=== PATIENT | female | born 1935 | race Caucasian/White ===

== ENCOUNTER 2023-04-12 15:23 | Outpatient (OUT) | payer OTHER, SELFPAY ==
--- NOTE | 2023-04-12 | XR_ITS ---
The [address] [address] Patient Name: DONA NAGY MRN: [id number] date: 1935 Sex: F Assigned Patient Location: LAB Current Patient Location: LAB Accession/Order Number: [id number] Exam Date: 04/12/2023 15:51 Report Date: 04/13/2023 06:29 At the request of: JAAD LOWE Procedure: XR hip MINI EXAMINATION: XR hip MINI HISTORY: Acute hip Pain, M25.559 COMPARISON: No relevant comparison available. FINDINGS: RIGHT FINDINGS: BONES: Normal. No significant arthropathy or acute abnormality. SOFT TISSUES: Negative. No visible soft tissue swelling. OTHER: Suture line in the low pelvis. LEFT FINDINGS: BONES: Normal. No significant arthropathy or acute abnormality. SOFT TISSUES: Negative. No visible soft tissue swelling. OTHER: Negative. IMPRESSION: RIGHT CONCLUSION: No acute radiographic abnormality LEFT CONCLUSION: No acute radiographic abnormality Electronically authenticated by: DAVID MERCADO Date: 04/13/2023 06:29
--- NOTE | 2023-04-12 15:50 | XR_ITS ---
The [address] [address] Patient Name: DONA NAGY MRN: [id number] date: 1935 Sex: F Assigned Patient Location: LAB Current Patient Location: LAB Accession/Order Number: [id number] Exam Date: 04/12/2023 15:51 Report Date: 04/13/2023 07:08 At the request of: JADA LOWE Procedure: XR abdomen 1V EXAMINATION: XR abdomen 1V HISTORY: Emesis, R11.10 COMPARISON: No relevant comparison available. FINDINGS: BOWEL GAS PATTERN: No abnormal dilation or deviation. CALCIFICATIONS: None significant. OTHER: Moderate degenerative changes with rotatory dextrocurvature. No abnormal gaseous collections. Suture line in the pelvis. Pelvic calcifications likely vascular phleboliths IMPRESSION: Nonobstructive bowel gas pattern Electronically authenticated by: DAVID MERCADO Date: 04/13/2023 07:08
[2023-04-12 15:54] LABS: Basophils Absolute Auto 0.1 10^3/uL (0.0-0.1); Basophils Percent Auto 0.7 % (0.2-2.0); Eosinophils Absolute Auto 0.1 10^3/uL (0.0-0.7); Eosinophils Percent Auto 1.1 % (0.9-7.0); Hematocrit 39.6 % (36.0-48.0); Hemoglobin 13.3 g/dL (12.0-16.0); Immature Granulocytes Abs Auto 0.03 10^3/uL (0.00-0.03); Immature Granulocytes Pct Auto 0.3 % (0.0-0.5); Lymphocytes Absolute Auto 4.4 10^3/uL (1.2-3.8); Lymphocytes Percent Auto 37.7 % (20.5-60.0); Mean Corpuscular HGB Conc 33.6 g/dL (29.9-35.2); Mean Corpuscular Hemoglobin 32.9 pg (26.7-34.0); Mean Platelet Volume 9.4 fL (9.5-13.5); Monocytes Percent Auto 8.8 % (1.7-12.0); Neutrophils Percent Auto 51.4 % (43.0-75.0); Platelet Count 302 10^3/uL (150-450); Red Blood Count 4.04 10^6/uL (4.20-5.40); Red Cell Distribution Width 14.5 % (11.0-15.0); White Blood Count 11.7 10^3/uL (4.0-11.0)
[2023-04-12 16:47] LABS: Alanine Aminotransferase 19 U/L (14-59); Albumin Level 3.9 g/dL (3.4-5.0); Alkaline Phosphatase 61 U/L (46-116); Amylase 100 U/L (25-115); Anion Gap 15.3; Aspartate Amino Transferase 18 U/L (15-37); BUN Creatinine Ratio 27.6; Bilirubin Total 0.3 mg/dL (0.2-1.0); Calcium 10.9 mg/dL (8.5-10.1); Carbon Dioxide 23.3 mmol/L (21.0-32.0); Chloride 104 mmol/L (98-107); Estimated GFR (African America 45 (>=60); Estimated GFR (Non-African Ame 37 (>=60); Globulin 3.9 g/dL; Glucose 104 mg/dL (74-106); Potassium 4.6 mmol/L (3.5-5.1); Sodium 138 mmol/L (136-145); Total Protein 7.8 g/dL (6.4-8.2)
== END 2023-04-12 15:24 ==
LOC: LAB 15:27
PROVIDERS: PCP Family Medicine; Visit Provider Family Medicine
DX: R11.10 Vomiting, unspecified (principal); M25.559 Pain in unspecified hip
CPT/HCPCS: 36415; 73522; 74018; 80053; 81001; 82150; 83690; 85025; 86677

== ENCOUNTER 2023-04-13 11:22 | Outpatient (REF) | payer OTHER, SELFPAY ==
[2023-04-13 12:25] LABS: Bilirubin Urine NEGATIVE (NEGATIVE); Blood Urine NEGATIVE (NEGATIVE); Color Urine LT. YELLOW (YELLOW); Glucose Urine UA NEGATIVE (NEGATIVE); Ketones Urine NEGATIVE (NEGATIVE); Leukocyte Esterase Urine NEGATIVE (NEGATIVE); Nitrite Urine NEGATIVE (NEGATIVE); Protein Urine NEGATIVE (NEG/TRACE); Specific Gravity Urine 1.025 (1.005-1.025); Urobilinogen Urine 0.2 EU/dL (0.2-1.0); pH Urine 5.5 (5.0-9.0)
[2023-04-13 12:26] LABS: Clarity Urine SLIGHTLY CLOUDY (CLEAR)
== END 2023-04-13 11:23 ==
LOC: LAB 11:22
PROVIDERS: PCP Family Medicine; Visit Provider Family Medicine
DX: R11.10 Vomiting, unspecified (principal)
CPT/HCPCS: 81003; 87086; 87150; 87186

== ENCOUNTER 2023-04-14 16:15 | Observation (INO) | payer OTHER, SELFPAY ==
[2023-04-14 16:29] VITALS: BP 138/64; PULSE 69; RESP 16; TEMP 36.1; O2SAT 97; BMI 18.6
--- NOTE | 2023-04-14 17:39 | CT_ITS ---
The [address] [address] Patient Name: DONA NAGY MRN: [id number] date: 1935 Sex: F Assigned Patient Location: LAB Current Patient Location: [place] Accession/Order Number: [id number] Exam Date: 04/14/2023 20:30 Report Date: 04/14/2023 21:22 At the request of: JADA LOWE Procedure: CT abdomen pelvis w con EXAM: CT abdomen pelvis w con HISTORY: recurrent emesis COMPARISON: 04/01/2022 TECHNIQUE: Axial CT imaging was performed through the abdomen and pelvis with intravenous contrast. Multiplanar reformats were performed. Dose reduction techniques were achieved by using automated exposure control and/or adjustment of mA and/or kV according to patient size and/or use of iterative reconstruction technique. FINDINGS: Lung bases: There are mild bibasilar infiltrates, likely representing atelectasis. GI upper: Unremarkable. Liver: Normal size and contour. Gallbladder: Prior cholecystectomy. Biliary system: No intra or extrahepatic biliary ductal dilatation. Pancreas: Unremarkable. Spleen: Normal size. Several calcified splenic granulomas are noted. Adrenal glands: Normal adrenal glands. Kidneys/ureters: There is moderate right hydronephrosis and proximal right hydroureter associated with a 4 mm calculus within the right ureter where it crosses the iliac vessels. No additional intrarenal calculus is appreciated. There is mild left hydronephrosis, though not associated with a ureteral calculus. No left intrarenal calculus is identified. Both kidneys are normal in outline and shape. Vessels: No aneurysmal dilatation of the aorta. Atherosclerotic disease is noted. Lymph Nodes: No lymphadenopathy. Small bowel: No wall thickening or dilatation. Colon: There are several sigmoid diverticuli. Adjacent fat planes are normal. There has been a partial sigmoid resection, with surgical deisy marking the rectal anastomotic site. Appendix: There is a prior history of appendectomy Peritoneal cavity: No free fluid or pneumoperitoneum. Lower : A small calcification is seen at the ureteral bladder orifice. This was also seen on the prior study of one year ago. Bones:Lumbar spondylosis. No acute bony abnormality. Soft tissues: No acute finding. Additional findings: None. IMPRESSION: 4 mm distal right ureteral calculus with resulting moderate upstream obstructive change. No additional right intrarenal calculus is identified. Mild left hydronephrosis. This was not seen on the prior study of one year ago. However, no left ureteral calculus is identified. Sigmoid diverticulosis without CT evidence for diverticulitis. There are findings associated with previous partial sigmoid resection. Mild bibasilar infiltrates, likely originating atelectasis. Electronically authenticated by: Madhu MCWILLIAMS Date: 04/14/2023 21:22
[2023-04-14] MEDS: LACTATED RINGER'S SOLUTION 1,000 ML 125 ML IV (18:16)
[2023-04-14] MEDS: 0.9 % SODIUM CHLORIDE 500 ML 1000 ML IV (18:17)
[2023-04-14] MEDS: METOCLOPRAMIDE HCL 10 MG/2 ML VIAL IVP (18:17)
[2023-04-14 18:21] LABS: Basophils Absolute Auto 0.1 10^3/uL (0.0-0.1); Basophils Percent Auto 0.8 % (0.2-2.0); Eosinophils Absolute Auto 0.1 10^3/uL (0.0-0.7); Hematocrit 39.1 % (36.0-48.0); Hemoglobin 13.3 g/dL (12.0-16.0); Immature Granulocytes Abs Auto 0.02 10^3/uL (0.00-0.03); Immature Granulocytes Pct Auto 0.3 % (0.0-0.5); Lymphocytes Absolute Auto 3.4 10^3/uL (1.2-3.8); Lymphocytes Percent Auto 43.9 % (20.5-60.0); Mean Corpuscular Hemoglobin 33.3 pg (26.7-34.0); Mean Corpuscular Volume 97.8 fL (81.0-99.0); Mean Platelet Volume 9.4 fL (9.5-13.5); Monocytes Absolute Auto 0.7 10^3/uL (0.3-0.8); Monocytes Percent Auto 8.9 % (1.7-12.0); Neutrophils Absolute Auto 3.5 10^3/uL (1.4-6.5); Neutrophils Percent Auto 45.1 % (43.0-75.0); Platelet Count 289 10^3/uL (150-450); Red Cell Distribution Width 14.2 % (11.0-15.0); White Blood Count 7.7 10^3/uL (4.0-11.0)
[2023-04-14 18:29] LABS: Ammonia 14 umol/L (11-32)
[2023-04-14 18:36] LABS: Lactate/Lactic Acid 0.7 mmol/L (0.4-2.0)
[2023-04-14 18:43] LABS: Erythrocyte Sedimentation Rate 31 mm/hr (<=30)
[2023-04-14 18:52] LABS: Alanine Aminotransferase 19 U/L (14-59); Albumin Globulin Ratio 1.1; Alkaline Phosphatase 57 U/L (46-116); Amylase 111 U/L (25-115); Anion Gap 15.9; Aspartate Amino Transferase 20 U/L (15-37); BUN Creatinine Ratio 18.6; Bilirubin Total 0.3 mg/dL (0.2-1.0); Calcium 9.9 mg/dL (8.5-10.1); Carbon Dioxide 25.5 mmol/L (21.0-32.0); Chloride 104 mmol/L (98-107); Creatine Kinase 74 U/L (26-192); Creatine Kinase MB 0.68 ng/mL (<=3.60); Estimated GFR (African America 43 (>=60); Estimated GFR (Non-African Ame 36 (>=60); Globulin 3.7 g/dL; Glucose 102 mg/dL (74-106); Magnesium 2.4 mg/dL (1.8-2.4); Myoglobin 37 ng/mL (9-82); Potassium 4.4 mmol/L (3.5-5.1); Sodium 141 mmol/L (136-145); Total Protein 7.7 g/dL (6.4-8.2); Troponin I High Sensitivity 5.1 pg/mL (4.0-51.3)
[2023-04-14] MEDS: PANTOPRAZOLE SODIUM 40 MG VIAL IV (19:44)
[2023-04-14 20:18] VITALS: O2SAT 95
[2023-04-14] MEDS: CEFTRIAXONE 1,000 MG in 0.9 % SODIUM CHLORIDE 50 ML 1000 MG IV (20:51)
[2023-04-14] MEDS: CIPROFLOXACIN IN 5 % DEXTROSE 400 MG/200 ML PIGGYBACK 200 MG IV (21:37)
[2023-04-14] MEDS: HYOSCYAMINE SULFATE 0.125 MG TAB.SUBL PO (21:41)
[2023-04-15] VITALS (13 sets, daily range): BP systolic 124–156; BP diastolic 52–82; PULSE 73–97; RESP 10–18; TEMP 36.4–36.7; O2SAT 92–97; BMI 18.6
[2023-04-15] MEDS: METOCLOPRAMIDE HCL 10 MG/2 ML VIAL IVP ×5 (00:37→23:18)
[2023-04-15 04:59] LABS: Basophils Absolute Auto 0.1 10^3/uL (0.0-0.1); Basophils Percent Auto 1.1 % (0.2-2.0); Eosinophils Absolute Auto 0.2 10^3/uL (0.0-0.7); Eosinophils Percent Auto 2.1 % (0.9-7.0); Hemoglobin 11.1 g/dL (12.0-16.0); Immature Granulocytes Abs Auto 0.02 10^3/uL (0.00-0.03); Immature Granulocytes Pct Auto 0.3 % (0.0-0.5); Lymphocytes Absolute Auto 3.1 10^3/uL (1.2-3.8); Lymphocytes Percent Auto 42.4 % (20.5-60.0); Mean Corpuscular HGB Conc 32.6 g/dL (29.9-35.2); Mean Corpuscular Hemoglobin 32.5 pg (26.7-34.0); Mean Corpuscular Volume 99.4 fL (81.0-99.0); Mean Platelet Volume 9.9 fL (9.5-13.5); Monocytes Absolute Auto 0.8 10^3/uL (0.3-0.8); Monocytes Percent Auto 11.5 % (1.7-12.0); Neutrophils Absolute Auto 3.1 10^3/uL (1.4-6.5); Neutrophils Percent Auto 42.6 % (43.0-75.0); Platelet Count 244 10^3/uL (150-450); Red Blood Count 3.42 10^6/uL (4.20-5.40); Red Cell Distribution Width 14.5 % (11.0-15.0); White Blood Count 7.2 10^3/uL (4.0-11.0)
[2023-04-15 05:43] LABS: Alanine Aminotransferase 16 U/L (14-59); Albumin Globulin Ratio 0.9; Albumin Level 2.9 g/dL (3.4-5.0); Alkaline Phosphatase 46 U/L (46-116); Amylase 82 U/L (25-115); Anion Gap 13.4; Aspartate Amino Transferase 21 U/L (15-37); BUN Creatinine Ratio 16.4; Bilirubin Total 0.2 mg/dL (0.2-1.0); Calcium 8.9 mg/dL (8.5-10.1); Carbon Dioxide 23.1 mmol/L (21.0-32.0); Chloride 107 mmol/L (98-107); Estimated GFR (African America 54 (>=60); Estimated GFR (Non-African Ame 44 (>=60); Globulin 3.2 g/dL; Glucose 86 mg/dL (74-106); Magnesium 2.1 mg/dL (1.8-2.4); Potassium 4.5 mmol/L (3.5-5.1); Sodium 139 mmol/L (136-145); Total Protein 6.1 g/dL (6.4-8.2)
[2023-04-15] MEDS: OXYBUTYNIN chloride 5 MG TABLET PO ×2 (06:04→18:24)
[2023-04-15] MEDS: LEVOTHYROXINE SODIUM 25 MCG TABLET 50 MCG PO (06:04)
[2023-04-15] MEDS: LACTATED RINGER'S SOLUTION 1,000 ML 125 ML IV ×2 (06:04→18:30)
--- NOTE | 2023-04-15 07:29 | XR_ITS ---
The [address] [address] Patient Name: DONA NAGY MRN: [id number] date: 1935 Sex: F Assigned Patient Location: MS Current Patient Location: MS Accession/Order Number: [id number] Exam Date: 04/15/2023 08:15 Report Date: 04/15/2023 09:12 At the request of: JADA LOWE Procedure: XR abdomen min 2V EXAMINATION: XR abdomen min 2V HISTORY: kidney stone COMPARISON: CT abdomen pelvis 04/14/2023, XR abdomen 04/12/2023, 04/04/2022 FINDINGS: KIDNEY/URETER - RIGHT: No visible renal or ureteral calcifications. KIDNEY/URETER - LEFT: No visible renal or ureteral calcifications. PELVIS: No appreciable ureteral stones. Multiple pelvic calcifications favoring phleboliths. BOWEL: No abnormal dilation or deviation. Oral contrast from prior CT study throughout the colon. Bowel sutures within midline pelvis. BONES: No acute abnormality. OTHER: Negative. No abnormal gaseous collections. IMPRESSION: 1. No appreciable urinary tract calculi. Electronically authenticated by: SULAIMAN MERCEDES Date: 04/15/2023 09:12
--- NOTE | 2023-04-15 07:46 | P.HP_ITS ---
H&P: HPI History of Present Illness Chief complaint: DEHYDRATION Narrative: Patient was seen and evaluated in the office a couple times over the last week or so just with feeling nauseated having recurrent emesis she was able to keep some fluids down but they went to start vomiting, she had right-sided groin desi n. Patient was treated with oral medications without success, we saw her in the office in follow-up yesterday still with the hyperemesis and elected to admit patient for dehydration. Evaluation so far has shown 4 mm right-sided kidney stone Review of Systems ROS Status of ROS 10 or more systems reviewed and unremarkable except as noted in history and below [facility] Medical History (Updated 04/15/23 @ 08:15 by Jose Padilla MD) Surgical History (Updated 04/14/23 @ 16:41 by Kimberly Dunham RN) Family History (Updated 04/14/23 @ 16:42 by Kimberly Dunham RN) Brother Family history of CHF (congestive heart failure) Family history of cancer Family history of diabetes mellitus Sister Family history of diabetes mellitus Mother Family history of diabetes mellitus Social History (Updated 04/14/23 @ 16:46 by Kimberly Dunham RN) Within the past year, how often did you have a drink containing alcohol: never Score interpretation: A score less than 3 is consistent with normal alcohol consumption. Smoking status: Former smoker Non-prescribed substance use: denies use Previous occupational history: Retired from Highest level of school completed/degree received: 10th grade Are you now , , , , never or living with a partner: In a typical week, how many times do you talk on the telephone with family, friends, or neighbors: 3 or more times per week How often do you get together with friends or relatives: 3 or more times per week Little interest or pleasure in doing things: not at all Feeling down, depressed, or hopeless: not at all Feel stressed/tense/nervous/anxious/difficulty sleeping: only a little Do you think of yourself as: straight/heterosexual Gender Identity: female Meds Home Medications and Allergies Home Medications Medication Instructions Recorded Confirmed Type acetaminophen 650 mg 650 mg PO Q8H PRN pain 04/14/23 04/14/23 History tablet,extended release (Tylenol Arthritis Pain) bupropion HCl 150 mg 24 hr tablet, 150 mg PO DAILY 04/14/23 04/14/23 History extended release levothyroxine 50 mcg tablet 50 mcg PO DAILY 04/14/23 04/14/23 History meloxicam 7.5 mg tablet 7.5 mg PO DAILY 04/14/23 04/14/23 History oxybutynin chloride 5 mg tablet 5 mg PO Q12H 04/14/23 04/14/23 History trolamine salicylate 10 % topical 1 applic topical DAILY 04/14/23 04/14/23 History cream (Aspercreme) Allergies Allergy/AdvReac Type Severity Reaction Status Date / Time No Known Drug Allergies Allergy Verified 04/14/23 18:31 Exam Constitutional Vital Signs - 24 hr 04/14/23 16:29 04/14/23 20:18 04/15/23 03:09 Temperature 97.0 F L Pulse Rate 69 Respiratory Rate 16 16 Blood Pressure [Left Arm] 138/64 H Pulse Oximetry 97 95 Oxygen Delivery Method Room Air Room Air 04/15/23 04:20 04/15/23 05:17 Temperature 98 F Pulse Rate 80 Respiratory Rate 18 Blood Pressure [Left Arm] 129/73 H Pulse Oximetry 97 94 L Oxygen Delivery Method Room Air Room Air Common normals: no apparent distress Exam limitations: no altered mental status General appearance: cooperative and comfortable HENMT Common normals: moist oral mucous membranes Chest Common normals: inspection of chest normal Respiratory Common normals: normal respiratory effort Cardio Common normals: regular rate, no gallops, no clicks and no murmurs GI Palpation: soft and tender Extremity Common normals: normal to inspection Results Labs Labs: Short CBC 04/14/23 04/15/23 Range/Units 18:00 04:05 WBC 7.7 7.2 (4.0-11.0) 10^3/uL Hgb 13.3 11.1 L (12.0-16.0) g/dL Hct 39.1 34.0 L (36.0-48.0) % Plt Count 289 244 (150-450) 10^3/uL [facility] 04/14/23 04/15/23 18:00 04:05 Sodium 141 139 Potassium 4.4 4.5 Chloride 104 107 Carbon Dioxide 25.5 23.1 BUN 26.0 H 19.0 H Creatinine 1.40 H 1.16 H Glucose 102 86 Calcium 9.9 8.9 Cardiac Enzymes 04/14/23 Range/Units 18:00 Total Creatine Kinase 74 (26-192) U/L CK-MB (CK-2) 0.68 (<=3.60) ng/mL Liver Function 04/14/23 04/15/23 Range/Units 18:00 04:05 Total Bilirubin 0.3 0.2 (0.2-1.0) mg/dL AST 20 21 (15-37) U/L ALT 19 16 (14-59) U/L Alkaline Phosphatase 57 46 (46-116) U/L Albumin 4.0 2.9 L (3.4-5.0) g/dL Assessment and Plan Assessment and Plan (1) Hypothyroid: (2) Right nephrolithiasis: (3) Hydronephrosis of right kidney: (4) Iron deficiency anemia: (5) Acute urinary tract infection: (6) Dehydration: Plan Leukocytosis, right flank pain, recurrent emesis with dehydration secondary to 4 mm right-sided distal ureter kidney stone with moderate hydronephrosis, positive urine culture with Klebsiella pneumonia-patient started on antibiotics yesterday, consultation to urology for evaluation and possible stone removal today. Discussed with daughter Iron deficiency anemia monitor daily Acute kidney injury secondary to dehydration-improving Moderate protein calorie malnutrition-diet management Maintain observation status for now, patient likely to have difficult course post stone removal with high risk for sepsis secondary to Klebsiella pneumonia in the stone, 1 additional midnight stay may be necessary for medical management.
--- NOTE | 2023-04-15 08:13 | ECG_ITS ---
The [facility] Test Date: 2023-04-15 Pat Name: Brit Rodriguez Department: Room: Gender: Female [employer] Machine: : 1935 Requested By: JADA LOWE Order Number: [id number] Reading MD: JADA LOWE Measurements Intervals [place] Rate: 79 P: 63 ND: 162 QRS: 39 QRSD: 69 T: 44 QT: 364 QTc: 418 Interpretive Statements SINUS RHYTHM NONSPECIFIC T-WAVE ABNORMALITY No previous ECG available for comparison Electronically Signed On 04-16-2023 7:04:19 EDT by JADA LOWE
[2023-04-15] MEDS: CIPROFLOXACIN IN 5 % DEXTROSE 400 MG/200 ML PIGGYBACK 200 MG IV ×2 (08:31→18:25)
[2023-04-15] MEDS: HYOSCYAMINE SULFATE 0.125 MG TAB.SUBL PO ×3 (08:31→19:44)
--- NOTE | 2023-04-15 09:10 | XR_ITS ---
The [address] [address] Patient Name: DONA NAGY MRN: [id number] date: 1935 Sex: F Assigned Patient Location: MS Current Patient Location: MS Accession/Order Number: [id number] Exam Date: 04/15/2023 09:10 Report Date: 04/15/2023 09:46 At the request of: ALMA ROSA GRANT Procedure: XR chest 2V EXAMINATION: XR chest 2V HISTORY: SOB ; presurgical evaluation COMPARISON: XR abdomen with PA chest 04/04/2022 FINDINGS: LUNGS: Hyperexpanded lungs. No appreciable infiltrates or mass. Stable opacities filling the cardio-diaphragmatic angle favoring prominent pericardial fat pads. VASCULATURE: No increased pulmonary vasculature. PLEURA: No pneumothorax, effusion, or pleural thickening. CARDIAC: No cardiomegaly or cardiac silhouette abnormality. MEDIASTINUM: No visible mass or adenopathy. BONES: No fracture or visible bone lesion. OTHER: Negative. IMPRESSION: 1. No acute cardiopulmonary process. 2. Hyperexpanded lungs compatible with COPD. Electronically authenticated by: SULAIMAN MERCEDES Date: 04/15/2023 09:46
--- NOTE | 2023-04-15 12:21 | SWNOTE1 ---
SW met with pt and daughter in room to discuss dc needs. Pt lives at home by herself, has good family support to check on her. Pt does admit to having falls at home, she stated she just lays down on the ground. Pt uses a walker at home, her daughter stated family did get her a life alert button as well. Daughter did discuss code status with SW, currently pt is a full code, which is what they want. SW advised to talk with PCP if any other questions. Daughter did have POA and living will information. SW spoke with them about the possibility of home health coming in. Physical therapy did stop in earlier, but pt was getting testing done. SW let pt and daughter know we will see how therapy eval goes and then determine dc needs. SW did bring up possibility of rehab, depending on how pt does.
--- NOTE | 2023-04-15 16:45 | P.CN_ITS ---
Consult Note: HPI Data of Consult Patient: new to practice Consult date: 04/15/23 Requesting Physician: Jose Padilla MD Primary Care Provider: Jose Padilla MD Consult Narrative Reason for consult: urinary tract infection and ureteral calculus Narrative: this lady started having acute right sided back pain a couple months ago. She developed nausea and right groin pain within the last few weeks. She was admitted to the hospital and found to have a urinary tract infection and 4 mm right distal ureteral calculus. She has been on Rocephin and Cipro. Urology was consulted for the above reasons. Upon questioning her further she states that she began having right-sided pain a couple months ago. She also had bouts of syncope. Her 1st urinary infection was about a year ago cc:: CC: Jose Padilla MD Review of Systems ROS Status of ROS 10 or more systems reviewed and unremarkable except as noted in history and below [facility] Medical History Surgical History Family History Brother Family history of CHF (congestive heart failure) Family history of cancer Family history of diabetes mellitus Sister Family history of diabetes mellitus Mother Family history of diabetes mellitus Social History Within the past year, how often did you have a drink containing alcohol: never Score interpretation: A score less than 3 is consistent with normal alcohol consumption. Smoking status: Former smoker Non-prescribed substance use: denies use Previous occupational history: Retired from Highest level of school completed/degree received: 10th grade Are you now , , , , never or living with a partner: In a typical week, how many times do you talk on the telephone with family, friends, or neighbors: 3 or more times per week How often do you get together with friends or relatives: 3 or more times per week Little interest or pleasure in doing things: not at all Feeling down, depressed, or hopeless: not at all Feel stressed/tense/nervous/anxious/difficulty sleeping: only a little Do you think of yourself as: straight/heterosexual Gender Identity: female Meds Home Medications and Allergies Home Medications Medication Instructions Recorded Confirmed Type acetaminophen 650 mg 650 mg PO Q8H PRN pain 04/14/23 04/14/23 History tablet,extended release (Tylenol Arthritis Pain) bupropion HCl 150 mg 24 hr tablet, 150 mg PO DAILY 04/14/23 04/14/23 History extended release levothyroxine 50 mcg tablet 50 mcg PO DAILY 04/14/23 04/14/23 History meloxicam 7.5 mg tablet 7.5 mg PO DAILY 04/14/23 04/14/23 History oxybutynin chloride 5 mg tablet 5 mg PO Q12H 04/14/23 04/14/23 History trolamine salicylate 10 % topical 1 applic topical DAILY 04/14/23 04/14/23 History cream (Aspercreme) Allergies Allergy/AdvReac Type Severity Reaction Status Date / Time No Known Drug Allergies Allergy Verified 04/14/23 18:31 Exam Narrative Exam Narrative: she is resting comfortably in her hospital bed. She is in no acute distress. Her abdomen is soft and tender in the right lower quadrant and the rright CVA. No masses are palpable. Constitutional Vital Signs - 24 hr 04/14/23 20:18 04/15/23 03:09 04/15/23 04:20 Temperature Pulse Rate Respiratory Rate 16 Blood Pressure [Left Arm] Pulse Oximetry 95 97 Oxygen Delivery Method Room Air Room Air Fraction of Inspired Oxygen 04/15/23 05:17 04/15/23 09:47 04/15/23 14:16 Temperature 98 F 97.6 F Pulse Rate 80 97 H Respiratory Rate 18 16 Blood Pressure [Left Arm] 129/73 H 142/82 H Pulse Oximetry 94 L 94 L Oxygen Delivery Method Room Air Room Air Room Air Fraction of Inspired Oxygen 95 Results Labs Labs: Short CBC 04/14/23 04/15/23 Range/Units 18:00 04:05 WBC 7.7 7.2 (4.0-11.0) 10^3/uL Hgb 13.3 11.1 L (12.0-16.0) g/dL Hct 39.1 34.0 L (36.0-48.0) % Plt Count 289 244 (150-450) 10^3/uL BMP 04/14/23 04/15/23 18:00 04:05 Sodium 141 139 Potassium 4.4 4.5 Chloride 104 107 Carbon Dioxide 25.5 23.1 BUN 26.0 H 19.0 H Creatinine 1.40 H 1.16 H Glucose 102 86 Calcium 9.9 8.9 Cardiac Enzymes 04/14/23 Range/Units 18:00 Total Creatine Kinase 74 (26-192) U/L CK-MB (CK-2) 0.68 (<=3.60) ng/mL Liver Function 04/14/23 04/15/23 Range/Units 18:00 04:05 Total Bilirubin 0.3 0.2 (0.2-1.0) mg/dL AST 20 21 (15-37) U/L ALT 19 16 (14-59) U/L Alkaline Phosphatase 57 46 (46-116) U/L Albumin 4.0 2.9 L (3.4-5.0) g/dL Assessment and Plan Assessment and Plan (1) Hypothyroid: (2) Right nephrolithiasis: Assessment and Plan: by CT scan, she has a 4 mm right distal ureteral calculus causing ipsilateral hydronephrosis and probably her urinary tract infection. Follow-up KUB x-ray today does not reveal a half and the stone in the area. since she is still having right flank pain and she is tender by exam and she has a urinary tract infection, we're going to do cystoscopy, right ureteroscopy, possible stone manipulation and right stent placement. This has been reviewed with the patient and her daughter. They are in agreement with proceeding with this plan. Over 30 minutes of clinical time was spent talking with the family doctor, daughter and the patient, reviewing her chart and x-ray films and examining the patient. Thank you for letting me take part in her care. (3) Hydronephrosis of right kidney: (4) Iron deficiency anemia: (5) Acute urinary tract infection: (6) Dehydration: Plan Leukocytosis, right flank pain, recurrent emesis with dehydration secondary to 4 mm right-sided distal ureter kidney stone with moderate hydronephrosis, positive urine culture with Klebsiella pneumonia-patient started on antibiotics ye day, consultation to urology for evaluation and possible stone removal today. Discussed with daughter Iron deficiency anemia monitor daily Acute kidney injury secondary to dehydration-improving Moderate protein calorie malnutrition-diet management Maintain observation status for now, patient likely to have difficult course post stone removal with high risk for sepsis secondary to Klebsiella pneumonia in the stone, 1 additional midnight stay may be necessary for medical management.
--- NOTE | 2023-04-15 16:56 | P.URON_ITS ---
Urology Surgery Operative Note Operative Note Procedure Date: 04/15/23 Time Out Performed: yes Pre-op Diagnosis: right flank pain and right distal ureteral calculus Post-op Diagnosis: passed right distal ureteral calculus and right distal ureteral stenosis Procedures performed: #1. Cystoscopy. #2. Right rigid ureteral dilation. #3. Right ureteroscopy. #4.placement of 6 Belgian variable length right ureteral stent Anesthesia: other (Gen. by LMA) Primary Surgeon: Shadi Sorto Complications: non- Estimated blood loss (mL): 0 Findings: #1. Distal right ureteral stricture. #2. No evidence of ureteral calculus. Specimens: non- Drains: none Indications for Procedures: this lady has right flank pain, urinary tract infection and 4 mm right distal u reteral calculus. She now presents for cystoscopy right ureteroscopy, possible stone manipulation and stent placement. She has signed an informed consent for these procedures after all the risks were explained to her. Detailed description of Procedure: The patient was brought to the operating room and placed on the operating room table in the supine position. SCDs were placed on the lower extremities and turned on and functioning during the entire case. Timeout was done by all parties in the room. We all agreed upon the patient's identification and the planned procedures for this patient. Genn. anesthesia was then administered. The patient was then repositioned into the modified dorsal lithotomy position. All pressure points were satisfactorily padded. Genitalia were sterilely prepped and draped in usual fashion.I started by passing a 22 Belgian Olympus cystoscope per urethra and into the bladder. Panendoscopy in the bladder showed no evidence of any tumors or stones. I then passed a Glidewire through the scope and cannulated the right ureter. The wire went up to the kidney without difficulty. There was an immediate E flux of cloudy urine within the bladder. I then passed a 8 and 10 Belgian rigid dilator to dilate the distal ureter. This was somewhat difficult due to a stricture being present.. The scope was removed. I then passed a semirigid ureteroscope adjacent to the wire through the urethra into the bladder and into the right ureter. I then ascended up to the L5 level and back. There was no evidence of any stone. In the distal 2 cm of the ureter there was a stricture that was now dilated. The scope was removed. I then backloaded the cystoscope over the wire and passed it into the bladder. I then slid a 6 Belgian variable length ureteral stent over the wire up into the right kidney. The wire was removed and there were good curls in the kidney and in the bladder. The bladder was drained of its contents and the scope was then removed. She was then transferred to a [facility] bed and wheeled to PACU in stable condition.
[2023-04-15] MEDS: PANTOPRAZOLE SODIUM 40 MG VIAL IV (19:43)
[2023-04-15] MEDS: CEFTRIAXONE 1,000 MG in 0.9 % SODIUM CHLORIDE 50 ML 100 MG IV (19:44)
[2023-04-15] MEDS: ACETAMINOPHEN 500 MG TABLET PO (19:54)
--- NOTE | 2023-04-15 20:27 | PC.NURSE ---
light pink/ reddish
[2023-04-16 01:51] LABS: Bilirubin Urine NEGATIVE (NEGATIVE); Blood Urine LARGE (NEGATIVE); Clarity Urine CLEAR (CLEAR); Color Urine LT. YELLOW (YELLOW); Glucose Urine UA 100 mg/dL (NEGATIVE); Ketones Urine TRACE mg/dL (NEGATIVE); Leukocyte Esterase Urine NEGATIVE (NEGATIVE); Nitrite Urine NEGATIVE (NEGATIVE); Protein Urine 30 mg/dL (NEG/TRACE); Specific Gravity Urine 1.015 (1.005-1.025); Urobilinogen Urine 0.2 EU/dL (0.2-1.0); pH Urine 7.5 (5.0-9.0)
[2023-04-16 01:57] LABS: Bacteria Urine NONE SEEN #/HPF (NONE SEEN); Cast Seen? NONE SEEN #/LPF (NONE SEEN); Crystals Seen? None Seen #/HPF (None Seen); Mucus Urine NONE SEEN (NONE SEEN); RBC Urine 20-50 #/HPF (0-2); Squamous Epithelial Cell Urine RARE #/LPF (NONE/RARE); WBC Urine NONE SEEN #/HPF (NONE SEEN)
[2023-04-16 01:58] LABS: Urine Culture Indicated NO
[2023-04-16] MEDS: LACTATED RINGER'S SOLUTION 1,000 ML 125 ML IV (02:50)
[2023-04-16 04:16] VITALS: O2SAT 92
[2023-04-16 05:02] LABS: Basophils Percent Auto 0.2 % (0.2-2.0); Hematocrit 33.4 % (36.0-48.0); Hemoglobin 11.1 g/dL (12.0-16.0); Immature Granulocytes Abs Auto 0.02 10^3/uL (0.00-0.03); Immature Granulocytes Pct Auto 0.4 % (0.0-0.5); Lymphocytes Absolute Auto 1.7 10^3/uL (1.2-3.8); Lymphocytes Percent Auto 30.6 % (20.5-60.0); Mean Corpuscular HGB Conc 33.2 g/dL (29.9-35.2); Mean Corpuscular Volume 99.4 fL (81.0-99.0); Monocytes Absolute Auto 0.3 10^3/uL (0.3-0.8); Monocytes Percent Auto 6.1 % (1.7-12.0); Neutrophils Absolute Auto 3.4 10^3/uL (1.4-6.5); Neutrophils Percent Auto 62.7 % (43.0-75.0); Platelet Count 249 10^3/uL (150-450); Red Blood Count 3.36 10^6/uL (4.20-5.40); White Blood Count 5.4 10^3/uL (4.0-11.0)
[2023-04-16] MEDS: METOCLOPRAMIDE HCL 10 MG/2 ML VIAL IVP (05:20)
[2023-04-16 05:23] LABS: Alanine Aminotransferase 17 U/L (14-59); Albumin Level 3.1 g/dL (3.4-5.0); Alkaline Phosphatase 47 U/L (46-116); Aspartate Amino Transferase 19 U/L (15-37); BUN Creatinine Ratio 11.2; Bilirubin Total 0.2 mg/dL (0.2-1.0); Calcium 9.1 mg/dL (8.5-10.1); Carbon Dioxide 25.2 mmol/L (21.0-32.0); Chloride 106 mmol/L (98-107); Estimated GFR (African America 49 (>=60); Estimated GFR (Non-African Ame 41 (>=60); Globulin 3.1 g/dL; Glucose 139 mg/dL (74-106); Potassium 4.2 mmol/L (3.5-5.1); Sodium 139 mmol/L (136-145); Total Protein 6.2 g/dL (6.4-8.2)
[2023-04-16 05:40] VITALS: BP 133/68; PULSE 88; RESP 18; TEMP 36.8; O2SAT 91
[2023-04-16] MEDS: OXYBUTYNIN chloride 5 MG TABLET PO (05:41)
[2023-04-16] MEDS: LEVOTHYROXINE SODIUM 25 MCG TABLET 50 MCG PO (05:41)
--- NOTE | 2023-04-16 07:50 | P.DS_ITS ---
DS: Providers Provider Date of admission: 04/14/23 16:15 Primary care physician: Jose Padilla MD Consults: 04/14/23 17:39 Physical Therapy Eval and Treat Routine 04/15/23 07:29 Consult to Urology Routine Consulting Provider: Shadi Sorto DS: Diagnosis Discharge Diagnosis (1) Hypothyroid: (2) Right nephrolithiasis: (3) Hydronephrosis of right kidney: (4) Iron deficiency anemia: (5) Acute urinary tract infection: (6) Dehydration: Plan Leukocytosis, right flank pain, recurrent emesis with dehydration secondary to 4 mm right-sided distal ureter kidney stone with moderate hydronephrosis, positive urine culture with Klebsiella pneumonia Iron deficiency anemia Acute kidney injury secondary to dehydration Moderate protein calorie malnutrition DS: Summary Hospital Course Hospital Course: Patient was treated as an outpatient for recurrent nausea vomiting, unable to control emesis as an outpatient laboratory evaluation 2 days prior to admission was really unremarkable, abdominal series also unremarkable, continued to have symptoms and unable to eat patient was admitted given IV fluids CT scan of the abdomen pelvis showed a 4 mm distal right ureteral stone with moderate hydronephrosis, urine culture taken 2 days prior to admission came back as positive for Klebsiella pneumonia, patient was placed on IV antibiotics in the hospital, consultation to urology, patient was taken to the operating room yesterday, there was no stone was found but did have a stricture, so patient michelle arently passed the stone from the time of admission to procedure time, needed cystoscopy anyway secondary to the stricture. Stent was placed, will be managed as an outpatient, patient overall is improved, she does need to document ability to eat before being discharged. If she tolerates breakfast and lunch to be discharged home in improving condition. Medications see list. Follow-up with me next week in urology per protocol Status at Discharge Cognitive/behavioral status at discharge: Stable Functional status at discharge: uses cane/walker Time Spent with Patient Time attestation: Total time spent providing and/or coordinating discharge services: Exam Constitutional Vital Signs - 24 hr 04/15/23 09:47 04/15/23 14:16 04/15/23 16:48 Temperature 97.6 F 98.0 F Pulse Rate 97 H 82 Respiratory Rate 16 10 L Blood Pressure 138/55 H Blood Pressure [Left Arm] 142/82 H Pulse Oximetry 94 L 97 Oxygen Delivery Method Room Air Room Air Room Air Fraction of Inspired Oxygen 95 04/15/23 17:03 04/15/23 16:55 04/15/23 17:00 Temperature Pulse Rate 78 78 Respiratory Rate 12 12 Blood Pressure 139/52 H 137/52 H Blood Pressure [Left Arm] Pulse Oximetry 93 L 95 Oxygen Delivery Method Room Air Fraction of Inspired Oxygen 04/15/23 17:17 04/15/23 17:05 04/15/23 17:10 Temperature Pulse Rate 81 80 Respiratory Rate 12 12 Blood Pressure 143/59 H 146/57 H Blood Pressure [Left Arm] Pulse Oximetry 97 96 Oxygen Delivery Method Room Air Fraction of Inspired Oxygen 04/15/23 17:15 04/15/23 17:34 04/15/23 20:05 Temperature 98.0 F Pulse Rate 73 79 Respiratory Rate 12 18 Blood Pressure 144/62 H Blood Pressure [Left Arm] 156/72 H Pulse Oximetry 97 93 L 93 L Oxygen Delivery Method Room Air Room Air Fraction of Inspired Oxygen 04/15/23 21:46 04/16/23 04:16 04/16/23 05:40 Temperature 98.1 F 98.2 F Pulse Rate 83 88 Respiratory Rate 18 18 Blood Pressure Blood Pressure [Left Arm] 124/66 H 133/68 H Pulse Oximetry 92 L 92 L 91 L Oxygen Delivery Method Room Air Room Air Room Air Fraction of Inspired Oxygen HENMT Common normals: moist oral mucous membranes Chest Common normals: inspection of chest normal Respiratory Common normals: normal respiratory effort, no use of accessory muscles and clear to auscultation bilaterally Cardio Common normals: no JVD, regular rhythm, S2 normal heart sound and no gallops GI Common normals: Normal to inspection, nondistended, normoactive bowel sounds present, soft to palpation and non-tender DS: Data Data Completed and Pending Labs on day of discharge: Labs from last 24 hours 04/16/23 04/14/23 04/14/23 04:01 18:00 01:40 WBC 5.4 RBC 3.36 L Hgb 11.1 L Hct 33.4 L MCV 99.4 H MCH 33.0 MCHC 33.2 RDW 14.0 Plt Count 249 MPV 10.0 Neut % (Auto) 62.7 Lymph % (Auto) 30.6 [place] % (Auto) 6.1 Eos % (Auto) 0.0 L Baso % (Auto) 0.2 Neut # (Auto) 3.4 Lymph # (Auto) 1.7 [place] # (Auto) 0.3 Eos # (Auto) 0.0 Baso # (Auto) 0.0 Abs Immat Gran (auto) 0.02 Imm/Tot Granulo (auto) 0.4 ESR 31 H Sodium 139 Potassium 4.2 Chloride 106 Carbon Dioxide 25.2 Anion Gap 12.0 BUN 14.0 Creatinine 1.25 H Est GFR ( Amer) 49 L Est GFR (Non-Af Amer) 41 L BUN/Creatinine Ratio 11.2 Glucose 139 H Calcium 9.1 Total Bilirubin 0.2 AST 19 ALT 17 Alkaline Phosphatase 47 Total Protein 6.2 L Albumin 3.1 L Globulin 3.1 Albumin/Globulin Ratio 1.0 Urine Color Lt. yellow Urine Clarity Clear Urine pH 7.5 Ur Specific [place] 1.015 Urine Protein 30 A Urine Glucose (UA) 100 A Urine Ketones Trace A Urine Occult Blood Large A Urine Nitrite Negative Urine Bilirubin Negative Urine Urobilinogen 0.2 Ur Leukocyte Esterase Negative Urine RBC 20-50 A Urine WBC None seen Ur Squamous Epith Cells Rare Urine Crystals None seen Urine Bacteria None seen Urine Casts None seen Urine Mucus None seen Ur Culture Indicated? No Discharge Plan Discharge Disposition: Home, Self-Care (OBS FBC) Discharge Medications: New cefdinir 300 mg capsule 300 mg PO Q12H 10 Days Qty: 20 0RF Continued meloxicam 7.5 mg tablet 7.5 mg PO DAILY levothyroxine 50 mcg tablet 50 mcg PO DAILY oxybutynin chloride 5 mg tablet 5 mg PO Q12H bupropion HCl 150 mg tablet extended release 24 hr 150 mg PO DAILY trolamine salicylate [Aspercreme] 10 % cream 1 applic topical DAILY acetaminophen [Tylenol Arthritis Pain] 650 mg tablet extended release 650 mg PO Q8H PRN (Reason: pain) Forms: Portal Instructions
[2023-04-16] MEDS: MELOXICAM 7.5 MG TABLET PO (08:12)
[2023-04-16] MEDS: CIPROFLOXACIN IN 5 % DEXTROSE 400 MG/200 ML PIGGYBACK 200 MG IV (08:12)
[2023-04-16] MEDS: HYOSCYAMINE SULFATE 0.125 MG TAB.SUBL PO (08:12)
[2023-04-16] MEDS: BUPROPION HCL 150 MG XL TABLET 24H PO (08:12)
--- NOTE | 2023-04-16 08:47 | SWNOTE1 ---
SW spoke with pt and her daughter in the room. They spoke with Doctor this morning and they have decided they do not want any Home health services at this time. They are looking to do some more outpt testing, possible follow up with orthopedic. SW let them know to ask for SW if they do change their mind. Therapy to still come in to work with pt at hospital.
--- NOTE | 2023-04-16 08:49 | SWNOTE1 ---
SW let pt and daughter know that pt's PCP can also set up home health at her follow up if they decide they want it.
[2023-04-16 10:36] VITALS: O2SAT 91
--- NOTE | 2023-04-19 11:09 | CM.DCFOLLOWU ---
Person spoke with:patient How are you feeling? feeling alright How is your pain? no pain Did you understand your discharge instructions? yes Do you have any questions about your discharge instructions? no Were you given any prescriptions at discharge? yes Were you able to get your prescriptions filled? yes Do you understand how to take your medications as ordered? yes Do you have any questions about your follow up appointment and do you plan to keep your follow up appointment? no questions and follow up April 28 with PCP Is there anything else that you would like to discuss? No Questions/Comments/Concerns/Other:
== END 2023-04-16 12:45 | disposition home or self-care (01) ==
PROVIDERS: Urology; Admitting Provider Family Medicine; PCP Family Medicine; Visit Provider Family Medicine
PROC: (CPT 52332; principal; 2023-04-15 14:00)
DX: N13.6 Pyonephrosis (principal); E03.9 Hypothyroidism, unspecified; D50.9 Iron deficiency anemia, unspecified; E86.0 Dehydration; N17.9 Acute kidney failure, unspecified; E44.0 Moderate protein-calorie malnutrition; R06.02 Shortness of breath; Z87.891 Personal history of nicotine dependence; Z79.899 Other long term (current) drug therapy; Z79.890 Hormone replacement therapy; Z87.440 Personal history of urinary (tract) infections; Z68.1 Body mass index [BMI] 19.9 or less, adult; B96.1 Klebsiella pneumoniae [K. pneumoniae] as the cause of diseases classified elsewhere
CPT/HCPCS: 52332; 52344; 36415; 71046; 74019; 74177; 76000; 80053; 81001; 82140; 82150; 82550; 82553; 83605; 83690; 83735; 83874; 83880; 84484; 85025; 85652; 86677; 87040; 87493; 87507; 93005; 94667; 94668; 94761; 96361; 96365; 96366; 96367; 96375; 96376; C1874; G0378; G0379; J2704; Q9967

== ENCOUNTER 2023-05-13 12:51 | Outpatient (RCR) | payer OTHER, SELFPAY | END 2023-07-17 12:37 | disposition home or self-care (01) | LOC: PT 12:51 | PROVIDERS: PCP Family Medicine; Visit Provider Family Medicine | DX: R53.1 Weakness (principal) | CPT/HCPCS: 97110; 97112; 97140; 97162 ==

== ENCOUNTER 2023-09-07 09:40 | Outpatient (OUT) | payer OTHER, SELFPAY ==
[2023-09-07 10:34] LABS: Basophils Absolute Auto 0.1 10^3/uL (0.0-0.1); Basophils Percent Auto 0.9 % (0.2-2.0); Eosinophils Absolute Auto 0.2 10^3/uL (0.0-0.7); Eosinophils Percent Auto 2.7 % (0.9-7.0); Hematocrit 42.7 % (36.0-48.0); Hemoglobin 13.4 g/dL (12.0-16.0); Immature Granulocytes Abs Auto 0.01 10^3/uL (0.00-0.03); Immature Granulocytes Pct Auto 0.1 % (0.0-0.5); Lymphocytes Percent Auto 42.3 % (20.5-60.0); Mean Corpuscular HGB Conc 31.4 g/dL (29.9-35.2); Mean Corpuscular Hemoglobin 31.6 pg (26.7-34.0); Mean Corpuscular Volume 100.7 fL (81.0-99.0); Mean Platelet Volume 9.6 fL (9.5-13.5); Monocytes Absolute Auto 0.6 10^3/uL (0.3-0.8); Monocytes Percent Auto 8.4 % (1.7-12.0); Neutrophils Absolute Auto 3.2 10^3/uL (1.4-6.5); Neutrophils Percent Auto 45.6 % (43.0-75.0); Platelet Count 284 10^3/uL (150-450); Red Blood Count 4.24 10^6/uL (4.20-5.40); Red Cell Distribution Width 13.6 % (11.0-15.0)
[2023-09-07 10:41] LABS: Estimated Average Glucose 117 mg/dL; Glycohemoglobin A1C 5.7 % (4.5-6.2)
[2023-09-07 11:08] LABS: Anion Gap 11.7; BUN Creatinine Ratio 18.7; Bilirubin Total 0.2 mg/dL (0.2-1.0); Calcium 9.5 mg/dL (8.5-10.1); Chloride 104 mmol/L (98-107); Estimated GFR (African America 38 (>=60); Estimated GFR (Non-African Ame 32 (>=60); Glucose 96 mg/dL (74-106); Potassium 4.7 mmol/L (3.5-5.1); Sodium 137 mmol/L (136-145)
[2023-09-07 11:09] LABS: Alanine Aminotransferase 15 U/L (14-59); Albumin Level 3.8 g/dL (3.4-5.0); Alkaline Phosphatase 61 U/L (46-116); Aspartate Amino Transferase 13 U/L (15-37); Cholesterol 230 mg/dL (<=200); Free T3 2.62 pg/mL (2.18-3.98); Globulin 3.8 g/dL; HDL Cholesterol 76 mg/dL (40-60); Total Protein 7.6 g/dL (6.4-8.2); Triglycerides 111 mg/dL (<=150); VLDL CHOLESTEROL 22.2 mg/dL
== END 2023-09-07 09:41 | disposition home or self-care (01) ==
LOC: LAB 09:42
PROVIDERS: PCP Family Medicine; Visit Provider Family Medicine
DX: N39.0 Urinary tract infection, site not specified (principal); D50.9 Iron deficiency anemia, unspecified; E03.9 Hypothyroidism, unspecified; E78.5 Hyperlipidemia, unspecified; R73.09 Other abnormal glucose; D64.9 Anemia, unspecified; E55.9 Vitamin D deficiency, unspecified
CPT/HCPCS: 36415; 80053; 80061; 82306; 83036; 83540; 84436; 84443; 84481; 85025

== ENCOUNTER 2023-10-01 09:27 | Outpatient (OUT) | payer OTHER, SELFPAY ==
--- NOTE | 2023-10-01 09:30 | US_ITS ---
The [address] [address] Patient Name: DONA NAGY MRN: [id number] date: 1935 Sex: F Assigned Patient Location: Current Patient Location: US Accession/Order Number: [id number] Exam Date: 10/01/2023 09:40 Report Date: 10/01/2023 12:04 At the request of: JADA LOWE Procedure: US renal bladder EXAM: US renal bladder HISTORY: Other Microscopic Hematuria COMPARISON: CT abdomen and pelvis 04/14/2023. TECHNIQUE: Real-time ultrasound imaging of the kidneys and bladder. Findings: The right and left kidneys measure 8.2 and 8.4 cm. There is good corticomedullary differentiation bilaterally. No renal stones or collecting system dilatation. Mild bilateral pelvocaliectasis. No focal mass or perinephric fluid collection. The bladder is nondistended with a prevoid volume of 58 mL. The bilateral ureteral jets are identified. Small postvoid residual volume of 8 mL. US/US renal bladder IMPRESSION: 1. Mild bilateral pelvocaliectasis. This does not appear significantly changed when compared to the prior CT given the differences in technique. Electronically authenticated by: LOS MENA Date: 10/01/2023 12:04
== END 2023-10-01 09:28 | disposition home or self-care (01) ==
LOC: US 09:27
PROVIDERS: PCP Family Medicine; Visit Provider Family Medicine
DX: R31.29 Other microscopic hematuria (principal)
CPT/HCPCS: 76770

== ENCOUNTER 2023-10-04 10:48 | Emergency (ER) | payer OTHER, SELFPAY ==
[2023-10-04] VITALS (22 sets, daily range): BP systolic 114–158; BP diastolic 45–96; PULSE 66–85; RESP 15–34; TEMP 36.4; O2SAT 98; BMI 18.1
--- NOTE | 2023-10-04 11:20 | ECG_ITS ---
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
--- NOTE | 2023-10-04 11:22 | PC.NURSE ---
pt c/o pain bt shoulder blades, this is what concerned pt's daughter. PCP called and told to go to ER for evaluation
--- NOTE | 2023-10-04 12:21 | ED_ITS ---
HPI - General Adult General Chief complaint: Chest Pain Stated complaint: chest pain Time Seen by Provider: 10/04/23 12:21 Source: patient and family Mode of arrival: walk-in Limitations: no limitations History of Present Illness HPI narrative: patient's here with her daughter complaining of having pain in her upper scapular area last night. There is no trauma injury or fall. She does not have a shortness of breath or heaviness in the anterior chest area. She does not have any nausea vomiting or diaphoresis. The pain between her scapular area is new. She is not anyothersymptomstoday.She'snothadcoughcoldsoreth roatsymptoms.Shefinishedantibioticspreviouslyforurinaryinfection.Shejustrecently hadarenalultrasound,Ididreviewthosereportsandthereissomecaliectasisbutnoacutefin dingsonherultrasounddoneatthisfacility. Related Data Home Medications Medication Instructions Recorded Confirmed acetaminophen 650 mg 650 mg PO Q8H PRN pain 04/14/23 04/14/23 tablet,extended release (Tylenol Arthritis Pain) bupropion HCl 150 mg 24 hr tablet, 150 mg PO DAILY 04/14/23 04/14/23 extended release levothyroxine 50 mcg tablet 50 mcg PO DAILY 04/14/23 04/14/23 meloxicam 7.5 mg tablet 7.5 mg PO DAILY 04/14/23 04/14/23 oxybutynin chloride 5 mg tablet 5 mg PO Q12H 04/14/23 04/14/23 trolamine salicylate 10 % topical 1 applic topical DAILY 04/14/23 04/14/23 cream (Aspercreme) Previous Rx's Medication Instructions Recorded cefdinir 300 mg capsule 300 mg PO Q12H 10 days #20 caps 04/16/23 Allergies Allergy/AdvReac Type Severity Reaction Status Date / Time No Known Drug Allergies Allergy Verified 04/14/23 18:31 [facility] Medical History Surgical History Family History Brother Family history of CHF (congestive heart failure) Family history of cancer Family history of diabetes mellitus Sister Family history of diabetes mellitus Mother Family history of diabetes mellitus Social History Within the past year, how often did you have a drink containing alcohol: never Score interpretation: A score less than 3 is consistent with normal alcohol consumption. Smoking status: Former smoker Non-prescribed substance use: denies use Previous occupational history: Retired from Highest level of school completed/degree received: 10th grade Are you now , , , , never or living with a partner: In a typical week, how many times do you talk on the telephone with family, friends, or neighbors: 3 or more times per week How often do you get together with friends or relatives: 3 or more times per week Little interest or pleasure in doing things: not at all Feeling down, depressed, or hopeless: not at all Feel stressed/tense/nervous/anxious/difficulty sleeping: only a little Do you think of yourself as: straight/heterosexual Gender Identity: female Exam Narrative Exam Narrative: patient appears awake alert appears stated age does not appear acutely ill her vital signs are stable she is afebrile. Her pulse oximetry is normal. Her daugh ter says she just seems to be weaker than usual. HEENT shows no evidence of cervical adenitis there is no pallor or scleral icterus undyed examination. Her lungs are completely clear with no wheezes rales or rhonchi. Heart sounds are normal with no gallop or murmur. Belly is soft and supple with no tenderness or complaint of pain. Extremities show no edema phlebitis or tenderness. She does have a lot of muscle wasting appropriate for her [age] year it's age Constitutional Vital Signs, click to edit/add: Last Vital Signs Temp 97.5 F L 10/04/23 11:09 Pulse 75 10/04/23 12:30 Resp 18 10/04/23 12:30 BP 133/45 L 10/04/23 12:30 Pulse Ox 98 10/04/23 11:09 O2 Del Method Room Air 10/04/23 11:21 Course Vital Signs Vital signs: Vital Signs Temperature 97.5 F L 10/04/23 11:09 Pulse Rate 66 10/04/23 11:09 Respiratory Rate 18 10/04/23 11:09 Blood Pressure 133/59 10/04/23 11:09 Pulse Oximetry 98 10/04/23 11:09 Oxygen Delivery Method Room Air 10/04/23 11:09 Temperature 97.5 F L 10/04/23 11:09 Pulse Rate 75 10/04/23 12:30 Respiratory Rate 18 10/04/23 12:30 Blood Pressure 133/45 L 10/04/23 12:30 Pulse Oximetry 98 10/04/23 11:09 Oxygen Delivery Method Room Air 10/04/23 11:21 Medical Decision Making MDM Narrative Medical decision making narrative: patient's workup included cardiac enzymes troponin I sensitivity, chest x-ray routine chemistries and lab. Her troponin is negative and her chest x-ray is normal. Her physical examination did not disclose any acute vascular abnormality or clinical findings appear to be urgent. I spoke with her family and reassured them. This appears to be more musculoskeletal Lab Data Labs: Lab Results 10/04/23 10/04/23 Range/Units 12:25 13:42 WBC 10.4 (4.0-11.0) 10^3/uL RBC 3.96 L (4.20-5.40) 10^6/uL Hgb 12.7 (12.0-16.0) g/dL Hct 39.6 (36.0-48.0) % MCV 100.0 H (81.0-99.0) fL MCH 32.1 (26.7-34.0) pg MCHC 32.1 (29.9-35.2) g/dL RDW 13.2 (11.0-15.0) % Plt Count 250 (150-450) 10^3/uL MPV 9.4 L (9.5-13.5) fL Neut % (Auto) 56.4 (43.0-75.0) % Lymph % (Auto) 30.2 (20.5-60.0) % [place] % (Auto) 12.2 H (1.7-12.0) % Eos % (Auto) 0.3 L (0.9-7.0) % Baso % (Auto) 0.6 (0.2-2.0) % Neut # (Auto) 5.9 (1.4-6.5) 10^3/uL Lymph # (Auto) 3.1 (1.2-3.8) 10^3/uL [place] # (Auto) 1.3 H (0.3-0.8) 10^3/uL Eos # (Auto) 0.0 (0.0-0.7) 10^3/uL Baso # (Auto) 0.1 (0.0-0.1) 10^3/uL Abs Immat Gran (auto) 0.03 (0.00-0.03) 10^3/uL Imm/Tot Granulo (auto) 0.3 (0.0-0.5) % Sodium 138 (136-145) mmol/L Potassium 3.5 (3.5-5.1) mmol/L Chloride 102 (98-107) mmol/L Carbon Dioxide 28.9 (21.0-32.0) mmol/L Anion Gap 10.6 BUN 22.0 H (7.0-18.0) mg/dL Creatinine 1.38 H (0.55-1.02) mg/dL Est GFR ( Amer) 44 L (>=60) Est GFR (Non-Af Amer) 36 L (>=60) BUN/Creatinine Ratio 15.9 Glucose 160 H (74-106) mg/dL Calcium 9.6 (8.5-10.1) mg/dL Total Bilirubin 0.4 (0.2-1.0) mg/dL AST 16 (15-37) U/L ALT 15 (14-59) U/L Alkaline Phosphatase 66 (46-116) U/L Troponin I High Sens 7.0 (4.0-51.3) pg/mL Total Protein 7.4 (6.4-8.2) g/dL Albumin 3.4 (3.4-5.0) g/dL Globulin 4.0 g/dL Albumin/Globulin Ratio 0.9 Urine Color Yellow (YELLOW) Urine Clarity Clear (CLEAR) Urine pH 7.0 (5.0-9.0) Ur Specific [place] 1.015 (1.005-1.025) Urine Protein 30 A (NEG/TRACE) mg/dL Urine Glucose (UA) 500 A (NEGATIVE) mg/dL Urine Ketones Negative (NEGATIVE) mg/dL Urine Occult Blood Negative (NEGATIVE) Urine Nitrite Negative (NEGATIVE) Urine Bilirubin Negative (NEGATIVE) Urine Urobilinogen 0.2 (0.2-1.0) EU/dL Ur Leukocyte Esterase Trace A (NEGATIVE) Discharge Plan Discharge Chief Complaint: Chest Pain Clinical Impression: Acute thoracic myofascial strain Qualifiers: Encounter type: initial encounter Qualified Code(s): S29.019A - Strain of muscle and tendon of unspecified wall of thorax, initial encounter Patient Disposition: Home, Self-Care Time of Disposition Decision: 14:02 Prescriptions / Home Meds: No Action meloxicam 7.5 mg tablet 7.5 mg PO DAILY levothyroxine 50 mcg tablet 50 mcg PO DAILY oxybutynin chloride 5 mg tablet 5 mg PO Q12H bupropion HCl 150 mg tablet extended release 24 hr 150 mg PO DAILY trolamine salicylate [Aspercreme] 10 % cream 1 applic topical DAILY acetaminophen [Tylenol Arthritis Pain] 650 mg tablet extended release 650 mg PO Q8H PRN (Reason: pain) cefdinir 300 mg capsule 300 mg PO Q12H 10 Days Qty: 20 0RF Additional Instructions: may apply warm compresses. [id number] NSAIDs as needed or Tylenol Stand Alone Forms: Portal Instructions Referrals: Jose Padilla MD [Primary Care Provider] - 1 week
--- NOTE | 2023-10-04 12:24 | XR_ITS ---
The [address] [address] Patient Name: DONA NAGY MRN: [id number] date: 1935 Sex: F Assigned Patient Location: ER Current Patient Location: ER Accession/Order Number: [id number] Exam Date: 10/04/2023 12:40 Report Date: 10/04/2023 12:50 At the request of: CHIN POWERS Procedure: XR chest 1V EXAM: XR chest 1V HISTORY: fatigue COMPARISON: None. TECHNIQUE: AP view of the chest. FINDINGS: The cardiomediastinal silhouette is normal. The lungs are clear. There is no pneumothorax. No pleural effusion is noted. The osseous structures are intact. XR/XR chest 1V IMPRESSION: No acute cardiopulmonary process. Electronically authenticated by: MALDONADO OSBORNE Date: 10/04/2023 12:50
[2023-10-04 12:34] LABS: Basophils Absolute Auto 0.1 10^3/uL (0.0-0.1); Basophils Percent Auto 0.6 % (0.2-2.0); Eosinophils Percent Auto 0.3 % (0.9-7.0); Hematocrit 39.6 % (36.0-48.0); Hemoglobin 12.7 g/dL (12.0-16.0); Immature Granulocytes Abs Auto 0.03 10^3/uL (0.00-0.03); Immature Granulocytes Pct Auto 0.3 % (0.0-0.5); Lymphocytes Absolute Auto 3.1 10^3/uL (1.2-3.8); Lymphocytes Percent Auto 30.2 % (20.5-60.0); Mean Corpuscular HGB Conc 32.1 g/dL (29.9-35.2); Mean Corpuscular Hemoglobin 32.1 pg (26.7-34.0); Mean Platelet Volume 9.4 fL (9.5-13.5); Monocytes Absolute Auto 1.3 10^3/uL (0.3-0.8); Monocytes Percent Auto 12.2 % (1.7-12.0); Neutrophils Absolute Auto 5.9 10^3/uL (1.4-6.5); Neutrophils Percent Auto 56.4 % (43.0-75.0); Platelet Count 250 10^3/uL (150-450); Red Blood Count 3.96 10^6/uL (4.20-5.40); Red Cell Distribution Width 13.2 % (11.0-15.0); White Blood Count 10.4 10^3/uL (4.0-11.0)
[2023-10-04 12:52] LABS: Alanine Aminotransferase 15 U/L (14-59); Albumin Globulin Ratio 0.9; Albumin Level 3.4 g/dL (3.4-5.0); Alkaline Phosphatase 66 U/L (46-116); Anion Gap 10.6; Aspartate Amino Transferase 16 U/L (15-37); BUN Creatinine Ratio 15.9; Bilirubin Total 0.4 mg/dL (0.2-1.0); Calcium 9.6 mg/dL (8.5-10.1); Carbon Dioxide 28.9 mmol/L (21.0-32.0); Chloride 102 mmol/L (98-107); Estimated GFR (African America 44 (>=60); Estimated GFR (Non-African Ame 36 (>=60); Glucose 160 mg/dL (74-106); Potassium 3.5 mmol/L (3.5-5.1); Sodium 138 mmol/L (136-145); Total Protein 7.4 g/dL (6.4-8.2)
[2023-10-04] MEDS: 0.9 % SODIUM CHLORIDE 1,000 ML 250 ML IV (12:54)
[2023-10-04 13:53] LABS: Bilirubin Urine NEGATIVE (NEGATIVE); Blood Urine NEGATIVE (NEGATIVE); Clarity Urine CLEAR (CLEAR); Color Urine YELLOW (YELLOW); Glucose Urine UA 500 mg/dL (NEGATIVE); Ketones Urine NEGATIVE (NEGATIVE); Leukocyte Esterase Urine TRACE (NEGATIVE); Nitrite Urine NEGATIVE (NEGATIVE); Protein Urine 30 mg/dL (NEG/TRACE); Specific Gravity Urine 1.015 (1.005-1.025); Urobilinogen Urine 0.2 EU/dL (0.2-1.0)
[2023-10-04 13:54] LABS: Urine Microscopic Indicated YES
[2023-10-04 14:02] LABS: Bacteria Urine TRACE #/HPF (NONE SEEN); Crystals Seen? None Seen #/HPF (None Seen); Mucus Urine NONE SEEN (NONE SEEN); RBC Urine 0-2 #/HPF (0-2); Squamous Epithelial Cell Urine RARE #/LPF (NONE/RARE)
[2023-10-04 14:03] LABS: Cast Seen? NONE SEEN #/LPF (NONE SEEN)
== END 2023-10-04 14:25 | disposition home or self-care (01) ==
PROVIDERS: Emergency Provider Emergency Medicine Emergency Medical Services; PCP Family Medicine
DX: S29.019A Strain of muscle and tendon of unspecified wall of thorax, initial encounter (principal); Z87.891 Personal history of nicotine dependence; Z79.899 Other long term (current) drug therapy; Z79.890 Hormone replacement therapy; X58.XXXA Exposure to other specified factors, initial encounter
CPT/HCPCS: 36415; 71045; 80053; 81001; 84484; 85025; 93005; 99285

== ENCOUNTER 2024-03-14 12:15 | Emergency (ER) | payer OTHER, SELFPAY ==
[2024-03-14 12:20] VITALS: BP 128/66; PULSE 94; TEMP 36.6; O2SAT 97; BMI 18.2
--- NOTE | 2024-03-14 12:48 | CT_ITS ---
The [address] [address] Patient Name: DONA NAGY MRN: [facility]:[id number] date: 1935 Sex: F Assigned Patient Location: ER Current Patient Location: ER Accession/Order Number: [id number] Exam Date: 03/14/2024 12:58 Report Date: 03/14/2024 13:31 At the request of: TRAY COX Procedure: CT head/brain wo con EXAM: CT head/brain wo con, CT cervical spine wo con HISTORY: fall injury to head COMPARISON: None. TECHNIQUE: Multiplanar multisequence MR imaging of the head and cervical spine was performed without intravenous contrast. This CT exam was performed using one or more of the following dose reduction techniques: Automated exposure control, adjustment of the MA and/or kV according to patient size, or use of iterative reconstruction technique. FINDINGS: CT head Calvarium/skull base: Trace right frontal scalp contusion. No evidence of acute fracture or destructive lesion. Mastoids and middle ears demonstrate no substantial mucosal disease. Paranasal sinuses: No air fluid levels. Brain: No acute intracranial hemorrhage. No acute large vascular territory infarct. Moderate parenchymal volume loss. Asymmetric moderate hypoattenuation involving the supratentorial white matter, greater anteriorly which most commonly relates to sequela small vessel disease. No mass lesion or mass effect. No hydrocephalus. CT cervical spine Alignment: No substantial subluxation. Vertebrae: Vertebral body heights are maintained. No fracture. Craniocervical junction: No focal abnormality. Degenerative changes: Moderate degenerative change of the cervical spine with multilevel disc height loss, posterior disc osteophyte complexes and uncovertebral/facet arthropathy. There is at least moderate canal stenosis at C5-C6. Multilevel mild to moderate foraminal stenosis, also greatest at C5-C6. Additional Comments: Atherosclerotic change. CT/CT head/brain wo con IMPRESSION: 1. No acute intracranial process. 2. Trace right frontal scalp contusion. 3. Senescent changes detailed above. 4. No acute fracture or traumatic malalignment of the cervical spine 5. Degenerative changes of the cervical spine detailed above. Electronically authenticated by: ELEAZAR MENDEZ Date: 03/14/2024 13:31
--- NOTE | 2024-03-14 12:49 | CT_ITS ---
The [address] [address] Patient Name: DONA NAGY MRN: [facility]:[id number] date: 1935 Sex: F Assigned Patient Location: ER Current Patient Location: ER Accession/Order Number: [id number] Exam Date: 03/14/2024 13:00 Report Date: 03/14/2024 13:31 At the request of: TRAY COX Procedure: CT cervical spine wo con EXAM: CT head/brain wo con, CT cervical spine wo con HISTORY: fall injury to head COMPARISON: None. TECHNIQUE: Multiplanar multisequence MR imaging of the head and cervical spine was performed without intravenous contrast. This CT exam was performed using one or more of the following dose reduction techniques: Automated exposure control, adjustment of the MA and/or kV according to patient size, or use of iterative reconstruction technique. FINDINGS: CT head Calvarium/skull base: Trace right frontal scalp contusion. No evidence of acute fracture or destructive lesion. Mastoids and middle ears demonstrate no substantial mucosal disease. Paranasal sinuses: No air fluid levels. Brain: No acute intracranial hemorrhage. No acute large vascular territory infarct. Moderate parenchymal volume loss. Asymmetric moderate hypoattenuation involving the supratentorial white matter, greater anteriorly which most commonly relates to sequela small vessel disease. No mass lesion or mass effect. No hydrocephalus. CT cervical spine Alignment: No substantial subluxation. Vertebrae: Vertebral body heights are maintained. No fracture. Craniocervical junction: No focal abnormality. Degenerative changes: Moderate degenerative change of the cervical spine with multilevel disc height loss, posterior disc osteophyte complexes and uncovertebral/facet arthropathy. There is at least moderate canal stenosis at C5-C6. Multilevel mild to moderate foraminal stenosis, also greatest at C5-C6. Additional Comments: Atherosclerotic change. CT/CT cervical spine wo con IMPRESSION: 1. No acute intracranial process. 2. Trace right frontal scalp contusion. 3. Senescent changes detailed above. 4. No acute fracture or traumatic malalignment of the cervical spine 5. Degenerative changes of the cervical spine detailed above. Electronically authenticated by: ELEAZAR MENDEZ Date: 03/14/2024 13:31
--- NOTE | 2024-03-14 13:28 | ED.GENADUL1 ---
HPI HPI - General Adult General Chief complaint: Fall Stated complaint: FALL Time Seen by Provider: 03/14/24 13:09 History of Present Illness HPI narrative: Patient is an 89-year-old female who presents to the emergency department for the evaluation of a head injury that occurred this morning at 7 AM. She states approximately 6 hours ago on waking, she tripped and fell forward hitting her forehead on the nightstand. She sustained no loss of consciousness and denies any visual changes or vomiting. She has some pain to the back of the head and neck. She did not take any medications prior to arrival. She states she has been walking around very little because she felt unsteady on her feet after falling. She has no other associated injuries, back pain, hip pain or extremity pain. She is not anticoagulated. Related Data Home Medications ?Medication ?Instructions ?Recorded ?Confirmed acetaminophen 650 mg 650 mg PO Q8H PRN pain 04/14/23 04/14/23 tablet,extended release (Tylenol Arthritis Pain) bupropion HCl 150 mg 24 hr tablet, 150 mg PO DAILY 04/14/23 04/14/23 extended release levothyroxine 50 mcg tablet 50 mcg PO DAILY 04/14/23 04/14/23 meloxicam 7.5 mg tablet 7.5 mg PO DAILY 04/14/23 04/14/23 oxybutynin chloride 5 mg tablet 5 mg PO Q12H 04/14/23 04/14/23 trolamine salicylate 10 % topical 1 applic topical DAILY 04/14/23 04/14/23 cream (Aspercreme) Previous Rx's ?Medication ?Instructions ?Recorded cefdinir 300 mg capsule 300 mg PO Q12H 10 days #20 caps 04/16/23 Allergies Allergy/AdvReac Type Severity Reaction Status Date / Time No Known Drug Allergies Allergy Verified 04/14/23 18:31 Opioid HPI Opioid Management Most Recent Opioid Data: Last Pain Scale 5 04/16/23 08:00 Last MAR Pain Assessment 03/14/24 13:49 Review of Systems ROS Constitutional Denies: fever or chills Ears, nose, mouth, and throat Denies: throat pain or nasal congestion Cardiovascular Denies: chest pain Respiratory Denies: shortness of breath or cough Gastrointestinal Denies: nausea or vomiting Musculoskeletal Reports: neck pain; Denies: back pain, extremity pain, extremity swelling or joint pain Integumentary/Breast Denies: rash Neurological Denies: headache or dizziness Hematologic/Lymphatic Denies: easy bruising or easy bleeding PFSH PFS Medical History Surgical History Family History Brother Family history of CHF (congestive heart failure) Family history of cancer Family history of diabetes mellitus Sister Family history of diabetes mellitus Mother Family history of diabetes mellitus Social History Within the past year, how often did you have a drink containing alcohol: never Score interpretation: A score less than 3 is consistent with normal alcohol consumption. Smoking status: Former smoker Non-prescribed substance use: denies use Previous occupational history: Retired from Highest level of school completed/degree received: 10th grade Are you now , , , , never or living with a partner: In a typical week, how many times do you talk on the telephone with family, friends, or neighbors: 3 or more times per week How often do you get together with friends or relatives: 3 or more times per week Little interest or pleasure in doing things: not at all Feeling down, depressed, or hopeless: not at all Feel stressed/tense/nervous/anxious/difficulty sleeping: only a little Do you think of yourself as: straight/heterosexual Gender Identity: female Exam Narrative Exam Narrative: Gen.: Awake, alert, in no distress Head: Normocephalic, Ecchymosis and mild edema noted to the forehead with no lacerations or open wounds. Mild tenderness of the posterior occiput ENT: Moist mucous membranes, Posterior cervical spine is nontender Respiratory: No respiratory distress, lungs clear bilaterally Cardio: Regular rate and rhythm Gastrointestinal: Abdomen is soft, nondistended and nontender to palpation; Hips are nontender, pelvis is stable Extremities: Moves extremities equally, no injuries noted Psych: Normal mood and affect Neuro: No focal neuro deficit Skin: Warm, dry, intact Constitutional Vital Signs, click to edit/add: Last Vital Signs Temp 97.8 F 03/14/24 12:20 Pulse 94 H 03/14/24 12:20 Resp 16 03/14/24 12:20 BP 128/66 03/14/24 12:20 Pulse Ox 97 03/14/24 12:20 O2 Del Method Room Air 03/14/24 12:20 Course Vital Signs Vital signs: Vital Signs Temperature 97.8 F 03/14/24 12:20 Pulse Rate 94 H 03/14/24 12:20 Respiratory Rate 16 03/14/24 12:20 Blood Pressure 128/66 03/14/24 12:20 Pulse Oximetry 97 03/14/24 12:20 Oxygen Delivery Method Room Air 03/14/24 12:20 Temperature 97.8 F 03/14/24 12:20 Pulse Rate 94 H 03/14/24 12:20 Respiratory Rate 16 03/14/24 12:20 Blood Pressure 128/66 03/14/24 12:20 Pulse Oximetry 97 03/14/24 12:20 Oxygen Delivery Method Room Air 03/14/24 12:20 Medical Decision Making MDM Narrative Medical decision making narrative: Patient was sent for CTs of the head and C-spine prior to my evaluation, the studies are unremarkable. She has no other complaints of injury or, dizziness or significant neurosymptoms in the ER and is discharged home. Tylenol given for symptoms. Reevaluated by attending physician prior to discharge. Medical Records Medical records reviewed: Yes I reviewed the patient's medical records Imaging Data CT scan - head: Attestation: I have reviewed the pertinent imaging results. Radiologist's impression: ITS Impressions Head CT 03/14/24 12:48 IMPRESSION: 1. No acute intracranial process. 2. Trace right frontal scalp contusion. 3. Senescent changes detailed above. 4. No acute fracture or traumatic malalignment of the cervical spine 5. Degenerative changes of the cervical spine detailed above. Electronically authenticated by: ELEAZAR MENDEZ Date: 03/14/2024 13:[address] 03/14/24 12:49 IMPRESSION: 1. No acute intracranial process. 2. Trace right frontal scalp contusion. 3. Senescent changes detailed above. 4. No acute fracture or traumatic malalignment of the cervical spine 5. Degenerative changes of the cervical spine detailed above. Electronically authenticated by: ELEAZAR MENDEZ Date: 03/14/2024 13:31 Discharge Plan Discharge Stand Alone Forms: Portal Instructions Chief Complaint: Fall Clinical Impression: Closed head injury Patient Disposition: Home, Self-Care Time of Disposition Decision: 13:51 Condition: Good Prescriptions / Home Meds: No Action meloxicam 7.5 mg tablet 7.5 mg PO DAILY levothyroxine 50 mcg tablet 50 mcg PO DAILY oxybutynin chloride 5 mg tablet 5 mg PO Q12H bupropion HCl 150 mg tablet extended release 24 hr 150 mg PO DAILY trolamine salicylate [Aspercreme] 10 % cream 1 applic topical DAILY acetaminophen [Tylenol Arthritis Pain] 650 mg tablet extended release 650 mg PO Q8H PRN (Reason: pain) cefdinir 300 mg capsule 300 mg PO Q12H 10 Days Qty: 20 0RF Print Language: Kiswahili Instructions: Head Injury (ED) Referrals: Jose Padilla MD [Primary Care Provider] - 1 week
[2024-03-14] MEDS: ACETAMINOPHEN 325 MG TABLET 650 MG PO (13:49)
== END 2024-03-14 14:03 | disposition home or self-care (01) ==
PROVIDERS: Emergency Provider Emergency Medicine; PCP Family Medicine
DX: S09.8XXA Other specified injuries of head, initial encounter (principal); W01.190A Fall on same level from slipping, tripping and stumbling with subsequent striking against furniture, initial encounter; Z79.899 Other long term (current) drug therapy; Z79.890 Hormone replacement therapy; Z87.891 Personal history of nicotine dependence
CPT/HCPCS: 70450; 72125; 99284

== ENCOUNTER 2024-03-24 08:26 | Outpatient (OUT) | payer OTHER, SELFPAY ==
--- OUTSIDE RECORDS SUMMARY | 2024-03-24 08:34 | XMS_ITS | CCD ---
Author Organization [facility] Care Team Providers Care Command And Control Specialist Name Role Phone Lesli Connelly Unavailable Lety Daniels MD Primary Care Provider Jada Padilla MD Unavailable MYNOR ., DR ELIAS Attending Unavailable HOY ., DR ELIAS Referring Unavailable HOY ., DR ELIAS Primary Care Unavailable HOY ., DR ELIAS Admitting Unavailable HOY ., DR ELIAS Consulting Unavailable MARTHA ROMERO Consulting Unavailable HOY ., DR ELIAS Admitting Unavailable HOY ., DR ELIAS Primary Care Unavailable HOY ., DR ELIAS Consulting Unavailable HOY ., DR ELIAS Attending Unavailable JADA LORENZ Consulting Unavailable HOY ., DR ELIAS Admitting Unavailable HOY ., DR ELIAS Primary Care Unavailable HOY ., DR ELIAS Consulting Unavailable HOY ., DR ELIAS Attending Unavailable ZIEBER, DR SULAIMAN Blanco Consulting Unavailable HOY ., DR ELIAS Admitting Unavailable HOY ., DR ELIAS Attending Unavailable HOY ., DR ELIAS Primary Care Unavailable HOY ., DR ELIAS Admitting Unavailable HOY ., DR ELIAS Attending Unavailable HOY ., DR ELIAS Primary Care Unavailable DIAB ., DESIREE Admitting Unavailable DIAB ., DESIREE Attending Unavailable HOY ., DR ELIAS Primary Care Unavailable SO, VINAYA Consulting Unavailable DIAB ., DESIREE Consulting Unavailable HOY ., DR ELIAS Admitting Unavailable HOY ., DR ELIAS Primary Care Unavailable HOY ., DR ELIAS Attending Unavailable KEITH, DR MALDONADO Blanco Consulting Unavailable HOY ., DR ELIAS Consulting Unavailable ROGELIO, DR DAVID Nguyen Consulting Unavailable ZENOBIA SEARS Consulting Unavailable HARINI CAMPA Consulting Unavailable NASRIN WRIGHT Consulting Unavailable HOY ., DR ELIAS Admitting Unavailable HOY ., DR ELIAS Attending Unavailable HOY ., DR ELIAS Primary Care Unavailable HOY ., DR ELIAS Consulting Unavailable MYNOR ., DR ELIAS Admitting Unavailable MYNOR ., DR ELIAS Attending Unavailable MYNOR German, DR ELIAS Primary Care Unavailable MYNOR German, DR ELIAS Consulting Unavailable Jada Padilla MD Primary Care Provider [phone] LETY DANIELS Primary Care Unavailable ERIC, RENARD S Referring Unavailable LETY DANIELS Primary Care Unavailable RENARD REYES S Attending Unavailable JENN TOLEDO Referring Unavailable JENN TOLEDO Referring Unavailable LETY DANIELS Primary Care Unavailable LETY DANIELS Primary Care Unavailable RODNEY NEWTON Attending Unavailable Jada Padilla Primary Care Physician Shadi SORTO Attending Unavailable Shadi SORTO Attending Unavailable Shadi SORTO Attending Unavailable Jada Padilla Referring Unavailable Shadi SORTO Attending Unavailable RODERICK FISCHER Attending Unavailable Allergies Allergy Classification Reported Allergen(s) Allergy Type Date of Onset Reaction(s) Facility (1 source) No Known Medication Allergies; Translations: [No Known Medication Allergies] Propensity to adverse reactions (disorder) [facility] Repository Medications Current Medications Medication Drug Class(es) Dates Sig (Normalized) Sig (Original) [id number] 200 actuat albuterol 0.09 mg/actuat metered dose inhaler (1 source) beta2-Adrenergic Agonist Start: 12-24-2022 take 2 puff(s) by inhalation every four hours as needed Albuterol Sulfate HFA 108 (90 Base) MCG/ACT 2 puffs as needed Inhalation every 4 hrs Dec, Active azithromycin 250 mg oral tablet (1 source) Macrolide Antimicrobial Start: 12-24-2022 Azithromycin 250 MG 2 tablets on the first day, then 1 tablet daily for 4 days Orally Once a day for 5 day(s) Dec, Active buPROPion (5 sources) Aminoketone Start: 08-18-2023 Wellbutrin SR Oral, BID, Refills(s) 0 Start Date: 08/18/23 Status: Ordered Start: 01-07-2023 take 1 tablet by hugh th once daily buPROPion XL (WELLBUTRIN XL) 150 mg 24 hr tablet Take 150 mg by mouth once daily. 0 01/07/2023 Active Comment on above: Take 150 mg by mouth once daily. meloxicam (5 sources) Nonsteroidal Anti-inflammatory Drug Start: 08-18-2023 meloxicam Daily, Refills(s) 0 Start Date: 08/18/23 Status: Ordered meloxicam (MOBIC ) 7.5 mg tablet Take by mouth. 0 Active Comment on above: Take by mouth. methylPREDNISolone 4 mg oral tablet (1 source) Corticosteroid Start: 2022 methylPREDNISolone 4 MG as directed Orally Once a day for 6 days Dec, Active 24 hr oxybutynin chloride 5 mg extended release oral tablet (4 sources) Cholinergic Muscarinic Antagonist Start: 2022 take 1 mg by mouth once daily oxybutynin 5 mg ER Tab mg tab(s), Oral, Daily Start Date: 08/18/23 Status: Ordered Start: 01-07-2023 take 1 tablet by hugh twice daily oxybutynin (DITROPAN) 5 mg tablet Take 5 mg by mouth twice daily. 0 01/07/2023 Active Comment on above: Take 5 mg by mouth t wice daily. pantoprazole 40 mg delayed release oral tablet (2 sources) Proton Pump Inhibitor Start: 08-19-20 take 1 tablet by mouth once daily Pantoprazole [address] Tab 40 mg = 1 tab(s), Oral, Daily, Refills(s) 0 Start Date: 08/19/20 Status: Ordered pregabalin 25 mg oral capsule (3 sources) Start: 03-05-20 End: 07-06-20 take 1 capsule by mouth twice daily pregabalin (LYRICA) 25 mg capsule Indications: Radiculopathy of lumbar region , Acute midline low back pain with right-sided sciatica , Weakness of both lower extremities Take 1 capsule by mouth twice daily for 90 days. 60 capsule 0 04/07/2023 07/06/2023 Active Comment on above: Take 1 tab at bedtim e x4 days. Increase to 1 tab twice daily x4 days. Increase to 2 at bedtime, one in AM x4 days. Increase and continue with 2 tabs twice daily. Take 1 capsule by mo [facility] twice daily for 90 days. tolterodine (1 source) Cholinergic Muscarinic Antagonist Start: 08-18-20 tolterodine Oral, Refills(s) 0 Start Date: 08/18/23 Status: Ordered Completed/Discontinued Medications Medication Drug Class(es) Dates Sig (Normalized) Sig (Original) ciprofloxacin 250 mg oral tablet (1 source) Quinolone Antimicrobial Start: 05-04-2023 take 1 tablet by mouth once daily Cipro 250 mg Tab 250 mg = 1 tab(s), Oral, Daily, Take 1 tablet the day before the procedure, # 1 tab(s), Refills(s) 0, Pharmacy: [facility] #[id number] Start Date: 05/04/23 Status: Ordered gabapentin 100 mg oral capsule (2 sources) Anti-epileptic Agent Start: 02-09-2023 End: 04-07-2023 gabapentin (NEURONTIN) 100 mg capsule Indications: Lumbar radiculopathy Take 1 tab at bedtime x4 days. Increase to 1 tab twice daily x4 days. Increase to 2 at bedtime, one in AM 4 days. Increase and continue with 2 tabs twice daily. 60 capsule 0 02/09/2023 04/07/2023 Discontinued Comment on above: Take 1 tab at bedtim e x4 days. Increase to 1 tab twice daily x4 days. Increase to 2 at bedtime, one in AM 4 days. Increase and continue with 2 tabs twice daily. HERBAL DRUGS ORAL LIQUID (3 sources) Start: 02-24-2010 HERBAL DRUGS ORAL LIQUID BARLEY POWDER DAILY 0 02/24/2010 Active Comment on above: BARLEY POWDER DAILY levothyroxine sodium 0.05 mg oral tablet (6 sources) l-Thyroxine Start: 12-02-2022 take 1 tablet by mouth once daily levothyroxine (SYNTHROID) 50 mcg tablet Take 50 mcg by mouth once daily. 0 12/02/2022 Active Start: 08-19-2020 take 50 ug by mouth once daily levothyroxine 50 mcg, Oral, Daily, Refills(s) 0 Start Date: 08/19/20 Status: Ordered Levothyroxine So dium 50 MCG Oral for 90 Days Active Comment on above: Take 50 mcg by mouth once daily. MULTIVITAMIN TAB (3 sources) Start: 04-14-2010 MULTIVITAMIN TAB Take one(1) tablet daily. 0 04/14/2010 Active Comment on above: Take one(1) tablet d aily. traMADol hydrochloride 50 mg oral tablet (4 sources) Opioid Agonist traMADol (ULTRAM ) 50 mg tablet Take by mouth. 0 Active Comment on above: Take by mouth. Problems Active Problems Problem Classification Problem Date Documented Date Episodic/Chronic Abdominal pain (6 sources) Left lower quadrant pain; Translations: [Epigastric pain] Onset: 04-01-2022 Episodic Biliary tract disease (2 sources) Chronic cholecystitis with calculus 08-21-2020 Episodic Calculus of urinary tract (2 sources) Ureteric stone; Translations: [Calculus of ureter] Onset: 05-11-2023 Episodic Chronic obstructive pulmonary disease and bronchiectasis (1 source) Bronchitis, not specified as acute or chronic Episodic Deficiency and other anemia (1 source) Anemia, unspecified; Translations: [ANEMIA UNSPECIFIED] Onset: 12-02-2022 Episodic Diabetes mellitus without complication (1 source) Other abnormal glucose; Translations: [OTHER ABNORMAL GLUCOSE] Onset: 12-02-2022 Episodic Diseases of white blood cells (1 source) Elevated white blood cell count, unspecified; Translations: [ELEVATED WHITE BLOOD CELL COUNT UNS] Onset: 04-08-2022 Chronic Disorders of lipid metabolism (1 source) Hyperlipidemia, unspecified; Translations: [HYPERLIPIDEMIA UNSPECIFIED] Onset: 12-02-2022 Chronic Diverticulosis and diverticulitis (2 sources) Diverticular disease 08-19-2020 Chronic E Codes: Fall (1 source) Unspecified fall, initial encounter; Translations: [UNSPECIFIED FALL INITIAL ENCOUNTER] Onset: 12-01-2022 Episodic Esophageal disorders (2 sources) Gastroesophageal reflux disease 08-19-2020 Chronic Essential hypertension (1 source) Essential (primary) hypertension; Translations: [ESSENTIAL PRIMARY HYPERTENSION] Onset: 12-07-2022 Chronic Genitourinary symptoms and ill-defined conditions (4 sources) Stress incontinence (female) (male); Translations: [Urge incontinence] Onset: 08-18-2023 Chronic Genitourinary symptoms and ill-defined conditions (2 sources) Sensation as if bladder still full; Translations: [Feeling of incomplete bladder emptying] Onset: 05-11-2023 Episodic Immunizations and screening for infectious disease (1 source) Contact with and (suspected) exposure to other viral communicable diseases Episodic Malaise and fatigue (5 sources) Weakness; Translations: [WEAKNESS] Onset: 12-07-2022 Episodic Menopausal disorders (1 source) Hormone replacement therapy; Translations: [HORMONE REPLACEMENT THERAPY] Onset: 12-01-2022 Episodic Nonspecific chest pain (4 sources) Chest pain, unspecified; Translations: [CHEST PAIN UNSPECIFIED] Onset: 12-03-2022 Episodic Nutritional deficiencies (4 sources) Vitamin D deficiency, unspecified; Translations: [VITAMIN D DEFICIENCY UNSPECIFIED] Onset: 11-30-2022 Chronic Other acquired deformities (1 source) Spondylolisthesis, lumbar region; Translations: [Spondylolisthesis of lumbar region] Onset: 02-01-2023 Episodic Other aftercare (1 source) Other jail (current) drug therapy; Translations: [OTH [facility] CURRENT DRUG THERAPY] Onset: 12-01-2022 Episodic Other connective tissue disease (2 sources) Paraparesis; Translations: [Other symptoms and signs involving the musculoskeletal system] Episodic Other connective tissue disease (1 source) Other symptoms and signs involving the musculoskeletal system; Translations: [Weakness of both lower extremities] Onset: 04-02-2023 Episodic Other diseases of kidney and ureters (2 sources) Stricture of ureter; Translations: [Crossing vessel and stricture of ureter without hydronephrosis] Onset: 08-18-2023 Episodic Other hereditary and degenerative nervous system conditions (3 sources) Tremor; Translations: [Essential tremor] Onset: 02-10-2005 02-10-2005 Chronic Other injuries and conditions due to external causes (3 sources) Foreign body in bladder; Translations: [Foreign body in bladder, initial encounter] Onset: 05-11-2023 Episodic Paralysis (1 source) 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; Translations: [MONOPLEGIA LOWER LIMB UNS SIDE] Onset: 12-07-2022 Chronic Peripheral and visceral atherosclerosis (4 sources) Peripheral vascular disease, unspecified; Translations: [PERIPHERAL VASCULAR DISEASE UNS] Onset: 05-26-2022 Chronic Residual codes; unclassified (1 source) Acquired absence of other specified parts of digestive tract; Translations: [ACQ ABSENCE OTH PART DIGESTV TRACT] Onset: 12-01-2022 Episodic Spondylosis; intervertebral disc disorders; other back problems (3 sources) Other intervertebral disc degeneration, lumbar region; Translations: [Other intervertebral disc displacement, lumbar region] Onset: 12-07-2022 Chronic Spondylosis; intervertebral disc disorders; other back problems (8 sources) Lumbar radiculopathy; Translations: [Radiculopathy, lumbar region] Onset: 02-01-2023 Episodic Superficial injury; contusion (1 source) Contusion of left hip, initial encounter; Translations: [CONTUSION LEFT HIP INITIAL ENC] Onset: 12-01-2022 Episodic Thyroid disorders (3 sources) Hypothyroidism, unspecified; Translations: [Hyperthyroidism] Onset: 04-08-2022 08-19-2020 Chronic Unclassified (1 source) LOW BACK PAIN, UNSPECIFIED; Translations: [LOW BACK PAIN, UNSPECIFIED] Onset: 12-16-2022 Unclassified (1 source) CONTACT W/AND (SUSP) EXPOS COVID-19; Translations: [CONTACT W/AND (SUSP) EXPOS COVID-19] Onset: 04-08-2022 Unclassified (2 sources) Finding of sensation of bladder 05-11-2023 Past or Other Problems Problem Classification Problem Date Documented Date Episodic/Chronic Bacterial infection; unspecified site (1 source) Unspecified Escherichia coli [E. coli] as the cause of diseases classified elsewhere; Translations: [UNS E COLI CAUSE DX CLASS ELSEWHERE] Onset: 04-08-2022 Episodic Intestinal obstruction without hernia (1 source) Other partial intestinal obstruction; Translations: [OTH PARTIAL INTESTINAL OBSTRUCTION] Onset: 04-08-2022 Episodic Noninfectious gastroenteritis (1 source) Noninfective gastroenteritis and colitis, unspecified; Translations: [NONINFECTIVE GE AND COLITIS UNS] Onset: 04-08-2022 Episodic Other connective tissue disease (4 sources) Pain in left leg; Translations: [PAIN IN LEFT LEG] Onset: 05-22-2022 Episodic Other connective tissue disease (4 sources) Pain in left lower leg; Translations: [PAIN IN LEFT LOWER LEG] Onset: 04-14-2022 Episodic Other screening for suspected conditions (not mental disorders or infectious disease) (1 source) Other specified abnormal findings of blood chemistry; Translations: [OTH SPEC ABNORMAL FINDINGS BLD CHEM] Onset: 04-08-2022 Episodic Urinary tract infections (1 source) Urinary tract infection, site not specified; Translations: [UTI SITE NOT SPECIFIED] Onset: 04-08-2022 Episodic Results Test Name Value Interpretation Reference Range Facility Ambulatory Visit Summaryon 1 Ambulatory Visit Summary DONA RODRIGUEZ :1935 Visit Date:08/18/2023 Ambulatory Visit Instructions Your Diagnosis Feeling of incomplete bladder emptying Urge incontinence Stress incontinence, female Ureteral stricture, right History of kidney stones Tests Performed XR Abdomen 1 View -- Results Pending -- Please visit your patient portal for your results or contact your primary care physician. Your Care Team Attending Physician - Shadi SORTO MD Primary Care Physician - Jada Padilla MD This Is Your Medications List Contact prescribing physician if questions or concerns buPROPion (Wellbutrin SR) levothyroxine meloxicam pantoprazole (Pantoprazole [address] Tab) tolterodine Procedures Performed Cystoscopic removal of ureteric stent (05/11/2023), Cystoscopic insertion of ureteric stent (04/15/2023), Laparoscopic cholecystectomy (08/14/2020), Excision of spinal nerve root tumor, Sigmoid colectomy. Discharge Vitals Heart Rate (Peripheral) 92 Blood Pressure 122/76 Weight 42.9 kg Weight 94.38 lb What to do next You Need to Schedule the Following Appointments Follow Up with ROBBY NARANJO, Shadi Blanco, LUPIS When: Where: [facility] [address], [place] [address]- Medications What How Much When Instructions Unchanged buPROPion (Wellbutrin SR) By Mouth 2 times a day Contact prescribing physician if questions or concerns Unchanged levothyroxine 50 Microgram By Mouth Every day Contact prescribing physician if questions or concerns Unchanged meloxicam Every day Contact prescribing physician if questions or concerns Unchanged pantoprazole (Pantoprazole [address] Tab) 1 Tablets By Mouth Every day Contact prescribing physician if questions or concerns Unchanged tolterodine By Mouth Contact prescribing physician if questions or concerns Allergies No Known Allergies No Known Medication Allergies Problems Ongoing - Any problem that you are currently receiving treatment for. Chronic cholecystitis with calculus Diverticular disease Feeling of incomplete bladder emptying Foreign body in bladder GERD (gastroesophageal reflux disease) Hyperthyroidism Stress incontinence, female Ureteral stricture, right Urge incontinence Patient Survey You may receive a survey via text or e-mail asking about your office visit. Please share your experience with us by completing your survey. We appreciate your feedback and thank you for choosing us for your care. Education Materials Kegel Exercises Kegel exercises can help strengthen your pelvic floor muscles. The pelvic floor is a group of muscles that support your rectum, small intestine, and bladder. In females, pelvic floor muscles also help support the uterus. These muscles help you control the flow of urine and stool (feces). Kegel exercises are painless and simple. They do not require any equipment. Your provider may suggest Kegel exercises to: ? Improve bladder and bowel control. ? Improve sexual response. ? Improve weak pelvic floor muscles after surgery to remove the uterus (hysterectomy) or after , in females. ? Improve weak pelvic floor muscles after prostate gland removal or surgery, in males. Kegel exercises involve squeezing your pelvic floor muscles. These are the same muscles you squeeze when you try to stop the flow of urine or keep from passing gas. The exercises can be done while sitting, standing, or lying down, but it is best to vary your position. Ask your health care provider which exercises are safe for you. Do exercises exactly as told by your health care provider and adjust them as directed. Do not begin these exercises until told by your health care provider. Exercises How to do Kegel exercises: 1. Squeeze your pelvic floor muscles tight. You should feel a tight lift in your rectal area. If you are a female, you should also feel a tightness in your vaginal area. Keep your stomach, buttocks, and legs relaxed. 2. Hold the muscles tight for up to 10 seconds. 3. Breathe normally. 4. Relax your muscles for up to 10 seconds. 5. Repeat as told by your health care provider. Repeat this exercise daily as told by your health care provider. Continue to do this exercise for at least 4?6 weeks, or for as long as told by your health care provider. You may be referred to a physical therapist who can help you learn more about how to do Kegel exercises. Depending on your condition, your health care provider may recommend: ? Varying how long you squeeze your muscles. ? Doing several sets of exercises every day. ? Doing exercises for several weeks. ? Making Kegel exercises a part of your regular exercise routine. This information is not intended to replace advice given to you by your health care provider. Make sure you discuss any questions you have with your health care provider. Document Revised: 02/19/2022 Document Reviewed: 01/24 (more content not included)... Normal [facility] Patient Educationon 10-25-20 23 Patient Education Obstetrics and Gynecology Kegel Exercises Kegel exercises can help strengthen your pelvic floor muscles. The pelvic floor is a group of muscles that support your rectum, small intestine, and bladder. In females, pelvic floor muscles also help support the uterus. These muscles help you control the flow of urine and stool (feces). Kegel exercises are painless and simple. They do not require any equipment. Your provider may suggest Kegel exercises to: ? Improve bladder and bowel control. ? Improve sexual response. ? Improve weak pelvic floor muscles after surgery to remove the uterus (hysterectomy) or after , in females. ? Improve weak pelvic floor muscles after prostate gland removal or surgery, in males. Kegel exercises involve squeezing your pelvic floor muscles. These are the same muscles you squeeze when you try to stop the flow of urine or keep from passing gas. The exercises can be done while sitting, standing, or lying down, but it is best to vary your position. Ask your health care provider which exercises are safe for you. Do exercises exactly as told by your health care provider and adjust them as directed. Do not begin these exercises until told by your health care provider. Exercises How to do Kegel exercises: 1. Squeeze your pelvic floor muscles tight. You should feel a tight lift in your rectal area. If you are a female, you should also feel a tightness in your vaginal area. Keep your stomach, buttocks, and legs relaxed. 2. Hold the muscles tight for up to 10 seconds. 3. Breathe normally. 4. Relax your muscles for up to 10 seconds. 5. Repeat as told by your health care provider. Repeat this exercise daily as told by your health care provider. Continue to do this exercise for at least 4?6 weeks, or for as long as told by your health care provider. You may be referred to a physical therapist who can help you learn more about how to do Kegel exercises. Depending on your condition, your health care provider may recommend: ? Varying how long you squeeze your muscles. ? Doing several sets of exercises every day. ? Doing exercises for several weeks. ? Making Kegel exercises a part of your regular exercise routine. This information is not intended to replace advice given to you by your health care provider. Make sure you discuss any questions you have with your health care provider. Document Revised: 02/19/2022 Document Reviewed: 02/19/2022 [employer] Patient Education ? 2022 [employer] [facility] Urology Office/Clinic Noteon 08-18-2023 Urology Office/Clinic Note Chief Complaint 3 month follow up HPI Staff 3 month follow up w/PVR. Previous DX: feeling of incomplete bladder emptying, foreign body in bladder, ureteral stone. Pt unable to give sample today. Dysuria: denies pain or burning Incomplete bladder emptying: sometimes Hematuria: denies visible blood Frequency: denies Urgency: yes Nocturia: 1-2x a night Stream: denies hesitancy, denies weak stream Leaking: yes Post void dripping: denies Wearing pads/ Depends: denies Urge incontinence: denies Stress incontinence: yes Incontinence without Sensory Awareness: denies Abdominal pain:lower right sided pain in groin Flank pain: denies Sexual complaints: denies History of Present Illness Tests reviewed: reviewed op note I have reviewed the previous health record information and history for this patient from Dr. Sorto. I have reviewed and verified the staff HPI to be accurate for this encounter. There have been no associated fever, chills, flank pain, or blood in the urine. Denies any urinary infections since last encounter. Review of Systems PHQ Score Initial Depression Screen Score: 0 ROS - Provider Constitutional: denies weight loss, denies hot flashes. Eyes: denies eye problems. Gastrointestinal: denies nausea, denies vomiting. Cardiovascular: denies chest pain or angina. Integumentary: no dryness Musculoskeletal: denies musculoskeletal symptoms. ENMT: denies otolaryngeal symptoms. Respiratory: no shortness of breath. Heme/Lymph: denies easy bleeding tendency, denies easy bruising tendency. Psychiatric: no confusion, no anxiety. Genitourinary: See HPI. Physical Exam Vitals & Measurements HR: 92(Peripheral) BP: 122/76 WT: 42.9 kg WT: 94.38 lb General Appearance: alert , no acute distress, well nourished, well developed female. Genitourinary: bladder nonpalpable, no flank pain. Assessment/Plan Pt here with her daughter today. 1. Feeling of incomplete bladder emptying (R39.14: Feeling of incomplete bladder emptying) Pt unable to provide urine sample today. Was to stop Tolterodine 2 mg qd and was to start double and timed voids at prior OV. She is still taking a bladder med, however she is taking Oxybutynin 5 mg ER qAM. Feels she empties completely. Does bladder emptying maneuvers. Shares she is drinking more but it is probably not enough. Urine evacuates easily. 2. Urge incontinence (N39.41: Urge incontinence) Was to stop Tolterodine 2 mg qd at prior OV. She is still taking a bladder med, however she is taking Oxybutynin 5 mg ER qAM through Dr. Padilla. Some UUI still however was UUI was much more frequent prior to starting bladder med. Is experiencing SEs of blurred vision, dry mouth. Pt does not feel the SEs are bothersome enough to warrant changing bladder med or increasing dose to 10 mg ER. Pt to cont Oxybutynin 5 mg ER qAM or qNoon. 3. Stress incontinence, female (N39.3: Stress incontinence (female) (male)) Sometimes leaks with sneezing. 4. Ureteral stricture, right (N13.5: Crossing vessel and stricture of ureter without hydronephrosis) S/p cysto, R UD, R URS, R ureteral stent placement 04/15/23. Pt did not have a ureteral stone, she was found to have a distal ureteral stricture. 5. History of kidney stones (Z87.442: Personal history of urinary calculi) High fluid intake for stone prevention. Follow up 1 yr with KUB or sooner if needed. Pt understands and agrees with plan. Follow-up With When Contact Information ROBBY NARANJO, Shadi Blanco, URL [facility] [address], [place] [id number]- Additional Instructions: 1 yr KUB Patient Education Jania Meneses, personally scribed for Dr. Sorto on 08/18/2023 13:38:36. . Documentation recorded by the scribeJania, accurately reflects the services(s) I performed and decisions made by me. Authenticated by Dr. Sorto on 08/18/2023 13:40:07. Problem List/Past Medical History Ongoing Chronic cholecystitis with calculus Diverticular disease Feeling of incomplete bladder emptying Foreign body in bladder GERD (gastroesophageal reflux disease) Hyperthyroidism Stress incontinence, female Ureteral stricture, right Urge incontinence Historical No qualifying data Procedure/Surgical History Cystoscopic removal of ureteric stent (05/11/2023), Cystoscopic insertion of ureteric stent (04/15/2023), Laparoscopic cholecystectomy (08/14/2020), Excision of spinal nerve root tumor, Sigmoid colectomy. Medications levothyroxine, 50 mcg, Oral, Daily meloxicam, Daily Pantoprazole [address] Tab, 40 mg= 1 tab(s), Oral, Daily tolterodine, Oral Wellbutrin SR, Oral, BID Allergies No Known Allergies No Known Medication Allergies Social History Alcohol - Denies Alcohol Use, 08/21/2020 Substance Abuse - Denies Substance Abuse, 08/21/2020 Tobacco Former smoker, quit more than 30 days ago Tobacco Use:. Never Smokeless To (more content not included)... Normal [facility] Comment on above: Result Comment: Elec tronically Signed By: Shadi SORTO MD\.br\Date and Time Signed: 08/18/23 13:40 EDT\.br\Electronically Co-Signed By: Jania Velasquez\.br\Date and Time Co-Signed: 08/18/23 13:38 EDT Consent for Procedure/Surger yon 05-12-2023 Consent for Procedure/Surgery [id number]#1.00 CD:127 [facility] Ambulatory Visit Summaryon 0 05-11-2023 Ambulatory Visit Summary DONA RODRIGUEZ :1935 Visit Date:05/11/2023 Ambulatory Visit Instructions Your Diagnosis Foreign body in bladder Ureteral stone Feeling of incomplete bladder emptying Your Care Team Attending Physician - Shadi SORTO MD Primary Care Physician - Jada Padilla MD This Is Your Medications List ciprofloxacin (Cipro 250 mg Tab) Contact prescribing physician if questions or concerns levothyroxine pantoprazole (Pantoprazole [address] Tab) [Image Removed: STOP]Stop taking these medications tolterodine Procedures Performed Cystoscope (05/11/2023), Cystoscopic removal of ureteric stent (05/11/2023), Laparoscopic cholecystectomy (08/14/2020), Excision of spinal nerve root tumor, Sigmoid colectomy. Discharge Vitals Heart Rate (Peripheral) 75 Respiratory Rate 16 Blood Pressure 116/72 What to do next Scheduled Follow-Up Appointments Wednesday 1:00 PM EDT With: ROBBY NARANJO, Shadi Blanco Where: [facility] Chris Singh [facility] Patient Educationon 05-11-20 Patient Education Nephrology Dietary Guidelines to Help Prevent Kidney Stones Kidney stones are deposits of minerals and salts that form inside your kidneys. Your risk of developing kidney stones may be greater depending on your diet, your lifestyle, the medicines you take, and whether you have certain medical conditions. Most people can lower their chances of developing kidney stones by following the instructions below. Your dietitian may give you more specific instructions depending on your overall health and the type of kidney stones you tend to develop. What are tips for following this plan? Reading food labels ? Choose foods with no salt added or low-salt labels. Limit your salt (sodium) intake to less than 1,500 mg a day. ? Choose foods with calcium for each meal and snack. Try to eat about 300 mg of calcium at each meal. Foods that contain 200?500 mg of calcium a serving include: ? 8 oz (237 mL) of milk, qtwbxsz-waahppkpfvnv-yw iry milk, and calcium-fortifiedfruit juice. Calcium-fortified means that calcium has been added to these drinks. ? 8 oz (237 mL) of kefir, yogurt, and soy yogurt. ? 4 oz (114 g) of tofu. ? 1 oz (28 g) of cheese. ? 1 cup (150 g) of dried figs. ? 1 cup (91 g) of cooked broccoli. ? One 3 oz (85 g) can of sardines or mackerel. Most people need 1,000?1,500 mg of calcium a day. Talk to your dietitian about how much calcium is recommended for you. Shopping ? Buy plenty of fresh fruits and vegetables. Most people do not need to avoid fruits and vegetables, even if these foods contain nutrients that may contribute to kidney stones. ? When shopping for convenience foods, choose: ? Whole pieces of fruit. ? Pre-made salads with dressing on the side. ? Low-fat fruit and yogurt smoothies. ? Avoid buying frozen meals or prepared deli foods. These can be high in sodium. ? Look for foods with live cultures, such as yogurt and kefir. ? Choose high-fiber grains, such as whole-wheat breads, oat bran, and wheat cereals. Cooking ? Do not add salt to food when cooking. Place a salt shaker on the table and allow each person to add his or her own salt to taste. ? Use vegetable protein, such as beans, textured vegetable protein (TVP), or tofu, instead of meat in pasta, casseroles, and soups. Meal planning ? Eat less salt, if told by your dietitian. To do this: ? Avoid eating processed or pre-made food. ? Avoid eating fast food. ? Eat less animal protein, including cheese, meat, poultry, or fish, if told by your dietitian. To do this: ? Limit the number of times you have meat, poultry, fish, or cheese each week. Eat a diet free of meat at least 2 days a week. ? Eat only one serving each day of meat, poultry, fish, or seafood. ? When you prepare animal protein, cut pieces into small portion sizes. For most meat and fish, one serving is about the size of the palm of your hand. ? Eat at least five servings of fresh fruits and vegetables each day. To do this: ? Keep fruits and vegetables on hand for snacks. ? Eat one piece of fruit or a handful of berries with breakfast. ? Have a salad and fruit at lunch. ? Have two kinds of vegetables at dinner. ? Limit foods that are high in a substance called oxalate. These include: ? Spinach (cooked), rhubarb, beets, sweet potatoes, and [place] chard. ? Peanuts. ? Potato chips, indian fries, and baked potatoes with skin on. ? Nuts and nut products. ? Chocolate. ? If you regularly take a diuretic medicine, make sure to eat at least 1 or 2 servings of fruits or vegetables that are high in potassium each day. These include: ? Avocado. ? Banana. ? Good[place], prune, carrot, or tomato juice. ? Baked potato. ? Cabbage. ? Beans and split peas. Lifestyle ? Drink enough fluid to keep your urine pale yellow. This is the most important thing you can do. Spread your fluid intake throughout the day. ? If you drink alcohol: ? Limit how much you use to: ? 0?1 drink a day for women who are not . ? 0?2 drinks a day for men. ? Be aware of how much alcohol is in your drink. In the [place] one drink equals one 12 oz bottle of beer (355 mL), one 5 oz glass of wine (148 mL), or one 1? oz glass of hard liquor (44 mL). ? Lose weight if told by your health care provider. Work with your dietitian to find an eating plan and weight loss strategies that work best for you. General information ? Talk to your health care provider and dietitian about taking daily supplements. You may be told the following depending on your health and the cause of your kidney stones: ? Not to take supplements with vitamin C. ? To take a calcium supplement. ? To take a daily probiotic supplement. ? To take other supplements such as magnesium, fish oil, or vitamin B6. ? Take jryv-hsp-zhvpqxk and prescription medicines only as told by your health care provider. These include supplements. What foods should I limit? Limit your in (more content not included)... Normal [facility] Urology Office/Clinic Noteon 05-11-2023 Urology Office/Clinic Note Chief Complaint Cysto/Rt stent removal HPI Staff This is a 88 year old female here for Cysto/Rt. stent removal. ABX taken. S/P Cysto/Rt. rigid ureteral dilation/Rt. ureteroscopy/placement of Rt stent done 04/15/23. History of Present Illness Tests reviewed: reviewed op note. I have reviewed the previous health record information and history for this patient from Dr. Sorto. I have reviewed and verified the staff HPI to be accurate for this encounter. There have been no associated fever, chills, flank pain, or blood in the urine. Denies any urinary infections since last encounter. Review of Systems PHQ Score Initial Depression Screen Score: 0 ROS - Provider Constitutional: denies weight loss, denies hot flashes. Eyes: denies eye problems. Gastrointestinal: denies nausea, denies vomiting. Cardiovascular: denies chest pain or angina. Integumentary: no dryness Musculoskeletal: denies musculoskeletal symptoms. ENMT: denies otolaryngeal symptoms. Respiratory: no shortness of breath. Heme/Lymph: denies easy bleeding tendency, denies easy bruising tendency. Psychiatric: no confusion, no anxiety. Genitourinary: See HPI. Physical Exam Vitals & Measurements HR: 75(Peripheral) RR: 16 BP: 116/72 General Appearance: alert, no distress, well nourished, well developed male. Head: normocephalic . Eyes: normal orbit and globe. ENMT: normal examination of external ears. Chest: Lungs CTA, respirations non labored. Cardiovascular: regular rate and rhythm. Abdomen: soft, non distended, no tenderness, no mass or organomegaly, no hernia. Genitourinary: normal scrotum, normal testes, normal urethra, normal epididymis, normal vas deferens/spermatic cord. Flank Pain: none. Bladder: nonpalpable. Penis: normal shaft, normal glans. Prostate: normal prostate, estimated weight 35 gms, no hard nodule observed. Lymph Nodes: unremarkable palpation of the cervical area. Skin: warm, dry, no bruising. Psychiatric: cooperative, affect appropriate for age, normal judgement, euthymic mood. Procedure Operative Information Anesthesia Type: Local Procedure: Local Cystoscopy with Stent Removal Complications: None Surgical risks, benefits, details of the procedure have been explained to the patient. Full informed consent has been obtained. Intraoperative Information Prepped: Patient is placed in modified dorso/lithotomy position. The patient was prepped with the Betadine solution. Anesthesia: 2% Xylocaine Jelly per urethra. Procedure: Cystoscopy and right stent removal. The flexible Cystoscope was passed in retrograde fashion into the bladder without difficulty. The bladder was viewed in entirety and found to be without tumors or stones. Mild inflammation was seen surrounding the orifice with the stent seen protruding from it. The stent was then grasped and removed in its entirety. Specimens Removed: None Postoperative Information The patient tolerated the procedure well and was subsequently discharged home. Assessment/Plan Dona is an 88 yo female new pt here for a cysto/R stent removal follow up to stent procedure on 04/15/23. 1. Foreign body in bladder (T19.1XXA: Foreign body in bladder, initial encounter) Pt had IO cysto/R stent removal today wo complications. Pt took prophylactic abx prior to procedure. -KUB in 6 mos (10/2023), give order at next OV. 2. Ureteral stone (N20.1: Calculus of ureter) Urology consult 04/15/23 due to UTI and 4 mm R distal ureteral calculus. Cysto, R UD, R URS, R ureteral stent placement 04/15/23. 04/16/23 - BUN 14. Crea 1.25. eGFR 41. See #1. 3. Feeling of incomplete bladder emptying (R39.14: Feeling of incomplete bladder emptying) Educated pt on double voiding, bladder emptying maneuvers, timed voids. Follow up 3 mos with PVR or sooner if needed. Pt understands and agrees with plan. -Stop Tolterodine 2 mg qd. -Started double and timed voids. Follow-up With When Contact Information ROBBY NARANJO, Shadi Blanco, URL [facility] [address], [place] [id number]- Additional Instructions: 3 mos PVR Patient Education Dietary Guidelines to Help Prevent Kidney Stones I, Jania Velasquez, personally scribed for Dr. Sorto on 05/11/2023 13:19:32. . Documentation recorded by the scribeJania, accurately reflects the services(s) I performed and decisions made by me. Authenticated by Dr. Sorto on 05/11/2023 13:23:19. Problem List/Past Medical History Ongoing Chronic cholecystitis with calculus Diverticular disease Feeling of incomplete bladder emptying Foreign body in bladder GERD (gastroesophageal reflux disease) Hyperthyroidism Ureteral stone Historical No qualifying data Procedure/Surgical History Cystoscope (05/11/2023), Cystoscopic removal of ureteric stent (05/11/2023), Laparoscopic cholecystectomy (08/14/2020), Excision of spinal nerve root tumor, Sigmoid colectomy (more content not included)... Normal [facility] Comment on above: Result Comment: Elec tronically Signed By: Shadi SORTO MD\.br\Date and Time Signed: 05/11/23 13:23 EDT\.br\Electronically Co-Signed By: Jania Velasquez\.br\Date and Time Co-Signed: 05/11/23 13:19 EDT\.br\Electronically Co-Signed By: Jania Velasquez\.br\Date and Time Co-Signed: 05/11/23 13:22 EDT Lab Reportson 04-26-2023 Lab Reports [id number] D:127 [facility] Pre-Certification Formon Pre-Certification Form [id number]#1.00 CD:127 [facility] Lab Reportson 04-20-2023 Lab Reports [id number]#1.00CD :127 [facility] Consultation Noteon 04-16-20 Consultation Note [id number]#1.00 CD:127 [facility] Insurance Correspondence Off iceon 04-16-2023 Insurance Correspondence Office [id number]#[id number] D:127 [facility] Lab Report[facility] 04-16-2023 Lab Reports [id number]#1.00CD :127 [facility] Operative Reporton Operative Report [id number]#1.00CD :127 [facility] 04-07-2023 CNPN Telephone (SPNSMN) DONA RODRIGUEZ ([id number]) 1935 F Date Time Provider Department 04/07/23 RENARD REYES SPEDUARDOMN During your visit today, we recorded the following information about you: Renard Reyes APRN.INTERNET SPECIALIST 04/07/2023 3:08 PM Signed Reviewed new MRI. Much better than Nov with resolve of left L3/4 HNP. Stable L2/3 disc bulge. NO right sided neural compression. Called and spoke to Hanh (pt's EC). She reports pt continues to struggle with right groin and proximal RLE pain to the knee, RLE giving out. No left sided pain Reviewed MRI results. Discussed other things such as hip issues need to be considered. They will reach out to PCP Some benefit with lyrica so OK to continue for now. No follow up with spine surgery necessary at this time. Hanh verbalized understanding. All questions were answered. Renard Reyes CNP Below letter faxed to Dr Padilla, PCP at 3:04 PM: Jada Padilla MD Dona Rodriguez ( 1935) has had resolve of LLE pain and is now having right groin pain into the right proximal leg as well as right hip/knee giving out. MRI lumbar was repeated. The L3/4 disc herniation has resolved. The L2/3 disc bulge is stable and asymptomatic. There is NO right sided nerve compression, no findings on the MRI lumbar spine that would be causing her right sided sx. I advised her to see you in follow up for evaluation to evaluate if this is a possible hip issue - such as hip OA, AVN or fracture. The new MRI lumbar spine report is attached for your review and records. There is no follow up required with spine surgery at this time. Renard Reyes CNP Call to Dr Padilla's office and reviewed above with the RN. Allergies As of Date: 04/07/2023 (No Known Allergies) Date Reviewed: 01/12/2023 Reviewed by: Halina Horner MA - Fully Assessed Reason for Visit: Results [95] Visit Diagnoses:Radiculopathy of lumbar region [M54.16] Acute midline low back pain with right-sided sciatica [M54.41] Weakness of both lower extremities [R29.898] Order(s):pregabalin (LYRICA) 25 mg capsuleTake 1 capsule by mouth twice daily for 90 days.Disp: 60 capsuleRfl: 0 Prescriptions as of 04/07/2023 - pregabalin (LYRICA) 25 mg capsule Take 1 capsule by mouth twice daily for 90 days. - buPROPion XL (WELLBUTRIN XL) 150 mg 24 hr tablet Take 150 mg by mouth once daily. - levothyroxine (SYNTHROID) 50 mcg tablet Take 50 mcg by mouth once daily. - meloxicam (MOBIC) 7.5 mg tablet Take by mouth. - oxybutynin (DITROPAN) 5 mg tablet Take 5 mg by mouth twice daily. - traMADol (ULTRAM) 50 mg tablet Take by mouth. - MULTIVITAMIN TAB Take one(1) tablet daily. 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 Medications Discontinued During This Encounter Prescriptions - gabapentin (NEURONTIN) 100 mg capsule (Discontinued) Take 1 tab at bedtime x4 days. Increase to 1 tab twice daily x4 days. Increase to 2 at bedtime, one in AM 4 days. Increase and continue with 2 tabs twice daily. - pregabalin (LYRICA) 25 mg capsule (Discontinued) Take 1 tab at bedtime x4 days. Increase to 1 tab twice daily x4 days. Increase to 2 at bedtime, one in AM x4 days. Increase and continue with 2 tabs twice daily. Encounter Status:Closed by RENARD REYES on 04/07/23 Normal [facility] MRI LUMBAR SPINE WO IVCONon 04-02-2023 MRI LUMBAR SPINE WO IVCON * * *Final Report* * * DATE OF EXAM: Apr 02 2023 12:02PM LN [id number] - MRI LUMBAR SPINE WO IVCON / PROCEDURE REASON: multiple diagnoses * * * * Physician Interpretation * * * * EXAMINATION: MRI LUMBAR SPINE WO IVCON CLINICAL HISTORY: Radiculopathy of lumbar region Acute midline low back pain with right-sided sciatica Weakness of both lower extremities TECHNIQUE: Routine lumbosacral spine MR protocol without gadolinium. MQ: [id number] COMPARISON: 12/11/2022 RESULT: Counting reference: Lumbosacral junction. For the purposes of this report, L4-5 is considered the level of the iliac crest and there are 5 lumbar-type vertebrae. Anatomic variant: Transitional S1 vertebral body. Localizer images: Atrophic kidneys and small renal cysts visible on floor runner images. Alignment: Alignment is anatomic. Bone marrow signal/fracture: No evidence of pathologic marrow infiltration. No evidence of prior fracture. Conus: The conus is within normal limits of signal intensity and morphology. Paraspinal soft tissues: Paraspinal soft tissues are within normal limits. Lower thoracic spine: Visualized lower thoracic canal and foramina are patent. L1-L2: Mild disc and facet degenerative change with patent canal and foramina unchanged from the prior study. L2-L3: Complete disc height loss and moderate facet degenerative changes with left subarticular recess narrowing, mild canal narrowing, and moderate left foraminal narrowing. Right foramen is patent. No change at this level since the prior study. L3-L4: Disc height loss and circumferential disc bulging and moderate facet degenerative change not significantly different from the prior study. Compared to the prior examination, the left paracentral disc extrusion on the prior study has markedly decreased in size/resolved mild to moderate residual narrowing of the canal and mild bilateral subarticular recess narrowing and mild right and moderate left foraminal narrowing otherwise unchanged. L4-L5: Disc height loss and moderate facet hypertrophy with mild canal narrowing and mild bilateral foraminal narrowing unchanged. L5-S1: Advanced facet arthrosis with ligamentous hypertrophy mildly narrowing the canal. Foramina remain patent. No change at this level since the prior study. Sacrum and iliac wings: The visualized sacrum and iliac wings are within normal limits. IMPRESSION: Improvement/resolution of left paracentral extrusion at L3-4 since the prior examination of 12/11/2022. Moderate spondylosis otherwise normal lumbar spine not significantly different from the prior study. Anatomic Lumbar Variant: Transitional S1 vertebral body. L4-5 is considered the level of the iliac crest and there are 5 lumbar-type vertebrae. Binding Folder Machine: PSCB Transcribe Date/Time: Apr 02 2023 12:17P Dictated by : VIKTOR SANDERSON MD This examination was interpreted and the report reviewed and electronically signed by: VIKTOR SANDERSON MD on Apr 02 2023 12:20PM EST [id number] Normal [facility] CNPAnneliese 02-09-2023 CNPN Telephone (NIQ) DONA RODRIGUEZ ([id number]) 1935 F Date Time Provider Department 02/09/23 RODNEY NEWTON During your visit today, we recorded the following information about you: Ana M La 02/09/2023 8:58 AM Signed Patient called reporting: continuing pain Pain level (Scale of 1 to 10): 10 Location: groin area Describe your pain: aching, stabbing , dull, burning, and sharp When did the pain begin? 02/08/23 Any new weakness, falling, numbness/tingling of extremities? No Any changes in bowel/bladder control? No Are you taking pain medications or muscle relaxants? Yes If so, what are you taking and current dosage? Tylenol 2 tablets every 6 hours Tramadol 1 tablet 2x a day Call back # [phone] Forwarded to team for review. Ana M Mike RN 02/09/2023 11:55 AM Addendum Neuro SPINE CARE COORDINATION QUICK NOTE Spoke with pts dtr Hanh and pt, pt is 8 days s/p Right LumbarTransforaminal Epidural Steroid Injection at levels: L4/5 on 02/01/2023. Last appt with Dr Newton was 01/12/2023 CC: Pt reports pain R buttock, R groin, entire R leg and into R foot. Describes pain as constant, sharp, ache, tingling. Pt reported pain is same locations but worse now than prior to PATRICK. Pt rated pain prior to PATRICK as 6/10, rates now as 10/10. Discussed that it can take 2 weeks for PATRICK to fully work, pt and dtr voiced understanding. Pt is currently taking: -Tramadol 50mg twice daily, but reports is is prescribed as 4 times per day prn. -Mobic 7.5m daily Pt is not currently on Gabapentin or Lyrica. Pt has f/u appt with INTERNET SPECIALIST on 03/05/2023. Will discuss with INTERNET SPECIALIST. Pt uses [facility]. Renard Reyes APRN.CNP 02/09/2023 12:37 PM Addendum Reviewed EMR. GFR 11/30/2022 41.0 We can start a low dose gabapentin for the nerve pain flare. Rx sent to pharmacy. Please review medication with pt and let me know if any issues. Renard Reyes APRN.TUNG Reyes APRN.CNP 02/09/2023 12:37 PM Signed Addended by: RENARD REYES on: 02/09/2023 12:37 PM Modules accepted: Orders Mark Anthony Mike RN 02/09/2023 2:48 PM Signed Neuro SPINE CARE COORDINATION QUICK NOTE Spoke with pts dtr, discussed Gabapentin and how to slowly titrate/wean, dtr voiced understanding. Dtr will contact office back with any questions or concerns. Allergies As of Date: 02/09/2023 (No Known Allergies) Date Reviewed: 01/12/2023 Reviewed by: Halina Horner MA - Fully Assessed Reason for Visit: Pain [78] Primary Visit Diagnosis:Lumbar radiculopathy [M54.16] Order(s):gabapentin (NEURONTIN) 100 mg capsuleTake 1 tab at bedtime x4 days. Increase to 1 tab twice daily x4 days. Increase to 2 at bedtime, one in AM 4 days. Increase and continue with 2 tabs twice daily.Disp: 60 capsuleRfl: 0 Prescriptions as of 02/09/2023 - gabapentin (NEURONTIN) 100 mg capsule Take 1 tab at bedtime x4 days. Increase to 1 tab twice daily x4 days. Increase to 2 at bedtime, one in AM 4 days. Increase and continue with 2 tabs twice daily. - buPROPion XL (WELLBUTRIN XL) 150 mg 24 hr tablet Take 150 mg by mouth once daily. - levothyroxine (SYNTHROID) 50 mcg tablet Take 50 mcg by mouth once daily. - meloxicam (MOBIC) 7.5 mg tablet Take by mouth. - oxybutynin (DITROPAN) 5 mg tablet Take 5 mg by mouth twice daily. - traMADol (ULTRAM) 50 mg tablet Take by mouth. - MULTIVITAMIN TAB Take one(1) tablet daily. 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 Increase to 1 tab twice daily x4 days. Increase to 2 at bedtime, one in AM 4 days. Increase and continue with 2 tabs twice daily. Encounter Status:Closed by MARK ANTHONY MIKE on 02/09/23 Normal [facility] CNOVon 02-01-2023 CNOV Office Visit (SPNMMN ) DONA RODRIGUEZ ([id number]) 1935 F Date Time Provider Department 02/01/23 10:00 AM SPINE MED PROCEDURE MAIN SPNMMN During your visit today, we recorded the following information about you: Temperature Pulse Respiration Blood pressure 97.8 degrees 80/minute 18/minute 117/44 Sybil Euceda MD 02/01/2023 11:32 AM Signed UPDATED HISTORY AND PHYSICAL EXAMINATION PATIENT NAME: Dona Rodriguez SERVICE DATE: 02/01/2023 The History and Physical (completed in the past 30 days) has been reviewed and the patient has been examined. The contents accurately reflect the patient's condition with the following additions or revisions since the HANDP was completed. Examination indicates no changes. This HANDP can be found in the Electronic Medical Record dated 02/01/23 PHYSICAL EXAMINATION: VITAL SIGNS: 02/01/23 0941 BP: (!) 117/44 BP Site: Right Arm BP Position: Sitting Pulse: 80 Resp: 18 Temp: 36.6 ?C (97.8 ?F) SpO2: 97% GENERAL: Well-developed, well-nourished female in no apparent distress with pleasant mood. HEENT: Head is normocephalic/atraumati c. Nares appear normal. Moist mucous membranes without lesions. RESP: Non-labored breathing. CV: Extremities are warm and well-perfused. GI: Soft, NT / ND. SKIN: No rashes, lesions, ulceration or induration in the upper/lower extremities, trunk, or head/neck. PSYCH: Awake, alert and fully oriented. There is no evidence of cognitive or language dysfunction. Appropriate insight. Antigravity strength is present in the bilateral lower extremities Risk, benefits, and alternatives of surgery explained to patient by surgeon with explicit agreement by patient or patient policy services representative before surgery. Sybil Euceda MD Spine Medicine Fellow, PGY-5 DATE: February 01, 2023 TIME: 9:42 AM Bailee Rivers RN 02/01/2023 9:52 AM Signed PATIENT NAME: Dona Rodriguez 1935 87 year old Current medications and allergies reviewed with patient in visit navigator: Yes Baseline vital signs and pain assessment entered in activity in visit navigator: Yes Curb Hop for post spine injection procedure: Yes First Name: Hanh Relationship: daughter Pre-procedure pain level on 0-10 scale 8 Patient gender: Female. Is there any chance the patient could be ? No. Menstrual Date: Menopause Undergone Injection in the past: No Time since last PO intake: Coffee 7 am Any history of adverse reaction or unanticipated events when receiving steroids, iodine, or contrast, as commonly used for CT or MR imaging: No Antibiotic/antifungal administered in the last 2 weeks: No Recent flu symptoms: No Noticed any open skin, sores, or rashes: No Undergone any recent serious medical/dental or surgical procedure: No Diabetic: No Fluoroscopy applicable: currently using an Insulin Pump: N/A Blood Thinner (anticoagulants/antipla telet medications): No Klonopin requested: Yes Signed by: Bailee Rivers RN February 01, 2023 9:47 AM David Ramsey LPN 02/01/2023 11:32 AM Signed NON-SEDATION PROCEDURE FORM February 01, 2023 7:22 AM Room Number: S7-729 Fluoroscopy suite ID verified: Yes Arrived via indpendent ambulation 87 year old Weight: Last 2 Encounter Wt Readings: Date: Wt: 01/12/2023 42.6 kg (94 lb) 04/14/2010 47.8 kg (105 lb 6.4 oz) Indication for Procedure (Associated Diagnoses): low back pain Procedure ordered: Right L4 transforaminal epidural steroid injection Verified by patient by: Dr. Hunt Curb Hop for post spine injection procedure: Yes Patient mentation: alert, oriented, cooperative Yes Allergies: ALLERGIES No Known Allergies Pre-Procedural medication orders:clonazePAM orally disintegrating (KLONOPIN WAFER) 0.5 mg disintegrating tablet given as prescribed Patient tolerated well Documented in med note. Pre-procedural orders Discharge / transfer when discharge assessment criteria met: Alert and oriented X3, moves all extremities X4, vital signs stable, injection site flat and dry. Able to ambulate as prior to procedure Sign In Communication: Allergies and medications reviewed. Site of the procedure confirmed:Yes Informed Consent Complete: Yes Relevent diagnostic tests reviewed (i.e., use of anticoagulants, INR, platelet count, imaging, etc.) Yes Critical Information: Proceduralist: Dr. Gilbert Euceda PROCEDURAL TIME OUT: Time out verification includes:Audible time-out documented: Yes. Time: 1025 Correct Patient: Two Patient Identifiers Correct side/ site marking, prep and dry time (If applicable) Accurate Consent Correct Procedure Correct Positioning Safety Precautions Based on Patient History or Medication Team agrees: correct patient, correct procedure, correct site, correct position UNIVERSAL PROTOCOL / SAFETY CHECKLIST Procedure to be Performed: Right L4 transforaminal epidural steroid i (more content not included)... Normal [facility] CNOVon 01-12-2023 CNOV Office Visit (SPNSMN ) DONA RODRIGUEZ ([id number]) 1935 F Date Time Provider Department 01/12/23 2:20 PM RODNEY NEWTON During your visit today, we recorded the following information about you: Pulse Respiration Blood pressure Weight 90/minute 16/minute 124/55 42.6 kg Height 1.524 m Rodney Newton MD 01/14/2023 10:27 AM Signed SPINE SURGERY NEW PATIENT This is an in-person visit. PCP: Lety Daniels MD REFERRING PROVIDER: Self-referred SUBJECTIVE HISTORY OF PRESENT ILLNESS: Dona Rodriguez is a 87 year old female presenting with daughter. Since early November has noted left leg gives way . Low back pain centered mostly in anteromedial groin on left side. Radiates down anterior thigh to knee. Feels like a constant ache . No reliving factors. No right-sided pain. Has tried PT, NSAIDs, analgesics (Tramadol) without relief. No injections. No UE symptoms - numbness, tingling, or weakness. 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 TOTAL ABDOMINAL HYSTERECT W/WO RMVL TUBE OVARY 1970 Hysterectomy, MANJULA FAMILY HISTORY Problem Relation Age of Onset Cancer Father lung cancer Cancer Brother brain cancer,diabetes, heart Diabetes Mother Diabetes Brother heart Heart Brother Stroke Paternal Grandfather Stroke Brother other (IBD [Other]) Mother other (IBD [Other]) Maternal Grandmother Social History Tobacco Use Smoking status: Former Packs/day: 0.50 Years: 10.00 Pack years: 5.00 Types: Cigarettes Quit date: 02/17/2010 Years since quittin.9 Smokeless tobacco: Never Substance Use Topics Alcohol use: No ALLERGIES No Known Allergies MEDICATIONS: buPROPion XL (WELLBUTRIN XL) 150 mg 24 hr tablet Take 150 mg by mouth once daily. levothyroxine (SYNTHROID) 50 mcg tablet Take 50 mcg by mouth once daily. meloxicam (MOBIC) 7.5 mg tablet Take by mouth. oxybutynin (DITROPAN) 5 mg tablet Take 5 mg by mouth twice daily. traMADol (ULTRAM) 50 mg tablet Take by mouth. MULTIVITAMIN TAB Take one(1) tablet daily. (Patient not taking: Reported on 01/12/2023) HERBAL DRUGS ORAL LIQUID BARLEY POWDER DAILY (Patient not taking: Reported on 01/12/2023) REVIEW OF SYSTEMS: GENERAL: No weight loss or malaise MUSCULOSKELETAL: Negative for joint pain, swelling or muscle pain NEURO: No history of headaches, syncope, paralysis, seizures or tremors Patient Entered Questionnaires PROMIS Score Percentiles Percentiles provide an indication of how the patient's score ranks in relation to the general population. Higher percentile rankings indicate better function/quality of life. 50th percentile is the average of the general population and indicates half of respondents had a worse score. Depression Screening: PHQ-9 Self-Harm (Item 9) response options: 0 Not at all 1 Several days 2 More than half the days 3 Nearly every day PHQ-9 Levels: 0-4 No to mild depression 5-9 Mild depression 10-14 Moderate depression 15-19 Moderately severe depression 20-27 Severe depression OBJECTIVE: PHYSICAL EXAM BP 124/55 Pulse 90 Resp 16 Ht 152.4 cm (5') Wt 42.6 kg (94 lb) SpO2 96% BMI 18.36 kg/m? RLE - 5/5 HF, KE, DF, PF LLE - 4 HF, 4+ KE, 5 DF/PF Antalgic gait DATA REVIEW [facility] records independently reviewed MRI shows foraminal stenosis left L2-3. Caudally migrated disc L3-4 abutting traversing L4 root. 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 Dona Rodriguez will continue with medical management of his/her condition. We explained the anticipated natural history of her condition; that in all likelihood, her symptoms would improve with time, especially since it has barely been 6 weeks so far since symptom onset. Moreover, we will make a referral for a transforaminal epidural steroid injection in hopes of providing her with relief and getting her (more content not included)... Normal [facility] COVID/FLU/RSV RT-PCRon 12-24 SARS-CoV-2 (COVID-19) RNA ALEN+probe Ql (Unsp spec) Negative [facility] Other COVID/FLU/RSV RT-PCR Negative [facility] Other MRI LSPINE WO CONon 12-14-19 MRI LSPINE WO CON HISTORY: Low back pa in radiating into the left leg for the past 2 weeks. Weakness in the left leg. No known injury. MRI L-SPINE WO CON: 12/11/2022, 10:51 AM EST. COMPARISON: Radiographs lumbar spine 12/03/2022. TECHNIQUE: Sagittal T1, T2, STIR, axial T1 and axial T2-weighted images of the lumbar spine were obtained. FINDINGS: Several images are slightly degraded by motion artifact. There is transitional anatomy at the lumbosacral junction with partial lumbarization of S1 and a rudimentary disc space at the S1-S2 level. There is a rotatory dextroconvex sclerosis of the lumbar spine again seen. There is multilevel discogenic disease throughout the lumbar spine and this appears severe at the L2-L3 level. There is no compression fracture or subluxation. The bone marrow signal intensity appears age appropriate. The conus medullaris is not studied in detail, but it appears grossly unremarkable. L1-L2 level: No significant disc protrusion, spinal canal stenosis, or foraminal narrowing is seen. L2-L3 level: There are postsurgical changes from prior laminectomy. There is a posterior disc-osteophyte complex which is more prominent in the left foraminal/far lateral region. This appears to cause moderate narrowing of the left foramen. No right foraminal narrowing or central spinal canal stenosis is seen. L3-L4 level: There is mild retrolisthesis of 2 mm. There is a posterior disc-osteophyte complex which appears to cause mild left foraminal narrowing. There is no significant right foraminal narrowing. This disc bulge causes mild spinal canal stenosis. Superimposed on this disc bulge is a large left paracentral disc extrusion dissecting caudally to the inferior aspect of L4 in the left lateral recess and this causes severe narrowing of the left lateral recess with compression of the descending left L4 nerve root. There is also a moderate-sized right paracentral disc extrusion dissecting caudally into the right lateral recess and this appears to cause moderate narrowing of the right lateral recess in the region of the descending right L4 nerve root. L4-L5 level: There is a small posterior disc bulge combining with mild facet joint arthropathy to cause mild narrowing of the lateral recesses. A left foraminal/far lateral disc-osteophyte complex causes mild left foraminal narrowing. There is no right foraminal narrowing. L5-S1 level: There is a small posterior disc bulge combining with severe facet joint arthropathy to cause mild spinal canal stenosis. There is no foraminal narrowing. S1-S2 level: No significant disc protrusion, spinal canal stenosis, or foraminal narrowing is seen. IMPRESSION: 1. At the L3-L4 level there is a posterior disc-osteophyte complex causing mild spinal canal stenosis and mild left foraminal narrowing. There is also a large left paracentral disc extrusion dissecting caudally into the left lateral recess and this causes severe narrowing of the left lateral recess with compression of the descending left L4 nerve root. There is also a moderate-sized right paracentral disc extrusion dissecting caudally into the right lateral recess and this appears to cause moderate narrowing of the right lateral recess in the region of the descending right L4 nerve root. 2. There is moderate narrowing of the left foramen at the L2-L3 level and mild left foraminal narrowing at the L4-L5 level. 3. Mild spinal canal stenosis at the L5-S1 level. 4. 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 5. Please note that there is transitional anatomy at the lumbosacral junction with partial lumbarization of S1 and the last well-developed disc space is termed L5-S1 for the purposes of this report. Correlation of this MRI with a lateral view of the lumbar spine is recommended prior to any potential procedural intervention on the lumbar spine. Electronically authenticated by: JADA LORENZ Date: 2022-12-14 10:29 Normal [facility] EULALIA by IFAon 12-03-2022 Antinuclear Antibodies, IFA Negative Normal [facility] Comment on above: Result Comment: Nega tive <1:80 Borderline 1:80 Positive >1:80 ICAP nomenclature: AC-0 For more information about Hep-2 cell patterns use ANApatterns.org, the official website for the International Consensus on Antinuclear Antibody (EULALIA) Patterns (ICAP). Performed By: #### A NAIFA ####[facility] [id number] [id number]. Yilan Veronica ECHOCARDIO M/2D COMPLETEon 0 12-03-2022 ECHOCARDIO M/2D COMPLETE Patient: DONA RODRIGUEZ Exam Date: 12/03/2022 : 1935 Gender:F Ordering : DR JADA PADILLA . Admission #: [id number] Family : Order #: [id number] CLICK HERE TO VIEW EXAM ECHOCARDIOGRAM REPORT PROCEDURE: CARDIO PULMONARY ECHOCARDIO M/2D COMP INDICATIONS: Weakness, Monoplegia of lower limb COMPARISON: None. DESCRIPTION: COMPLETE ECHOCARDIOGRAM Real-time transthoracic echocardiography with 2D, M-mode, spectral and color flow Doppler performed. QUALITY: Technical quality was good. LEFT VENTRICLE: Small chamber size. Normal left ventricular wall thickness. Global left ventricular systolic function is normal. LV EF: Calculated left ventricular ejection fraction is 64%. DIASTOLIC: Grade I diastolic dysfunction. ATRIAL SEPTUM: LEFT ATRIUM: Normal chamber size. RIGHT ATRIUM: Normal chamber size. RIGHT VENTRICLE: Normal chamber size. Normal right ventricular systolic function. TRICUSPID VALVE: Normal mobility and thickness. No stenosis with trivial regurgitation. No evidence of pulmonary hypertension. RVSP 32 mmHg MITRAL VALVE: Normal mobility and thickness. No mitral valve prolapse. No evidence of mitral valve stenosis. There is no mitral annular calcification. Trivial mitral regurgitation. AORTIC VALVE: Normal trileaflet appearance. Normal leaflet mobility. No evidence of aortic valve stenosis. No aortic regurgitation. AORTIC ROOT: Normal diameter and appearance. PULMONIC VALVE: Normal thickness and mobility. No stenosis. PERICARDIUM: No evidence of pericardial effusion. IVC: Collapses with inspirations. Normal size. PLEURA: CONCLUSION: 1. Normal ventricular systolic function. LVEF is 60 to 65%. 2. Mild diastolic dysfunction. 3. No significant valvular dysfunction. 4. Normal right-sided pressures. 5. No pericardial effusion. Adult Echocardiography Procedure Report Left Ventricle LVEDD (3.7 - 5.6 cm): 2.05 cm LVESD (2.2 - 4.0 cm): 1.31 cm LVIVS thickness (0.6 - 1.2 cm): 1.00 cm LVPW thickness (0.5 - 1.0 cm): 0.63 cm e': 0.08 m/s E - e': 6.60 LVOT Max Gradient: 3.21 mm[Hg] Peak Velocity (LVOT): 0.90 m/s Mean Velocity (LVOT): 0.55 m/s LVOT Diameter 1.62 cm Left Ventricular Ejection Fraction: 60-65 % Left Atrium LA Volume Index (2D A2C): 25.38 ml, 25.38 ml Left Atrium Systolic Dimension: 2.24 cm Mitral Valve MV E to A Ratio: 0.61 Mitral Valve A-Wave Peak Velocity: 0.88 m/s Mitral Valve E-Wave Peak Velocity: 0.54 m/s Right Ventricle RV Internal Diastolic Dimension: 2.43 cm Aorta AO Root Diam: 2.42 cm Ascending Ao Diam: 1.66 cm Aortic Valve AoV Area (Peak Shaq): 1.77 cm2, 1.77 cm2 AoV Area (VTI): 1.93 cm2, 1.93 cm2 Peak Velocity(Antegrade Flow): 1.04 m/s Peak Gradient(Antegrade Flow): 4.33 mm[Hg] Mean Velocity(Antegrade Flow): 0.73 m/s Mean Gradient(Antegrade Flow): 2.24 mm[Hg] Velocity Time Integral: 20.85 cm Tricuspid Valve Peak Velocity (Regurgitant Flow): 2.15 m/s, 2.70 m/s Pulmonic Valve Peak Velocity: 0.89 m/s, 0.82 m/s Peak Gradient: 3.14 mm[Hg], 2.70 mm[Hg] Right Atrium Right Atrium Systolic Pressure: 13.71 ml, 13.71 ml Dictated by: Isidro Solomon M.D. on 12/03/2022 at 19:43 Approved by: Isidro Solomon M.D. on 12/03/2022 at 19:45 Normal [facility] XR LSPINE MIN 4 VIEWSon 02-0 XR LSPINE MIN 4 VIEWS EXAMINATION: XR LSPINE MIN 4 VIEWS HISTORY: Low back pain ; leg weakness, left greater than right COMPARISON: No relevant comparison available. FINDINGS: BONES: Mild grade 1 retrolisthesis of L2 on 3. Multilevel moderate degenerative facet arthropathy. No fracture. Mild right convex curvature. Partial lumbarization of S1 (normal variant). DISC SPACES: Marked narrowing L2-3 with posterior disc-osteophyte complex. PARASPINOUS: Negative. No paraspinous abnormality is seen. OTHER: Bowel sutures within midline pelvis. IMPRESSION: 1. L2-3 grade 1 retrolisthesis, marked degenerative disc disease, and likely central canal and foramen stenosis. Appearance is similar to the 04/01/2022 CT abdomen pelvis study. Consider MRI for further evaluation if symptoms persist. Electronically authenticated by: SULAIMAN MERCEDES Date: 2022-12-03 11:58 Normal [facility] ANTISTREPTOLYSIN O AB (ASO)o n 12-01-2022 Antistreptolysin O Ab <20.0 Normal 0.0-200.0 [facility] Comment on above: Performed By: #### A SOAB ####[facility] [id number] [id number] Veronica RHEUMATOID FACTORon 12-01-19 RA Latex Turbid. <10.0 Normal <14.0 [facility] Comment on above: Performed By: #### R F ####[facility] [id number] [address]DrMaxi Veronica CBC AUTO DIFFon 11-30-2022 BASO # 0.1 103/ul Normal 0.0-0.1 [facility] Comment on above: Performed By: #### C MP, CRP, LIPA, CHANDNI #### [facility] [address] [address] [address] Luis Miguel Veronica Basophils/100 WBC (Bld) 0.7 % Normal 0.2-2.0 [facility] Comment on above: Performed By: #### C MP, CRP, LIPA, CHANDNI #### [facility] [address] [address] [address] Luis Miguel Veronica EO # 0.1 103/ul Normal 0.0-0.7 [facility] Comment on above: Performed By: #### C MP, CRP, LIPA, CHANDNI #### [facility] [address] [place] [address] Dr. Luis Miguel Veronica Eosinophils/100 WBC (Bld) 0.8 % Critically low 0.9-7.0 [facility] Comment on above: Performed By: #### C MP, CRP, LIPA, CHANDNI #### [facility] [address] [place] [address] Dr. Luis Miguel Veronica Erythrocyte distribution width (RBC) [Ratio] 13.4 % Normal 11.0-15.0 [facility] Comment on above: Performed By: #### C MP, CRP, LIPA, CHANDNI #### [facility] [address] [place] [address] Dr. Luis Miguel Veronica Hematocrit (Bld) [Volume fraction] 45.3 % Normal 36.0-48.0 [facility] Comment on above: Performed By: #### C MP, CRP, LIPA, CHANDNI #### [facility] [address] [place] [address] Dr. Luis Miguel Veronica Hemoglobin (Bld) [Mass/Vol] 14.2 g/dL Normal 12.0-16.0 [facility] Comment on above: Performed By: #### C MP, CRP, LIPA, CHANDNI #### [facility] [address] [place] [address] Dr. Luis Miguel Veronica IG # 0.02 10e3/ul Normal 0.00-0.03 [facility] Comment on above: Performed By: #### C MP, CRP, LIPA, CHANDNI #### [facility] [address] [place] [address] Dr. Luis Miguel Veronica IG % 0.2 % Normal 0.0-0.5 [facility] Comment on above: Performed By: #### C MP, CRP, LIPA, CHANDNI #### [facility] [address] [place] [address] Dr. Luis Miguel Veronica LYMPH # 2.5 103/ul Normal 1.2-3.8 [facility] Comment on above: Performed By: #### C MP, CRP, LIPA, CHANDNI #### [facility] [address] [place] [address] Dr. Luis Miguel Veronica Lymphocytes/100 WBC (Bld) 27.3 % Normal 20.5-60.0 [facility] Comment on above: Performed By: #### C MP, CRP, LIPA, CHANDNI #### [facility] [address] [place] [address] Dr. Luis Miguel Veronica MANUAL DIFF REQ NO Normal [facility] Comment on above: Performed By: #### C MP, CRP, LIPA, CHANDNI #### [facility] [address] [place] [address] Dr. Luis Miguel Veronica MCH (RBC) [Entitic mass] 32.3 pg Normal 26.7-34.0 [facility] Comment on above: Performed By: #### C MP, CRP, LIPA, CHANDNI #### [facility] [address] [place] [address] Dr. Luis Miguel Veronica MCHC (RBC) [Mass/Vol] 31.3 g/dL Normal 29.9-35.2 [facility] Comment on above: Performed By: #### C MP, CRP, LIPA, CHANDNI #### [facility] [address] [place] [address] Dr. Luis Miguel Veronica MCV (RBC) [Entitic vol] 103.0 fL Critically high 81.0-99.0 [facility] Comment on above: Performed By: #### C MP, CRP, LIPA, CHANDNI #### [facility] [address] [place] [address] Dr. Luis Miguel Veronica MONO # 0.6 103/ul Normal 0.3-0.8 [facility] Comment on above: Performed By: #### C MP, CRP, LIPA, CHANDNI #### [facility] [address] [place] [address] Dr. Luis Miguel Veronica Monocytes/100 WBC (Bld) 6.2 % Normal 1.7-12.0 [facility] Comment on above: Performed By: #### C MP, CRP, LIPA, CHANDNI #### [facility] [address] [place] [address] Dr. Luis Miguel Veronica NEUT # 5.8 103/ul Normal 1.4-6.5 [facility] Comment on above: Performed By: #### C MP, CRP, LIPA, CHANDNI #### [facility] [facility] [address] [place] [address] Dr. Luis Miguel Veronica Neutrophils/100 WBC (Bld) 64.8 % Normal 43.0-75.0 [facility] Comment on above: Performed By: #### C MP, CRP, LIPA, CHANDNI #### [facility] [address] [address] [address] Luis Miguel Veronica Platelet mean volume (Bld) [Entitic vol] 9.7 fL Normal 9.5-13.5 [facility] Comment on above: Performed By: #### C MP, CRP, LIPA, CHANDNI #### [facility] [address] [address] [address] Luis Miguel Veronica PLT 237 103/ul Normal 150-450 [facility] Comment on above: Performed By: #### C MP, CRP, LIPA, CHANDNI #### [facility] [address] [address] [address] Luis Miguel Veronica RBC 4.40 106/ul Normal 4.20-5.40 [facility] Comment on above: Performed By: #### C MP, CRP, LIPA, CHANDNI #### [facility] [address] [address] [address] Luis Miguel Veronica WBC 9.0 103/ul Normal 4.0-11.0 [facility] Comment on above: Performed By: #### C MP, CRP, LIPA, CHANDNI #### [facility] [address] [address] [address] Luis Miguel Veroniac CRPon 11-30-2022 CRP [Mass/Vol] mg/L Normal <=1.0 [facility] Comment on above: Performed By: #### U JOE, LIPID, CMP, TSH, T7, CRP ####[facility] [address] [address]Dr. Luis Miguel Veronica FREE THYROXINE INDEX T7on FTI 3.60 Normal 1.30-4.50 [facility] Comment on above: Performed By: #### C MP, CRP, LIPA, CHANDNI #### [facility] [address] [address] [address] Luis Miguel Veronica T3U 36.0 % Normal 30.0-39.0 [facility] Comment on above: Performed By: #### C MP, CRP, LIPA, CHANDNI #### [facility] [address] [address] [address] Luis Miguel Veronica T4 [Mass/Vol] 10.00 ug/dL Normal 4.80-13.90 [facility] Comment on above: Performed By: #### C MP, CRP, LIPA, CHANDNI #### [facility] [address] [address] [address] Luis Miguel Veronica GLYCOHEMOGLOBIN A1Con 2022 ADA RECOMMENDATION SEE BELOW Normal [facility] Comment on above: Result Comment: ADA RECOMMENDED LIMIT 4.0 - 6.0 ADA THERAPEUTIC TARGET < 7.0 ACTION SUGGESTED > 7.0 Performed By: #### C MP, CRP, LIPA, CHANDNI #### [facility] [address] [address] [address] Luis Miguel Veronica Glucose [Mass/Vol] 126 mg/dL Normal [facility] Comment on above: Performed By: #### C MP, CRP, LIPA, CHANDNI #### [facility] [address] [place] [address] Dr. Luis Miguel Veronica HbA1c (Bld) [Mass fraction] 6.0 % Normal 4.5-6.2 [facility] Comment on above: Performed By: #### C MP, CRP, LIPA, CHANDNI #### [facility] [address] [place] [address] Dr. Luis Miguel Veronica IRONon 11-30-2022 Iron [Mass/Vol] 114.0 ug/dL Normal 50.0-170.0 [facility] Comment on above: Performed By: #### I MICHELLE CALL #### [facility] [address] [place] [address] Dr. Luis Miguel Veronica LIPID PROFILEon 11-30-2022 CHOL-HDL RATIO NORM SEE BELOW Normal [facility] Comment on above: Result Comment: 3.3 - 4.4 LOW RISK 4.4 - 7.1 AVERAGE RISK 7.1 - 11.0 MODERATE RISK >11.0 HIGH RISK Performed By: #### C MP, CRP, LIPA, CHANDNI #### [facility] [address] [place] [address] Dr. Luis Miguel Veronica Cholesterol [Mass/Vol] 212 mg/dL Critically high <=200 [facility] Comment on above: Performed By: #### C MP, CRP, LIPA, CHANDNI #### [facility] [address] [address] [address] Luis Miguel Veronica Cholesterol in HDL [Mass/Vol] 70 mg/dL Critically high 40-60 [facility] Comment on above: Performed By: #### C MP, CRP, LIPA, CHANDNI #### [facility] [address] [address] [address] Luis Miguel Veronica Cholesterol in LDL [Mass/Vol] 111.6 mg/dL Normal [facility] Comment on above: Performed By: #### C MP, CRP, LIPA, CHANDNI #### [facility] [address] [address] [address] Luis Miguel Veronica Cholesterol.total/C holesterol in HDL [Mass ratio] 3.0 {ratio} Normal [facility] Comment on above: Performed By: #### C MP, CRP, LIPA, CHANDNI #### [facility] [address] [address] [address] Luis Miguel Veronica HDL NORMAL > or = 60 mg/dl - LO W CARDIOVASCULAR RISK <40 mg/dl - HIGH CARDIOVASCULAR RISK Normal [facility] Comment on above: Performed By: #### C MP, CRP, LIPA, CHANDNI #### [facility] [address] [address] [address] Luis Miguel Veronica LDL CALC NORMAL SEE BELOW Normal [facility] Comment on above: Result Comment: <100 mg/dl OPTIMAL 100 - 129 mg/dl NEAR OR ABOVE OPTIMAL 130 - 159 mg/dl BORDERLINE HIGH 160 - 189 mg/dl HIGH >190 mg/dl VERY HIGH Performed By: #### C MP, CRP, LIPA, CHANDNI #### [facility] [address] [address] [address] Luis Miguel Veronica Triglyceride [Mass/Vol] 152 mg/dL Critically high <=150 [facility] Comment on above: Performed By: #### C MP, CRP, LIPA, CHANDNI #### [facility] [address] [address] [address] Luis Miguel Veornica VLDL CALC 30.4 mg/dL Normal [facility] Comment on above: Performed By: #### C MP, CRP, LIPA, CHANDNI #### [facility] [address] [place], [place] [address] Dr. Luis Miguel Veronica PROF 14(COMP METB)on 023 Albumin [Mass/Vol] 4.0 g/dL Normal 3.4-5.0 [facility] Comment on above: Performed By: #### U JOE, LIPID, CMP, TSH, T7, CRP ####[facility] [address] [address]Dr. Luis Miguel Veronica Albumin/Globulin [Mass ratio] 1.2 {ratio} Normal [facility] Comment on above: Performed By: #### U JOE, LIPID, CMP, TSH, T7, CRP ####[facility] [address] [address]Dr. Luis Miguel Veronica ALP [Catalytic activity/Vol] 63 U/L Normal 46-116 [facility] Comment on above: Performed By: #### U JOE, LIPID, CMP, TSH, T7, CRP ####[facility] [address] [address]Dr. Luis Miguel Veronica ALT [Catalytic activity/Vol] 28 U/L Normal 14-59 [facility] Comment on above: Performed By: #### U JOE, LIPID, CMP, TSH, T7, CRP ####[facility] [address] [address]Dr. Luis Miguel Veronica Anion gap [Moles/Vol] 17.1 mmol/L Normal [facility] Comment on above: Performed By: #### U JOE, LIPID, CMP, TSH, T7, CRP ####[facility] [address] [address]Dr. Luis Miguel Veronica AST [Catalytic activity/Vol] 26 U/L Normal 15-37 [facility] Comment on above: Performed By: #### U JOE, LIPID, CMP, TSH, T7, CRP ####[facility] [address] [address]Dr. Luis Miguel Veronica Bilirubin [Mass/Vol] 0.4 mg/dL Normal 0.2-1.0 [facility] Comment on above: Performed By: #### U JOE, LIPID, CMP, TSH, T7, CRP ####[facility] [address] [address]Dr. Luis Miguel Veronica Calcium [Mass/Vol] 9.8 mg/dL Normal 8.5-10.1 [facility] Comment on above: Performed By: #### U JOE, LIPID, CMP, TSH, T7, CRP ####[facility] [address] [place], [place] [address]Dr. Luis Miguel Veronica Chloride [Moles/Vol] 104 mmol/L Normal 98-107 [facility] Comment on above: Performed By: #### U JOE, LIPID, CMP, TSH, T7, CRP ####[facility] [address] [place], [place] [address]Dr. Luis Miguel Veronica CO2 [Moles/Vol] 24.6 mmol/L Normal 21.0-32.0 [facility] Comment on above: Performed By: #### U JOE, LIPID, CMP, TSH, T7, CRP ####[facility] [address] [place], [place] [address]Dr. Francineclyde Veronica Creatinine [Mass/Vol] 1.25 mg/dL Critically high 0.55-1.02 [facility] Comment on above: Performed By: #### U JOE, LIPID, CMP, TSH, T7, CRP ####[facility] [address] [place], [place] [address]Dr. Luis Miguel Jeremías EGFR-AF LUXEMBOURGER 49 mL/min/1.73m2 Critically low >=60 [facility] Comment on above: Performed By: #### U JOE, LIPID, CMP, TSH, T7, CRP ####[facility] [address] [place], [place] [address]Dr. Luis Miguel Jeremías EGFR-NON AF LUXEMBOURGER 41 mL/min/1.73m2 Critically low >=60 [facility] Comment on above: Performed By: #### U JOE, LIPID, CMP, TSH, T7, CRP ####[facility] [address] [place], [place] [address]Dr. Luis Miguel Veronica Globulin (S) [Mass/Vol] 3.3 g/dL Normal [facility] Comment on above: Performed By: #### U JOE, LIPID, CMP, TSH, T7, CRP ####[facility] [address] [address]Dr. Luis Miguel Veronica Glucose [Mass/Vol] 89 mg/dL Normal 74-106 [facility] Comment on above: Performed By: #### U JOE, LIPID, CMP, TSH, T7, CRP ####[facility] [address] [address]Dr. Luis Miguel Veronica Potassium [Moles/Vol] 4.7 mmol/L Normal 3.5-5.1 [facility] Comment on above: Performed By: #### U JOE, LIPID, CMP, TSH, T7, CRP ####[facility] [address] [place], [place] [address]Dr. Luis Miguel Veronica Protein [Mass/Vol] 7.3 g/dL Normal 6.4-8.2 [facility] Comment on above: Performed By: #### U JOE, LIPID, CMP, TSH, T7, CRP ####[facility] [address] [place], [place] [address]Dr. Luis Miguel Veronica Sodium [Moles/Vol] 141 mmol/L Normal 136-145 [facility] Comment on above: Performed By: #### U JOE, LIPID, CMP, TSH, T7, CRP ####[facility] [address] [place], [place] [address]Dr. Luis Miguel Veronica Urea nitrogen [Mass/Vol] 22.0 mg/dL Critically high 7.0-18.0 [facility] Comment on above: Performed By: #### U JOE, LIPID, CMP, TSH, T7, CRP ####[facility] [address] [address]Dr. Luis Miguel Veronica Urea nitrogen/Creatinine [Mass ratio] 17.6 mg/mg Normal [facility] Comment on above: Performed By: #### U JOE, LIPID, CMP, TSH, T7, CRP ####[facility] [address] [place], [place] [address]Dr. Luis Miguel Veronica TSHon 11-30-2022 TSH 1.292 uIU/mL Normal 0.358-3.740 [facility] Comment on above: Performed By: #### C MP, CRP, LIPA, CHANDNI #### [facility] [address] [address] [address] Luis Miguel Veronica URIC ACID SERUMon 11-30-2022 Urate [Mass/Vol] 4.0 mg/dL Normal 2.6-6.0 [facility] Comment on above: Performed By: #### U JOE, LIPID, CMP, TSH, T7, CRP ####[facility] [address] [place], [place] [address]Z[address]Dr. Luis Miguel Veronica VITAMIN D 25 OHon 11-30-2022 VIT D 25-OH 22.7 ng/mL Normal [facility] Comment on above: Performed By: #### I JAKUB, VITAD #### [facility] [address] [address] [address] Luis Miguel Veronica VIT D RANGES SEE BELOW Normal [facility] Comment on above: Result Comment: <20 ng/mL Vit D deficient 20 - <30 ng/mL Vit D insufficient 30 - 100 ng/mL Vit D sufficient >100 ng/mL Potential Toxicity Performed By: #### I JAKUB, VITAD #### [facility] [address] [address] [address] Luis Miguel Veronica CARDIAC MALDONADO ADMITon 023 CK [Catalytic activity/Vol] 64 U/L Normal 26-192 [facility] Comment on above: Performed By: #### C MP, CRP, LIPA, CHANDNI #### [facility] [address] [address] [address] Luis Miguel Veronica CK.MB [Mass/Vol] ng/mL Normal <=3.60 [facility] Comment on above: Performed By: #### C MP, CRP, LIPA, CHANDNI #### [facility] [address] [address] [address] Luis Miguel Veronica HSTROP 5.6 pg/mL Normal 4.0-51.3 [facility] Comment on above: Result Comment: CUT- OFF POINTS HAVE BEEN ESTABLISHED BASED ON THE FOURTH UNIVERSAL DEFINITIONS OF MYOCARDIAL INFARCTION. THE UPPER REFERENCE LIMIT (URL) OF TROPONIN, DEFINED THE 99TH PERCENTILE OF cTnI DISTRIBUTION IN A REFERENCE POPULATION, HAS BEEN CONFIRMED THE DECISION THRESHOLD FOR [place] DIAGNOSIS. Performed By: #### C MP, CRP, LIPA, CHANDNI #### [facility] [address] [place] [address] Dr. Luis Miguel Veronica GEOVANNY 71 ng/mL Normal 9-82 [facility] Comment on above: Performed By: #### C MP, CRP, LIPA, CHANDNI #### [facility] [address] [place] [address] Dr. Luis Miguel Veronica CBC AUTO DIFFon 11-28-2022 BASO # 0.1 103/ul Normal 0.0-0.1 [facility] Comment on above: Performed By: #### I JAKUB, VITAD #### [facility] [address] [place] [address] Dr. Luis Miguel Veronica Basophils/100 WBC (Bld) 0.7 % Normal 0.2-2.0 [facility] Comment on above: Performed By: #### I JAKUB VITAD #### [facility] [address] [place] [address] Dr. Luis Miguel Veronica EO # 0.1 103/ul Normal 0.0-0.7 [facility] Comment on above: Performed By: #### I JAKUB, VITAD #### [facility] [address] [place] [address] Dr. Luis Miguel Veronica Eosinophils/100 WBC (Bld) 1.0 % Normal 0.9-7.0 [facility] Comment on above: Performed By: #### I JAKUB VITAD #### [facility] [address] [place] [address] Dr. Luis Miguel Veronica Erythrocyte distribution width (RBC) [Ratio] 13.4 % Normal 11.0-15.0 [facility] Comment on above: Performed By: #### Jaycob CALL, VITAD #### [facility] [address] [place] [address] Dr. Luis Miguel Veronica Hematocrit (Bld) [Volume fraction] 46.1 % Normal 36.0-48.0 [facility] Comment on above: Performed By: #### I JAKUB, VITAD #### [facility] [address] [place] [address] Dr. Luis Miguel Veronica Hemoglobin (Bld) [Mass/Vol] 14.7 g/dL Normal 12.0-16.0 [facility] Comment on above: Performed By: #### I JAKUB, VITAD #### [facility] [address] [place] [address] Dr. Luis Miguel Veronica IG # 0.02 10e3/ul Normal 0.00-0.03 [facility] Comment on above: Performed By: #### I JAKUB, VITAD #### [facility] [address] [place] [address] Dr. Luis Miguel Veronica IG % 0.2 % Normal 0.0-0.5 [facility] Comment on above: Performed By: #### I JAKUB, VITAD #### [facility] [address] [place] [address] Dr. Luis Miguel Veronica LYMPH # 3.9 103/ul Critically high 1.2-3.8 [facility] Comment on above: Performed By: #### I JAKUB, VITAD #### [facility] [address] [place] [address] Dr. Luis Miguel Veronica Lymphocytes/100 WBC (Bld) 47.6 % Normal 20.5-60.0 [facility] Comment on above: Performed By: #### I JAKUB, VITAD #### [facility] [address] [place] [address] Dr. Luis Miguel Veronica MANUAL DIFF REQ NO Normal [facility] Comment on above: Performed By: #### I JAKUB, VITAD #### [facility] [address] [place] [address] Dr. Luis Miguel Veronica MCH (RBC) [Entitic mass] 32.4 pg Normal 26.7-34.0 [facility] Comment on above: Performed By: #### I JAKUB, VITAD #### [facility] [address] [place] [address] Dr. Luis Miguel Veronica MCHC (RBC) [Mass/Vol] 31.9 g/dL Normal 29.9-35.2 [facility] Comment on above: Performed By: #### I JAKUB VITAD #### [facility] [address] [place] [address] Dr. Luis Miguel Veronica MCV (RBC) [Entitic vol] 101.5 fL Critically high 81.0-99.0 [facility] Comment on above: Performed By: #### Jaycob CALL VITAD #### [facility] [address] [place] [address] Dr. Luis Miguel Veronica MONO # 0.7 103/ul Normal 0.3-0.8 [facility] Comment on above: Performed By: #### I JAKUB VITAD #### [facility] [address] [place] [address] Dr. Luis Miguel Veronica Monocytes/100 WBC (Bld) 8.7 % Normal 1.7-12.0 [facility] Comment on above: Performed By: #### Jaycob CALL VITAD #### [facility] [address] [place] [address] Dr. Luis Miguel Veronica NEUT # 3.4 103/ul Normal 1.4-6.5 [facility] Comment on above: Performed By: #### Jaycob CALL VITAD #### [facility] [address] [place] [address] Dr. Luis Miguel Veronica Neutrophils/100 WBC (Bld) 41.8 % Critically low 43.0-75.0 [facility] Comment on above: Performed By: #### Jaycob CALL VITAD #### [facility] [address] [place] [address] Dr. Luis Miguel Veronica Platelet mean volume (Bld) [Entitic vol] 9.4 fL Critically low 9.5-13.5 [facility] Comment on above: Performed By: #### Jaycob CALL VITAD #### [facility] [address] [place] [address] Dr. Luis Miguel Veronica PLT 293 103/ul Normal 150-450 [facility] Comment on above: Performed By: #### Jaycob CALL VITAD #### [facility] [address] [place] [address] Dr. Luis Miguel Veronica RBC 4.54 106/ul Normal 4.20-5.40 [facility] Comment on above: Performed By: #### I MICHELLE CALL #### [facility] [address] [address] [address] Luis Miguel Veronica WBC 8.2 103/ul Normal 4.0-11.0 [facility] Comment on above: Performed By: #### I MICHELLE CALL #### [facility] [address] [address] [address] Miguel Veronica CT ABD/PELVIS WO CONon 11-28 CT ABD/PELVIS WO CON EXAMINATION: CT ABD/PELVIS WO CON, 11/28/2022 11:11 AM EST HISTORY: UNSPECIFIED ABDOMINAL PAIN COMPARISON: Noncontrast CT was obtained through the abdomen and pelvis. TECHNIQUE: CT scan of the abdomen and pelvis was performed without IV contrast. CT dose reduction technique was used, including Automated Exposure Control. FINDINGS: Lung bases: Small amount of atelectasis at the lung bases. No pleural effusion. Liver: Calcified granulomas within the liver. No intrahepatic or extrahepatic biliary ductal dilation. Gallbladder: Status post cholecystectomy. Pancreas: Normal. Spleen: Calcifications within the spleen from previous remote renal lithiasis disease.. Adrenal glands: Normal. Kidneys/Ureters: Bilateral renal parapelvic cysts. No renal lithiasis, hydronephrosis or distal ureteral calculi. Bladder: Normal. Gastrointestinal: The bowel is not obstructed. Postsurgical changes of the colon. No bowel wall thickening or surrounding inflammation. Diverticulosis. The appendix is is not identified. Vascular: The aorta is normal in caliber. Atherosclerotic vascular calcification of the aorta and iliac arteries. Accessory renal artery to the right lower pole. Lymph nodes: No lymphadenopathy. Reproductive: Status post hysterectomy. Osseous: No acute fracture. Multilevel moderate degenerative changes of the lumbar spine again noted. No aggressive osseous lesion. IMPRESSION: 1. No acute abnormality identified within the abdomen or pelvis. 2. Multilevel degenerative changes of the spine. Electronically authenticated by: JOANNE HURLEY Date: 2022-11-28 12:11 Normal [facility] LACTATE/LACTIC ACIDon 2022 Lactate [Moles/Vol] 1.6 mmol/L Normal 0.4-1.[address] [facility] Comment on above: Performed By: #### I MICHELLE CALL #### [facility] [address] [place] [address] Dr. Luis Miguel Veronica PROF 14(COMP METB)on 023 Albumin [Mass/Vol] 3.8 g/dL Normal 3.4-5.0 [facility] Comment on above: Performed By: #### C MP, CRP, LIPA, CHANDNI #### [facility] [address] [place] [address] Dr. Luis Miguel Veronica Albumin/Globulin [Mass ratio] 1.1 {ratio} Normal [facility] Comment on above: Performed By: #### C MP, CRP, LIPA, CHANDNI #### [facility] [address] [place] [address] Dr. Luis Miguel Veronica ALP [Catalytic activity/Vol] 64 U/L Normal 46-116 [facility] Comment on above: Performed By: #### C MP, CRP, LIPA, CHANDNI #### [facility] [address] [place] [address] Dr. Luis Miguel Veronica ALT [Catalytic activity/Vol] 27 U/L Normal 14-59 [facility] Comment on above: Performed By: #### C MP, CRP, LIPA, CHANDNI #### [facility] [address] [place] [address] Dr. Luis Miguel Veronica Anion gap [Moles/Vol] 11.8 mmol/L Normal [facility] Comment on above: Performed By: #### C MP, CRP, LIPA, CHANDNI #### [facility] [address] [place] [address] Dr. Luis Miguel Veronica AST [Catalytic activity/Vol] 28 U/L Normal 15-37 [facility] Comment on above: Performed By: #### C MP, CRP, LIPA, CHANDNI #### [facility] [address] [place] [address] Dr. Luis Miguel Veronica Bilirubin [Mass/Vol] 0.3 mg/dL Normal 0.2-1.0 [facility] Comment on above: Performed By: #### C MP, CRP, LIPA, CHANDNI #### [facility] [address] [place] [address] Dr. Luis Miguel Veronica Calcium [Mass/Vol] 9.5 mg/dL Normal 8.5-10.1 [facility] Comment on above: Performed By: #### C MP, CRP, LIPA, CHANDNI #### [facility] [address] [address] [address] Luis Miguel Veronica Chloride [Moles/Vol] 104 mmol/L Normal 98-107 [facility] Comment on above: Performed By: #### C MP, CRP, LIPA, CHANDNI #### [facility] [address] [address] [address] Luis Miguel Veronica CO2 [Moles/Vol] 27.4 mmol/L Normal 21.0-32.0 [facility] Comment on above: Performed By: #### C MP, CRP, LIPA, CHANDNI #### [facility] [address] [place] [address] Dr. Luis Miguel Veronica Creatinine [Mass/Vol] 1.43 mg/dL Critically high 0.55-1.02 [facility] Comment on above: Performed By: #### C MP, CRP, LIPA, CHANDNI #### [facility] [address] [place] [address] Dr. Luis Miguel Veronica EGFR-AF LUXEMBOURGER 42 mL/min/1.73m2 Critically low >=60 [facility] Comment on above: Performed By: #### C MP, CRP, LIPA, CHANDNI #### [facility] [address] [place] [address] Dr. Luis Miguel Veronica EGFR-NON AF LUXEMBOURGER 35 mL/min/1.73m2 Critically low >=60 [facility] Comment on above: Performed By: #### C MP, CRP, LIPA, CHANDNI #### [facility] [address] [place] [address] Dr. Luis Miguel Veronica Globulin (S) [Mass/Vol] 3.5 g/dL Normal [facility] Comment on above: Performed By: #### C MP, CRP, LIPA, CHANDNI #### [facility] [address] [place] [address] Dr. Luis Miguel Veronica Glucose [Mass/Vol] 112 mg/dL Critically high 74-106 [facility] Comment on above: Performed By: #### C MP, CRP, LIPA, CHANDNI #### [facility] [address] [address] [address] Luis Miguel Veronica Potassium [Moles/Vol] 4.2 mmol/L Normal 3.5-5.1 [facility] Comment on above: Performed By: #### C MP, CRP, LIPA, CHANDNI #### [facility] [address] [address] [address] Luis Miguel Veronica Protein [Mass/Vol] 7.3 g/dL Normal 6.4-8.2 [facility] Comment on above: Performed By: #### C MP, CRP, LIPA, CHANDNI #### [facility] [address] [address] [address] Luis Miguel Veronica Sodium [Moles/Vol] 139 mmol/L Normal 136-145 [facility] Comment on above: Performed By: #### C MP, CRP, LIPA, CHANDNI #### [facility] [address] [address] [address] Luis Miguel Veronica Urea nitrogen [Mass/Vol] 18.0 mg/dL Normal 7.0-18.0 [facility] Comment on above: Performed By: #### C MP, CRP, LIPA, CHANDNI #### [facility] [address] [place] [address] Dr. Luis Miguel Veronica Urea nitrogen/Creatinine [Mass ratio] 12.6 mg/mg Normal [facility] Comment on above: Performed By: #### C MP, CRP, LIPA, CHANDNI #### [facility] [address] [address] [address] Luis Miguel Veronica XR HIP LT 2 3V W PELVISon XR HIP LT 2 3V W PELVIS EXAM: XR HIP LT 2 3V W PELVIS HISTORY: Pain of left hip joint COMPARISON: None. TECHNIQUE: AP radiograph of the pelvis with AP and lateral radiographs of the left hip FINDINGS: There is mild narrowing of the bilateral hips. No acute fracture or dislocation. Pubic symphysis and sacroiliac joints are maintained. Normal alignment. Degenerative changes of the lumbar spine. Transitional lumbosacral anatomy. Postsurgical changes of previous colonic anastomosis. Enthesophytes of the iliac crest on the right. Several phleboliths noted. IMPRESSION: 1. Mild degenerative changes of the hips. 2. No acute osseous abnormality. 3. Multilevel degenerative changes of the spine with transitional lumbosacral anatomy. Electronically authenticated by: JOANNE HURLEY Date: 2022-11-28 12:13 Normal [facility] US CARR[place] DOP LEG LTon 04-14-20 22 US [place] DOP LEG LT ULTRASOUND LEFT LOWE R EXTREMITY COLOR VENOUS DUPLEX HISTORY: Swelling. COMPARISON: None. PROCEDURE: Duplex ultrasound and Doppler images were obtained of the left lower extremity. Venous duplex examination performed using B-mode, color flow and spectral analysis. FINDINGS: There is normal color flow and compressibility seen in the visualized deep venous structures of the left lower extremity with no evidence for thrombosis seen. The profundus and saphenous veins are patent. There are normal venous Doppler waveforms. IMPRESSION: No evidence for DVT. Electronically authenticated by: MARTHA ROMERO Date: 2022-04-14 13:50 Normal [facility] AMYLASEon 04-04-2022 Amylase [Catalytic activity/Vol] 44 U/L Normal 25-115 [facility] Comment on above: Performed By: #### C MP, CRP, LIPA, CHANDNI #### [facility] [address] [address] [address] Luis Miguel Veronica CBC AUTO DIFFon 04-04-2022 BASO # 0.0 103/ul Normal 0.0-0.1 [facility] Comment on above: Performed By: #### C MP, CRP, LIPA, CHANDNI #### [facility] [address] [address] [address] Luis Miguel Veronica Basophils/100 WBC (Bld) 0.1 % Critically low 0.2-2.0 [facility] Comment on above: Performed By: #### C MP, CRP, LIPA, CHANDNI #### [facility] [address] [address] [address] Luis Miguel Veronica EO # 0.0 103/ul Normal 0.0-0.7 [facility] Comment on above: Performed By: #### C MP, CRP, LIPA, CHANDNI #### [facility] [address] [place] [address] Dr. Luis Miguel Veronica Eosinophils/100 WBC (Bld) 0.0 % Critically low 0.9-7.0 [facility] Comment on above: Performed By: #### C MP, CRP, LIPA, CHANDNI #### [facility] [address] [place] [address] Dr. Luis Miguel Veronica Erythrocyte distribution width (RBC) [Ratio] 13.5 % Normal 11.0-15.0 [facility] Comment on above: Performed By: #### C MP, CRP, LIPA, CHANDNI #### [facility] [address] [place] [address] Dr. Luis Miguel Veronica Hematocrit (Bld) [Volume fraction] 34.0 % Critically low 36.0-48.0 [facility] Comment on above: Performed By: #### C MP, CRP, LIPA, CHANDNI #### [facility] [address] [place] [address] Dr. Luis Miguel Veronica Hemoglobin (Bld) [Mass/Vol] 11.0 g/dL Critically low 12.0-16.0 [facility] Comment on above: Performed By: #### C MP, CRP, LIPA, CHANDNI #### [facility] [address] [place] [address] Dr. Luis Miguel Veronica IG # 0.14 10e3/ul Critically high 0.00-0.03 [facility] Comment on above: Performed By: #### C MP, CRP, LIPA, CHANDNI #### [facility] [address] [place] [address] Dr. Luis Miguel Veronica IG % 1.2 % Critically high 0.0-0.5 [facility] Comment on above: Performed By: #### C MP, CRP, LIPA, CHANDNI #### [facility] [address] [place] [address] Dr. Luis Miguel Veronica LYMPH # 0.7 103/ul Critically low 1.2-3.8 [facility] Comment on above: Performed By: #### C MP, CRP, LIPA, CHANDNI #### [facility] [address] [place] [address] Dr. Luis Miguel Veronica Lymphocytes/100 WBC (Bld) 6.3 % Critically low 20.5-60.0 [facility] Comment on above: Performed By: #### C MP, CRP, LIPA, CHANDNI #### [facility] [address] [place] [address] Dr. Luis Miguel Veronica MANUAL DIFF REQ NO Normal [facility] Comment on above: Performed By: #### C MP, CRP, LIPA, CHANDNI #### [facility] [address] [place] [address] Dr. Luis Miguel Veronica MCH (RBC) [Entitic mass] 32.1 pg Normal 26.7-34.0 [facility] Comment on above: Performed By: #### C MP, CRP, LIPA, CHANDNI #### [facility] [address] [place] [address] Dr. Luis Miguel Veronica MCHC (RBC) [Mass/Vol] 32.4 g/dL Normal 29.9-35.2 [facility] Comment on above: Performed By: #### C MP, CRP, LIPA, CHANDNI #### [facility] [address] [place] [address] Dr. Luis Miguel Veronica MCV (RBC) [Entitic vol] 99.1 fL Critically high 81.0-99.0 [facility] Comment on above: Performed By: #### C MP, CRP, LIPA, CHANDNI #### [facility] [address] [place] [address] Dr. Luis Miguel Veronica MONO # 0.3 103/ul Normal 0.3-0.8 [facility] Comment on above: Performed By: #### C MP, CRP, LIPA, CHANDNI #### [facility] [address] [place] [address] Dr. Luis Miguel Veronica Monocytes/100 WBC (Bld) 2.7 % Normal 1.7-12.0 [facility] Comment on above: Performed By: #### C MP, CRP, LIPA, CHANDNI #### [facility] [address] [place] [address] Dr. Luis Miguel Veronica NEUT # 10.2 103/ul Critically high 1.4-6.5 [facility] Comment on above: Performed By: #### C MP, CRP, LIPA, CHANDNI #### [facility] [address] [place] [address] Dr. Luis Miguel Veronica Neutrophils/100 WBC (Bld) 89.7 % Critically high 43.0-75.0 [facility] Comment on above: Performed By: #### C MP, CRP, LIPA, CHANDNI #### [facility] [address] [place] [address] Dr. Luis Miguel Veronica Platelet mean volume (Bld) [Entitic vol] 10.0 fL Normal 9.5-13.5 [facility] Comment on above: Performed By: #### C MP, CRP, LIPA, CHANDNI #### [facility] [address] [place] [address] Dr. Luis Miguel Veronica PLT 207 103/ul Normal 150-450 [facility] Comment on above: Performed By: #### C MP, CRP, LIPA, CHANDNI #### [facility] [address] [place] [address] Dr. Luis Miguel Veronica RBC 3.43 106/ul Critically low 4.20-5.40 [facility] Comment on above: Performed By: #### C MP, CRP, LIPA, CHANDNI #### [facility] [address] [place] [address] Dr. Luis Miguel Veronica WBC 11.4 103/ul Critically high 4.0-11.0 [facility] Comment on above: Performed By: #### C MP, CRP, LIPA, CHANDNI #### [facility] [address] [place] [address] Dr. Luis Miguel Veronica CRPon 04-04-2022 CRP [Mass/Vol] mg/L Normal <=1.0 [facility] Comment on above: Performed By: #### C MP, CRP, LIPA, CHANDNI #### [facility] [address] [place] [address] Dr. Luis Miguel Veronica LIPASEon 04-04-2022 Lipase [Catalytic activity/Vol] 106.0 U/L Normal 73.0-393.0 [facility] Comment on above: Performed By: #### C MP, CRP, LIPA, CHANDNI #### [facility] [address] [place] [address] Dr. Luis Miguel Veronica PROF 14(COMP METB)on 022 Albumin [Mass/Vol] 2.6 g/dL Critically low 3.4-5.0 [facility] Comment on above: Performed By: #### C MP, CRP, LIPA, CHANDNI #### [facility] [address] [place] [address] Dr. Luis Miguel Veronica Albumin/Globulin [Mass ratio] 0.9 {ratio} Normal [facility] Comment on above: Performed By: #### C MP, CRP, LIPA, CHANDNI #### [facility] [address] [place] [address] Dr. Luis Miguel Veronica ALP [Catalytic activity/Vol] 43 U/L Critically low 46-116 [facility] Comment on above: Performed By: #### C MP, CRP, LIPA, CHANDNI #### [facility] [address] [place] [address] Dr. Luis Miguel Veronica ALT [Catalytic activity/Vol] 100 U/L Critically high 14-59 [facility] Comment on above: Performed By: #### C MP, CRP, LIPA, CHANDNI #### [facility] [address] [place] [address] Dr. Luis Miguel Veronica Anion gap [Moles/Vol] 12.0 mmol/L Normal [facility] Comment on above: Performed By: #### C MP, CRP, LIPA, CHANDNI #### [facility] [address] [place] [address] Dr. Luis Miguel Veronica AST [Catalytic activity/Vol] 52 U/L Critically high 15-37 [facility] Comment on above: Performed By: #### C MP, CRP, LIPA, CHANDNI #### [facility] [address] [place] [address] Dr. Luis Miguel Veronica Bilirubin [Mass/Vol] 0.3 mg/dL Normal 0.2-1.0 [facility] Comment on above: Performed By: #### C MP, CRP, LIPA, CHANDNI #### [facility] [address] [address] [address] Luis Miguel Veronica Calcium [Mass/Vol] 7.9 mg/dL Critically low 8.5-10.1 [facility] Comment on above: Performed By: #### C MP, CRP, LIPA, CHANDNI #### [facility] [address] [address] [address] Luis Miguel Veronica Chloride [Moles/Vol] 111 mmol/L Critically high 98-107 [facility] Comment on above: Performed By: #### C MP, CRP, LIPA, CHANDNI #### [facility] [address] [place] [address] Dr. Luis Miguel Veronica CO2 [Moles/Vol] 22.5 mmol/L Normal 21.0-32.0 [facility] Comment on above: Performed By: #### C MP, CRP, LIPA, CHANDNI #### [facility] [address] [place] [address] Dr. Luis Miguel Veronica Creatinine [Mass/Vol] 1.18 mg/dL Critically high 0.55-1.02 [facility] Comment on above: Performed By: #### C MP, CRP, LIPA, CHANDNI #### [facility] [address] [place] [address] Dr. Luis Miguel Veronica EGFR-AF LUXEMBOURGER 53 mL/min/1.73m2 Critically low >=60 [facility] Comment on above: Performed By: #### C MP, CRP, LIPA, CHANDNI #### [facility] [address] [place] [address] Dr. Luis Miguel Veronica EGFR-NON AF LUXEMBOURGER 43 mL/min/1.73m2 Critically low >=60 [facility] Comment on above: Performed By: #### C MP, CRP, LIPA, CHANDNI #### [facility] [address] [place] [address] Dr. Luis Miguel Veronica Globulin (S) [Mass/Vol] 3.0 g/dL Normal [facility] Comment on above: Performed By: #### C MP, CRP, LIPA, CHANDNI #### [facility] [address] [address] [address] Luis Miguel Veronica Glucose [Mass/Vol] 190 mg/dL Critically high 74-106 [facility] Comment on above: Performed By: #### C MP, CRP, LIPA, CHANDNI #### [facility] [address] [address] [address] Luis Miguel Veronica Potassium [Moles/Vol] 3.5 mmol/L Normal 3.5-5.1 [facility] Comment on above: Performed By: #### C MP, CRP, LIPA, CHANDNI #### [facility] [address] [address] [address] Luis Miguel Veronica Protein [Mass/Vol] 5.6 g/dL Critically low 6.4-8.2 [facility] Comment on above: Performed By: #### C MP, CRP, LIPA, CHANDNI #### [facility] [address] [place] [address] Dr. Luis Miguel Veronica Sodium [Moles/Vol] 142 mmol/L Normal 136-145 [facility] Comment on above: Performed By: #### C MP, CRP, LIPA, CHANDNI #### [facility] [address] [address] [address] Luis Miguel Veronica Urea nitrogen [Mass/Vol] 20.0 mg/dL Critically high 7.0-18.0 [facility] Comment on above: Performed By: #### C MP, CRP, LIPA, CHANDNI #### [facility] [address] [place] [address] Dr. Luis Miguel Veronica Urea nitrogen/Creatinine [Mass ratio] 16.9 mg/mg Normal [facility] Comment on above: Performed By: #### C MP, CRP, LIPA, CHANDNI #### [facility] [address] [place] [address] Dr. Luis Miguel Veronica XR ABD FLAT UP_PA Jmiy 04-04 XR ABD FLAT UP_PA CH EXAM: XR ABD FLAT UP_PA CH INDICATION: Abdominal distention. Nausea and vomiting. COMPARISON: Abdominal radiograph 04/03/2022. TECHNIQUE: Supine and upright AP views of the abdomen FINDINGS: Similar mild dilation with air-fluid levels of small bowel loops in the midabdomen measuring up to 3.1 cm. No evidence of free intra-abdominal air. No pneumatosis or portal venous gas. Unremarkable visceral margins. No suspicious calcifications. Pelvic phleboliths noted. Surgical sutures noted in the pelvis. Right upper quadrant cholecystectomy clips. Stable cardiomediastinal contours. Suspected trace left pleural effusion and mild left basilar atelectasis. Clear right lung. No consolidative process. No pneumothorax. IMPRESSION: 1. Similar mild small bowel dilation in the midabdomen. 2. Suspected trace left pleural effusion and mild left basilar atelectasis. Electronically authenticated by: NASRIN WRIGHT Date: 2022-04-04 07:05 Normal [facility] AMYLASEon 04-03-2022 Amylase [Catalytic activity/Vol] 48 U/L Normal 25-115 [facility] Comment on above: Performed By: #### I MICHELLE CALL #### [facility] [address] [place] [address] Dr. Luis Miguel Veronica CBC AUTO DIFFon 04-03-2022 BASO # 0.0 103/ul Normal 0.0-0.1 [facility] Comment on above: Performed By: #### C BC #### [facility] [address] [place] [address] Dr. Luis Miguel Veronica Basophils/100 WBC (Bld) 0.1 % Critically low 0.2-2.0 [facility] Comment on above: Performed By: #### C BC #### [facility] [address] [place] [address] Dr. Luis Miguel Veronica EO # 0.0 103/ul Normal 0.0-0.7 [facility] Comment on above: Performed By: #### C BC #### [facility] [address] [address] [address] Luis Miguel Veronica Eosinophils/100 WBC (Bld) 0.0 % Critically low 0.9-7.0 [facility] Comment on above: Performed By: #### C BC #### [facility] [address] [place] [address] Dr. Luis Miguel Veronica Erythrocyte distribution width (RBC) [Ratio] 13.6 % Normal 11.0-15.0 [facility] Comment on above: Performed By: #### C BC #### [facility] [address] [place] [address] Dr. Luis Miguel Veronica Hematocrit (Bld) [Volume fraction] 33.5 % Critically low 36.0-48.0 [facility] Comment on above: Performed By: #### C BC #### [facility] [address] [place] [address] Dr. Luis Miguel Veronica Hemoglobin (Bld) [Mass/Vol] 10.9 g/dL Critically low 12.0-16.0 [facility] Comment on above: Performed By: #### C BC #### [facility] [address] [place] [address] Dr. Luis Miguel Veronica IG # 0.15 10e3/ul Critically high 0.00-0.03 [facility] Comment on above: Performed By: #### C BC #### [facility] [address] [place] [address] Dr. Luis Miguel Veronica IG % 1.0 % Critically high 0.0-0.5 [facility] Comment on above: Performed By: #### C BC #### [facility] [address] [place] [address] Dr. Luis Miguel Veronica LYMPH # 0.9 103/ul Critically low 1.2-3.8 [facility] Comment on above: Performed By: #### C BC #### [facility] [address] [place] [address] Dr. Luis Miguel Veronica Lymphocytes/100 WBC (Bld) 5.6 % Critically low 20.5-60.0 [facility] Comment on above: Performed By: #### C BC #### [facility] [address] [place] [address] Dr. Luis Miguel Veronica MANUAL DIFF REQ NO Normal [facility] Comment on above: Performed By: #### C BC #### [facility] [address] [place] [address] Dr. Luis Miguel Veronica MCH (RBC) [Entitic mass] 32.1 pg Normal 26.7-34.0 [facility] Comment on above: Performed By: #### C BC #### [facility] [address] [address] [address] Luis Miguel Veronica MCHC (RBC) [Mass/Vol] 32.5 g/dL Normal 29.9-35.2 [facility] Comment on above: Performed By: #### C BC #### [facility] [address] [address] [address] Luis Miguel Veronica MCV (RBC) [Entitic vol] 98.5 fL Normal 81.0-99.0 [facility] Comment on above: Performed By: #### C BC #### [facility] [address] [place] [address] Dr. Luis Miguel Veronica MONO # 0.3 103/ul Normal 0.3-0.8 [facility] Comment on above: Performed By: #### C BC #### [facility] [address] [place] [address] Dr. Luis Miguel Veronica Monocytes/100 WBC (Bld) 2.2 % Normal 1.7-12.0 [facility] Comment on above: Performed By: #### C BC #### [facility] [address] [place] [address] Dr. Luis Miguel Veronica NEUT # 13.9 103/ul Critically high 1.4-6.5 [facility] Comment on above: Performed By: #### C BC #### [facility] [address] [place] [address] Dr. Luis Miguel Veronica Neutrophils/100 WBC (Bld) 91.1 % Critically high 43.0-75.0 [facility] Comment on above: Performed By: #### C BC #### [facility] [address] [address] [address] Luis Miguel Veronica Platelet mean volume (Bld) [Entitic vol] 9.7 fL Normal 9.5-13.5 [facility] Comment on above: Performed By: #### C BC #### [facility] [address] [address] [address] Luis Miguel Veronica PLT 204 103/ul Normal 150-450 [facility] Comment on above: Performed By: #### C BC #### [facility] [address] [address] [address] Luis Miguel Veronica RBC 3.40 106/ul Critically low 4.20-5.40 [facility] Comment on above: Performed By: #### C BC #### [facility] [address] [place], [place] [address] Dr. Luis Miguel Veronica WBC 15.2 103/ul Critically high 4.0-11.0 [facility] Comment on above: Performed By: #### C BC #### [facility] [address] [address] [address] Luis Miguel Veronica CRPon 04-03-2022 CRP 0.3 mg/dL Normal <=1.0 [facility] Comment on above: Performed By: #### I MICHELLE CALL #### [facility] [address] [address] [address] Luis Miguel Veronica CULTURE URINEon 04-03-2022 CULTURE URINE Isolate 1 Escherichia coli >100,000 cfu/ml of ORGANISM 1 Escherichia coli ANTIBIOTIC M.I.C RX STATUS Ampicillin 4 S F Ampicillin/Sulbactam <=2 S F Piperacillin/Tazobactam <=4 S F Cefazolin <=4 S F Ceftazidime <=1 S F Ceftriaxone <=1 S F Ertapenem <=0.5 S F Imipenem <=0.25 S F Amikacin <=2 S F Gentamicin <=1 S F Tobramycin <=1 S F Ciprofloxacin <=0.25 S F Levofloxacin <=0.12 S F Nitrofurantoin <=16 S F Trimethoprim/Sulfametho xazole <=20 S F Normal [facility] Comment on above: Performed By: #### U RCX ####[facility] [id number] [address] Luis Miguel Veronica LIPASEon 04-03-2022 Lipase [Catalytic activity/Vol] 95.0 U/L Normal 73.0-393.0 [facility] Comment on above: Performed By: #### MICHELLE BARRIOS #### [facility] [address] [address] [address] Luis Miguel Veronica OCC BLD IMMUNOASSAYon 2021 OCCULT BLOOD Negative Normal NEGATIVE [facility] Comment on above: Performed By: #### C MP, CRP, LIPA, CHANDNI #### [facility] [address] [place] [address] Dr. Luis Miguel Veronica PROF 14(COMP METB)on 022 Albumin [Mass/Vol] 2.6 g/dL Critically low 3.4-5.0 [facility] Comment on above: Performed By: #### I JAKUB, VITAD #### [facility] [address] [place] [address] Dr. Luis Miguel Veronica Albumin/Globulin [Mass ratio] 0.8 {ratio} Normal [facility] Comment on above: Performed By: #### I JAKUB, VITAD #### [facility] [address] [place] [address] Dr. Luis Miguel Veronica ALP [Catalytic activity/Vol] 48 U/L Normal 46-116 [facility] Comment on above: Performed By: #### I JAKUB, VITAD #### [facility] [address] [place] [address] Dr. Luis Miguel Veronica ALT [Catalytic activity/Vol] 86 U/L Critically high 14-59 [facility] Comment on above: Performed By: #### I JAKUB, VITAD #### [facility] [address] [place] [address] Dr. Luis Miguel Veronica Anion gap [Moles/Vol] 13.1 mmol/L Normal [facility] Comment on above: Performed By: #### I JAKUB, VITAD #### [facility] [address] [place] [address] Dr. Luis Miguel Veronica AST [Catalytic activity/Vol] 47 U/L Critically high 15-37 [facility] Comment on above: Performed By: #### I JAKUB, VITAD #### [facility] [address] [place] [address] Dr. Luis Miguel Veronica Bilirubin [Mass/Vol] 0.3 mg/dL Normal 0.2-1.0 [facility] Comment on above: Performed By: #### I JAKUB, VITAD #### [facility] [address] [address] [address] Luis Miguel Veronica Calcium [Mass/Vol] 8.1 mg/dL Critically low 8.5-10.1 Th [facility] Comment on above: Performed By: #### I JAKUB, VITAD #### [facility] [address] [place] [address] Dr. Luis Miguel Veronica Chloride [Moles/Vol] 111 mmol/L Critically high 98-107 [facility] Comment on above: Performed By: #### I JAKUB, VITAD #### [facility] [address] [place] [address] Dr. Luis Miguel Veronica CO2 [Moles/Vol] 22.7 mmol/L Normal 21.0-32.0 [facility] Comment on above: Performed By: #### I JAKUB, VITAD #### [facility] [address] [place] [address] Dr. Luis Miguel Veronica Creatinine [Mass/Vol] 1.25 mg/dL Critically high 0.55-1.02 [facility] [facility] Comment on above: Performed By: #### I JAKUB, VITAD #### [facility] [address] [place] [address] Dr. Luis Miguel Veronica EGFR-AF LUXEMBOURGER 49 mL/min/1.73m2 Critically low >=60 [facility] Comment on above: Performed By: #### I JAKUB, VITAD #### [facility] [address] [place] [address] Dr. Luis Miguel Veronica EGFR-NON AF LUXEMBOURGER 41 mL/min/1.73m2 Critically low >=60 [facility] Comment on above: Performed By: #### I JAKUB, VITAD #### [facility] [address] [address] [address] Luis Miguel Veronica Globulin (S) [Mass/Vol] 3.1 g/dL Normal [facility] Comment on above: Performed By: #### I JAKUB, VITAD #### [facility] [address] [place] [address] Dr. Luis Miguel Veronica Glucose [Mass/Vol] 167 mg/dL Critically high 74-106 T [facility] Comment on above: Performed By: #### I JAKUB, VITAD #### [facility] [address] [address] [address] Luis Miguel Veronica Potassium [Moles/Vol] 3.8 mmol/L Normal 3.5-5.1 [facility] Comment on above: Performed By: #### I JAKUB, VITAD #### [facility] [address] [place] [address] Dr. Luis Miguel Veronica Protein [Mass/Vol] 5.7 g/dL Critically low 6.4-8.2 Th [facility] Comment on above: Performed By: #### I JAKUB, VITAD #### [facility] [address] [place] [address] Dr. Luis Miguel Veronica Sodium [Moles/Vol] 143 mmol/L Normal 136-145 [facility] Comment on above: Performed By: #### I JAKUB, VITAD #### [facility] [address] [place] [address] Dr. Luis Miguel Veronica Urea nitrogen [Mass/Vol] 20.0 mg/dL Critically high 7.0-18.0 [facility] Comment on above: Performed By: #### Jaycob CALL, VITAD #### [facility] [address] [place] [address] Dr. Luis Miguel Veronica Urea nitrogen/Creatinine [Mass ratio] 16.0 mg/mg Normal [facility] Comment on above: Performed By: #### Jaycob CALL VITAD #### [facility] [address] [place] [address] Dr. Luis Miguel Veronica XR ABD FLAT UP_PA Jimy 04-03 XR ABD FLAT UP_PA CH EXAMINATION: XR ABD FLAT UP_PA CH HISTORY: ABDOMINAL DISTENSION (GASEOUS) COMPARISON: 04/02/2022 FINDINGS: LUNGS: No infiltrate, pneumothorax, or pleural effusion. Stable elevation the right hemidiaphragm MEDIASTINUM: No abnormal widening. Aortic atherosclerosis BOWEL GAS PATTERN: Scattered air throughout small and large bowel loops. dilation of the single small bowel loop in the right abdomen measuring 3.3 cm. Air is seen in the low pelvis likely within the sigmoid colon and rectum. FREE AIR: None. CALCIFICATIONS: None significant. BONES: No fracture or visible bone lesion. Moderate degenerative changes OTHER: Negative. IMPRESSION: Clear lungs Mildly dilated small bowel loop in the right midabdomen, decreased from the prior exam Electronically authenticated by: DAVID MERCADO Date: 2022-04-03 07:10 Normal [facility] AMYLASEon 04-02-2022 Amylase [Catalytic activity/Vol] 62 U/L Normal 25-115 [facility] Comment on above: Performed By: #### C MP, CRP, LIPA, CHANDNI #### [facility] [address] [place] [address] Dr. Luis Miguel Veronica CBC AUTO DIFFon 04-02-2022 BASO # 0.0 103/ul Normal 0.0-0.1 [facility] Comment on above: Performed By: #### C MP, CRP, LIPA, CHANDNI #### [facility] [address] [place] [address] Dr. Luis Miguel Veronica Basophils/100 WBC (Bld) 0.1 % Critically low 0.2-2.0 [facility] Comment on above: Performed By: #### C MP, CRP, LIPA, CHANDNI #### [facility] [address] [place] [address] Dr. Luis Miguel Veronica EO # 0.0 103/ul Normal 0.0-0.7 [facility] Comment on above: Performed By: #### C MP, CRP, LIPA, CHANDNI #### [facility] [address] [place] [address] Dr. Luis Miguel Veronica Eosinophils/100 WBC (Bld) 0.0 % Critically low 0.9-7.0 [facility] Comment on above: Performed By: #### C MP, CRP, LIPA, CHANDNI #### [facility] [address] [place] [address] Dr. Luis Miguel Veronica Erythrocyte distribution width (RBC) [Ratio] 13.4 % Normal 11.0-15.0 [facility] Comment on above: Performed By: #### C MP, CRP, LIPA, CHANDNI #### [facility] [address] [place] [address] Dr. Luis Miguel Veronica Hematocrit (Bld) [Volume fraction] 37.3 % Normal 36.0-48.0 [facility] Comment on above: Performed By: #### C MP, CRP, LIPA, CHANDNI #### [facility] [address] [place] [address] Dr. Luis Miguel Veronica Hemoglobin (Bld) [Mass/Vol] 12.1 g/dL Normal 12.0-16.0 [facility] Comment on above: Performed By: #### C MP, CRP, LIPA, CHANDNI #### [facility] [address] [place] [address] Dr. Luis Miguel Veronica IG # 0.04 10e3/ul Critically high 0.00-0.03 [facility] Comment on above: Performed By: #### C MP, CRP, LIPA, CHANDNI #### [facility] [address] [place] [address] Dr. Luis Miguel Veronica IG % 0.3 % Normal 0.0-0.5 [facility] Comment on above: Performed By: #### C MP, CRP, LIPA, CHANDNI #### [facility] [address] [place] [address] Dr. Luis Miguel Veronica LYMPH # 1.3 103/ul Normal 1.2-3.8 [facility] Comment on above: Performed By: #### C MP, CRP, LIPA, CHANDNI #### [facility] [address] [place] [address] Dr. Luis Miguel Veronica Lymphocytes/100 WBC (Bld) 10.2 % Critically low 20.5-60.0 [facility] Comment on above: Performed By: #### C MP, CRP, LIPA, CHANDNI #### [facility] [address] [place] [address] Dr. Luis Miguel Veronica MANUAL DIFF REQ NO Normal [facility] Comment on above: Performed By: #### C MP, CRP, LIPA, CHANDNI #### [facility] [address] [place] [address] Dr. Luis Miguel Veronica MCH (RBC) [Entitic mass] 32.0 pg Normal 26.7-34.0 [facility] Comment on above: Performed By: #### C MP, CRP, LIPA, CHANDNI #### [facility] [address] [place] [address] Dr. Luis Miguel Veronica MCHC (RBC) [Mass/Vol] 32.4 g/dL Normal 29.9-35.2 [facility] Comment on above: Performed By: #### C MP, CRP, LIPA, CHANDNI #### [facility] [address] [place] [address] Dr. Luis Miguel Veronica MCV (RBC) [Entitic vol] 98.7 fL Normal 81.0-99.0 [facility] Comment on above: Performed By: #### C MP, CRP, LIPA, CHANDNI #### [facility] [address] [place] [address] Dr. Luis Miguel Veronica MONO # 0.2 103/ul Critically low 0.3-0.8 [facility] Comment on above: Performed By: #### C MP, CRP, LIPA, CHANDNI #### [facility] [address] [place] [address] Dr. Luis Miguel Veronica Monocytes/100 WBC (Bld) 1.3 % Critically low 1.7-12.0 [facility] Comment on above: Performed By: #### C MP, CRP, LIPA, CHANDNI #### [facility] [address] [place] [address] Dr. Luis Miguel Veronica NEUT # 11.0 103/ul Critically high 1.4-6.5 [facility] Comment on above: Performed By: #### C MP, CRP, LIPA, CHANDNI #### [facility] [address] [place] [address] Dr. Luis Miguel Veronica Neutrophils/100 WBC (Bld) 88.1 % Critically high 43.0-75.0 [facility] Comment on above: Performed By: #### C MP, CRP, LIPA, CHANDNI #### [facility] [address] [place] [address] Dr. Luis Miguel Veronica Platelet mean volume (Bld) [Entitic vol] 11.3 fL Normal 9.5-13.5 [facility] Comment on above: Performed By: #### C MP, CRP, LIPA, CHANDNI #### [facility] [address] [address] [address] Luis Miguel Veronica PLT 140 103/ul Critically low 150-450 [facility] Comment on above: Performed By: #### C MP, CRP, LIPA, CHANDNI #### [facility] [address] [address] [address] Luis Miguel Veronica RBC 3.78 106/ul Critically low 4.20-5.40 [facility] Comment on above: Performed By: #### C MP, CRP, LIPA, CHANDNI #### [facility] [address] [address] [address] Luis Miguel Veronica WBC 12.5 103/ul Critically high 4.0-11.0 [facility] Comment on above: Performed By: #### C MP, CRP, LIPA, CHANDNI #### [facility] [address] [address] [address] Luis Miguel Veronica CRPon 04-02-2022 CRP 2.5 mg/dL Critically high <=1.0 [facility] Comment on above: Performed By: #### C MP, CRP, LIPA, CHANDNI #### [facility] [address] [address] [address] Luis Miguel Veronica HELICOBACTER PYLORI AB IGGon 04-02-2022 H. PYLORI IGG ABS 0.44 Index Value Normal 0.00-0.79 [facility] Comment on above: Result Comment: Nega tive <0.80 Equivocal 0.80 - 0.89 Positive >0.89 Performed By: #### H PYLORG ####[facility] [id number] [place], [place] [address]DkDr. Luis Miguel Veronica LIPASEon 04-02-2022 Lipase [Catalytic activity/Vol] 55.0 U/L Critically low 73.0-393.0 [facility] Comment on above: Performed By: #### C MP, CRP, LIPA, CHANDNI #### [facility] [address] [address] [address] Luis Miguel Veronica PROF 14(COMP METB)on 022 Albumin [Mass/Vol] 3.0 g/dL Critically low 3.4-5.0 [facility] Comment on above: Performed By: #### C MP, CRP, LIPA, CHANDNI #### [facility] [address] [place] [address] Dr. Luis Miguel Veronica Albumin/Globulin [Mass ratio] 0.9 {ratio} Normal [facility] Comment on above: Performed By: #### C MP, CRP, LIPA, CHANDNI #### [facility] [address] [place] [address] Dr. Luis Miguel Veronica ALP [Catalytic activity/Vol] 61 U/L Normal 46-116 [facility] Comment on above: Performed By: #### C MP, CRP, LIPA, CHANDNI #### [facility] [address] [place] [address] Dr. Luis Miguel Veronica ALT [Catalytic activity/Vol] 101 U/L Critically high 14-59 [facility] Comment on above: Performed By: #### C MP, CRP, LIPA, CHANDNI #### [facility] [address] [place] [address] Dr. Luis Miguel Veronica Anion gap [Moles/Vol] 13.4 mmol/L Normal [facility] Comment on above: Performed By: #### C MP, CRP, LIPA, CHANDNI #### [facility] [address] [place] [address] Dr. Luis Miguel Veronica AST [Catalytic activity/Vol] 78 U/L Critically high 15-37 [facility] Comment on above: Performed By: #### C MP, CRP, LIPA, CHANDNI #### [facility] [address] [place] [address] Dr. Luis Miguel Veronica Bilirubin [Mass/Vol] 0.5 mg/dL Normal 0.2-1.0 [facility] Comment on above: Performed By: #### C MP, CRP, LIPA, CHANDNI #### [facility] [address] [place] [address] Dr. Luis Miguel Veronica Calcium [Mass/Vol] 8.6 mg/dL Normal 8.5-10.1 [facility] Comment on above: Performed By: #### C MP, CRP, LIPA, CHANDNI #### [facility] [address] [place] [address] Dr. Luis Miguel Veronica Chloride [Moles/Vol] 107 mmol/L Normal 98-107 [facility] Comment on above: Performed By: #### C MP, CRP, LIPA, CHANDNI #### [facility] [address] [place] [address] Dr. Luis Miguel Veronica CO2 [Moles/Vol] 24.8 mmol/L Normal 21.0-32.0 [facility] Comment on above: Performed By: #### C MP, CRP, LIPA, CHANDNI #### [facility] [address] [place] [address] Dr. Luis Miguel Veronica Creatinine [Mass/Vol] 1.30 mg/dL Critically high 0.55-1.02 [facility] Comment on above: Performed By: #### C MP, CRP, LIPA, CHANDNI #### [facility] [address] [place] [address] Dr. Luis Miguel Veronica EGFR-AF LUXEMBOURGER 47 mL/min/1.73m2 Critically low >=60 [facility] Comment on above: Performed By: #### C MP, CRP, LIPA, CHANDNI #### [facility] [address] [place] [address] Dr. Luis Miguel Veronica EGFR-NON AF LUXEMBOURGER 39 mL/min/1.73m2 Critically low >=60 [facility] Comment on above: Performed By: #### C MP, CRP, LIPA, CHANDNI #### [facility] [address] [place] [address] Dr. Luis Miguel Veronica Globulin (S) [Mass/Vol] 3.3 g/dL Normal [facility] Comment on above: Performed By: #### C MP, CRP, LIPA, CHANDNI #### [facility] [address] [place] [address] Dr. Luis Miguel Veronica Glucose [Mass/Vol] 189 mg/dL Critically high 74-106 T [facility] Comment on above: Performed By: #### C MP, CRP, LIPA, CHANDNI #### [facility] [address] [place] [address] Dr. Luis Miguel Veronica Potassium [Moles/Vol] 4.2 mmol/L Normal 3.5-5.1 [facility] Comment on above: Performed By: #### C MP, CRP, LIPA, CHANDNI #### [facility] [address] [address] [address] Luis Miguel Veronica Protein [Mass/Vol] 6.3 g/dL Critically low 6.4-8.2 [facility] Comment on above: Performed By: #### C MP, CRP, LIPA, CHANDNI #### [facility] [address] [address] [address] Luis Miguel Veronica Sodium [Moles/Vol] 141 mmol/L Normal 136-145 [facility] Comment on above: Performed By: #### C MP, CRP, LIPA, CHANDNI #### [facility] [address] [place] [address] Dr. Luis Miguel Veronica Urea nitrogen [Mass/Vol] 23.0 mg/dL Critically high 7.0-18.0 [facility] Comment on above: Performed By: #### C MP, CRP, LIPA, CHANDNI #### [facility] [address] [address] [address] Luis Miguel Veronica Urea nitrogen/Creatinine [Mass ratio] 17.7 mg/mg Normal [facility] Comment on above: Performed By: #### C MP, CRP, LIPA, CHANDNI #### [facility] [address] [place] [address] Dr. Luis Miguel Veronica T3, TOTAL (TRIIODOTHYRONINE) on 04-02-2022 T3, TOTAL 83 ng/dL Normal 71-180 [facility] Comment on above: Performed By: #### C MP, CRP, LIPA, CHANDNI #### [facility] [address] [place] [address] Dr. Luis Miguel Veronica T4 LABCORPon 04-02-2022 T4 [Mass/Vol] 8.4 ug/dL Normal 4.5-12.0 [facility] Comment on above: Performed By: #### T 4LC #### [facility] [address] [place] [address] Dr. Luis Miguel Veronica XR ABD FLAT UP_PA Jimy 04-02 XR ABD FLAT UP_PA CH EXAM: XR ABD FLAT UP_PA CH HISTORY: ABDOMINAL DISTENSION (GASEOUS) COMPARISON: Correlation is made with CT abdomen and pelvis examination dated 04/01/2022. TECHNIQUE: One view of the chest and 2 views of the abdomen were obtained. FINDINGS: The cardiac silhouette is normal in size. There is stable nonspecific elevation of the right hemidiaphragm with likely adjacent atelectasis. Otherwise, the lungs are clear. There is no significant pneumothorax or pleural effusion. No acute osseous abnormality is seen. There are remote left rib fractures. Cholecystectomy clips are noted. There is an air-filled dilated loop small bowel measuring up to 4.6 cm. No intraperitoneal free air is seen. IMPRESSION: 1. No acute cardiopulmonary abnormality. 2. Air-filled dilated loop of small bowel measuring up to 4.6 cm, in keeping with the patient's known small bowel obstruction. Electronically authenticated by: Ilan SEARS Date: 2022-04-02 06:21 Normal [facility] AMYLASEon 04-01-2022 Amylase [Catalytic activity/Vol] 118 U/L Critically high 25-115 [facility] Comment on above: Performed By: #### C RP, TSH, LIPA, CHANDNI ####[facility] [id number] [address]Dr. Luis Miguel Veronica CBC AUTO DIFFon 04-01-2022 BASO # 0.1 103/ul Normal 0.0-0.1 [facility] Comment on above: Performed By: #### I MICHELLE CALL #### [facility] [address] [address] [address] Luis Miguel Veronica Basophils/100 WBC (Bld) 0.5 % Normal 0.2-2.0 [facility] Comment on above: Performed By: #### I MICHELLE CALL #### [facility] [address] [address] [address] Luis Miguel Veronica EO # 0.0 103/ul Normal 0.0-0.7 [facility] Comment on above: Performed By: #### I MICHELLE CALL #### [facility] [address] [place] [address] Dr. Luis Miguel Veronica Eosinophils/100 WBC (Bld) 0.1 % Critically low 0.9-7.0 [facility] Comment on above: Performed By: #### Jaycob CALL, VITAD #### [facility] [address] [place] [address] Dr. Luis Miguel Veronica Erythrocyte distribution width (RBC) [Ratio] 13.2 % Normal 11.0-15.0 [facility] Comment on above: Performed By: #### I JAKUB, VITAD #### [facility] [address] [place] [address] Dr. Luis Miguel Veronica Hematocrit (Bld) [Volume fraction] 42.1 % Normal 36.0-48.0 [facility] Comment on above: Performed By: #### Jaycob CALL, VITAD #### [facility] [address] [place] [address] Dr. Luis Miguel Veronica Hemoglobin (Bld) [Mass/Vol] 13.9 g/dL Normal 12.0-16.0 [facility] Comment on above: Performed By: #### Jaycob CALL VITAD #### [facility] [address] [place] [address] Dr. Luis Miguel Veronica IG # 0.06 10e3/ul Critically high 0.00-0.03 [facility] Comment on above: Performed By: #### Jaycob CALL, VITAD #### [facility] [address] [place] [address] Dr. Luis Miguel Veronica IG % 0.4 % Normal 0.0-0.5 [facility] Comment on above: Performed By: #### I JAKUB, VITAD #### [facility] [address] [place] [address] Dr. Luis Miguel Veronica LYMPH # 1.6 103/ul Normal 1.2-3.8 [facility] Comment on above: Performed By: #### Jaycob CALL, VITAD #### [facility] [address] [place] [address] Dr. Luis Miguel Veronica Lymphocytes/100 WBC (Bld) 11.7 % Critically low 20.5-60.0 [facility] Comment on above: Performed By: #### I JAKUB, VITAD #### [facility] [address] [place] [address] Dr. Luis Miguel Veronica MANUAL DIFF REQ NO Normal [facility] Comment on above: Performed By: #### I JAKUB, VITAD #### [facility] [address] [place] [address] Dr. Luis Miguel Veronica MCH (RBC) [Entitic mass] 32.0 pg Normal 26.7-34.0 [facility] Comment on above: Performed By: #### I JAKUB, VITAD #### [facility] [address] [place] [address] Dr. Luis Miguel Veronica MCHC (RBC) [Mass/Vol] 33.0 g/dL Normal 29.9-35.2 [facility] Comment on above: Performed By: #### I JAKUB, VITAD #### [facility] [address] [place] [address] Dr. Luis Miguel Veronica MCV (RBC) [Entitic vol] 97.0 fL Normal 81.0-99.0 [facility] Comment on above: Performed By: #### I JAKUB, VITAD #### [facility] [address] [place] [address] Dr. Luis Miguel Veronica MONO # 0.5 103/ul Normal 0.3-0.8 [facility] Comment on above: Performed By: #### I JAKUB, VITAD #### [facility] [address] [place] [address] Dr. Luis Miguel Veronica Monocytes/100 WBC (Bld) 4.0 % Normal 1.7-12.0 [facility] Comment on above: Performed By: #### I JAKUB, VITAD #### [facility] [address] [place] [address] Dr. Luis Miguel Veronica NEUT # 11.1 103/ul Critically high 1.4-6.5 [facility] Comment on above: Performed By: #### I JAKUB, VITAD #### [facility] [address] [place] [address] Dr. Luis Miguel Veronica Neutrophils/100 WBC (Bld) 83.3 % Critically high 43.0-75.0 [facility] Comment on above: Performed By: #### Jaycob CALL VITAD #### [facility] [address] [address] [address] Luis Miguel Veronica Platelet mean volume (Bld) [Entitic vol] 9.2 fL Critically low 9.5-13.5 [facility] Comment on above: Performed By: #### Jaycob CALL VITAD #### [facility] [address] [address] [address] Luis Miguel Veronica PLT 290 103/ul Normal 150-450 [facility] Comment on above: Performed By: #### Jaycob CALL VITAD #### [facility] [address] [address] [address] Luis Miguel Veronica RBC 4.34 106/ul Normal 4.20-5.40 [facility] Comment on above: Performed By: #### Jaycob CALL VITAD #### [facility] [address] [address] [address] Luis Miguel Veronica WBC 13.4 103/ul Critically high 4.0-11.0 [facility] Comment on above: Performed By: #### Jaycob CALL VITAD #### [facility] [address] [address] [address] Luis Miguel Veronica CRPon 04-01-2022 CRP [Mass/Vol] mg/L Normal <=1.0 [facility] Comment on above: Performed By: #### C RP, TSH, LIPA, CHANDNI ####[facility] [id number] [id number]. Luis Miguel Veronica CT ABD/PELVIS WO CONon 04-01 CT ABD/PELVIS WO CON EXAMINATION: CT ABD/PELVIS WO CON, 04/01/2022 3:47 AM EDT HISTORY: ABDOMINAL DISTENSION (GASEOUS) COMPARISON: CT abdomen and pelvis examination dated 08/12/2020. TECHNIQUE: CT scan of the abdomen and pelvis was performed without IV contrast. CT dose reduction technique was used, including Automated Exposure Control. FINDINGS: There is mild bibasilar atelectasis and/or scarring. There is coronary artery disease. Abdomen: Please note that the sensitivity for detection of focal lesions or vascular disease is markedly reduced without intravenous contrast. Hepatic and splenic calcifications are suggestive of prior granulomas disease. Otherwise, the liver and spleen are unremarkable. There is no intra or extrahepatic biliary duct dilatation. The gallbladder is surgically absent. There are scattered colonic diverticula without evidence of acute inflammation. The pancreas, adrenal glands, and kidneys are unremarkable. The appendix is not seen. There is no mesenteric or retroperitoneal lymphadenopathy. There are a few air and fluid-filled dilated loops of small bowel measuring up to 3.4 cm with a transition point in the ventral pelvis where there appears to be bowel wall thickening of a loop of small bowel. Pelvis: The bladder and rectum are unremarkable. There is no iliac or inguinal lymphadenopathy. Bilateral gluteal injection granulomas are noted. The patient is status post hysterectomy. There is advanced atherosclerotic disease. Bone windows show no aggressive osseous lesions. IMPRESSION: 1. Air and fluid-filled dilated loops of small bowel with a transition point in the ventral pelvis where there appears to be wall thickening of a loop of small bowel. These findings are concerning for an at least high-grade partial small bowel obstruction possibly secondary to enteritis. 2. Status post cholecystectomy, hysterectomy, and possible appendectomy as the appendix is not seen. 3. Scattered colonic diverticula without evidence of acute inflammation. Electronically authenticated by: Ilan SEARS Date: 2022-04-01 05:44 Normal [facility] Covid-19 PCR ([facility])on SARS-CoV-2 (COVID-19) RNA ALEN+probe Ql (Unsp spec) Not detected Normal NOT DETECTED [facility] Comment on above: Result Comment: When diagnostic testing is negative, the possibility of a false negative should be considered in the context of a patient's recent exposures and the presence of clinical signs and symptoms consistent with SARS-CoV-2. This test is not yet approved or cleared by the [place] FDA. When there are no FDA-approved or cleared tests available, and other criteria are met, FDA can make tests available under an emergency access mechanism called an Emergency Use Authorization (EUA). The EUA for this test is supported by the [employer] of Health and Human Service's declaration that circumstances exist to justify the emergency use of in vitro diagnostics for the detection and/or diagnosis of the virus that causes COVID-19. This EUA will remain in effect for the duration of the COVID-19 declaration justifying emergency of IVDs, unless it is terminated or revoked by the FDA (after which the test may no longer be used). Performed By: #### C MP, CRP, LIPA, CHANDNI #### [facility] [address] [place] [address] Dr. Luis Miguel Veronica ER URINE PROFILEon 2 Bilirubin Ql (U) Negative Normal NEGATIVE [facility] Comment on above: Performed By: #### C MP, CRP, LIPA, CHANDNI #### [facility] [address] [place] [address] Dr. Luis Miguel Veronica Clarity (U) CLEAR Normal CLEAR [facility] Comment on above: Performed By: #### C MP, CRP, LIPA, CHANDNI #### [facility] [address] [place] [address] Dr. Luis Miguel Veronica Color (U) LT. YELLOW Normal YELLOW [facility] Comment on above: Performed By: #### C MP, CRP, LIPA, CHANDNI #### [facility] [address] [place] [address] Dr. Luis Miguel DELCID A micrscopic examination will be performed if indicated. Normal [facility] Comment on above: Performed By: #### C MP, CRP, LIPA, CHANDNI #### [facility] [address] [place] [address] Dr. Luis Miguel Veronica Glucose Ql (U) 250 mg/dl Abnormal NEGATIVE [facility] Comment on above: Performed By: #### C MP, CRP, LIPA, CHANDNI #### [facility] [address] [place] [address] Dr. Luis Miguel Veronica Hemoglobin Ql (U) TRACE-LYSED Abnormal NEGATIVE [facility] Comment on above: Performed By: #### C MP, CRP, LIPA, CHANDNI #### [facility] [address] [place] [address] Dr. Luis Miguel Veronica Ketones Ql (U) 15 mg/dl Abnormal NEGATIVE [facility] Comment on above: Performed By: #### C MP, CRP, LIPA, CHANDNI #### [facility] [address] [place] [address] Dr. Luis Miguel Veronica LEUKOCYTES Negative Normal NEGATIVE [facility] Comment on above: Performed By: #### C MP, CRP, LIPA, CHANDNI #### [facility] [address] [place] [address] Dr. Luis Miguel Veronica Nitrite Ql (U) Positive Abnormal NEGATIVE [facility] Comment on above: Performed By: #### C MP, CRP, LIPA, CHANDNI #### [facility] [address] [place] [address] Dr. Luis Miguel Veronica pH (U) 7.0 [pH] Normal 5-9 [facility] Comment on above: Performed By: #### C MP, CRP, LIPA, CHANDNI #### [facility] [address] [place] [address] Dr. Luis Miguel Veronica Protein (U) [Mass/Vol] 30 mg/dL Abnormal NEGATIVE/ TRACE [facility] Comment on above: Performed By: #### C MP, CRP, LIPA, CHANDNI #### [facility] [address] [place] [address] Dr. Luis Miguel Veronica SPEC GRAVITY 1.020 Normal 1.005-<=1.02 5 [facility] Comment on above: Performed By: #### C MP, CRP, LIPA, CHANDNI #### [facility] [address] [place] [address] Dr. Luis Miguel Veronica UR MICRO IND INDICATED Normal [facility] Comment on above: Performed By: #### C MP, CRP, LIPA, CHANDNI #### [facility] [address] [place] [address] Dr. Luis Miguel Veronica Urobilinogen Qn (U) 0.2 {Garry'U}/dL Normal 0.2 - 1. 0 [facility] Comment on above: Performed By: #### C MP, CRP, LIPA, CHANDNI #### [facility] [address] [place] [address] Dr. Luis Miguel Veronica LACTATE/LACTIC ACIDon 2021 Lactate [Moles/Vol] 1.0 mmol/L Normal 0.4-1.[address] [facility] Comment on above: Performed By: #### C MP, CRP, LIPA, CHANDNI #### [facility] [address] [address] [address] Luis Miguel Veronica Lactate [Moles/Vol] 2.0 mmol/L Critically high 0.4-1.9 [facility] Comment on above: Performed By: #### I MICHELLE CALL #### [facility] [address] [address] [address] Luis Miguel Veronica LIPASEon 04-01-2022 Lipase [Catalytic activity/Vol] 61.0 U/L Critically low 73.0-393.0 [facility] Comment on above: Performed By: #### I MICHELLE CALL #### [facility] [address] [place] [address] Dr. Luis Miguel Veronica PROF 14(COMP METB)on 022 Albumin [Mass/Vol] 3.6 g/dL Normal 3.4-5.0 [facility] Comment on above: Performed By: #### C MP ####[facility] [address] [address]DrMaxi Veronica Albumin/Globulin [Mass ratio] 0.9 {ratio} Normal [facility] Comment on above: Performed By: #### C MP ####[facility] [address] [address]Dr. Luis Miguel Veronica ALP [Catalytic activity/Vol] 64 U/L Normal 46-116 [facility] Comment on above: Performed By: #### C MP ####[facility] [address] [address]Dr. Luis Miguel Veronica ALT [Catalytic activity/Vol] 22 U/L Normal 14-59 [facility] Comment on above: Performed By: #### C MP ####[facility] [address] [address]DrMaxi Veronica Anion gap [Moles/Vol] 16.0 mmol/L Normal [facility] Comment on above: Performed By: #### C MP ####[facility] [address] [address]DrMaxi Veronica AST [Catalytic activity/Vol] 21 U/L Normal 15-37 [facility] Comment on above: Performed By: #### C MP ####[facility] [address] [address]Dr. Luis Miguel Jeremías Bilirubin [Mass/Vol] 0.3 mg/dL Normal 0.2-1.0 [facility] Comment on above: Performed By: #### C MP ####[facility] [address] [place], [place] [address]Dr. Luis Miguel Veronica Calcium [Mass/Vol] 9.4 mg/dL Normal 8.5-10.1 [facility] Comment on above: Performed By: #### C MP ####[facility] [address] [place], [place] [address]Dr. Luis Miguel Veronica Chloride [Moles/Vol] 105 mmol/L Normal 98-107 [facility] Comment on above: Performed By: #### C MP ####[facility] [address] [place], [place] [address]Dr. Luis Miguel Veronica CO2 [Moles/Vol] 24.3 mmol/L Normal 21.0-32.0 [facility] Comment on above: Performed By: #### C MP ####[facility] [address] [place], [place] [address]Dr. Luis Miguel Veronica Creatinine [Mass/Vol] 1.47 mg/dL Critically high 0.55-1.02 [facility] Comment on above: Performed By: #### C MP ####[facility] [address] [place], [place] [address]Dr. Luis Miguel Veronica EGFR-AF LUXEMBOURGER 41 mL/min/1.73m2 Critically low >=60 [facility] Comment on above: Performed By: #### C MP ####[facility] [address] [place], [place] [address]Dr. Luis Miguel Veronica EGFR-NON AF LUXEMBOURGER 34 mL/min/1.73m2 Critically low >=60 [facility] Comment on above: Performed By: #### C MP ####[facility] [address] [place], [place] [address]Dr. Luis Miguel Veronica Globulin (S) [Mass/Vol] 3.8 g/dL Normal [facility] Comment on above: Performed By: #### C MP ####[facility] [address] [address]Dr. Luis Miguel Veronica Glucose [Mass/Vol] 214 mg/dL Critically high 74-106 T [facility] Comment on above: Performed By: #### C MP ####[facility] [address] [address]Dr. Luis Miguel Veronica Potassium [Moles/Vol] 4.3 mmol/L Normal 3.5-5.1 [facility] Comment on above: Performed By: #### C MP ####[facility] [address] [place], [place] [address]Dr. Luis Miguel Veronica Protein [Mass/Vol] 7.4 g/dL Normal 6.4-8.2 [facility] Comment on above: Performed By: #### C MP ####[facility] [address] [place], [place] [address]Dr. Luis Miguel Veronica Sodium [Moles/Vol] 141 mmol/L Normal 136-145 [facility] Comment on above: Performed By: #### C MP ####[facility] [address] [place], [place] [address]Dr. Luis Miguel Veronica Urea nitrogen [Mass/Vol] 24.0 mg/dL Critically high 7.0-18.0 [facility] Comment on above: Performed By: #### C MP ####[facility] [address] [place], [place] [address]Dr. Luis Miguel Veronica Urea nitrogen/Creatinine [Mass ratio] 16.3 mg/mg Normal [facility] Comment on above: Performed By: #### C MP ####[facility] [address] [place], [place] [address]Dr. Luis Miguel Jeremías TSHon 04-01-2022 TSH 1.674 uIU/mL Normal 0.358-3.740 [facility] Comment on above: Performed By: #### C RP, TSH, LIPA, CHANDNI ####[facility] [address] [place], [place] [address]Dr. Luis Miguel Veronica TSH RANGE SEE BELOW Normal [facility] Comment on above: Result Comment: <0.3 4 UIU/ml HYPERTHYROID 0.34-5.60 UIU/ml EUTHYROID >5.60 UIU/ml HYPOTHYROID Performed By: #### C RP, TSH, LIPA, CHANDNI ####[facility] [address] [address]Dr. Luis Miguel Veronica URINE MICROSCOPIC ONLYon BACTERIA LARGE Abnormal NONE SEEN [facility] Comment on above: Performed By: #### C MP, CRP, LIPA, CHANDNI #### [facility] [address] [address] [address] Luis Miguel Veronica Bacteria identified Cx Nom (U) INDICATED Normal [facility] Comment on above: Performed By: #### C MP, CRP, LIPA, CHANDNI #### [facility] [address] [address] [address] Luis Miguel Veronica CA OX CRYSTALS RARE Normal [facility] Comment on above: Performed By: #### C MP, CRP, LIPA, CHANDNI #### [facility] [address] [address] [address] Luis Miguel Veronica CAST NONE SEEN Normal NONE SEEN [facility] Comment on above: Performed By: #### C MP, CRP, LIPA, CHANDNI #### [facility] [address] [address] [address] Luis Miguel Veronica Crystals LM Nom (Urine sed) SEEN Abnormal NONE SEEN [facility] Comment on above: Performed By: #### C MP, CRP, LIPA, CHANDNI #### [facility] [address] [address] [address] Luis Miguel Veronica Epithelial cells LM Ql (Urine sed) RARE Normal NONE SEEN /RARE [facility] Comment on above: Performed By: #### C MP, CRP, LIPA, CHANDNI #### [facility] [address] [address] [address] Luis Miguel Veronica MUCOUS NONE SEEN Normal NONE SEEN [facility] Comment on above: Performed By: #### C MP, CRP, LIPA, CHANDNI #### [facility] [address] [address] [address] Luis Miguel Veronica RBC 0-2 Normal 0-2 [facility] Comment on above: Performed By: #### C MP, CRP, LIPA, CHANDNI #### [facility] [address] [address] [address] Luis Miguel Veronica WBC 2-5 Abnormal NONE SEEN [facility] Comment on above: Performed By: #### C MP, CRP, LIPA, CHANDNI #### [facility] [id number] Luis Miguel Veronica XR ABD FLAT UP_PA Jimy 04-01 XR ABD FLAT UP_PA CH XR ABD FLAT UP_PA CH 04/01/2022 1:49 AM EDT CLINICAL INDICATION: Nausea with vomiting COMPARISON: CT abdomen and pelvis 08/12/2020 TECHNIQUE: Upright and supine AP views of the chest, abdomen and pelvis. FINDINGS: There are no tubes or implants noted. The cardiomediastinal silhouette and pulmonary vasculature are within normal limits. No focal opacity concerning for consolidation. No pneumothorax or pleural effusion. Cholecystectomy clips are present. Anastomotic sutures are seen in the left paramedian pelvis. No definite free intraperitoneal air, portal venous gas or pneumatosis intestinalis. There are air-fluid levels seen centrally with a step laddering appearance. No dilated small bowel loops are seen. Moderate fecal content. IMPRESSION: No acute cardiopulmonary abnormality. Air-fluid levels seen centrally with a stepladder appearance. No dilated small bowel loops are identified. CT abdomen and pelvis can be considered as the next step as clinically warranted. Electronically authenticated by: HARINI CAMPA Date: 2022-04-01 03:29 Normal [facility] Vital Signs Date Time Vital Sign Value Performing Clinician Facility 08-18-2023 12:58-0400 Blood Pressure Location Shadi SORTO [facility] 08-18-2023 12:58-0400 Diastolic blood pressure 76 mm[Hg] Shadi SORTO [facility] 08-18-2023 12:58-0400 Heart rate 92 /min Shadi SORTO [facility] 08-18-2023 12:58-0400 Systolic blood pressure 122 mm[Hg] Shadi SORTO [facility] 05-11-2023 13:03-0400 Blood Pressure Location Shadigladys SORTO [facility] 05-11-2023 13:03-0400 Diastolic blood pressure 72 mm[Hg] Shadi SORTO [facility] 05-11-2023 13:03-0400 Heart rate 75 /min Shadi SORTO [facility] 05-11-2023 13:03-0400 Respiratory rate 16 /min Shadigladys SORTO [facility] 05-11-2023 13:03-0400 Systolic blood pressure 116 mm[Hg] Shadi SORTO [facility] 01-12-2023 14:21-0400 Body height 152.4 cm Rodney Newton MD Work Phone: [facility] 01-12-2023 14:21-0400 Body weight 42.64 kg Rodney Newton MD Work Phone: [facility] 01-12-2023 14:21-0400 Diastolic blood pressure 55 mm[Hg] Rodney Newton MD Work Phone: [facility] 01-12-2023 14:21-0400 Heart rate 90 /min Rodney Newton MD Work Phone: [facility] 01-12-2023 14:21-0400 Respiratory rate 16 /min Rodney Newton MD Work Phone: [facility] 01-12-2023 14:21-0400 SaO2% (BldA) [Mass fraction] 96 % Rodney Newton MD Work Phone: [facility] 01-12-2023 14:21-0400 Systolic blood pressure 124 mm[Hg] Rodney Newton MD Work Phone: [facility] 12-24-2022 12:15-0500 Body height 152.4 cm Lesli Connelly Other [facility] Other 12-24-2022 12:15-0500 Body mass index (BMI) [Ratio] 18.36 kg/m2 Lesli Connelly Other [facility] Other 12-24-2022 12:15-0500 Body temperature 97.4 [degF] Lesli Connelly Other [facility] Other 12-24-2022 12:15-0500 Body weight 42.64 kg Lesli Connelly Other [facility] Other 12-24-2022 12:15-0500 Respiratory rate 18 /min Lesli Connelly Other [facility] Other 12-24-2022 12:15-0500 SaO2% (BldA) [Mass fraction] 94 % Lesli Connelly Other [facility] Other Encounters Encounter Date Encounter Type Care Provider Facility Start: 08-23-2024 ambulatory Shadi Jean Baptistei ty:[facility] Start: 02-09-2024 End: 02-09-2024 ambulatory RODERICK FISCHER Not Available Start: 01-26-2024 End: 01-26-2024 ambulatory RODERICK FISCHER Not Available Start: 01-05-2024 End: 01-05-2024 ambulatory RODERICK FISCHER Not Available Start: 08-18-2023 End: 08-19-2023 ambulatory Shadi SORTO Facility:[facility] Start: 08-18-2023 End: 08-18-2023 Patient encounter procedure Shadi SORTO [facility] Start: 05-11-2023 End: 05-12-2023 ambulatory Shadi SORTO Facility:[facility] Start: 05-11-2023 End: 05-11-2023 Patient encounter procedure Shadi SORTO [facility] Start: 04-16-2023 ambulatory Shadi SORTO Facility :[facility] Cassidy Start: 04-15-2023 End: 04-16-2023 ambulatory Shadi SORTO Facility:[id number] Start: 04-07-2023 Telephone encounter Renard dimas [employer] Work Phone: [facility] Comment on above: Results Start: 04-02-2023 End: 04-02-2023 ambulatory LETY DANIELS Facility:[facility] Start: 03-05-2023 End: 03-06-2023 ambulatory LETY DANIELS Facility:[facility] Start: 03-05-2023 End: 03-05-2023 ambulatory Renard Reyes [employer] Work Phone: [facility] Comment on above: Radiculopathy of lum bar region (Primary Dx); Acute midline low back pain with right-sided sciatica; Weakness of both lower extremities Start: 03-05-2023 End: 03-05-2023 Telemedicine consultation with patient Renard Reyes [employer]IST Work Phone: [facility] Start: 02-01-2023 End: 02-02-2023 ambulatory JENN TOLEDO Facility:[facility] Start: 01-12-2023 End: 01-13-2023 ambulatory LETY DANIELS Facility:[facility] Start: 01-12-2023 End: 01-12-2023 Patient encounter procedure Rodney Newton MD Work Phone: [facility] Comment on above: Lumbar radiculopathy (Primary Dx) Start: 12-24-2022 End: 12-24-2022 ambulatory Lesli Godwin Other [facility] Other Start: 12-24-2022 Office outpatient ne w 20 minutes Lesli Connelly [facility] Start: 12-11-2022 End: 12-12-[address] JADA PADILLA . Facility:[facility] Start: 12-08-2022 End: 01-12-[address] JADA PADILLA . Facility:[facility] Start: 12-03-2022 End: 12-04-[address] JADA PADILLA . Facility:[facility] Start: 11-30-2022 End: 12-01-[address] JADA PADILLA . Facility:[facility] Start: 11-28-2022 End: 11-28-2022 ambulatory DESIREE BAUTISTA . Facility:[facility] Start: 05-26-2022 End: 05-27-[address] JADA PADILLA . Facility:[facility] Start: 05-22-2022 End: 06-18-[address] JADA PADILLA . Facility:[facility] Start: 04-14-2022 End: 04-15-[address] JADA PADILLA . Facility:[facility] Start: 04-01-2022 End: 04-04-[address] JADA PADILLA . 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 Start: 10-25-2022 DEPRESSION ASSESSMENT DEPRESSION ASS ESSMENT [facility] Start: 09-23-2021 COVID-19 VACCINE (4 - Booster for Pfizer series) COVID-19 VACCINE (4 - Booster for Pfizer series) [facility] Start: 03-03-2013 DIABETES SCREEN DIABETES SCREEN [facility] Start: 2001 BONE DENSITY BONE DENSITY [facility] Start: 2001 PNEUMOCOCCAL: 65+ (1 - PCV) PNEUMOCOCCAL: 65+ (1 - PCV) [facility] Start: 1986 SHINGRIX VACCINE (1 of 2) SHINGRIX VACCINE (1 of 2) [facility] Start: 1955 Urine microalbumin profile DTAP,TDAP,TD (1 - Tdap) [facility] End: 04-03-2024 Mri spinal canal lumbar w/o contrast material MRI LUMBAR SPINE WO IVCON Radiology Routine Radiculopathy of lumbar region Acute midline low back pain with right-sided sciatica Weakness of both lower extremities 1 Occurrences starting 03/05/2023 until 04/03/2024 [facility] Work Phone: Comment on above: 1 Occurrences starti ng 03/05/2023 until 04/03/2024 [facility] Immunizations Immunization Date Immunization Notes Care Provider Bjorn rojas 08-18-2022 influenza virus vaccine, unspecified formulation Shadi SORTO [facility] 07-29-2021 SARS-CoV-2 (COVID-19 ) mRNA BNT-162b2 vax Shadi SORTO [facility] 07-21-2021 influenza virus vaccine, unspecified formulation Shadi SORTO [facility] 12-11-2020 SARS-CoV-2 (COVID-19 ) mRNA BNT-162b2 vax Shadi SORTO [facility] Comment on above: Result Comment: 2022: [id number] 11-20-2020 SARS-CoV-2 (COVID-19 ) mRNA BNT-162b2 vax [employer] [facility] Comment on above: Result Comment: 2022: [id number] 07-17-2020 influenza virus vaccine, unspecified formulation [facility] 09-23-2019 zoster vaccine recombinant [facility] 07-04-2019 zoster vaccine recombinant [facility] 06-27-2019 influenza virus vaccine, unspecified formulation [facility] 08-03-2018 influenza virus vaccine, unspecified formulation [facility] 07-15-2017 influenza virus vaccine, unspecified formulation [facility] 03-29-2017 pneumococcal polysaccharide vaccine, 23 valent [facility] 07-13-2016 influenza virus vaccine, unspecified formulation [facility] 01-22-2016 pneumococcal conjuga te vaccine, 13 valent [facility] 08-01-2015 influenza virus vaccine, unspecified formulation [facility] 05-14-2014 tetanus toxoid, redu britney diphtheria toxoid, and acellular pertussis vaccine, adsorbed Lesli Connelly Other [facility] Other 01-10-2014 tetanus toxoid, redu britney diphtheria toxoid, and acellular pertussis vaccine, adsorbed Lesli Connelly Other [facility] Other Payers Date Payer Category Payer Medicare DEVOTED MEDICARE [facility] HMO [id number] 2022-Present [phone] [address] [place] [address] HMO [id number] 2021 Unknown [id number] 1959 Medicare [id number] 1936 Unknown [id number] [id number] 1936 Unknown [id number] [id number] 1936 Unknown [id number] 2.16.840.1.494613.3.579.2.593 1936 Unknown [id number] 2.16.840.1.346679.3.579.2.593 1936 Unknown [id number] 2.16.840.1.302899.3.579.2.593 1936 Unknown [id number] 2.16.840.1.107484.3.579.2.593 1936 Unknown [id number] 2.16.840.1.421276.3.579.2.593 1936 Unknown [id number] 2.16.840.1.354220.3.579.2.593 1936 Unknown [id number] 2.16.840.1.625344.3.579.2.593 1936 Unknown [id number] 2.16.840.1.602166.3.579.2.727 1936 Unknown [id number] 2.16.840.1.520855.3.579.2.727 1936 Unknown [id number] 2.16.840.1.526973.3.579.2.727 1936 Unknown [id number] 2.16.840.1.405950.3.579.2.727 1936 Unknown [id number] 2.16.840.1.039921.3.579.2.1259 1936 Unknown [id number] 2.16.840.1.628657.3.579.2.1259 1936 Unknown [id number] 2.16.840.1.166315.3.579.2.1259 Social History Date Type Detail Facility Sex Assigned At [facility] Start: 01-12-2023 End: 08-18-2023 Tobacco smoking status NHIS Ex-smoker [facility] End: 02-17-2010 History of tobacco use Current smoker [facility] End: 02-17-2010 History of tobacco use Cigarette Smoker [facility] [facility] Start: 01-12-2023 Cigarettes smoked current (pack per day) - Reported 0.[address] [facility] Start: 01-12-2023 Tobacco use and exposure Smokeless tobacco non-user [facility] Start: 01-12-2023 Alcohol intake Current non-dr hand riveter of alcohol (finding) [facility] Start: 1935 Sex Assigned At [facility] status Never [facility] Functional Status Date Assessment Result Facility 08-18-2023 Functional Status N/A [facility] 05-11-2023 Functional Status N/A [facility] Clinical Notes 12-22-2022 to 08-18-2023 Telephone Encounter - Renard Reyes APRN.CNP - 04/07/2023 2:44 PM Carlyn Reyes APRN.CNP - 03/05/2023 10:20 LEONIE Newton MD - 01/12/2023 2:47 PM EDT Note Date & Type Note Facility 08-18-2023 Hospital Discharge instructions Patient Education 08/18/2023 13:33:23 Kegel Exercises Kegel Exercises Kegel exercises can help strengthen your pelvic floor muscles. The pelvic floor is a group of muscles that support your rectum, small intestine, and bladder. In females, pelvic floor muscles also help support the uterus. These muscles help you control the flow of urine and stool (feces). Kegel exercises are painless and simple. They do not require any equipment. Your provider may suggest Kegel exercises to: Improve bladder and bowel control. Improve sexual response. Improve weak pelvic floor muscles after surgery to remove the uterus (hysterectomy) or after , in females. Improve weak pelvic floor muscles after prostate gland removal or surgery, in males. Kegel exercises involve squeezing your pelvic floor muscles. These are the same muscles you squeeze when you try to stop the flow of urine or keep from passing gas. The exercises can be done while sitting, standing, or lying down, but it is best to vary your position. Ask your health care provider which exercises are safe for you. Do exercises exactly as told by your health care provider and adjust them as directed. Do not begin these exercises until told by your health care provider. Exercises How to do Kegel exercises: 1.Squeeze your pelvic floor muscles tight. You should feel a tight lift in your rectal area. If you are a female, you should also feel a tightness in your vaginal area. Keep your stomach, buttocks, and legs relaxed. 2.Hold the muscles tight for up to 10 seconds. 3.Breathe normally. 4.Relax your muscles for up to 10 seconds. 5.Repeat as told by your health care provider. Repeat this exercise daily as told by your health care provider. Continue to do this exercise for at least 4 6 weeks, or for as long as told by your health care provider. You may be referred to a physical therapist who can help you learn more about how to do Kegel exercises. Depending on your condition, your health care provider may recommend: Varying how long you squeeze your muscles. Doing several sets of exercises every day. Doing exercises for several weeks. Making Kegel exercises a part of your regular exercise routine. This information is not intended to replace advice given to you by your health care provider. Make sure you discuss any questions you have with your health care provider. Document Revised: 02/19/2022 Document Reviewed: 02/19/2022 Elsevier Patient Education 2022 [facility]. Follow Up Care 05/11/2023 13:28:09 With:ROBBY NARANJO, Shadi Blanco, URL Address: [facility] [address] [place] [id number]- When: Unknown [facility] 05-11-2023 Hospital Discharge instructions Patient Education 05/11/2023 08:12:32 Dietary Guidelines to Help Prevent Kidney Stones Dietary Guidelines to Help Prevent Kidney Stones Kidney stones are deposits of minerals and salts that form inside your kidneys. Your risk of developing kidney stones may be greater depending on your diet, your lifestyle, the medicines you take, and whether you have certain medical conditions. Most people can lower their chances of developing kidney stones by following the instructions below. Your dietitian may give you more specific instructions depending on your overall health and the type of kidney stones you tend to develop. What are tips for following this plan? Reading food labels Choose foods with no salt added or low-salt labels. Limit your salt (sodium) intake to less than 1,500 mg a day. Choose foods with calcium for each meal and snack. Try to eat about 300 mg of calcium at each meal. Foods that contain 200 500 mg of calcium a serving include: ?8 oz (237 mL) of milk, ohbtqwx-xjvolwwdovkg-mgocg milk, and calcium-fortifiedfruit juice. Calcium-fortified means that calcium has been added to these drinks. ?8 oz (237 mL) of kefir, yogurt, and soy yogurt. ?4 oz (114 g) of tofu. ?1 oz (28 g) of cheese. ?1 cup (150 g) of dried figs. ?1 cup (91 g) of cooked broccoli. ?One 3 oz (85 g) can of sardines or mackerel. Most people need 1,000 1,500 mg of calcium a day. Talk to your dietitian about how much calcium is recommended for you. Shopping Buy plenty of fresh fruits and vegetables. Most people do not need to avoid fruits and vegetables, even if these foods contain nutrients that may contribute to kidney stones. When shopping for convenience foods, choose: ?Whole pieces of fruit. ?Pre-made salads with dressing on the side. ?Low-fat fruit and yogurt smoothies. Avoid buying frozen meals or prepared deli foods. These can be high in sodium. Look for foods with live cultures, such as yogurt and kefir. Choose high-fiber grains, such as whole-wheat breads, oat bran, and wheat cereals. Cooking Do not add salt to food when cooking. Place a salt shaker on the table and allow each person to add his or her own salt to taste. Use vegetable protein, such as beans, textured vegetable protein (TVP), or tofu, instead of meat in pasta, casseroles, and soups. Meal planning Eat less salt, if told by your dietitian. To do this: ?Avoid eating processed or pre-made food. ?Avoid eating fast food. Eat less animal protein, including cheese, meat, poultry, or fish, if told by your dietitian. To do this: ?Limit the number of times you have meat, poultry, fish, or cheese each week. Eat a diet free of meat at least 2 days a week. ?Eat only one serving each day of meat, poultry, fish, or seafood. ?When you prepare animal protein, cut pieces into small portion sizes. For most meat and fish, one serving is about the size of the palm of your hand. Eat at least five servings of fresh fruits and vegetables each day. To do this: ?Keep fruits and vegetables on hand for snacks. ?Eat one piece of fruit or a handful of berries with breakfast. ?Have a salad and fruit at lunch. ?Have two kinds of vegetables at dinner. Limit foods that are high in a substance called oxalate. These include: ?Spinach (cooked), rhubarb, beets, sweet potatoes, and [place] chard. ?Peanuts. ?Potato chips, indian fries, and baked potatoes with skin on. ?Nuts and nut products. ?Chocolate. If you regularly take a diuretic medicine, make sure to eat at least 1 or 2 servings of fruits or vegetables that are high in potassium each day. These include: ?Avocado. ?Banana. ?Gooding, prune, carrot, or tomato juice. ?Baked potato. ?Cabbage. ?Beans and split peas. Lifestyle Drink enough fluid to keep your urine pale yellow. This is the most important thing you can do. Spread your fluid intake throughout the day. If you drink alcohol: ?Limit how much you use to: ?0 1 drink a day for women who are not . ?0 2 drinks a day for men. ?Be aware of how much alcohol is in your drink. In the [place] one drink equals one 12 oz bottle of beer (355 mL), one 5 oz glass of wine (148 mL), or one 1 oz glass of hard liquor (44 mL). Lose weight if told by your health care provider. Work with your dietitian to find an eating plan and weight loss strategies that work best for you. General information Talk to your health care provider and dietitian about taking daily supplements. You may be told the following depending on your health and the cause of your kidney stones: ?Not to take supplements with vitamin C. ?To take a calcium supplement. ?To take a daily probiotic supplement. ?To take other supplements such as magnesium, fish oil, or vitamin B6. Take ohkv-fyj-uwbanam and prescription medicines only as told by your health care provider. These include supplements. What foods should I limit? Limit your intake of the following foods, or eat them as told by your dietitian. Vegetables Spinach. Rhubarb. Beets. Canned vegetables. Pickles. Olives. Baked potatoes with skin. Grains Wheat bran. Baked goods. Salted crackers. Cereals high in sugar. Meats and other proteins Nuts. Nut butters. Large portions of meat, poultry, or fish. Salted, precooked, or cured meats, such as sausages, meat loaves, and hot dogs. Dairy Cheese. Beverages Regular soft drinks. Regular vegetable juice. Seasonings and condiments Seasoning blends with salt. Salad dressings. Soy sauce. Ketchup. Barbecue sauce. Other foods Canned soups. Canned pasta sauce. Casseroles. Pizza. Lasagna. Frozen meals. Potato chips. Egyptian fries. The items listed above may not be a complete list of foods and beverages you should limit. Contact a dietitian for more information. What foods should I avoid? Talk to your dietitian about specific foods you should avoid based on the type of kidney stones you have and your overall health. Fruits Grapefruit. The item listed above may not be a complete list of foods and beverages you should avoid. Contact a dietitian for more information. Summary Kidney stones are deposits of minerals and salts that form inside your kidneys. You can lower your risk of kidney stones by making changes to your diet. The most important thing you can do is drink enough fluid. Drink enough fluid to keep your urine pale yellow. Talk to your dietitian about how much calcium you should have each day, and eat less salt and animal protein as told by your dietitian. This information is not intended to replace advice given to you by your health care provider. Make sure you discuss any questions you have with your health care provider. Document Revised: 06/22/2022 Document Reviewed: 06/22/2022 [employer] Patient Education 2022 [facility]. Follow Up Care 05/04/2023 09:38:34 With:ROBBY NARANJO, Shadi Blanco, URL Address: [facility] [address], [place] [address]- When: Unknown [facility] 04-07-2023 Miscellaneous Notes Reviewed new MRI. Much better than Nov with resolve of left L3/4 HNP. Stable L2/3 disc bulge. NO right sided neural compression. Called and spoke to Hanh (pt's EC). She reports pt continues to struggle with right groin and proximal RLE pain to the knee, RLE giving out. No left sided pain Reviewed MRI results. Discussed other things such as hip issues need to be considered. They will reach out to PCP Some benefit with lyrica so OK to continue for now. No follow up with spine surgery necessary at this time. Hanh verbalized understanding. All questions were answered. Renard Reyes CNP Below letter faxed to Dr Padilla, PCP at 3:04 PM: Jada Padilla MD Dona Rodriguez ( 1935) has had resolve of LLE pain and is now having right groin pain into the right proximal leg as well as right hip/knee giving out. MRI lumbar was repeated. The L3/4 disc herniation has resolved. The L2/3 disc bulge is stable and asymptomatic. There is NO right sided nerve compression, no findings on the MRI lumbar spine that would be causing her right sided sx. I advised her to see you in follow up for evaluation to evaluate if this is a possible hip issue - such as hip OA, AVN or fracture. The new MRI lumbar spine report is attached for your review and records. There is no follow up required with spine surgery at this time. Renard Reyes CNP Call to Dr Padilla's office and reviewed above with the RN. documented in this encounter [facility] 04-02-2023 Note HNO ID: [id number] Author: RT Elian(R) Service: ? Author Type: Technologist Type: Progress Notes Filed: 04/02/2023 11:42 AM Note Text: Radiology Service Progress Note PATIENT NAME: Dona Rodriguez DATE OF SERVICE: April 02, 2023 TIME: 11:42 AM PATIENT IDENTITY VERIFICATION COMPLETED USING TWO (2) IDENTIFIERS: Name and Date of confirmed by patient verbally. FALL SCREENING: Has the patient had 2 falls in the last year or 1 fall with injury or currently using an Ambulatory Assistive Device (Walker, Cane, Wheelchair, Crutches, etc.)? No PATIENT GENDER DATA: Female. status: : No status: NO. PATIENT RELEVANT IMPLANT DATA REVIEWED: Yes RADIOLOGY DEPARTMENT: MR; Exam(s) Completed: Spine: Lumbar spine PERIPHERAL IV DATA: Not applicable SIGNED BY: RT Elian(R) April 02, 2023 11:42 AM [facility] 03-05-2023 Note HNO ID: [id number] Author: Renard Reyes APRN.CNP Service: ? Author Type: Nurse Practitioner Type: Progress Notes Filed: 03/05/2023 10:43 AM Note Text: VIRTUAL SPINE SURGERY ESTABLISHED PATIENT This is a virtual visit using Audio only. It required patient-provider interaction for the medical decision making as documented below. I have communicated my name and active licensure. The patient's identity and physical location were verified at the time of this visit. Either the patient or their legal policy services representative has been informed of the risks and benefits of -- and alternatives to -- treatment through a remote evaluation and consents to proceed with the evaluation remotely. SERVICE DATE: 03/05/2023 DATE OF LAST VISIT: 01/12/2023 LENNY Rodriguez is a 87 year old female presenting with daughter. She reports she is not doing too well. Pain on the left has resolved. Now pain is on the right side - right groin, down the leg, below the leg. RLE is weak, is falling a lot - daily Left knee gives out but she report it is not weak. The pt feels the legs are giving out and that is why is falling. Denies dizziness/lightheadedness or side effects from the gabapentin. Subjective weakness: Yes Numbness/tingling: Yes Imbalance: Yes Falls: Yes PREVIOUS CONSERVATIVE TREATMENTS: Membrane stabilizers: gabapentin 100mg with lack of benefit OTC NSAIDs Analgesics - tramadol PT Injection: 02/01/2023 Right L4 transforaminal epidural steroid injection MEDICATIONS: gabapentin (NEURONTIN) 100 mg capsule Take 1 tab at bedtime x4 days. Increase to 1 tab twice daily x4 days. Increase to 2 at bedtime, one in AM 4 days. Increase and continue with 2 tabs twice daily. buPROPion XL (WELLBUTRIN XL) 150 mg 24 hr tablet Take 150 mg by mouth once daily. levothyroxine (SYNTHROID) 50 mcg tablet Take 50 mcg by mouth once daily. meloxicam (MOBIC) 7.5 mg tablet Take by mouth. oxybutynin (DITROPAN) 5 mg tablet Take 5 mg by mouth twice daily. traMADol (ULTRAM) 50 mg tablet Take by mouth. MULTIVITAMIN TAB Take one(1) tablet daily. (Patient not taking: Reported on 01/12/2023) HERBAL DRUGS ORAL LIQUID BARLEY POWDER DAILY (Patient not taking: No sig reported) Patient Entered Questionnaires PROMIS Score Percentiles Percentiles provide an indication of how the patient's score ranks in relation to the general population. Higher percentile rankings indicate better function/quality of life. 50th percentile is the average of the general population and indicates half of respondents had a worse score. Depression Screening: PHQ-9 Self-Harm (Item 9) response options: 0 Not at all 1 Several days 2 More than half the days 3 Nearly every day PHQ-9 Levels: 0-4 No to mild depression 5-9 Mild depression 10-14 Moderate depression 15-19 Moderately severe depression 20-27 Severe depression DATA REVIEW [facility] records independently reviewed Imaging and outside records independently reviewed Images independently reviewed with the patient ASSESSMENT/PLAN No diagnosis found. 87 yo F with new CC of RLE pain. Nov 2022 with onset of LLE pain - MRI with left L2/3 and left L3/4 HNP. Approximately 5-6 weeks ago, LLE pain resolved and pain started in the RLE, right groin down to the foot. MRI without any pathology to explain RLE sx but was done before the onset of RLE sx. Reporting leg weakness and falls. Dona Rodriguez has a condition that requires further workup. Imaging: Lumbar MRI Without Contrast given new RLE pain, weakness, falls; interventional planning Trial of lyrica 25mg recommended. Indications, dosing and side effects reviewed. Advised not to stop abruptly. Rx e-scripted Opioids not recommended Follow up: TBD pending above. Discussed at this time, there is no indication for surgery but new MRI necessary given new sx to determine treatment options Call length: 19 minutes SIGNATURE: Renard Reyes APRN.[facility] [place] PATIENT NAME: Dona Rodriguez DATE: March 05, 2023 TIME: 10:40 AM PAGER: [facility] 03-05-2023 History of Present illness Narrative VIRTUAL SPINE SURGERY ESTABLISHED PATIENT This is a virtual visit using Audio only. It required patient-provider interaction for the medical decision making as documented below. I have communicated my name and active licensure. The patient's identity and physical location were verified at the time of this visit. Either the patient or their legal policy services representative has been informed of the risks and benefits of -- and alternatives to -- treatment through a remote evaluation and consents to proceed with the evaluation remotely. SERVICE DATE: 03/05/2023 DATE OF LAST VISIT: 01/12/2023 SUBJECTIVE Dona Rodriguez is a 87 year old female presenting with daughter. She reports she is not doing too well. Pain on the left has resolved. Now pain is on the right side - right groin, down the leg, below the leg. RLE is weak, is falling a lot - daily Left knee gives out but she report it is not weak. The pt feels the legs are giving out and that is why is falling. Denies dizziness/lightheadedness or side effects from the gabapentin. Subjective weakness: Yes Numbness/tingling: Yes Imbalance: Yes Falls: Yes PREVIOUS CONSERVATIVE TREATMENTS: Membrane stabilizers: gabapentin 100mg with lack of benefit OTC NSAIDs Analgesics - tramadol PT Injection: 02/01/2023 Right L4 transforaminal epidural steroid injection MEDICATIONS: gabapentin (NEURONTIN) 100 mg capsule Take 1 tab at bedtime x4 days. Increase to 1 tab twice daily x4 days. Increase to 2 at bedtime, one in AM 4 days. Increase and continue with 2 tabs twice daily. buPROPion XL (WELLBUTRIN XL) 150 mg 24 hr tablet Take 150 mg by mouth once daily. levothyroxine (SYNTHROID) 50 mcg tablet Take 50 mcg by mouth once daily. meloxicam (MOBIC) 7.5 mg tablet Take by mouth. oxybutynin (DITROPAN) 5 mg tablet Take 5 mg by mouth twice daily. traMADol (ULTRAM) 50 mg tablet Take by mouth. MULTIVITAMIN TAB Take one(1) tablet daily. (Patient not taking: Reported on 01/12/2023) HERBAL DRUGS ORAL LIQUID BARLEY POWDER DAILY (Patient not taking: No sig reported) Patient Entered Questionnaires PROMIS Score Percentiles Percentiles provide an indication of how the patient's score ranks in relation to the general population. Higher percentile rankings indicate better function/quality of life. 50th percentile is the average of the general population and indicates half of respondents had a worse score. Depression Screening: PHQ-9 Self-Harm (Item 9) response options: 0 Not at all 1 Several days 2 More than half the days 3 Nearly every day PHQ-9 Levels: 0-4 No to mild depression 5-9 Mild depression 10-14 Moderate depression 15-19 Moderately severe depression 20-27 Severe depression DATA REVIEW [facility] records independently reviewed Imaging and outside records independently reviewed Images independently reviewed with the patient ASSESSMENT/PLAN No diagnosis found. 87 yo F with new CC of RLE pain. Nov 2022 with onset of LLE pain - MRI with left L2/3 and left L3/4 HNP. Approximately 5-6 weeks ago, LLE pain resolved and pain started in the RLE, right groin down to the foot. MRI without any pathology to explain RLE sx but was done before the onset of RLE sx. Reporting leg weakness and falls. Dona Rodriguez has a condition that requires further workup. Imaging: Lumbar MRI Without Contrast given new RLE pain, weakness, falls; interventional planning Trial of lyrica 25mg recommended. Indications, dosing and side effects reviewed. Advised not to stop abruptly. Rx e-scripted Opioids not recommended Follow up: TBD pending above. Discussed at this time, there is no indication for surgery but new MRI necessary given new sx to determine treatment options Call length: 19 minutes SIGNATURE: Renard Reyes APRN.[facility] [place] PATIENT NAME: Dona Rodriguez DATE: March 05, 2023 TIME: 10:40 AM PAGER: documented in this encounter [facility] 02-01-2023 Note HNO ID: [id number] Author: Myranda Hunt MD Service: ? Author Type: Physician Type: Procedures Filed: 02/01/2023 11:32 AM Note Text: Procedure Note Lumbar Transforaminal Epidural Steroid Injection under Flouro Procedure Date: 02/01/2023 Dona Rodriguez 1935 OPERATION PERFORMED: Right LumbarTransforaminal Epidural Steroid Injection at levels: L4/5 ATTENDING SURGEON: Myranda Hunt MD Fellow: Sybil Euceda MD PREOPERATIVE DIAGNOSIS: 1. Displacement of lumbar intervertebral disc without myelopathy - ICD9: 722.10, ICD10: M51.26 (primary diagnosis) 2. Lumbar radiculopathy - ICD9: 724.4, ICD10: M54.16 3. Lumbar spondylosis - ICD9: 721.3, ICD10: M47.816 4. Spondylolisthesis of lumbar region - ICD9: 738.4, ICD10: M43.16 POSTOPERATIVE DIAGNOSIS: Same IV SEDATION #1: Midazolam: 0 mg IV SEDATION #2 Fentanyl: 0 mcg sublingual clonazepam 0.5 mg was given ESTIMATED BLOOD LOSS: None FLUIDS: 0 mL FLUOROSCOPY WAS USED. INCISION/PROCEDURE START TIME: 1029 INCISION CLOSE/PROCEDURE END TIME: 1033 TOTAL SEDATION TIME: 0 minutes. INDICATIONS FOR PROCEDURE: This is a 87 year old year old female with a clinical picture consistent with the above-mentioned diagnosis, resulting in radicular pain to the Right lower extremity. PROCEDURE AND FINDINGS: The patient was greeted in the pre procedure holding area. The risk, benefits and alternatives to the procedure were again reviewed with the patient and written informed consent was placed in the chart. Prior to the procedure a time out was completed, verifying correct patient, procedure, site, positioning, and implants and/or special equipment. An IV line was not placed. without A 500 mL bag of NS connected to the patient. The patient was taken to the procedure room and positioned prone on the fluoroscopy table. Routine monitors were applied including EKG leads, blood pressure cuff, and pulse oximetry. Then a floor runner film was taken to identify the correct level. The skin was prepped and draped in the usual sterile fashion. The overlying skin and subcutaneous tissue was anesthetized using a 25-gauge 1-1/2 inch needle with 1% preservative-free lidocaine for a total volume of 2 mls. Then a 22-gauge 3.5 Inches Quincke spinal needle was advanced under fluoroscopic guidance using an oblique view just inferior to the pedicle of the L4 level(s) on the rightside. The fluoroscopy view was changed to the AP and lateral views and the needle position was confirmed to be within the foramen. Then 1 mls of Omnipaque 300 mg/ml dye was injected under AP view at each level withoutDSA and confirmed adequate spread along the nerve root and in the epidural space. There was no evidence of intravascular uptake or intrathecal spread on imaging. A lateral view was also taken confirming adequate epidural spread. At this point, 10 mg dexamethasone was injected along with 1.0 mls of 1% lidocaine per level. The needle was then re-styletted and removed. The needle insertion site was dressed appropriately. The patient was taken to the recovery room where they were monitored for a brief period of time. They tolerated the procedure well and were discharged home in stable condition with post procedural instructions. Prior to the procedure, the patient reported a pain score of 8 out of 10. The patient was given a 24-hour diagnostic block sheet to return. Follow-up will be Clinic Visit with the referring physician COMPLICATIONS: None Comment(s): Slide was changed from left to right based on patient request and her symptoms shifting from the left side to the right side. Reports her left side symptoms resolved and similar symptoms are on the LEFT side now. [facility] 02-01-2023 Note HNO ID: [id number] Author: David Ramsey LPN Service: ? Author Type: LICENSED NURSE Type: Progress Notes Filed: 02/01/2023 11:32 AM Note Text: NON-SEDATION PROCEDURE FORM February 01, 2023 7:22 AM Room Number: S7-729 Fluoroscopy suite ID verified: Yes Arrived via indpendent ambulation 87 year old Weight: Last 2 Encounter Wt Readings: Date: Wt: 01/12/2023 42.6 kg (94 lb) 04/14/2010 47.8 kg (105 lb 6.4 oz) Indication for Procedure (Associated Diagnoses): low back pain Procedure ordered: Right L4 transforaminal epidural steroid injection Verified by patient by: Dr. Hunt Curb Hop for post spine injection procedure: Yes Patient mentation: alert, oriented, cooperative Yes Allergies: ALLERGIES No Known Allergies Pre-Procedural medication orders:clonazePAM orally disintegrating (KLONOPIN WAFER) 0.5 mg disintegrating tablet given as prescribed Patient tolerated well Documented in med note. Pre-procedural orders Discharge / transfer when discharge assessment criteria met: Alert and oriented X3, moves all extremities X4, vital signs stable, injection site flat and dry. Able to ambulate as prior to procedure Sign In Communication: Allergies and medications reviewed. Site of the procedure confirmed:Yes Informed Consent Complete: Yes Relevent diagnostic tests reviewed (i.e., use of anticoagulants, INR, platelet count, imaging, etc.) Yes Critical Information: Proceduralist: Dr. Gilbert Euceda PROCEDURAL TIME OUT: Time out verification includes:Audible time-out documented: Yes. Time: 1025 Correct Patient: Two Patient Identifiers Correct side/ site marking, prep and dry time (If applicable) Accurate Consent Correct Procedure Correct Positioning Safety Precautions Based on Patient History or Medication Team agrees: correct patient, correct procedure, correct site, correct position UNIVERSAL PROTOCOL / SAFETY CHECKLIST Procedure to be Performed: Right L4 transforaminal epidural steroid injection Sign In: A Moment of CARE was completed. Personnel directly involved with the procedure wore the appropriate PPE (Personal Protective Equipment). No special equipment needed. Patient/Surrogate Stated/Verified: PATIENT VERIFIED(optional for EMERGENT procedures): Patient name, Date of , Relevant allergies, and The intended procedure Time Out Communication: Intended patient and procedure match the source documents. Consent documented and matches the intended procedure. Relevant labs, photos, and/or imaging studies have been reviewed. Correct side/site marked and visible. Medications required for procedure verified. No implant(s) inserted. Sign Out: SIGN OUT (optional for EMERGENT procedures): No specimen collected. Nasrin Clancy RN Procedure Start time: 1029 Monitors On: NIBP Yes Pulse Oximetry Yes Site Prep: Duraprep Procedure Events: Vital Signs documented in activity above. Medications given, interventions, and notes: Time: BP Pulse R O2 Sat 1027 134/68 89 16 97 1030 136/58 85 16 97 Omnipaque (iohexol) 300mg/mL SDV volume 50 mL, Lidocaine 1% 10mg/mL SDV volume 30 mL Preservative-Free, and Dexamethasone Na phosphate 4mg/mL Preservative-Free Total Fluroscopy time:: 17 seconds. Procedure Finish Time: 1033 SIGN-OUT Dressings Applied to site(s): hypoallergenic transparent Tegaderm with absorbent nonadherent pad Que[place]o concerns for recovery and management of patient reviewed verbally prior to patient leaving procedure room. Post- Procedure Events: Vital Signs documented as below. Medications given, interventions, and notes as needed: Yes Time: BP Pulse R O2 Sat Pain scale 1037 143/53 74 18 97 5 AMBULATORY PATIENT EDUCATION TOPIC: PROCEDURE / SURGERY: Post Procedure Teaching: Symptom Management and Wound Care READINESS TO LEARN COGNITIVE ABILITY: Alert and oriented MOTIVATION TO LEARN: Interested FAMILY SUPPORT: High - Very involved in pt care INSTRUCTION PROVIDED TO: Patient and Family member PATIENT LEARNS BEST BY: Individual Instruction Written Instruction - Hand-outs FACTORS AFFECTING LEARNING: None PHYSICAL LIMITATIONS AFFECTING LEARNING: None LEARNING RESPONSE METHOD OF INSTRUCTION: Teach Back post procedure instructions Individual instruction Written instruction - handouts Verbal instruction PATIENT / FAMILY RESPONSE: Verbalizes understanding of: POST-PROCEDURE INSTRUCTIONS-Correct actions to take to reduce post procedure complications Information received as demonstrated by interest and questions FOLLOW-UP PLAN: Patient instructed to call with any further issues SUPPLEMENTAL MATERIAL: Procedure discharge instructions REFERRAL (RECOMMENDATION): None Electronically Signed By David Ramsey LPN In Department: [facility] Discharge assessment: PAIN SCALE: 5 on a scale of 0-10 (0=none, 10=extreme) Discharge: Verbal and written post procedure instructions given to:patient and daughter ( (more content not included)... [facility] 02-01-2023 Note HNO ID: [id number] Author: Sybil Euceda MD Service: ? Author Type: Fellow Type: Progress Notes Filed: 02/01/2023 11:32 AM Note Text: UPDATED HISTORY AND PHYSICAL EXAMINATION PATIENT NAME: Dona Rodriguez SERVICE DATE: 02/01/2023 The History and Physical (completed in the past 30 days) has been reviewed and the patient has been examined. The contents accurately reflect the patient's condition with the following additions or revisions since the HANDP was completed. Examination indicates no changes. This HANDP can be found in the Electronic Medical Record dated 02/01/23 PHYSICAL EXAMINATION: VITAL SIGNS: 02/01/23 0941 BP: (!) 117/44 BP Site: Right Arm BP Position: Sitting Pulse: 80 Resp: 18 Temp: 36.6 ?C (97.8 ?F) SpO2: 97% GENERAL: Well-developed, well-nourished female in no apparent distress with pleasant mood. HEENT: Head is normocephalic/atraumatic. Nares appear normal. Moist mucous membranes without lesions. RESP: Non-labored breathing. CV: Extremities are warm and well-perfused. GI: Soft, NT / ND. SKIN: No rashes, lesions, ulceration or induration in the upper/lower extremities, trunk, or head/neck. PSYCH: Awake, alert and fully oriented. There is no evidence of cognitive or language dysfunction. Appropriate insight. Antigravity strength is present in the bilateral lower extremities Risk, benefits, and alternatives of surgery explained to patient by surgeon with explicit agreement by patient or patient policy services representative before surgery. Sybil Euceda MD Spine Medicine Fellow, PGY-5 DATE: February 01, 2023 TIME: 9:42 AM [facility] 01-12-2023 Note HNO ID: [id number] Author: Rodney Newton MD Service: ? Author Type: Physician Type: Progress Notes Filed: 01/14/2023 10:27 AM Note Text: SPINE SURGERY NEW PATIENT This is an in-person visit. PCP: Lety Daniels MD REFERRING PROVIDER: Self-referred SUBJECTIVE HISTORY OF PRESENT ILLNESS: Dona Rodriguez is a 87 year old female presenting with daughter. Since early November has noted left leg gives way . Low back pain centered mostly in anteromedial groin on left side. Radiates down anterior thigh to knee. Feels like a constant ache . No reliving factors. No right-sided pain. Has tried PT, NSAIDs, analgesics (Tramadol) without relief. No injections. No UE symptoms - numbness, tingling, or weakness. 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 TOTAL ABDOMINAL HYSTERECT W/WO RMVL TUBE OVARY 1970 Hysterectomy, MANJULA FAMILY HISTORY Problem Relation Age of Onset Cancer Father lung cancer Cancer Brother brain cancer,diabetes, heart Diabetes Mother Diabetes Brother heart Heart Brother Stroke Paternal Grandfather Stroke Brother other (IBD [Other]) Mother other (IBD [Other]) Maternal Grandmother Social History Tobacco Use Smoking status: Former Packs/day: 0.50 Years: 10.00 Pack years: 5.00 Types: Cigarettes Quit date: 02/17/2010 Years since quittin.9 Smokeless tobacco: Never Substance Use Topics Alcohol use: No ALLERGIES No Known Allergies MEDICATIONS: buPROPion XL (WELLBUTRIN XL) 150 mg 24 hr tablet Take 150 mg by mouth once daily. levothyroxine (SYNTHROID) 50 mcg tablet Take 50 mcg by mouth once daily. meloxicam (MOBIC) 7.5 mg tablet Take by mouth. oxybutynin (DITROPAN) 5 mg tablet Take 5 mg by mouth twice daily. traMADol (ULTRAM) 50 mg tablet Take by mouth. MULTIVITAMIN TAB Take one(1) tablet daily. (Patient not taking: Reported on 01/12/2023) HERBAL DRUGS ORAL LIQUID BARLEY POWDER DAILY (Patient not taking: Reported on 01/12/2023) REVIEW OF SYSTEMS: GENERAL: No weight loss or malaise MUSCULOSKELETAL: Negative for joint pain, swelling or muscle pain NEURO: No history of headaches, syncope, paralysis, seizures or tremors Patient Entered Questionnaires PROMIS Score Percentiles Percentiles provide an indication of how the patient's score ranks in relation to the general population. Higher percentile rankings indicate better function/quality of life. 50th percentile is the average of the general population and indicates half of respondents had a worse score. Depression Screening: PHQ-9 Self-Harm (Item 9) response options: 0 Not at all 1 Several days 2 More than half the days 3 Nearly every day PHQ-9 Levels: 0-4 No to mild depression 5-9 Mild depression 10-14 Moderate depression 15-19 Moderately severe depression 20-27 Severe depression OBJECTIVE: PHYSICAL EXAM BP 124/55 Pulse 90 Resp 16 Ht 152.4 cm (5') Wt 42.6 kg (94 lb) SpO2 96% BMI 18.36 kg/m? RLE - 5/5 HF, KE, DF, PF LLE - 4 HF, 4+ KE, 5 DF/PF Antalgic gait DATA REVIEW [facility] records independently reviewed MRI shows foraminal stenosis left L2-3. Caudally migrated disc L3-4 abutting traversing L4 root. 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 Dona Rodriguez will continue with medical management of his/her condition. We explained the anticipated natural history of her condition; that in all likelihood, her symptoms would improve with time, especially since it has barely been 6 weeks so far since symptom onset. Moreover, we will make a referral for a transforaminal epidural steroid injection in hopes of providing her with relief and getting her through this. 1. Consults: Medical Spine Intervention (discussed with Dr. Ghotra) 2. Follow up: Following above Imaging Ordered: None I reviewed the information obtained and documented by the fellow. I examined the patient and evaluated all available films and pertinent documents (more content not included)... [facility] 03-21-2023 History of Present illness Narrative SPINE SURGERY NEW PATIENT This is an in-person visit. PCP: Lety Daniels MD REFERRING PROVIDER: Self-referred SUBJECTIVE HISTORY OF PRESENT ILLNESS: Dona Rodriguez is a 87 year old female presenting with daughter. Since early November has noted left leg gives way . Low back pain centered mostly in anteromedial groin on left side. Radiates down anterior thigh to knee. Feels like a constant ache . No reliving factors. No right-sided pain. Has tried PT, NSAIDs, analgesics (Tramadol) without relief. No injections. No UE symptoms - numbness, tingling, or weakness. 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 TOTAL ABDOMINAL HYSTERECT W/WO RMVL TUBE OVARY 1970 Hysterectomy, MANJULA FAMILY HISTORY Problem Relation Age of Onset Cancer Father lung cancer Cancer Brother brain cancer,diabetes, heart Diabetes Mother Diabetes Brother heart Heart Brother Stroke Paternal Grandfather Stroke Brother other (IBD [Other]) Mother other (IBD [Other]) Maternal Grandmother Social History Tobacco Use Smoking status: Former Packs/day: 0.50 Years: 10.00 Pack years: 5.00 Types: Cigarettes Quit date: 02/17/2010 Years since quittin.9 Smokeless tobacco: Never Substance Use Topics Alcohol use: No ALLERGIES No Known Allergies MEDICATIONS: buPROPion XL (WELLBUTRIN XL) 150 mg 24 hr tablet Take 150 mg by mouth once daily. levothyroxine (SYNTHROID) 50 mcg tablet Take 50 mcg by mouth once daily. meloxicam (MOBIC) 7.5 mg tablet Take by mouth. oxybutynin (DITROPAN) 5 mg tablet Take 5 mg by mouth twice daily. traMADol (ULTRAM) 50 mg tablet Take by mouth. MULTIVITAMIN TAB Take one(1) tablet daily. (Patient not taking: Reported on 01/12/2023) HERBAL DRUGS ORAL LIQUID BARLEY POWDER DAILY (Patient not taking: Reported on 01/12/2023) REVIEW OF SYSTEMS: GENERAL: No weight loss or malaise MUSCULOSKELETAL: Negative for joint pain, swelling or muscle pain NEURO: No history of headaches, syncope, paralysis, seizures or tremors Patient Entered Questionnaires PROMIS Score Percentiles Percentiles provide an indication of how the patient's score ranks in relation to the general population. Higher percentile rankings indicate better function/quality of life. 50th percentile is the average of the general population and indicates half of respondents had a worse score. Depression Screening: PHQ-9 Self-Harm (Item 9) response options: 0 Not at all 1 Several days 2 More than half the days 3 Nearly every day PHQ-9 Levels: 0-4 No to mild depression 5-9 Mild depression 10-14 Moderate depression 15-19 Moderately severe depression 20-27 Severe depression OBJECTIVE: PHYSICAL EXAM BP 124/55 Pulse 90 Resp 16 Ht 152.4 cm (5') Wt 42.6 kg (94 lb) SpO2 96% BMI 18.36 kg/m RLE - 5/5 HF, KE, DF, PF LLE - 4 HF, 4+ KE, 5 DF/PF Antalgic gait DATA REVIEW [facility] records independently reviewed MRI shows foraminal stenosis left L2-3. Caudally migrated disc L3-4 abutting traversing L4 root. 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 Dona Rodriguez will continue with medical management of his/her condition. We explained the anticipated natural history of her condition; that in all likelihood, her symptoms would improve with time, especially since it has barely been 6 weeks so far since symptom onset. Moreover, we will make a referral for a transforaminal epidural steroid injection in hopes of providing her with relief and getting her through this. 1. Consults: Medical Spine Intervention (discussed with Dr. Ghotra) 2. Follow up: Following above Imaging Ordered: None I reviewed the information obtained and documented by the fellow. I examined the patient and evaluated all available films and pertinent documents. We discussed the case and I agree with the plans as outlined in this note. SIGNATURE: Rodney Newton MD PATIENT NAME: Dona Rodriguez DATE: January 12, 2023 TIME: 3:13 PM PAGER: documented in this encounter [facility] 12-24-2022 Note HNO ID: [id number] Author: Jenn Toledo PA-C Service: ? Author Type: Physician Testing Analyst Type: Progress Notes Filed: 12/24/2022 2:12 PM Note Text: Per Triage: Dona Rodriguez is a 87 year old female that requests evaluation of spine. Per review, they have symptoms of lower back pain, left leg pain. Left leg gives out. Numbness in legs. Weakness. Difficulty walking. Trouble using hands Excruciating pain on the L hip/pelvis/stomach area Request: 1st available Referring provider: Dr. Jada Padilla Patient out of state: no 2nd opinion: no Prior spine surgery: yes Lumbar surgery like 12-15 yr ago @ [facility] (currently closed) CMT: PT NSAIDS Tramadol Studies (Reports unless indicated) Pelvic and left hip x-ray report 11/28/2022: Mild degenerative changes of the hips MRI lumbar spine report 12/11/2022: Posterior disc osteophyte complex at L3-4 causing mild spinal canal stenosis and mild left foraminal narrowing. There is also a large left paracentral disc extrusion desiccating caudally into the left lateral recess and this causes severe narrowing of the left lateral recess with compression of the paracentral disc extrusion dissecting caudally into the right lateral recess and this appears to cause moderate narrowing the right lateral recess in the region of descending right L4 nerve root. 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 There is transitional anatomy at the lumbosacral junction and partial lumbarization of the S1 in the last well-developed disc spaces determined L5-S1 for the purpose of this report Lumbar x-ray report 12/03/2022: L2-3 retrolisthesis, Marked degenerative disc disease and likely central canal and foraminal stenosis. Disposition: Based on triage, recommend patient be scheduled with surgeon first available surgeon for surgical eval . If patient would like sooner appointment, is it okay to offer appointment with spine surgical JOSE No (If patient is okay to see first available surgeon, please specify dx to aid in appropriate scheduling, such as ?cervical degenerative disease,? ?scoliosis?) If VV, please advise pt to send or upload relevant outside images prior to appt so they will be available for review during the appt If office visit, please advise pt to hand carry relevant images on CD to the appt so they can be reviewed during the appt Jenn Toledo PA-C [facility] 12-24-2022 Evaluation note Encounter Date Diagnosis Assessment Notes Dec, Contact with and (suspected) exposure to other viral communicable diseases (ICD-10 - Z20.828) Dec, Bronchitis (ICD-10 - J40) Take medications as directed. Rest and increase fluid intake. Take meds with food to prevent stomach upset. Use inhaler as needed for coughing spells and SOB. It is better to use inhaler a few times a day over the next 2-3 days. Follow up with primary care provider if symptoms do not improve with treatment plan, although it may take a few weeks for the cough to go away [facility] Other 02-28-2023 NoteHNO ID: [id number] Author: Derrek Acuña Service: ? Author Type: ? Type: Progress Notes Filed: 12/24/2022 2:12 PM Note Text: Patient name: Dona Rodriguez Are you being referred by a [facility] Provider or [facility] Management Provider at [facility]? No If answer is YES please schedule directly with surgeon, triage does not need to be completed. Is this a self-referral No If not, who is the Referring Provider Dr. Jada Padilla Is this a 2nd opinion? No Were you offered surgery? No MRI/CT/myelogram within 12 months? Yes If NO , please refer to medical spine or PCP to complete above imaging, triage does not need to be completed If YES,? please ask for the name/address of the facility where the MRI/CT/myelogram was completed: [place] [address] MRI/CT/myelogram viewable in Epic: No If not, please provide [phone] to fax in imaging reports for review. Also, please inform patient to hand carry imaging disc to appointment. XR (spine) within 12 months: Yes If YES,? please ask for the name/address of the facility where the XR was completed: [place] [address] Dr. Poe's patients: Have you had previous EMG/Nerve Conduction Study, Ultrasound, or MRI for these same symptoms? If YES,? please ask for the name/address of the facility where they were completed: Requested provider (First and Last name): Unknown Are you interested in a virtual visit if offered? 1. Where are you having symptoms related to this visit? Lumbar spine Back pain Yes Leg pain Yes mainly L leg. Legs going out underneath her Arm pain No Neck pain No Excruciating pain on the L hip/pelvis/stomach area 2. Are you having any of the following symptoms: Difficulty walking Yes Numbness Yes legs Weakness Yes Trouble using your hands? Yes drops things 3. Have you had any injections or physical therapy in the last 12 months? Yes If YES then please ask for the name/address of the facility where the injections and/or physical therapy [place] [address] Have you tried any other kinds of non-surgical treatments in the last 12 months? (For example: NSAIDS, muscle relaxants, analgesics, oral steroids, Chiropractor, Acupuncture): NSAIDS 4. Are you currently taking daily prescribed narcotic medications for your current symptoms (For example Oxycodone, Hydrocodone, Tramadol, Morphine, Other)? Yes Tramadol 5. Have you had previous spinal surgery for this same symptoms? Yes If YES? please ask for the name of facility/address of where the surgery was completed: Lumbar surgery like 12-15 yr ago @ [facility] (currently closed) Additional Comments [phone] Hanh, daughter Asking if she can [facility] Future App[facility]ments Appointment Date:08/18/2023 01:00:00 PM Scheduled Provider:Shadi SORTO MD Location:[facility] Appointment Type:URO Office Visit [facility] Evaluation + Plan note Future Appointments Appointment Date:08/16/2024 01:00:00 PM Scheduled Provider:Shadi SORTO MD Location:[facility] Appointment Type:URO Office Visit [facility] Evaluation note* Diagnosis Lumbar radiculopathy- Primary Thoracic or lumbosacral neuritis or radiculitis, unspecified [facility] Diagnosis Radiculopathy of lumbar region- Primary Thoracic or lumbosacral neuritis or radiculitis, unspecified Acute midline low back pain with right-sided sciatica Weakness of both lower extremities [facility] Diagnosis Radiculopathy of lumbar region Thoracic or lumbosacral neuritis or radiculitis, unspecified Acute midline low back pain with right-sided sciatica Weakness of both lower extremities [facility] N[facility] - Reported* Type Description Date Medical History Hypothyroidism Medical History chronic depression Medical History spinal stenosis Medical History hip stenosis Medical History narrowing of spine Medical History bulging disk Surgical History back sugery Surgical History removed 5 foot of colon Hospitalization History see above Hospitalization History UTI 2021 [facility] Other Hospital course Narrative No data available for this section [facility] Progress note No data available for this section [facility] Summary Purpose Family History No Family History Records FoundNo Family History Records Found No data available for this section No Family History Records FoundNo Family History Records Found Advance Directives No Advanced Directives Records FoundNo Advanced Directives Records FoundNo Advanced Directives Records FoundNo Advanced Directives Records Found Reason for Referral Specialty Diagnoses / Procedures Referred By Contac t Referred To Contact MR IMAGING Diagnoses Radiculopathy of lumbar region Acute midline low back pain with right-sided sciatica Weakness of both lower extremities Procedures MRI LUMBAR SPINE WO IVCON MRI SPINAL CANAL LUMBAR W/O CONTRAST MATERIAL Renard Reyes, [employer]TAIN [employer]INTERNET SPECIALIST [address] [place] [address] Mr Imaging Referral ID Status Reason Start Date Expiration Date Visits Requested Visits Authorized [id number] Pending Review Auto-Generat ed Referral 03/05/2023 04/03/2024 1 1 Additional Source Comments REASON FOR VISIT (unrecogniz ed section and content) Reason Comments New Patient Reason Comments Established Patient Reason Comments Results Source Comments (unrecognize d section and content) In the event this informatio n is protected by the Federal Confidentiality of Alcohol and Drug Abuse Patient Records regulations: The Federal rules restrict any use of the information to criminally investigate or prosecute any alcohol or drug abuse patient.[facility] the event this information is protected by the Federal Confidentiality of Alcohol and Drug Abuse Patient Records regulations: The Federal rules restrict any use of the information to criminally investigate or prosecute any alcohol or drug abuse patient.[facility] the event this information is protected by the Federal Confidentiality of Alcohol and Drug Abuse Patient Records regulations: The Federal rules restrict any use of the information to criminally investigate or prosecute any alcohol or drug abuse patient.[facility] Care Teams (unrecognized sec tion and content) Command And Control Specialist Relationship Specialty Start Date End Date Lety Daniels MD [address] [place] [id number] PCP - General 11/08/09 Jada Padilla MD [address] [place] [address] Family Medicine 12/22/22 Command And Control Specialist Relationship Specialty Start Date End Date Lety Daniels MD [address] [place] [id number] PCP - General 11/08/09 Jada Padilla MD [address] [place] [address] Family Medicine 12/22/22 Command And Control Specialist Relationship Specialty Start Date End Date Jada Padilla MD [address] [place] [address] PCP - General Family Medicine 04/07/18 INFORMATION SOURCE (unrecogn ized section and content) DATE CREATED AUTHOR 01/30/2023 [facility] DATE CREATED AUTHOR AUTHOR'S ORGANIZ ATION 04/08/2023 [facility] DATE CREATED AUTHOR AUTHOR'S ORGANIZ ATION 12/30/2023 [facility] DATE CREATED AUTHOR AUTHOR'S ORGANIZ ATION 02/10/2024 [facility] EPIC FOR RECORDS PERTAINING TO PATIENTS WHO ARE OR HAVE BEEN ENROLLED IN A CHEMICAL DEPENDENCY/SUBSTANCEABUSE PROGRAM, SOME INFORMATION MAY BE OMITTED. This clinical summary was aggregated from multiple sources. Caution should be exercised in using it in the provision of clinical care. This summary normalizes information from multiple sources, and as a consequence, information in this document may materially change the coding, format and clinical context of patient data. In addition, data may be omitted in some cases. CLINICAL DECISIONS SHOULD BE BASED ON THE PRIMARY CLINICAL RECORDS. [facility] [employer] [facility]. provides no warranty or guarantee of the accuracy or completeness of information in this document.
[2024-03-24 09:05] LABS: Basophils Absolute Auto 0.1 10^3/uL (0.0-0.1); Basophils Percent Auto 0.7 % (0.2-2.0); Eosinophils Absolute Auto 0.2 10^3/uL (0.0-0.7); Eosinophils Percent Auto 1.5 % (0.9-7.0); Hematocrit 41.3 % (36.0-48.0); Hemoglobin 13.4 g/dL (12.0-16.0); Immature Granulocytes Abs Auto 0.02 10^3/uL (0.00-0.03); Immature Granulocytes Pct Auto 0.2 % (0.0-0.5); Lymphocytes Absolute Auto 3.3 10^3/uL (1.2-3.8); Lymphocytes Percent Auto 33.6 % (20.5-60.0); Mean Corpuscular HGB Conc 32.4 g/dL (29.9-35.2); Mean Corpuscular Hemoglobin 32.1 pg (26.7-34.0); Mean Platelet Volume 9.4 fL (9.5-13.5); Monocytes Absolute Auto 0.8 10^3/uL (0.3-0.8); Monocytes Percent Auto 7.8 % (1.7-12.0); Neutrophils Absolute Auto 5.5 10^3/uL (1.4-6.5); Neutrophils Percent Auto 56.2 % (43.0-75.0); Platelet Count 297 10^3/uL (150-450); Red Blood Count 4.17 10^6/uL (4.20-5.40); Red Cell Distribution Width 13.6 % (11.0-15.0); White Blood Count 9.8 10^3/uL (4.0-11.0)
[2024-03-24 09:28] LABS: Estimated Average Glucose 126 mg/dL
[2024-03-24 10:23] LABS: Alanine Aminotransferase 18 U/L (14-59); Albumin Globulin Ratio 0.9; Albumin Level 3.6 g/dL (3.4-5.0); Alkaline Phosphatase 75 U/L (46-116); Anion Gap 12.5; Aspartate Amino Transferase 20 U/L (15-37); BUN Creatinine Ratio 18.2; Bilirubin Total 0.4 mg/dL (0.2-1.0); Calcium 9.4 mg/dL (8.5-10.1); Carbon Dioxide 28.7 mmol/L (21.0-32.0); Chloride 104 mmol/L (98-107); Chol HDL Ratio 2.8; Cholesterol 224 mg/dL (<=200); Estimated GFR (African America 37 (>=60); Estimated GFR (Non-African Ame 31 (>=60); Free T3 2.35 pg/mL (2.18-3.98); Globulin 3.9 g/dL; Glucose 102 mg/dL (74-106); HDL Cholesterol 81 mg/dL (40-60); Potassium 4.2 mmol/L (3.5-5.1); Sodium 141 mmol/L (136-145); Thyroid Stimulating Hormone 5.882 uIU/mL (0.358-3.740); Total Protein 7.5 g/dL (6.4-8.2); Triglycerides 87 mg/dL (<=150); VLDL CHOLESTEROL 17.4 mg/dL
== END 2024-03-24 08:27 | disposition home or self-care (01) ==
LOC: LAB 08:29
PROVIDERS: PCP Family Medicine; Visit Provider Family Medicine
DX: R55 Syncope and collapse (principal); E03.9 Hypothyroidism, unspecified; E78.5 Hyperlipidemia, unspecified; R73.09 Other abnormal glucose; D64.9 Anemia, unspecified; E55.9 Vitamin D deficiency, unspecified; I50.30 Unspecified diastolic (congestive) heart failure; I11.0 Hypertensive heart disease with heart failure
CPT/HCPCS: 36415; 80053; 80061; 82306; 83036; 83540; 83880; 84436; 84443; 84481; 85025

== ENCOUNTER 2024-03-29 08:59 | Outpatient (OUT) | payer OTHER, SELFPAY ==
--- OUTSIDE RECORDS SUMMARY | 2024-03-29 09:14 | XMS_ITS | CCD ---
Author Organization [facility] CliniSyms Care Team Providers Care Mosaic Tiler Name Role Phone Lesli Connelly Unavailable Lety [...] Unavailable Jada Padilla MD Primary Care Provider [phone] LETY DANIELS Primary Care Unavailable ERIC, [...] Medication Allergies] Propensity to adverse reactions (disorder) [facility] Repository Medications Current Medications Medication Drug Class(es) Dates Sig (Normalized) Sig (Original) [id number] 200 actuat albuterol 0.09 mg/actuat metered dose [...] twice daily. Take 1 capsule by mo [facility] twice daily for 90 days. tolterodine [...] procedure, # 1 tab(s), Refills(s) 0, Pharmacy: [facility] Rewardable #[id number] Start Date: 05/04/23 Status: Ordered gabapentin 100 [...] 02-01-2023 Episodic Other aftercare (1 source) Other [facility] (current) drug therapy; Translations: [OTH SKILLED NURSING CURRENT DRUG THERAPY] Onset: 12-01-2022 Episodic Other [...] [facility] [address], [place] [address]- Medications What How Much When Instructions Unchanged [...] Reviewed: 01/24 (more content not included)... Normal [facility] Patient Educationon 10-25-20 23 Patient Education [...] provider. Document Revised: 02/19/2022 Document Reviewed: 02/19/2022 [employer] Patient Education ? 2022 [employer] [facility] Urology Office/Clinic Noteon 08-18-2023 Urology Office/Clinic Note [...] [facility] [address], [place] [address]- Additional Instructions: 1 yr KUB Patient Education [...] Smokeless To (more content not included)... Normal [facility] Comment on above: Result Comment: Elec tronically Signed By: Shadi SORTO MD\.br\Date and Time Signed: 08/18/23 13:40 EDT\.br\Electronically Co-Signed By: Jania Velasquez\.br\Date and Time Co-Signed: 08/18/23 13:38 EDT Consent for Procedure/Surger yon 05-12-2023 Consent for Procedure/Surgery [id number]#1.00 CD:127 [facility] Ambulatory Visit Summaryon 0 05-11-2023 Ambulatory Visit [...] NARANJO, Shadi Blanco Where: [facility] Chris Singh [facility] Patient Educationon 05-11-20 Patient Education Nephrology [...] ? 8 oz (237 mL) of milk, limdhwh-czkwevtevnvb-qr iry milk, and calcium-fortifiedfruit juice. Calcium-fortified means [...] Spinach (cooked), rhubarb, beets, sweet potatoes, and Ukrainian chard. ? Peanuts. ? Potato chips, colombian fries, and baked potatoes with skin on. ? Nuts and nut products. ? Chocolate. ? If you regularly take a diuretic medicine, make sure to eat at least 1 or 2 servings of fruits or vegetables that are high in potassium each day. These include: ? Avocado. ? Banana. ? [place], prune, carrot, or tomato juice. ? Baked [...] fish oil, or vitamin B6. ? Take mqzh-vls-yisesfb and prescription medicines only as told by your health care provider. These include supplements. What foods should I limit? Limit your in (more content not included)... Normal [facility] Urology Office/Clinic Noteon 05-11-2023 Urology Office/Clinic [...] [facility] [address], [place] [address]- Additional Instructions: 3 mos PVR Patient Education [...] Sigmoid colectomy (more content not included)... Normal [facility] Comment on above: Result Comment: Elec tronically Signed By: Shadi SORTO MD\.br\Date and Time Signed: 05/11/23 13:23 EDT\.br\Electronically Co-Signed By: Jania Velasquez\.br\Date and Time Co-Signed: 05/11/23 13:19 EDT\.br\Electronically Co-Signed By: Jania Velasquez\.br\Date and Time Co-Signed: 05/11/23 13:22 EDT Lab Reportson 04-26-2023 Lab Reports [id number]#1.00C D:127 [facility] Pre-Certification Formon Pre-Certification Form [id number]#1.00 CD:127 [facility] Lab Reportson 04-20-2023 Lab Reports [id number]#1.00CD :127 [facility] Consultation Noteon 04-16-20 Consultation Note [id number]#1.00 CD:127 [facility] Insurance Correspondence Off iceon 04-16-2023 Insurance Correspondence Office [id number]#1.00C D:127 [facility] Lab Reportson 04-16-2023 Lab Reports [id number]#1.00CD :127 [facility] Operative Reporton Operative Report [id number]#1.00CD :127 [facility] 04-07-2023 CNPN Telephone (SPNSMN) DONA RODRIGUEZ ([id number]) 1935 F Date Time Provider Department 04/07/23 RENARD REYES SPEDUARDOMN During your visit today, we recorded the following information about you: Renard Reyes APRN.FINANCIAL AIDS OFFICER 04/07/2023 3:08 PM Signed Reviewed new MRI. [...] Status:Closed by RENARD REYES on 04/07/23 Normal [facility] MRI LUMBAR SPINE WO IVCONon 04-02-2023 [...] kidneys and small renal cysts visible on marble chip terrazzo worker images. Alignment: Alignment is anatomic. Bone marrow [...] crest and there are 5 lumbar-type vertebrae. Zoo Veterinarian: PSCB Transcribe Date/Time: Apr 02 2023 12:17P Dictated by : VIKTOR SANDERSON MD This examination was interpreted and the report reviewed and electronically signed by: VIKTOR SANDERSON MD on Apr 02 2023 12:20PM EST [id number] Normal [facility] CNPAnneliese 02-09-2023 CNPN Telephone (NIQ) DONA RODRIGUEZ ([id number]) 1935 F Date Time Provider Department 02/09/23 [...] tablet 2x a day Call back # [phone] Forwarded to team for review. Ana M [...] or Lyrica. Pt has f/u appt with FINANCIAL AIDS OFFICER on 03/05/2023. Will discuss with FINANCIAL AIDS OFFICER. [facility] uses [facility] in [facility]. Renard Reyes APRN.CNP 02/09/2023 12:37 PM Addendum [...] by MARK ANTHONY MIKE on 02/09/23 Normal [facility] CNOVon 02-01-2023 CNOV Office Visit (SPNMMN ) DONA RODRIGUEZ ([id number]) 1935 F Date Time Provider Department 02/01/23 [...] with explicit agreement by patient or patient wire rope sales representative before surgery. Sybil Euceda MD Spine Medicine Fellow, PGY-5 DATE: February 01, 2023 TIME: 9:42 AM Bailee Rivers RN 02/01/2023 9:52 AM Signed PATIENT NAME: Dona Rodriguez 1935 87 year old Current medications and allergies reviewed with patient in visit navigator: Yes Baseline vital signs and pain assessment entered in activity in visit navigator: Yes Corporate Investigator for post spine injection procedure: Yes First [...] injection Verified by patient by: Dr. Hunt Corporate Investigator for post spine injection procedure: Yes Patient [...] steroid i (more content not included)... Normal [facility] CNOVon 01-12-2023 CNOV Office Visit (SPNSMN ) DONA RODRIGUEZ ([id number]) 1935 F Date Time Provider Department 01/12/23 [...] getting her (more content not included)... Normal [facility] COVID/FLU/RSV RT-PCRon 12-24 SARS-CoV-2 (COVID-19) RNA ALEN+probe Ql (Unsp spec) Negative [employer] Other COVID/FLU/RSV RT-PCR Negative [employer] Other MRI LSPINE WO CONon 12-14-19 MRI [...] JADA LORENZ Date: 2022-12-14 10:29 Normal [facility] EULALIA by IFAon 12-03-2022 Antinuclear Antibodies, IFA Negative Normal [facility] Comment on above: Result Comment: Nega tive <1:80 Borderline 1:80 Positive >1:80 ICAP nomenclature: AC-0 For more information about Hep-2 cell patterns use ANApatterns.org, the official website for the International Consensus on Antinuclear Antibody (EULALIA) Patterns (ICAP). Performed By: #### A NAIFA ####[facility] [address] [address]Dr. Yilan Veronica ECHOCARDIO M/2D COMPLETEon 0 12-03-2022 ECHOCARDIO M/2D COMPLETE Patient: DONA RODRIGUEZ Exam Date: 12/03/2022 : 1935 Gender:F Ordering : DR JADA PADILLA . Admission #: [id number] Family : Order #: [id number] CLICK HERE TO VIEW EXAM ECHOCARDIOGRAM REPORT [...] Solomon M.D. on 12/03/2022 at 19:45 Normal [facility] XR LSPINE MIN 4 VIEWSon 02-0 XR [...] SULAIMAN MERCEDES Date: 2022-12-03 11:58 Normal [facility] ANTISTREPTOLYSIN O AB (ASO)o n 12-01-2022 Antistreptolysin O Ab <20.0 Normal 0.0-200.0 [facility] Comment on above: Performed By: #### A SOAB ####[facility] [address] [address]DrMaxi Veronica RHEUMATOID FACTORon 12-01-19 RA Latex Turbid. <10.0 Normal <14.0 [facility] Comment on above: Performed By: #### R F ####[facility] [address] [address]DrMaxi Veronica CBC AUTO DIFFon 11-30-2022 BASO # 0.1 103/ul Normal 0.0-0.1 [facility] Comment on above: Performed By: #### C MP, CRP, LIPA, CHANDNI #### [facility] [address] [address] [address] Luis Miguel Veronica Basophils/100 WBC (Bld) 0.7 % Normal 0.2-2.0 [facility] Comment on above: Performed By: #### C MP, CRP, LIPA, CHANDNI #### [facility] [address] [address] [address] Luis Miguel Veroinca EO # 0.1 103/ul Normal 0.0-0.7 [facility] Comment on above: Performed By: #### C MP, CRP, LIPA, CHANDNI #### [facility] [address] [place] [address] Dr. Luis Miguel Veronica Eosinophils/100 WBC (Bld) 0.8 % Critically low 0.9-7.0 [facility] Comment on above: Performed By: #### C MP, CRP, LIPA, CHANDNI #### [facility] [address] [place] [address] Dr. Luis Miguel Veronica Erythrocyte distribution width (RBC) [Ratio] 13.4 % Normal 11.0-15.0 [facility] Comment on above: Performed By: #### C MP, CRP, LIPA, CHANDNI #### [facility] [address] [place] [address] Dr. Luis Miguel Veronica Hematocrit (Bld) [Volume fraction] 45.3 % Normal 36.0-48.0 [facility] Comment on above: Performed By: #### C MP, CRP, LIPA, CHANDNI #### [facility] [address] [place] [address] Dr. Luis Miguel Veronica Hemoglobin (Bld) [Mass/Vol] 14.2 g/dL Normal 12.0-16.0 [facility] Comment on above: Performed By: #### C MP, CRP, LIPA, CHANDNI #### [facility] [address] [place] [address] Dr. Luis Miguel Veronica IG # 0.02 10e3/ul Normal 0.00-0.03 [facility] Comment on above: Performed By: #### C MP, CRP, LIPA, CHANDNI #### [facility] [address] [place] [address] Dr. Luis Miguel Veronica IG % 0.2 % Normal 0.0-0.5 [facility] Comment on above: Performed By: #### C MP, CRP, LIPA, CHANDNI #### [facility] [address] [place] [address] Dr. Luis Miguel Veronica LYMPH # 2.5 103/ul Normal 1.2-3.8 [facility] Comment on above: Performed By: #### C MP, CRP, LIPA, CHANDNI #### [facility] [address] [place] [address] Dr. Luis Miguel Veronica Lymphocytes/100 WBC (Bld) 27.3 % Normal 20.5-60.0 [facility] Comment on above: Performed By: #### C MP, CRP, LIPA, CHANDNI #### [facility] [address] [place] [address] Dr. Luis Miguel Veronica MANUAL DIFF REQ NO Normal [facility] Comment on above: Performed By: #### C MP, CRP, LIPA, CHANDNI #### [facility] [address] [place] [address] Dr. Luis Miguel Veronica MCH (RBC) [Entitic mass] 32.3 pg Normal 26.7-34.0 [facility] Comment on above: Performed By: #### C MP, CRP, LIPA, CHANDNI #### [facility] [address] [place] [address] Dr. Luis Miguel Veronica MCHC (RBC) [Mass/Vol] 31.3 g/dL Normal 29.9-35.2 [facility] Comment on above: Performed By: #### C MP, CRP, LIPA, CHANDNI #### [facility] [address] [place] [address] Dr. Luis Miguel Veronica MCV (RBC) [Entitic vol] 103.0 fL Critically high 81.0-99.0 [facility] Comment on above: Performed By: #### C MP, CRP, LIPA, CHANDNI #### [facility] [address] [place] [address] Dr. Luis Miguel Veronica MONO # 0.6 103/ul Normal 0.3-0.8 [facility] Comment on above: Performed By: #### C MP, CRP, LIPA, CHANDNI #### [facility] [address] [place] [address] Dr. Luis Miguel Veronica Monocytes/100 WBC (Bld) 6.2 % Normal 1.7-12.0 [facility] Comment on above: Performed By: #### C MP, CRP, LIPA, CHANDNI #### [facility] [address] [place] [address] Dr. Luis Miguel Veronica NEUT # 5.8 103/ul Normal 1.4-6.5 [facility] Comment on above: Performed By: #### C MP, CRP, LIPA, CHANDNI #### [facility] [address] [place] [address] Dr. Luis Miguel Veronica Neutrophils/100 WBC (Bld) 64.8 % Normal 43.0-75.0 [facility] Comment on above: Performed By: #### C MP, CRP, LIPA, CHANDNI #### [facility] [address] [address] [address] Luis Miguel Veronica Platelet mean volume (Bld) [Entitic vol] 9.7 fL Normal 9.5-13.5 [facility] Comment on above: Performed By: #### C MP, CRP, LIPA, CHANDNI #### [facility] [address] [address] [address] Luis Miguel Veronica PLT 237 103/ul Normal 150-450 [facility] Comment on above: Performed By: #### C MP, CRP, LIPA, CHANDNI #### [facility] [address] [address] [address] Luis Miguel Veronica RBC 4.40 106/ul Normal 4.20-5.40 [facility] Comment on above: Performed By: #### C MP, CRP, LIPA, CHANDNI #### [facility] [address] [address] [address] Luis Miguel Veronica WBC 9.0 103/ul Normal 4.0-11.0 [facility] Comment on above: Performed By: #### C MP, CRP, LIPA, CHANDNI #### [facility] [address] [address] [address] Luis Miguel Veronica CRPon 11-30-2022 CRP [Mass/Vol] mg/L Normal <=1.0 [facility] Comment on above: Performed By: #### U JOE, LIPID, CMP, TSH, T7, CRP ####[facility] [address] [address]Dr. Luis Miguel Veronica FREE THYROXINE INDEX T7on FTI 3.60 Normal 1.30-4.50 [facility] Comment on above: Performed By: #### C MP, CRP, LIPA, CHANDNI #### [facility] [address] [address] [address] Luis Miguel Veronica T3U 36.0 % Normal 30.0-39.0 [facility] Comment on above: Performed By: #### C MP, CRP, LIPA, CHANDNI #### [facility] [address] [address] [address] Luis Miguel Veronica T4 [Mass/Vol] 10.00 ug/dL Normal 4.80-13.90 [facility] Comment on above: Performed By: #### C MP, CRP, LIPA, CHANDNI #### [facility] [address] [address] [address] Luis Miguel Veronica GLYCOHEMOGLOBIN A1Con 2022 ADA RECOMMENDATION SEE BELOW Normal [facility] [place] [facility] Comment on above: Result Comment: ADA RECOMMENDED LIMIT 4.0 - 6.0 ADA THERAPEUTIC TARGET < 7.0 ACTION SUGGESTED > 7.0 Performed By: #### C MP, CRP, LIPA, CHANDNI #### [facility] [address] [address] [address] Luis Miguel Veronica Glucose [Mass/Vol] 126 mg/dL Normal [facility] [place] [facility] Comment on above: Performed By: #### C MP, CRP, LIPA, CHANDNI #### [facility] [address] [place] [address] Dr. Luis Miguel Veronica HbA1c (Bld) [Mass fraction] 6.0 % Normal 4.5-6.2 [facility] Comment on above: Performed By: #### C MP, CRP, LIPA, CHANDNI #### [facility] [address] [place] [address] Dr. Luis Miguel Veronica IRONon 11-30-2022 Iron [Mass/Vol] 114.0 ug/dL Normal 50.0-170.0 [facility] Comment on above: Performed By: #### I MICHELLE CALL #### [facility] [address] [place] [address] Dr. Luis Miguel Veronica LIPID PROFILEon 11-30-2022 CHOL-HDL RATIO NORM SEE BELOW Normal [facility] Comment on above: Result Comment: 3.3 - 4.4 LOW RISK 4.4 - 7.1 AVERAGE RISK 7.1 - 11.0 MODERATE RISK >11.0 HIGH RISK Performed By: #### C MP, CRP, LIPA, CHANDNI #### [facility] [address] [place] [address] Dr. Luis Miguel Veronica Cholesterol [Mass/Vol] 212 mg/dL Critically high <=200 [facility] Comment on above: Performed By: #### C MP, CRP, LIPA, CHANDNI #### [facility] [address] [address] [address] Luis Miguel Veronica Cholesterol in HDL [Mass/Vol] 70 mg/dL Critically high 40-60 [facility] Comment on above: Performed By: #### C MP, CRP, LIPA, CHANDNI #### [facility] [address] [address] [address] Luis Miguel Veronica Cholesterol in LDL [Mass/Vol] 111.6 mg/dL Normal [facility] Comment on above: Performed By: #### C MP, CRP, LIPA, CHANDNI #### [facility] [address] [address] [address] Luis Miguel Veronica Cholesterol.total/C holesterol in HDL [Mass ratio] 3.0 {ratio} Normal [facility] Comment on above: Performed By: #### C MP, CRP, LIPA, CHANDNI #### [facility] [address] [address] [address] Luis Miguel Veronica HDL NORMAL > or = 60 mg/dl - LO W CARDIOVASCULAR RISK <40 mg/dl - HIGH CARDIOVASCULAR RISK Normal [facility] Comment on above: Performed By: #### C MP, CRP, LIPA, CHANDNI #### [facility] [address] [address] [address] Luis Miguel Veronica LDL CALC NORMAL SEE BELOW Normal [facility] Comment on above: Result Comment: <100 mg/dl OPTIMAL 100 - 129 mg/dl NEAR OR ABOVE OPTIMAL 130 - 159 mg/dl BORDERLINE HIGH 160 - 189 mg/dl HIGH >190 mg/dl VERY HIGH Performed By: #### C MP, CRP, LIPA, CHANDNI #### [facility] [address] [address] [address] Luis Miguel Veronica Triglyceride [Mass/Vol] 152 mg/dL Critically high <=150 [facility] Comment on above: Performed By: #### C MP, CRP, LIPA, CHANDNI #### [facility] [address] [address] [address] Luis Miguel Veronica VLDL CALC 30.4 mg/dL Normal [facility] Comment on above: Performed By: #### C MP, CRP, LIPA, CHANDNI #### [facility] [address] [place], [place] [address] Dr. Luis Miguel Veronica PROF 14(COMP METB)on 023 Albumin [Mass/Vol] 4.0 g/dL Normal 3.4-5.0 [facility] Comment on above: Performed By: #### U JOE, LIPID, CMP, TSH, T7, CRP ####[facility] [address] [address]Dr. Luis Miguel Veronica Albumin/Globulin [Mass ratio] 1.2 {ratio} Normal [facility] Comment on above: Performed By: #### U JOE, LIPID, CMP, TSH, T7, CRP ####[facility] [address] [address]Dr. Luis Miguel Veronica ALP [Catalytic activity/Vol] 63 U/L Normal 46-116 [facility] Comment on above: Performed By: #### U JOE, LIPID, CMP, TSH, T7, CRP ####[facility] [address] [address]Dr. Luis Miguel Veronica ALT [Catalytic activity/Vol] 28 U/L Normal 14-59 [facility] Comment on above: Performed By: #### U JOE, LIPID, CMP, TSH, T7, CRP ####[facility] [address] [address]Dr. Luis Miguel Veronica Anion gap [Moles/Vol] 17.1 mmol/L Normal [facility] Comment on above: Performed By: #### U JOE, LIPID, CMP, TSH, T7, CRP ####[facility] [address] [address]Dr. Luis Miguel Veronica AST [Catalytic activity/Vol] 26 U/L Normal 15-37 [facility] Comment on above: Performed By: #### U JOE, LIPID, CMP, TSH, T7, CRP ####[facility] [address] [address]Dr. Luis Miguel Veronica Bilirubin [Mass/Vol] 0.4 mg/dL Normal 0.2-1.0 [facility] Comment on above: Performed By: #### U JOE, LIPID, CMP, TSH, T7, CRP ####[facility] [address] [address]Dr. Luis Miguel Veronica Calcium [Mass/Vol] 9.8 mg/dL Normal 8.5-10.1 [facility] [place] [facility] Comment on above: Performed By: #### U JOE, LIPID, CMP, TSH, T7, CRP ####[facility] [address] [place], [place] [address]Dr. Luis Miguel Veronica Chloride [Moles/Vol] 104 mmol/L Normal 98-107 [facility] Comment on above: Performed By: #### U JOE, LIPID, CMP, TSH, T7, CRP ####[facility] [address] [place], [place] [address]Dr. Luis Miguel Veronica CO2 [Moles/Vol] 24.6 mmol/L Normal 21.0-32.0 [facility] Comment on above: Performed By: #### U JOE, LIPID, CMP, TSH, T7, CRP ####[facility] [address] [place], [place] [address]Dr. Francineclyde Veronica Creatinine [Mass/Vol] 1.25 mg/dL Critically high 0.55-1.02 [facility] Comment on above: Performed By: #### U JOE, LIPID, CMP, TSH, T7, CRP ####[facility] [address] [place], [place] [address]Dr. Luis Miguel Jeremías EGFR-AF UKRAINIAN 49 mL/min/1.73m2 Critically low >=60 [facility] Comment on above: Performed By: #### U JOE, LIPID, CMP, TSH, T7, CRP ####[facility] [address] [place], [place] [address]Dr. Luis Miguel Jeremías EGFR-NON AF UKRAINIAN 41 mL/min/1.73m2 Critically low >=60 [facility] Comment on above: Performed By: #### U JOE, LIPID, CMP, TSH, T7, CRP ####[facility] [address] [place], [place] [address]Dr. Luis Miguel Veronica Globulin (S) [Mass/Vol] 3.3 g/dL Normal [facility] Comment on above: Performed By: #### U JOE, LIPID, CMP, TSH, T7, CRP ####[facility] [address] [place] [address]Dr. Luis Miguel Veronica Glucose [Mass/Vol] 89 mg/dL Normal 74-106 [facility] [place] [facility] Comment on above: Performed By: #### U JOE, LIPID, CMP, TSH, T7, CRP ####[facility] [address] [address]Dr. Luis Miguel Veronica Potassium [Moles/Vol] 4.7 mmol/L Normal 3.5-5.1 [facility] Comment on above: Performed By: #### U JOE, LIPID, CMP, TSH, T7, CRP ####[facility] [address] [place], [place] [address]Dr. Luis Miguel Veronica Protein [Mass/Vol] 7.3 g/dL Normal 6.4-8.2 [facility] [place] [facility] Comment on above: Performed By: #### U JOE, LIPID, CMP, TSH, T7, CRP ####[facility] [address] [place], [place] [address]Dr. Luis Miguel Veronica Sodium [Moles/Vol] 141 mmol/L Normal 136-145 [facility] [place] [facility] Comment on above: Performed By: #### U JOE, LIPID, CMP, TSH, T7, CRP ####[facility] [id number] [place], [place] [address]Dr. Luis Miguel Veronica Urea nitrogen [Mass/Vol] 22.0 mg/dL Critically high 7.0-18.0 [facility] Comment on above: Performed By: #### U JOE, LIPID, CMP, TSH, T7, CRP ####[facility] [id number] [address]Dr. Luis Miguel Veronica Urea nitrogen/Creatinine [Mass ratio] 17.6 mg/mg Normal [facility] Comment on above: Performed By: #### U JOE, LIPID, CMP, TSH, T7, CRP ####[facility] [address] [place], [place] [address]Dr. Luis Miguel Veronica TSHon 11-30-2022 TSH 1.292 uIU/mL Normal 0.358-3.740 [facility] Comment on above: Performed By: #### C MP, CRP, LIPA, CHANDNI #### [facility] [address] [address] [address] Luis Miguel Veronica URIC ACID SERUMon 11-30-2022 Urate [Mass/Vol] 4.0 mg/dL Normal 2.6-6.0 [facility] Comment on above: Performed By: #### U JOE, LIPID, CMP, TSH, T7, CRP ####[facility] [id number], [place] [address]OeDr. Luis Miguel Veronica VITAMIN D 25 OHon 11-30-2022 VIT D 25-OH 22.7 ng/mL Normal [facility] Comment on above: Performed By: #### I JAKUB, VITAD #### [facility] [address] [address] [address] Luis Miguel Veronica VIT D RANGES SEE BELOW Normal [facility] Comment on above: Result Comment: <20 ng/mL Vit D deficient 20 - <30 ng/mL Vit D insufficient 30 - 100 ng/mL Vit D sufficient >100 ng/mL Potential Toxicity Performed By: #### I JAKUB, VITAD #### [facility] [address] [address] [address] Luis Miguel Veronica CARDIAC MALDONADO ADMITon 023 CK [Catalytic activity/Vol] 64 U/L Normal 26-192 [facility] Comment on above: Performed By: #### C MP, CRP, LIPA, CHANDNI #### [facility] [address] [address] [address] Luis Miguel Veronica CK.MB [Mass/Vol] ng/mL Normal <=3.60 [facility] Comment on above: Performed By: #### C MP, CRP, LIPA, CHANDNI #### [facility] [address] [address] [address] Luis Miguel Veronica HSTROP 5.6 pg/mL Normal 4.0-51.3 [facility] Comment on above: Result Comment: CUT- OFF POINTS HAVE BEEN ESTABLISHED BASED ON THE FOURTH UNIVERSAL DEFINITIONS OF MYOCARDIAL INFARCTION. THE UPPER REFERENCE LIMIT (URL) OF TROPONIN, DEFINED THE 99TH PERCENTILE OF cTnI DISTRIBUTION IN A REFERENCE POPULATION, HAS BEEN CONFIRMED THE DECISION THRESHOLD FOR [place] DIAGNOSIS. Performed By: #### C MP, CRP, LIPA, CHANDNI #### [facility] [address] [place] [address] Dr. Luis Miguel Veronica GEOVANNY 71 ng/mL Normal 9-82 [facility] Comment on above: Performed By: #### C MP, CRP, LIPA, CHANDNI #### [facility] [address] [place] [address] Dr. Luis Miguel Veronica CBC AUTO DIFFon 11-28-2022 BASO # 0.1 103/ul Normal 0.0-0.1 [facility] Comment on above: Performed By: #### I JAKUB, VITAD #### [facility] [address] [place] [address] Dr. Luis Miguel Veronica Basophils/100 WBC (Bld) 0.7 % Normal 0.2-2.0 [facility] Comment on above: Performed By: #### I JAKUB VITAD #### [facility] [address] [place] [address] Dr. Luis Miguel Veronica EO # 0.1 103/ul Normal 0.0-0.7 [facility] Comment on above: Performed By: #### I JAKUB, VITAD #### [facility] [address] [place] [address] Dr. Luis Miguel Veronica Eosinophils/100 WBC (Bld) 1.0 % Normal 0.9-7.0 [facility] Comment on above: Performed By: #### I JAKUB VITAD #### [facility] [address] [place] [address] Dr. Luis Miguel Veronica Erythrocyte distribution width (RBC) [Ratio] 13.4 % Normal 11.0-15.0 [facility] Comment on above: Performed By: #### Jaycob CALL, VITAD #### [facility] [address] [place] [address] Dr. Luis Miguel Veronica Hematocrit (Bld) [Volume fraction] 46.1 % Normal 36.0-48.0 [facility] Comment on above: Performed By: #### I JAKUB, VITAD #### [facility] [address] [place] [address] Dr. Luis Miguel Veronica Hemoglobin (Bld) [Mass/Vol] 14.7 g/dL Normal 12.0-16.0 [facility] Comment on above: Performed By: #### I JAKUB, VITAD #### [facility] [address] [place] [address] Dr. Luis Miguel Veronica IG # 0.02 10e3/ul Normal 0.00-0.03 [facility] Comment on above: Performed By: #### I JAKUB, VITAD #### [facility] [address] [place] [address] Dr. Luis Miguel Veronica IG % 0.2 % Normal 0.0-0.5 [facility] Comment on above: Performed By: #### I JAKUB, VITAD #### [facility] [address] [place] [address] Dr. Luis Miguel Veronica LYMPH # 3.9 103/ul Critically high 1.2-3.8 [facility] Comment on above: Performed By: #### I JAKUB, VITAD #### [facility] [address] [place] [address] Dr. Luis Miguel Veronica Lymphocytes/100 WBC (Bld) 47.6 % Normal 20.5-60.0 [facility] Comment on above: Performed By: #### I JAKUB, VITAD #### [facility] [address] [place] [address] Dr. Luis Miguel Veronica MANUAL DIFF REQ NO Normal [facility] Comment on above: Performed By: #### I JAKUB, VITAD #### [facility] [address] [place] [address] Dr. Luis Miguel Veronica MCH (RBC) [Entitic mass] 32.4 pg Normal 26.7-34.0 [facility] Comment on above: Performed By: #### I JAKUB, VITAD #### [facility] [address] [place] [address] Dr. Luis Miguel Veronica MCHC (RBC) [Mass/Vol] 31.9 g/dL Normal 29.9-35.2 [facility] Comment on above: Performed By: #### I JAKUB VITAD #### [facility] [address] [place] [address] Dr. Luis Miguel Veronica MCV (RBC) [Entitic vol] 101.5 fL Critically high 81.0-99.0 [facility] Comment on above: Performed By: #### Jaycob CALL VITAD #### [facility] [address] [place] [address] Dr. Luis Miguel Veronica MONO # 0.7 103/ul Normal 0.3-0.8 [facility] Comment on above: Performed By: #### I JAKUB VITAD #### [facility] [address] [place] [address] Dr. Luis Miguel Veronica Monocytes/100 WBC (Bld) 8.7 % Normal 1.7-12.0 [facility] Comment on above: Performed By: #### Jaycob CALL VITAD #### [facility] [address] [place] [address] Dr. Luis Miguel Veronica NEUT # 3.4 103/ul Normal 1.4-6.5 [facility] Comment on above: Performed By: #### Jaycob CALL VITAD #### [facility] [address] [place] [address] Dr. Luis Miguel Veronica Neutrophils/100 WBC (Bld) 41.8 % Critically low 43.0-75.0 [facility] Comment on above: Performed By: #### Jaycob CALL VITAD #### [facility] [address] [place] [address] Dr. Luis Miguel Veronica Platelet mean volume (Bld) [Entitic vol] 9.4 fL Critically low 9.5-13.5 [facility] Comment on above: Performed By: #### Jaycob CALL VITAD #### [facility] [address] [place] [address] Dr. Luis Miguel Veronica PLT 293 103/ul Normal 150-450 [facility] Comment on above: Performed By: #### Jaycob CALL VITAD #### [facility] [address] [place] [address] Dr. Luis Miguel Veronica RBC 4.54 106/ul Normal 4.20-5.40 [facility] Comment on above: Performed By: #### I MICHELLE CALL #### [facility] [address] [address] [address] Luis Miguel Veronica WBC 8.2 103/ul Normal 4.0-11.0 [facility] Comment on above: Performed By: #### I MICHELLE CALL #### [facility] [address] [address] [address] Veronica [address] ABD/PELVIS WO [...] JOANNE HURLEY Date: 2022-11-28 12:11 Normal [facility] LACTATE/LACTIC ACIDon 2022 Lactate [Moles/Vol] 1.6 mmol/L Normal 0.4-1.9 [facility] Comment on above: Performed By: #### I MICHELLE CALL #### [facility] [address] [place] [address] Dr. Luis Miguel Veronica PROF 14(COMP METB)on 023 Albumin [Mass/Vol] 3.8 g/dL Normal 3.4-5.0 [facility] Comment on above: Performed By: #### C MP, CRP, LIPA, CHANDNI #### [facility] [address] [place] [address] Dr. Luis Miguel Veronica Albumin/Globulin [Mass ratio] 1.1 {ratio} Normal [facility] Comment on above: Performed By: #### C MP, CRP, LIPA, CHANDNI #### [facility] [address] [place] [address] Dr. Luis Miguel Veronica ALP [Catalytic activity/Vol] 64 U/L Normal 46-116 [facility] Comment on above: Performed By: #### C MP, CRP, LIPA, CHANDNI #### [facility] [address] [place] [address] Dr. Luis Miguel Veronica ALT [Catalytic activity/Vol] 27 U/L Normal 14-59 [facility] Comment on above: Performed By: #### C MP, CRP, LIPA, CHANDNI #### [facility] [address] [place] [address] Dr. Luis Miguel Veronica Anion gap [Moles/Vol] 11.8 mmol/L Normal [facility] Comment on above: Performed By: #### C MP, CRP, LIPA, CHANDNI #### [facility] [address] [place] [address] Dr. Luis Miguel Veronica AST [Catalytic activity/Vol] 28 U/L Normal 15-37 [facility] Comment on above: Performed By: #### C MP, CRP, LIPA, CHANDNI #### [facility] [address] [place] [address] Dr. Luis Miguel Veronica Bilirubin [Mass/Vol] 0.3 mg/dL Normal 0.2-1.0 [facility] Comment on above: Performed By: #### C MP, CRP, LIPA, CHANDNI #### [facility] [address] [place] [address] Dr. Luis Miguel Veronica Calcium [Mass/Vol] 9.5 mg/dL Normal 8.5-10.1 [facility] Comment on above: Performed By: #### C MP, CRP, LIPA, CHANDNI #### [facility] [address] [address] [address] Luis Miguel Veronica Chloride [Moles/Vol] 104 mmol/L Normal 98-107 [facility] Comment on above: Performed By: #### C MP, CRP, LIPA, CHANDNI #### [facility] [address] [address] [address] Luis Miguel Veronica CO2 [Moles/Vol] 27.4 mmol/L Normal 21.0-32.0 [facility] Comment on above: Performed By: #### C MP, CRP, LIPA, CHANDNI #### [facility] [address] [place] [address] Dr. Luis Miguel Veronica Creatinine [Mass/Vol] 1.43 mg/dL Critically high 0.55-1.02 [facility] Comment on above: Performed By: #### C MP, CRP, LIPA, CHANDNI #### [facility] [address] [place] [address] Dr. Luis Miguel Veronica EGFR-AF UKRAINIAN 42 mL/min/1.73m2 Critically low >=60 [facility] Comment on above: Performed By: #### C MP, CRP, LIPA, CHANDNI #### [facility] [address] [place] [address] Dr. Luis Miguel Veronica EGFR-NON AF UKRAINIAN 35 mL/min/1.73m2 Critically low >=60 [facility] Comment on above: Performed By: #### C MP, CRP, LIPA, CHANDNI #### [facility] [address] [place] [address] Dr. Luis Miguel Veronica Globulin (S) [Mass/Vol] 3.5 g/dL Normal [facility] Comment on above: Performed By: #### C MP, CRP, LIPA, CHANDNI #### [facility] [address] [place] [address] Dr. Luis Miguel Veronica Glucose [Mass/Vol] 112 mg/dL Critically high 74-106 [facility] Comment on above: Performed By: #### C MP, CRP, LIPA, CHANDNI #### [facility] [address] [address] [address] Luis Miguel Veronica Potassium [Moles/Vol] 4.2 mmol/L Normal 3.5-5.1 [facility] Comment on above: Performed By: #### C MP, CRP, LIPA, CHANDNI #### [facility] [address] [address] [address] Luis Miguel Veronica Protein [Mass/Vol] 7.3 g/dL Normal 6.4-8.2 [facility] [place] [facility] Comment on above: Performed By: #### C MP, CRP, LIPA, CHANDNI #### [facility] [address] [address] [address] Luis Miguel Veronica Sodium [Moles/Vol] 139 mmol/L Normal 136-145 [facility] [place] [facility] Comment on above: Performed By: #### C MP, CRP, LIPA, CHANDNI #### [facility] [address] [address] [address] Luis Miguel Veronica Urea nitrogen [Mass/Vol] 18.0 mg/dL Normal 7.0-18.0 [facility] Comment on above: Performed By: #### C MP, CRP, LIPA, CHANDNI #### [facility] [address] [place] [address] Dr. Luis Miguel Veronica Urea nitrogen/Creatinine [Mass ratio] 12.6 mg/mg Normal [facility] Comment on above: Performed By: #### C MP, CRP, LIPA, CHANDNI #### [facility] [address] [address] [address] Luis Miguel Veronica XR HIP LT [...] JOANNE HURLEY Date: 2022-11-28 12:13 Normal [facility] US [place] DOP LEG LTon 04-14-20 22 [...] MARTHA ROMERO Date: 2022-04-14 13:50 Normal [facility] AMYLASEon 04-04-2022 Amylase [Catalytic activity/Vol] 44 U/L Normal 25-115 [facility] Comment on above: Performed By: #### C MP, CRP, LIPA, CHANDNI #### [facility] [address] [address] [address] Luis Miguel Veronica CBC AUTO DIFFon 04-04-2022 BASO # 0.0 103/ul Normal 0.0-0.1 [facility] Comment on above: Performed By: #### C MP, CRP, LIPA, CHANDNI #### [facility] [address] [address] [address] Luis Miguel Veronica Basophils/100 WBC (Bld) 0.1 % Critically low 0.2-2.0 [facility] Comment on above: Performed By: #### C MP, CRP, LIPA, CHANDNI #### [facility] [address] [address] [address] Luis Miguel Veronica EO # 0.0 103/ul Normal 0.0-0.7 [facility] Comment on above: Performed By: #### C MP, CRP, LIPA, CHANDNI #### [facility] [address] [place] [address] Dr. Luis Miguel Veronica Eosinophils/100 WBC (Bld) 0.0 % Critically low 0.9-7.0 [facility] Comment on above: Performed By: #### C MP, CRP, LIPA, CHANDNI #### [facility] [address] [place] [address] Dr. Luis Miguel Veronica Erythrocyte distribution width (RBC) [Ratio] 13.5 % Normal 11.0-15.0 [facility] Comment on above: Performed By: #### C MP, CRP, LIPA, CHANDNI #### [facility] [address] [place] [address] Dr. Luis Miguel Veronica Hematocrit (Bld) [Volume fraction] 34.0 % Critically low 36.0-48.0 [facility] Comment on above: Performed By: #### C MP, CRP, LIPA, CHANDNI #### [facility] [address] [place] [address] Dr. Luis Miguel Veronica Hemoglobin (Bld) [Mass/Vol] 11.0 g/dL Critically low 12.0-16.0 [facility] Comment on above: Performed By: #### C MP, CRP, LIPA, CHANDNI #### [facility] [address] [place] [address] Dr. Luis Miguel Veronica IG # 0.14 10e3/ul Critically high 0.00-0.03 [facility] Comment on above: Performed By: #### C MP, CRP, LIPA, CHANDNI #### [facility] [address] [place] [address] Dr. Luis Miguel Veronica IG % 1.2 % Critically high 0.0-0.5 [facility] Comment on above: Performed By: #### C MP, CRP, LIPA, CHANDNI #### [facility] [address] [place] [address] Dr. Luis Miguel Veronica LYMPH # 0.7 103/ul Critically low 1.2-3.8 [facility] Comment on above: Performed By: #### C MP, CRP, LIPA, CHANDNI #### [facility] [address] [place] [address] Dr. Luis Miguel Veronica Lymphocytes/100 WBC (Bld) 6.3 % Critically low 20.5-60.0 [facility] Comment on above: Performed By: #### C MP, CRP, LIPA, CHANDNI #### [facility] [address] [place] [address] Dr. Luis Miguel Veronica MANUAL DIFF REQ NO Normal [facility] Comment on above: Performed By: #### C MP, CRP, LIPA, CHANDNI #### [facility] [address] [place] [address] Dr. Luis Miguel Veronica MCH (RBC) [Entitic mass] 32.1 pg Normal 26.7-34.0 [facility] Comment on above: Performed By: #### C MP, CRP, LIPA, CHANDNI #### [facility] [address] [place] [address] Dr. Luis Miguel Veronica MCHC (RBC) [Mass/Vol] 32.4 g/dL Normal 29.9-35.2 [facility] Comment on above: Performed By: #### C MP, CRP, LIPA, CHANDNI #### [facility] [address] [place] [address] Dr. Luis Miguel Veronica MCV (RBC) [Entitic vol] 99.1 fL Critically high 81.0-99.0 [facility] Comment on above: Performed By: #### C MP, CRP, LIPA, CHANDNI #### [facility] [address] [place] [address] Dr. Luis Miguel Veronica MONO # 0.3 103/ul Normal 0.3-0.8 [facility] Comment on above: Performed By: #### C MP, CRP, LIPA, CHANDNI #### [facility] [address] [place] [address] Dr. Luis Miguel Veronica Monocytes/100 WBC (Bld) 2.7 % Normal 1.7-12.0 [facility] Comment on above: Performed By: #### C MP, CRP, LIPA, CHANDNI #### [facility] [address] [place] [address] Dr. Luis Miguel Veronica NEUT # 10.2 103/ul Critically high 1.4-6.5 [facility] Comment on above: Performed By: #### C MP, CRP, LIPA, CHANDNI #### [facility] [address] [place] [address] Dr. Luis Miguel Veronica Neutrophils/100 WBC (Bld) 89.7 % Critically high 43.0-75.0 [facility] Comment on above: Performed By: #### C MP, CRP, LIPA, CHANDNI #### [facility] [address] [place] [address] Dr. Luis Miguel Veronica Platelet mean volume (Bld) [Entitic vol] 10.0 fL Normal 9.5-13.5 [facility] Comment on above: Performed By: #### C MP, CRP, LIPA, CHANDNI #### [facility] [address] [place] [address] Dr. Luis Miguel Veronica PLT 207 103/ul Normal 150-450 [facility] Comment on above: Performed By: #### C MP, CRP, LIPA, CHANDNI #### [facility] [address] [place] [address] Dr. Luis Miguel Veronica RBC 3.43 106/ul Critically low 4.20-5.40 [facility] Comment on above: Performed By: #### C MP, CRP, LIPA, CHANDNI #### [facility] [address] [place] [address] Dr. Luis Miguel Veronica WBC 11.4 103/ul Critically high 4.0-11.0 [facility] Comment on above: Performed By: #### C MP, CRP, LIPA, CHANDNI #### [facility] [address] [place] [address] Dr. Luis Miguel Veronica CRPon 04-04-2022 CRP [Mass/Vol] mg/L Normal <=1.0 [facility] Comment on above: Performed By: #### C MP, CRP, LIPA, CHANDNI #### [facility] [address] [place] [address] Dr. Luis Miguel Veronica LIPASEon 04-04-2022 Lipase [Catalytic activity/Vol] 106.0 U/L Normal 73.0-393.0 [facility] Comment on above: Performed By: #### C MP, CRP, LIPA, CHANDNI #### [facility] [address] [place] [address] Dr. Luis Miguel Veronica PROF 14(COMP METB)on 022 Albumin [Mass/Vol] 2.6 g/dL Critically low 3.4-5.0 [facility] Comment on above: Performed By: #### C MP, CRP, LIPA, CHANDNI #### [facility] [address] [place] [address] Dr. Luis Miguel Veronica Albumin/Globulin [Mass ratio] 0.9 {ratio} Normal [facility] Comment on above: Performed By: #### C MP, CRP, LIPA, CHANDNI #### [facility] [address] [place] [address] Dr. Luis Miguel Veronica ALP [Catalytic activity/Vol] 43 U/L Critically low 46-116 [facility] Comment on above: Performed By: #### C MP, CRP, LIPA, CHANDNI #### [facility] [address] [place] [address] Dr. Luis Miguel Veronica ALT [Catalytic activity/Vol] 100 U/L Critically high 14-59 [facility] Comment on above: Performed By: #### C MP, CRP, LIPA, CHANDNI #### [facility] [address] [place] [address] Dr. Luis Miguel Veronica Anion gap [Moles/Vol] 12.0 mmol/L Normal [facility] Comment on above: Performed By: #### C MP, CRP, LIPA, CHANDNI #### [facility] [address] [place] [address] Dr. Luis Miguel Veronica AST [Catalytic activity/Vol] 52 U/L Critically high 15-37 [facility] Comment on above: Performed By: #### C MP, CRP, LIPA, CHANDNI #### [facility] [address] [place] [address] Dr. Luis Miguel Veronica Bilirubin [Mass/Vol] 0.3 mg/dL Normal 0.2-1.0 [facility] Comment on above: Performed By: #### C MP, CRP, LIPA, CHANDNI #### [facility] [address] [address] [address] Luis Miguel Veronica Calcium [Mass/Vol] 7.9 mg/dL Critically low 8.5-10.1 Th e [facility] Comment on above: Performed By: #### C MP, CRP, LIPA, CHANDNI #### [facility] [address] [address] [address] Luis Miguel Veronica Chloride [Moles/Vol] 111 mmol/L Critically high 98-107 [facility] Comment on above: Performed By: #### C MP, CRP, LIPA, CHANDNI #### [facility] [address] [place] [address] Dr. Luis Miguel Veronica CO2 [Moles/Vol] 22.5 mmol/L Normal 21.0-32.0 [facility] Comment on above: Performed By: #### C MP, CRP, LIPA, CHANDNI #### [facility] [address] [place] [address] Dr. Luis Miguel Veronica Creatinine [Mass/Vol] 1.18 mg/dL Critically high 0.55-1.02 [facility] Comment on above: Performed By: #### C MP, CRP, LIPA, CHANDNI #### [facility] [address] [place] [address] Dr. Luis Miguel Veronica EGFR-AF UKRAINIAN 53 mL/min/1.73m2 Critically low >=60 [facility] Comment on above: Performed By: #### C MP, CRP, LIPA, CHANDNI #### [facility] [address] [place] [address] Dr. Luis Miguel Veronica EGFR-NON AF UKRAINIAN 43 mL/min/1.73m2 Critically low >=60 [facility] Comment on above: Performed By: #### C MP, CRP, LIPA, CHANDNI #### [facility] [address] [place] [address] Dr. Luis Miguel Veronica Globulin (S) [Mass/Vol] 3.0 g/dL Normal [facility] Comment on above: Performed By: #### C MP, CRP, LIPA, CHANDNI #### [facility] [address] [address] [address] Luis Miguel Veronica Glucose [Mass/Vol] 190 mg/dL Critically high 74-[address] [facility] Comment on above: Performed By: #### C MP, CRP, LIPA, CHANDNI #### [facility] [address] [address] [address] Luis Miguel Veronica Potassium [Moles/Vol] 3.5 mmol/L Normal 3.5-5.1 [facility] Comment on above: Performed By: #### C MP, CRP, LIPA, CHANDNI #### [facility] [address] [address] [address] Luis Miguel Veronica Protein [Mass/Vol] 5.6 g/dL Critically low 6.4-8.2 [facility] Comment on above: Performed By: #### C MP, CRP, LIPA, CHANDNI #### [facility] [address] [place] [address] Dr. Luis Miguel Veronica Sodium [Moles/Vol] 142 mmol/L Normal 136-145 [facility] Comment on above: Performed By: #### C MP, CRP, LIPA, CHANDNI #### [facility] [address] [address] [address] Luis Miguel Veronica Urea nitrogen [Mass/Vol] 20.0 mg/dL Critically high 7.0-18.0 [facility] Comment on above: Performed By: #### C MP, CRP, LIPA, CHANDNI #### [facility] [address] [place] [address] Dr. Luis Miguel Veronica Urea nitrogen/Creatinine [Mass ratio] 16.9 mg/mg Normal [facility] Comment on above: Performed By: #### C MP, CRP, LIPA, CHANDNI #### [facility] [address] [place] [address] Dr. Luis Miguel Veronica XR ABD FLAT UP_PA Jimy 04-04 XR ABD FLAT UP_PA CH EXAM: [...] NASRIN WRIGHT Date: 2022-04-04 07:05 Normal [facility] AMYLASEon 04-03-2022 Amylase [Catalytic activity/Vol] 48 U/L Normal 25-115 [facility] Comment on above: Performed By: #### I MICHELLE CALL #### [facility] [address] [place] [address] Dr. Luis Miguel Veronica CBC AUTO DIFFon 04-03-2022 BASO # 0.0 103/ul Normal 0.0-0.1 [facility] Comment on above: Performed By: #### C BC #### [facility] [address] [place] [address] Dr. Luis Miguel Veronica Basophils/100 WBC (Bld) 0.1 % Critically low 0.2-2.0 [facility] Comment on above: Performed By: #### C BC #### [facility] [address] [place] [address] Dr. Luis Miguel Veronica EO # 0.0 103/ul Normal 0.0-0.7 [facility] Comment on above: Performed By: #### C BC #### [facility] [address] [address] [address] Luis Miguel Veronica Eosinophils/100 WBC (Bld) 0.0 % Critically low 0.9-7.0 [facility] Comment on above: Performed By: #### C BC #### [facility] [address] [place] [address] Dr. Luis Miguel Veronica Erythrocyte distribution width (RBC) [Ratio] 13.6 % Normal 11.0-15.0 [facility] Comment on above: Performed By: #### C BC #### [facility] [address] [place] [address] Dr. Luis Miguel Veronica Hematocrit (Bld) [Volume fraction] 33.5 % Critically low 36.0-48.0 [facility] Comment on above: Performed By: #### C BC #### [facility] [address] [place] [address] Dr. Luis Miguel Veroniac Hemoglobin (Bld) [Mass/Vol] 10.9 g/dL Critically low 12.0-16.0 [facility] Comment on above: Performed By: #### C BC #### [facility] [address] [place] [address] Dr. Luis Miguel Veronica IG # 0.15 10e3/ul Critically high 0.00-0.03 [facility] Comment on above: Performed By: #### C BC #### [facility] [address] [place] [address] Dr. Luis Miguel Veronica IG % 1.0 % Critically high 0.0-0.5 [facility] Comment on above: Performed By: #### C BC #### [facility] [address] [place] [address] Dr. Luis Miguel Veronica LYMPH # 0.9 103/ul Critically low 1.2-3.8 [facility] Comment on above: Performed By: #### C BC #### [facility] [address] [place] [address] Dr. Luis Miguel Veronica Lymphocytes/100 WBC (Bld) 5.6 % Critically low 20.5-60.0 [facility] Comment on above: Performed By: #### C BC #### [facility] [address] [place] [address] Dr. Luis Miguel Veronica MANUAL DIFF REQ NO Normal [facility] Comment on above: Performed By: #### C BC #### [facility] [address] [place] [address] Dr. Luis Miguel Veronica MCH (RBC) [Entitic mass] 32.1 pg Normal 26.7-34.0 [facility] Comment on above: Performed By: #### C BC #### [facility] [address] [address] [address] Luis Miguel Veronica MCHC (RBC) [Mass/Vol] 32.5 g/dL Normal 29.9-35.2 [facility] Comment on above: Performed By: #### C BC #### [facility] [address] [address] [address] Luis Miguel Veronica MCV (RBC) [Entitic vol] 98.5 fL Normal 81.0-99.0 [facility] Comment on above: Performed By: #### C BC #### [facility] [address] [place] [address] Dr. Luis Miguel Veronica MONO # 0.3 103/ul Normal 0.3-0.8 [facility] Comment on above: Performed By: #### C BC #### [facility] [address] [place] [address] Dr. Luis Miguel Veronica Monocytes/100 WBC (Bld) 2.2 % Normal 1.7-12.0 [facility] Comment on above: Performed By: #### C BC #### [facility] [address] [place] [address] Dr. Luis Miguel Veronica NEUT # 13.9 103/ul Critically high 1.4-6.5 [facility] Comment on above: Performed By: #### C BC #### [facility] [address] [place] [address] Dr. Luis Miguel Veronica Neutrophils/100 WBC (Bld) 91.1 % Critically high 43.0-75.0 [facility] Comment on above: Performed By: #### C BC #### [facility] [address] [address] [address] Luis Miguel Veronica Platelet mean volume (Bld) [Entitic vol] 9.7 fL Normal 9.5-13.5 [facility] Comment on above: Performed By: #### C BC #### [facility] [address] [address] [address] Luis Miguel Veronica PLT 204 103/ul Normal 150-450 [facility] Comment on above: Performed By: #### C BC #### [facility] [address] [address] [address] Luis Miguel Veronica RBC 3.40 106/ul Critically low 4.20-5.40 [facility] Comment on above: Performed By: #### C BC #### [facility] [address] [place], [place] [address] Dr. Luis Miguel Veronica WBC 15.2 103/ul Critically high 4.0-11.0 [facility] Comment on above: Performed By: #### C BC #### [facility] [address] [address] [address] Luis Miguel Veronica CRPon 04-03-2022 CRP 0.3 mg/dL Normal <=1.0 [facility] Comment on above: Performed By: #### I MICHELLE CALL #### [facility] [address] [address] [address] Luis Miguel Veronica CULTURE URINEon 04-03-2022 [...] Trimethoprim/Sulfametho xazole <=20 S F Normal [facility] Comment on above: Performed By: #### U RCX ####[facility] [id number] [address]Dr. Luis Miguel Veronica LIPASEon 04-03-2022 Lipase [Catalytic activity/Vol] 95.0 U/L Normal 73.0-393.0 [facility] Comment on above: Performed By: #### MICHELLE BARRIOS #### [facility] [address] [address] [address] Luis Miguel Veronica OCC BLD IMMUNOASSAYon 2021 OCCULT BLOOD Negative Normal NEGATIVE [facility] Comment on above: Performed By: #### C MP, CRP, LIPA, CHANDNI #### [facility] [address] [place] [address] Dr. Luis Miguel Veronica PROF 14(COMP METB)on 022 Albumin [Mass/Vol] 2.6 g/dL Critically low 3.4-5.0 [facility] Comment on above: Performed By: #### I JAKUB, VITAD #### [facility] [address] [place] [address] Dr. Luis Miguel Veronica Albumin/Globulin [Mass ratio] 0.8 {ratio} Normal [facility] Comment on above: Performed By: #### I JAKUB, VITAD #### [facility] [address] [place] [address] Dr. Luis Miguel Veronica ALP [Catalytic activity/Vol] 48 U/L Normal 46-116 [facility] Comment on above: Performed By: #### I JAKUB, VITAD #### [facility] [address] [place] [address] Dr. Luis Miguel Veronica ALT [Catalytic activity/Vol] 86 U/L Critically high 14-59 [facility] Comment on above: Performed By: #### I JAKUB, VITAD #### [facility] [address] [place] [address] Dr. Luis Miguel Veronica Anion gap [Moles/Vol] 13.1 mmol/L Normal [facility] Comment on above: Performed By: #### I JAKUB, VITAD #### [facility] [address] [place] [address] Dr. Luis Miguel Veronica AST [Catalytic activity/Vol] 47 U/L Critically high 15-37 [facility] Comment on above: Performed By: #### I JAKUB, VITAD #### [facility] [address] [place] [address] Dr. Luis Miguel Veronica Bilirubin [Mass/Vol] 0.3 mg/dL Normal 0.2-1.0 [facility] Comment on above: Performed By: #### I JAKUB, VITAD #### [facility] [address] [address] [address] Luis Miguel Veronica Calcium [Mass/Vol] 8.1 mg/dL Critically low 8.5-10.1 [facility] Comment on above: Performed By: #### I JAKUB, VITAD #### [facility] [address] [place] [address] Dr. Luis Miguel Veronica Chloride [Moles/Vol] 111 mmol/L Critically high 98-107 [facility] Comment on above: Performed By: #### I JAKUB, VITAD #### [facility] [address] [place] [address] Dr. Luis Miguel Veronica CO2 [Moles/Vol] 22.7 mmol/L Normal 21.0-32.0 [facility] Comment on above: Performed By: #### I JAKUB, VITAD #### [facility] [address] [place] [address] Dr. Luis Miguel Veronica Creatinine [Mass/Vol] 1.25 mg/dL Critically high 0.55-1.02 [facility] Comment on above: Performed By: #### I JAKUB, VITAD #### [facility] [address] [place] [address] Dr. Luis Miguel Veronica EGFR-AF UKRAINIAN 49 mL/min/1.73m2 Critically low >=60 [facility] Comment on above: Performed By: #### I JAKUB, VITAD #### [facility] [address] [place] [address] Dr. Luis Miguel Veronica EGFR-NON AF UKRAINIAN 41 mL/min/1.73m2 Critically low >=60 [facility] Comment on above: Performed By: #### I JAKUB, VITAD #### [facility] [address] [address] [address] Luis Miguel Veronica Globulin (S) [Mass/Vol] 3.1 g/dL Normal [facility] Comment on above: Performed By: #### I JAKUB, VITAD #### [facility] [address] [place] [address] Dr. Luis Miguel Veronica Glucose [Mass/Vol] 167 mg/dL Critically high 74-106 [facility] Comment on above: Performed By: #### I JAKUB, VITAD #### [facility] [address] [address] [address] Luis Miguel Veronica Potassium [Moles/Vol] 3.8 mmol/L Normal 3.5-5.1 [facility] Comment on above: Performed By: #### I JAKUB, VITAD #### [facility] [address] [place] [address] Dr. Luis Miguel Veronica Protein [Mass/Vol] 5.7 g/dL Critically low 6.4-8.2 [facility] Comment on above: Performed By: #### I JAKUB, VITAD #### [facility] [address] [place] [address] Dr. Luis Miguel Veronica Sodium [Moles/Vol] 143 mmol/L Normal 136-145 [facility] Comment on above: Performed By: #### I JAKUB, VITAD #### [facility] [address] [place] [address] Dr. Luis Miguel Veronica Urea nitrogen [Mass/Vol] 20.0 mg/dL Critically high 7.0-18.0 [facility] Comment on above: Performed By: #### Jaycob CALL, VITAD #### [facility] [address] [place] [address] Dr. Luis Miguel Veronica Urea nitrogen/Creatinine [Mass ratio] 16.0 mg/mg Normal [facility] Comment on above: Performed By: #### Jaycob CALL VITAD #### [facility] [address] [place] [address] Dr. Luis Miguel Veronica XR ABD FLAT [...] DAVID MERCADO Date: 2022-04-03 07:10 Normal [facility] AMYLASEon 04-02-2022 Amylase [Catalytic activity/Vol] 62 U/L Normal 25-115 [facility] Comment on above: Performed By: #### C MP, CRP, LIPA, CHANDNI #### [facility] [address] [place] [address] Dr. Luis Miguel Veronica CBC AUTO DIFFon 04-02-2022 BASO # 0.0 103/ul Normal 0.0-0.1 [facility] Comment on above: Performed By: #### C MP, CRP, LIPA, CHANDNI #### [facility] [address] [place] [address] Dr. Luis Miguel Veronica Basophils/100 WBC (Bld) 0.1 % Critically low 0.2-2.0 [facility] Comment on above: Performed By: #### C MP, CRP, LIPA, CHANDNI #### [facility] [address] [place] [address] Dr. Luis Miguel Veronica EO # 0.0 103/ul Normal 0.0-0.7 [facility] Comment on above: Performed By: #### C MP, CRP, LIPA, CHANDNI #### [facility] [address] [place] [address] Dr. Luis Miguel Veronica Eosinophils/100 WBC (Bld) 0.0 % Critically low 0.9-7.0 [facility] Comment on above: Performed By: #### C MP, CRP, LIPA, CHANDNI #### [facility] [address] [place] [address] Dr. Luis Miguel Veronica Erythrocyte distribution width (RBC) [Ratio] 13.4 % Normal 11.0-15.0 [facility] Comment on above: Performed By: #### C MP, CRP, LIPA, CHANDNI #### [facility] [address] [place] [address] Dr. Luis Miguel Veronica Hematocrit (Bld) [Volume fraction] 37.3 % Normal 36.0-48.0 [facility] Comment on above: Performed By: #### C MP, CRP, LIPA, CHANDNI #### [facility] [address] [place] [address] Dr. Luis Miguel Veronica Hemoglobin (Bld) [Mass/Vol] 12.1 g/dL Normal 12.0-16.0 [facility] Comment on above: Performed By: #### C MP, CRP, LIPA, CHANDNI #### [facility] [address] [place] [address] Dr. Luis Miguel Veronica IG # 0.04 10e3/ul Critically high 0.00-0.03 [facility] Comment on above: Performed By: #### C MP, CRP, LIPA, CHANDNI #### [facility] [address] [place] [address] Dr. Luis Miguel Veronica IG % 0.3 % Normal 0.0-0.5 [facility] Comment on above: Performed By: #### C MP, CRP, LIPA, CHANDNI #### [facility] [address] [place] [address] Dr. Luis Miguel Veronica LYMPH # 1.3 103/ul Normal 1.2-3.8 [facility] Comment on above: Performed By: #### C MP, CRP, LIPA, CHANDNI #### [facility] [address] [place] [address] Dr. Luis Miguel Veronica Lymphocytes/100 WBC (Bld) 10.2 % Critically low 20.5-60.0 [facility] Comment on above: Performed By: #### C MP, CRP, LIPA, CHANDNI #### [facility] [address] [place] [address] Dr. Luis Miguel Veronica MANUAL DIFF REQ NO Normal [facility] Comment on above: Performed By: #### C MP, CRP, LIPA, CHANDNI #### [facility] [address] [place] [address] Dr. Luis Miguel Veronica MCH (RBC) [Entitic mass] 32.0 pg Normal 26.7-34.0 [facility] Comment on above: Performed By: #### C MP, CRP, LIPA, CHANDNI #### [facility] [address] [place] [address] Dr. Luis Miguel Veronica MCHC (RBC) [Mass/Vol] 32.4 g/dL Normal 29.9-35.2 [facility] Comment on above: Performed By: #### C MP, CRP, LIPA, CHANDNI #### [facility] [address] [place] [address] Dr. Luis Miguel Veronica MCV (RBC) [Entitic vol] 98.7 fL Normal 81.0-99.0 [facility] Comment on above: Performed By: #### C MP, CRP, LIPA, CHANDNI #### [facility] [address] [place] [address] Dr. Luis Miguel Veronica MONO # 0.2 103/ul Critically low 0.3-0.8 [facility] Comment on above: Performed By: #### C MP, CRP, LIPA, CHANDNI #### [facility] [address] [place] [address] Dr. Luis Miguel Veronica Monocytes/100 WBC (Bld) 1.3 % Critically low 1.7-12.0 [facility] Comment on above: Performed By: #### C MP, CRP, LIPA, CHANDNI #### [facility] [address] [place] [address] Dr. Luis Miguel Veronica NEUT # 11.0 103/ul Critically high 1.4-6.5 [facility] Comment on above: Performed By: #### C MP, CRP, LIPA, CHANDNI #### [facility] [address] [place] [address] Dr. Luis Miguel Veronica Neutrophils/100 WBC (Bld) 88.1 % Critically high 43.0-75.0 [facility] Comment on above: Performed By: #### C MP, CRP, LIPA, CHANDNI #### [facility] [address] [place] [address] Dr. Luis Miguel Veronica Platelet mean volume (Bld) [Entitic vol] 11.3 fL Normal 9.5-13.5 [facility] Comment on above: Performed By: #### C MP, CRP, LIPA, CHANDNI #### [facility] [address] [address] [address] Luis Miguel Veronica PLT 140 103/ul Critically low 150-450 [facility] Comment on above: Performed By: #### C MP, CRP, LIPA, CHANDNI #### [facility] [address] [address] [address] Luis Miguel Veronica RBC 3.78 106/ul Critically low 4.20-5.40 [facility] Comment on above: Performed By: #### C MP, CRP, LIPA, CHANDNI #### [facility] [address] [address] [address] Luis Miguel Veronica WBC 12.5 103/ul Critically high 4.0-11.0 [facility] Comment on above: Performed By: #### C MP, CRP, LIPA, CHANDNI #### [facility] [address] [address] [address] Luis Miguel Veronica CRPon 04-02-2022 CRP 2.5 mg/dL Critically high <=1.0 [facility] Comment on above: Performed By: #### C MP, CRP, LIPA, CHANDNI #### [facility] [address] [address] [address] Luis Miguel Veronica HELICOBACTER PYLORI AB IGGon 04-02-2022 H. PYLORI IGG ABS 0.44 Index Value Normal 0.00-0.[address] [facility] Comment on above: Result Comment: Nega tive <0.80 Equivocal 0.80 - 0.89 Positive >0.89 Performed By: #### H PYLORG ####[facility] [id number] [place], [place] [address]ItDr. Luis Miguel Veronica LIPASEon 04-02-2022 Lipase [Catalytic activity/Vol] 55.0 U/L Critically low 73.0-393.0 [facility] Comment on above: Performed By: #### C MP, CRP, LIPA, CHANDNI #### [facility] [address] [address] [address] Luis Miguel Veronica PROF 14(COMP METB)on 022 Albumin [Mass/Vol] 3.0 g/dL Critically low 3.4-5.0 Th [facility] Comment on above: Performed By: #### C MP, CRP, LIPA, CHANDNI #### [facility] [address] [place] [address] Dr. Luis Miguel Veronica Albumin/Globulin [Mass ratio] 0.9 {ratio} Normal [facility] Comment on above: Performed By: #### C MP, CRP, LIPA, CHANDNI #### [facility] [address] [place] [address] Dr. Luis Miguel Veronica ALP [Catalytic activity/Vol] 61 U/L Normal 46-116 [facility] Comment on above: Performed By: #### C MP, CRP, LIPA, CHANDNI #### [facility] [address] [place] [address] Dr. Luis Miguel Veronica ALT [Catalytic activity/Vol] 101 U/L Critically high 14-59 [facility] Comment on above: Performed By: #### C MP, CRP, LIPA, CHANDNI #### [facility] [address] [place] [address] Dr. Luis Miguel Veronica Anion gap [Moles/Vol] 13.4 mmol/L Normal [facility] Comment on above: Performed By: #### C MP, CRP, LIPA, CHANDNI #### [facility] [address] [place] [address] Dr. Luis Miguel Veronica AST [Catalytic activity/Vol] 78 U/L Critically high 15-37 [facility] Comment on above: Performed By: #### C MP, CRP, LIPA, CHANDNI #### [facility] [address] [place] [address] Dr. Luis Miguel Veronica Bilirubin [Mass/Vol] 0.5 mg/dL Normal 0.2-1.0 [facility] Comment on above: Performed By: #### C MP, CRP, LIPA, CHANDNI #### [facility] [address] [place] [address] Dr. Luis Miguel Veronica Calcium [Mass/Vol] 8.6 mg/dL Normal 8.5-10.1 [facility] Comment on above: Performed By: #### C MP, CRP, LIPA, CHANDNI #### [facility] [address] [place] [address] Dr. Luis Miguel Veronica Chloride [Moles/Vol] 107 mmol/L Normal 98-107 [facility] Comment on above: Performed By: #### C MP, CRP, LIPA, CHANDNI #### [facility] [address] [place] [address] Dr. Luis Miguel Veronica CO2 [Moles/Vol] 24.8 mmol/L Normal 21.0-32.0 [facility] Comment on above: Performed By: #### C MP, CRP, LIPA, CHANDNI #### [facility] [address] [place] [address] Dr. Luis Miguel Veronica Creatinine [Mass/Vol] 1.30 mg/dL Critically high 0.55-1.02 [facility] Comment on above: Performed By: #### C MP, CRP, LIPA, CHANDNI #### [facility] [address] [place] [address] Dr. Luis Miguel Veronica EGFR-AF UKRAINIAN 47 mL/min/1.73m2 Critically low >=60 [facility] Comment on above: Performed By: #### C MP, CRP, LIPA, CHANDNI #### [facility] [address] [place] [address] Dr. Luis Miguel Veronica EGFR-NON AF UKRAINIAN 39 mL/min/1.73m2 Critically low >=60 [facility] Comment on above: Performed By: #### C MP, CRP, LIPA, CHANDNI #### [facility] [address] [place] [address] Dr. Luis Miguel Veronica Globulin (S) [Mass/Vol] 3.3 g/dL Normal [facility] Comment on above: Performed By: #### C MP, CRP, LIPA, CHANDNI #### [facility] [address] [place] [address] Dr. Luis Miguel Veronica Glucose [Mass/Vol] 189 mg/dL Critically high 74-106 T [facility] Comment on above: Performed By: #### C MP, CRP, LIPA, CHANDNI #### [facility] [address] [place] [address] Dr. Luis Miguel Veronica Potassium [Moles/Vol] 4.2 mmol/L Normal 3.5-5.1 [facility] Comment on above: Performed By: #### C MP, CRP, LIPA, CHANDNI #### [facility] [address] [address] [address] Luis Miguel Veronica Protein [Mass/Vol] 6.3 g/dL Critically low 6.4-8.2 [facility] Comment on above: Performed By: #### C MP, CRP, LIPA, CHANDNI #### [facility] [address] [address] [address] Luis Miguel Veronica Sodium [Moles/Vol] 141 mmol/L Normal 136-145 [facility] Comment on above: Performed By: #### C MP, CRP, LIPA, CHANDNI #### [facility] [address] [place] [address] Dr. Luis Miguel Veronica Urea nitrogen [Mass/Vol] 23.0 mg/dL Critically high 7.0-18.0 [facility] Comment on above: Performed By: #### C MP, CRP, LIPA, CHANDNI #### [facility] [address] [address] [address] Luis Miguel Veronica Urea nitrogen/Creatinine [Mass ratio] 17.7 mg/mg Normal [facility] Comment on above: Performed By: #### C MP, CRP, LIPA, CHANDNI #### [facility] [address] [place] [address] Dr. Luis Miguel Veronica T3, TOTAL (TRIIODOTHYRONINE) on 04-02-2022 T3, TOTAL 83 ng/dL Normal 71-180 [facility] Comment on above: Performed By: #### C MP, CRP, LIPA, CHANDNI #### [facility] [address] [place] [address] Dr. Luis Miguel Veronica T4 [facility]on 04-02-2022 T4 [Mass/Vol] 8.4 ug/dL Normal 4.5-12.0 [facility] Comment on above: Performed By: #### T 4LC #### [facility] [address] [place] [address] Dr. Luis Miguel Veronica XR ABD FLAT [...] Ilan SEARS Date: 2022-04-02 06:21 Normal [facility] AMYLASEon 04-01-2022 Amylase [Catalytic activity/Vol] 118 U/L Critically high 25-115 [facility] Comment on above: Performed By: #### C RP, TSH, LIPA, CHANDNI ####[facility] [address] [address]Dr. Luis Miguel Veronica CBC AUTO DIFFon 04-01-2022 BASO # 0.1 103/ul Normal 0.0-0.1 [facility] Comment on above: Performed By: #### I MICHELLE CALL #### [facility] [address] [address] [address] Luis Miguel Veronica Basophils/100 WBC (Bld) 0.5 % Normal 0.2-2.0 [facility] Comment on above: Performed By: #### I MICHELLE CALL #### [facility] [address] [address] [address] Luis Miguel Veronica EO # 0.0 103/ul Normal 0.0-0.7 [facility] Comment on above: Performed By: #### I MICHELLE CALL #### [facility] [address] [place] [address] Dr. Luis Miguel Veronica Eosinophils/100 WBC (Bld) 0.1 % Critically low 0.9-7.0 [facility] Comment on above: Performed By: #### Jaycob CALL, VITAD #### [facility] [address] [place] [address] Dr. Luis Miguel Veronica Erythrocyte distribution width (RBC) [Ratio] 13.2 % Normal 11.0-15.0 [facility] Comment on above: Performed By: #### I JAKUB, VITAD #### [facility] [address] [place] [address] Dr. Luis Miguel Veronica Hematocrit (Bld) [Volume fraction] 42.1 % Normal 36.0-48.0 [facility] Comment on above: Performed By: #### Jaycob CALL, VITAD #### [facility] [address] [place] [address] Dr. Luis Miguel Veronica Hemoglobin (Bld) [Mass/Vol] 13.9 g/dL Normal 12.0-16.0 [facility] Comment on above: Performed By: #### Jaycob CALL VITAD #### [facility] [address] [place] [address] Dr. Luis Miguel Veronica IG # 0.06 10e3/ul Critically high 0.00-0.03 [facility] Comment on above: Performed By: #### Jaycob CALL, VITAD #### [facility] [address] [place] [address] Dr. Luis Miguel Veronica IG % 0.4 % Normal 0.0-0.5 [facility] Comment on above: Performed By: #### I JAKUB, VITAD #### [facility] [address] [place] [address] Dr. Luis Miguel Veronica LYMPH # 1.6 103/ul Normal 1.2-3.8 [facility] Comment on above: Performed By: #### Jaycob CALL, VITAD #### [facility] [address] [place] [address] Dr. Luis Miguel Veronica Lymphocytes/100 WBC (Bld) 11.7 % Critically low 20.5-60.0 [facility] Comment on above: Performed By: #### I JAKUB, VITAD #### [facility] [address] [place] [address] Dr. Luis Migule Veronica MANUAL DIFF REQ NO Normal [facility] Comment on above: Performed By: #### I JAKUB, VITAD #### [facility] [address] [place] [address] Dr. Luis Miguel Veronica MCH (RBC) [Entitic mass] 32.0 pg Normal 26.7-34.0 [facility] Comment on above: Performed By: #### I JAKUB, VITAD #### [facility] [address] [place] [address] Dr. Luis Miguel Veronica MCHC (RBC) [Mass/Vol] 33.0 g/dL Normal 29.9-35.2 [facility] Comment on above: Performed By: #### I JAKUB, VITAD #### [facility] [address] [place] [address] Dr. Luis Miguel Veronica MCV (RBC) [Entitic vol] 97.0 fL Normal 81.0-99.0 [facility] Comment on above: Performed By: #### I JAKUB, VITAD #### [facility] [address] [place] [address] Dr. Luis Miguel Veronica MONO # 0.5 103/ul Normal 0.3-0.8 [facility] Comment on above: Performed By: #### I JAKUB, VITAD #### [facility] [address] [place] [address] Dr. Luis Miguel Veronica Monocytes/100 WBC (Bld) 4.0 % Normal 1.7-12.0 [facility] Comment on above: Performed By: #### I JAKUB, VITAD #### [facility] [address] [place] [address] Dr. Luis Miguel Veronica NEUT # 11.1 103/ul Critically high 1.4-6.5 [facility] Comment on above: Performed By: #### I JAKUB, VITAD #### [facility] [address] [place] [address] Dr. Luis Miguel Veronica Neutrophils/100 WBC (Bld) 83.3 % Critically high 43.0-75.0 [facility] Comment on above: Performed By: #### Jaycob CALL VITAD #### [facility] [address] [address] [address] Luis Miguel Veronica Platelet mean volume (Bld) [Entitic vol] 9.2 fL Critically low 9.5-13.5 [facility] Comment on above: Performed By: #### Jaycob CALL VITAD #### [facility] [address] [address] [address] Luis Miguel Veronica PLT 290 103/ul Normal 150-450 [facility] Comment on above: Performed By: #### Jaycob CALL VITAD #### [facility] [address] [address] [address] Luis Miguel Veronica RBC 4.34 106/ul Normal 4.20-5.40 [facility] Comment on above: Performed By: #### Jaycob CALL VITAD #### [facility] [address] [address] [address] Luis Miguel Veronica WBC 13.4 103/ul Critically high 4.0-11.0 [facility] Comment on above: Performed By: #### Jaycob CALL VITAD #### [facility] [address] [address] [address] Luis Miguel Veronica CRPon 04-01-2022 CRP [Mass/Vol] mg/L Normal <=1.0 [facility] Comment on above: Performed By: #### C RP, TSH, LIPA, CHANDNI ####[facility] [address] [id number]. Luis Miguel Veronica CT ABD/PELVIS WO CONon [...] Ilan SEARS Date: 2022-04-01 05:44 Normal [facility] Covid-19 PCR ([facility])on SARS-CoV-2 (COVID-19) RNA ALEN+probe Ql (Unsp spec) Not detected Normal NOT DETECTED [facility] Comment on above: Result Comment: When diagnostic [...] for this test is supported by the Conference Interpreter of Health and Human Service's declaration that [...] #### C MP, CRP, LIPA, CHANDNI #### [facility] [address] [place] [address] Dr. Luis Miguel Veronica ER URINE PROFILEon 2 Bilirubin Ql (U) Negative Normal NEGATIVE [facility] Comment on above: Performed By: #### C MP, CRP, LIPA, CHANDNI #### [facility] [address] [place] [address] Dr. Luis Miguel Veronica Clarity (U) CLEAR Normal CLEAR [facility] Comment on above: Performed By: #### C MP, CRP, LIPA, CHANDNI #### [facility] [address] [place] [address] Dr. Luis Miguel Veronica Color (U) LT. YELLOW Normal YELLOW [facility] Comment on above: Performed By: #### C MP, CRP, LIPA, CHANDNI #### [facility] [address] [place] [address] Dr. Luis Miguel DELCID A micrscopic examination will be performed if indicated. Normal [facility] Comment on above: Performed By: #### C MP, CRP, LIPA, CHANDNI #### [facility] [address] [place] [address] Dr. Luis Miguel Veronica Glucose Ql (U) 250 mg/dl Abnormal NEGATIVE [facility] Comment on above: Performed By: #### C MP, CRP, LIPA, CHANDNI #### [facility] [address] [place] [address] Dr. Luis Miguel Veronica Hemoglobin Ql (U) TRACE-LYSED Abnormal NEGATIVE [facility] Comment on above: Performed By: #### C MP, CRP, LIPA, CHANDNI #### [facility] [address] [place] [address] Dr. Luis Miguel Veronica Ketones Ql (U) 15 mg/dl Abnormal NEGATIVE [facility] Comment on above: Performed By: #### C MP, CRP, LIPA, CHANDNI #### [facility] [address] [place] [address] Dr. Luis Miguel Veronica LEUKOCYTES Negative Normal NEGATIVE [facility] Comment on above: Performed By: #### C MP, CRP, LIPA, CHANDNI #### [facility] [address] [place] [address] Dr. Luis Miguel Veronica Nitrite Ql (U) Positive Abnormal NEGATIVE [facility] Comment on above: Performed By: #### C MP, CRP, LIPA, CHANDNI #### [facility] [address] [place] [address] Dr. Luis Miguel Veronica pH (U) 7.0 [pH] Normal 5-9 [facility] Comment on above: Performed By: #### C MP, CRP, LIPA, CHANDNI #### [facility] [address] [place] [address] Dr. Luis Miguel Veronica Protein (U) [Mass/Vol] 30 mg/dL Abnormal NEGATIVE/ TRACE [facility] Comment on above: Performed By: #### C MP, CRP, LIPA, CHANDNI #### [facility] [address] [place] [address] Dr. Luis Miguel Veronica SPEC GRAVITY 1.020 Normal 1.005-<=1.02 5 [facility] Comment on above: Performed By: #### C MP, CRP, LIPA, CHANDNI #### [facility] [address] [place] [address] Dr. Luis Miguel Veronica UR MICRO IND INDICATED Normal [facility] Comment on above: Performed By: #### C MP, CRP, LIPA, CHANDNI #### [facility] [address] [place] [address] Dr. Luis Miguel Veronica Urobilinogen Qn (U) 0.2 {Garry'U}/dL Normal 0.2 - 1. 0 [facility] Comment on above: Performed By: #### C MP, CRP, LIPA, CHANDNI #### [facility] [address] [place] [address] Dr. Luis Miguel Veronica LACTATE/LACTIC ACIDon 2021 Lactate [Moles/Vol] 1.0 mmol/L Normal 0.4-1.9 [facility] Comment on above: Performed By: #### C MP, CRP, LIPA, CHANDNI #### [facility] [address] [address] [address] Luis Miguel Veronica Lactate [Moles/Vol] 2.0 mmol/L Critically high 0.4-1.9 [facility] Comment on above: Performed By: #### I MICHELLE CALL #### [facility] [address] [address] [address] Luis Miguel Veronica LIPASEon 04-01-2022 Lipase [Catalytic activity/Vol] 61.0 U/L Critically low 73.0-393.0 [facility] Comment on above: Performed By: #### I MICHELLE CALL #### [facility] [address] [place] [address] Dr. Luis Miguel Veronica PROF 14(COMP METB)on 022 Albumin [Mass/Vol] 3.6 g/dL Normal 3.4-5.0 [facility] Comment on above: Performed By: #### C MP ####[facility] [address] [address]DrMaxi Veronica Albumin/Globulin [Mass ratio] 0.9 {ratio} Normal [facility] Comment on above: Performed By: #### C MP ####[facility] [address] [address]Dr. Luis Miguel Veroniac ALP [Catalytic activity/Vol] 64 U/L Normal 46-116 [facility] Comment on above: Performed By: #### C MP ####[facility] [address] [address]Dr. Luis Miguel Veronica ALT [Catalytic activity/Vol] 22 U/L Normal 14-59 [facility] Comment on above: Performed By: #### C MP ####[facility] [address] [address]DrMaxi Veronica Anion gap [Moles/Vol] 16.0 mmol/L Normal [facility] Comment on above: Performed By: #### C MP ####[facility] [address] [address]DrMaxi Veronica AST [Catalytic activity/Vol] 21 U/L Normal 15-37 [facility] Comment on above: Performed By: #### C MP ####[facility] [address] [address]Dr. Luis Miguel Jeremías Bilirubin [Mass/Vol] 0.3 mg/dL Normal 0.2-1.0 [facility] Comment on above: Performed By: #### C MP ####[facility] [address] [place], [place] [address]Dr. Luis Miguel Veronica Calcium [Mass/Vol] 9.4 mg/dL Normal 8.5-10.1 [facility] Comment on above: Performed By: #### C MP ####[facility] [address] [place], [place] [address]Dr. Luis Miguel Veronica Chloride [Moles/Vol] 105 mmol/L Normal 98-107 [facility] Comment on above: Performed By: #### C MP ####[facility] [address] [place], [place] [address]Dr. Luis Miguel Veronica CO2 [Moles/Vol] 24.3 mmol/L Normal 21.0-32.0 [facility] Comment on above: Performed By: #### C MP ####[facility] [address] [place], [place] [address]Dr. Luis Miguel Veronica Creatinine [Mass/Vol] 1.47 mg/dL Critically high 0.55-1.02 [facility] Comment on above: Performed By: #### C MP ####[facility] [address] [place], [place] [address]Dr. Luis Miguel Veronica EGFR-AF UKRAINIAN 41 mL/min/1.73m2 Critically low >=60 [facility] Comment on above: Performed By: #### C MP ####[facility] [address] [place], [place] [address]Dr. Luis Miguel Veronica EGFR-NON AF UKRAINIAN 34 mL/min/1.73m2 Critically low >=60 [facility] Comment on above: Performed By: #### C MP ####[facility] [address] [place], [place] [address]Dr. Luis Miguel Veronica Globulin (S) [Mass/Vol] 3.8 g/dL Normal [facility] Comment on above: Performed By: #### C MP ####[facility] [address] [address]Dr. Luis Miguel Veronica Glucose [Mass/Vol] 214 mg/dL Critically high 74-106 T [facility] Comment on above: Performed By: #### C MP ####[facility] [address] [address]Dr. Luis Miguel Veronica Potassium [Moles/Vol] 4.3 mmol/L Normal 3.5-5.1 [facility] Comment on above: Performed By: #### C MP ####[facility] [address] [place], [place] [address]Dr. Luis Miguel Veronica Protein [Mass/Vol] 7.4 g/dL Normal 6.4-8.2 [facility] Comment on above: Performed By: #### C MP ####[facility] [address] [place], [place] [address]Dr. Luis Miguel Veronica Sodium [Moles/Vol] 141 mmol/L Normal 136-145 [facility] Comment on above: Performed By: #### C MP ####[facility] [address] [place], [place] [address]Dr. Luis Miguel Veronica Urea nitrogen [Mass/Vol] 24.0 mg/dL Critically high 7.0-18.0 [facility] Comment on above: Performed By: #### C MP ####[facility] [address] [place], [place] [address]Dr. Luis Miguel Veronica Urea nitrogen/Creatinine [Mass ratio] 16.3 mg/mg Normal [facility] Comment on above: Performed By: #### C MP ####[facility] [address] [place], [place] [address]Dr. Luis Miguel Jeremías TSHon 04-01-2022 TSH 1.674 uIU/mL Normal 0.358-3.740 [facility] Comment on above: Performed By: #### C RP, TSH, LIPA, CHANDNI ####[facility] [address] [place], [place] [address]Dr. Luis Miguel Veronica TSH RANGE SEE BELOW Normal [facility] Comment on above: Result Comment: <0.3 4 UIU/ml HYPERTHYROID 0.34-5.60 UIU/ml EUTHYROID >5.60 UIU/ml HYPOTHYROID Performed By: #### C RP, TSH, LIPA, CHANDNI ####[facility] [address] [address]Dr. Luis Miguel Veronica URINE MICROSCOPIC ONLYon BACTERIA LARGE Abnormal NONE SEEN [facility] Comment on above: Performed By: #### C MP, CRP, LIPA, CHANDNI #### [facility] [address] [address] [address] Luis Miguel Veronica Bacteria identified Cx Nom (U) INDICATED Normal [facility] Comment on above: Performed By: #### C MP, CRP, LIPA, CHANDNI #### [facility] [address] [address] [address] Luis Miguel Veronica CA OX CRYSTALS RARE Normal [facility] Comment on above: Performed By: #### C MP, CRP, LIPA, CHANDNI #### [facility] [address] [address] [address] Luis Miguel Veronica CAST NONE SEEN Normal NONE SEEN [facility] Comment on above: Performed By: #### C MP, CRP, LIPA, CHANDNI #### [facility] [address] [address] [address] Luis Miguel Veronica Crystals LM Nom (Urine sed) SEEN Abnormal NONE SEEN [facility] Comment on above: Performed By: #### C MP, CRP, LIPA, CHANDNI #### [facility] [address] [address] [address] Luis Miguel Veronica Epithelial cells LM Ql (Urine sed) RARE Normal NONE SEEN /RARE [facility] Comment on above: Performed By: #### C MP, CRP, LIPA, CHANDNI #### [facility] [address] [address] [address] Luis Miguel Veronica MUCOUS NONE SEEN Normal NONE SEEN [facility] Comment on above: Performed By: #### C MP, CRP, LIPA, CHANDNI #### [facility] [address] [address] [address] Luis Miguel Veronica RBC 0-2 Normal 0-2 [facility] Comment on above: Performed By: #### C MP, CRP, LIPA, CHANDNI #### [facility] [address] [address] [address] Luis Miguel Veronica WBC 2-5 Abnormal NONE SEEN [facility] Comment on above: Performed By: #### C MP, CRP, LIPA, CHANDNI #### [facility] [id number] Luis Miguel Veronica XR ABD FLAT [...] by: HARINI CAMPA Date: 2022-04-01 03:29 Normal [facility] Vital Signs Date Time Vital Sign Value Performing Clinician Facility 08-18-2023 12:58-0400 Blood Pressure Location Shadi SORTO [facility] 08-18-2023 12:58-0400 Diastolic blood pressure 76 mm[Hg] Shadi SORTO [facility] 08-18-2023 12:58-0400 Heart rate 92 /min Shadi SORTO [facility] 08-18-2023 12:58-0400 Systolic blood pressure 122 mm[Hg] Shadi SORTO [facility] 05-11-2023 13:03-0400 Blood Pressure Location Shadigladys SORTO [facility] 05-11-2023 13:03-0400 Diastolic blood pressure 72 mm[Hg] Shadi SORTO [facility] 05-11-2023 13:03-0400 Heart rate 75 /min Shadi SORTO [facility] 05-11-2023 13:03-0400 Respiratory rate 16 /min Shadigladys SORTO [facility] 05-11-2023 13:03-0400 Systolic blood pressure 116 mm[Hg] Shadi SORTO [facility] 01-12-2023 14:21-0400 Body height 152.4 cm Rodney Newton MD Work Phone: [facility] 01-12-2023 14:21-0400 Body weight 42.64 kg Rodney Newton MD Work Phone: [facility] 01-12-2023 14:21-0400 Diastolic blood pressure 55 mm[Hg] Rodney Newton MD Work Phone: [facility] 01-12-2023 14:21-0400 Heart rate 90 /min Rodney Newton MD Work Phone: [facility] 01-12-2023 14:21-0400 Respiratory rate 16 /min Rodney Newton MD Work Phone: [facility] 01-12-2023 14:21-0400 SaO2% (BldA) [Mass fraction] 96 % Rodney Newton MD Work Phone: [facility] 01-12-2023 14:21-0400 Systolic blood pressure 124 mm[Hg] Rodney Newton MD Work Phone: [facility] 12-24-2022 12:15-0500 Body height 152.4 cm Lesli Connelly Other [employer] Other 12-24-2022 12:15-0500 Body mass index (BMI) [Ratio] 18.36 kg/m2 Lesli Connelly Other [employer] Other 12-24-2022 12:15-0500 Body temperature 97.4 [degF] Lesli Connelly Other [employer] Other 12-24-2022 12:15-0500 Body weight 42.64 kg Lesli Connelly Other [employer] Other 12-24-2022 12:15-0500 Respiratory rate 18 /min Lesli Connelly Other [employer] Other 12-24-2022 12:15-0500 SaO2% (BldA) [Mass fraction] 94 % Lesli Connelly Other [employer] Other Encounters Encounter Date Encounter Type Care [...] encounter procedure Shadi SORTO [facility] Start: 05-11-2023 End: 05-12-2023 ambulatory Shadi SORTO Facility:[facility] Start: 05-11-2023 End: 05-11-2023 Patient encounter procedure Shadi SORTO [facility] Start: 04-16-2023 ambulatory Shadi SORTO Facility :[facility] Start: 04-15-2023 End: 04-16-2023 ambulatory Shadi SORTO Facility:[id number] Start: 04-07-2023 Telephone encounter Renard dimas [employer]EARCH ELECTRICIAN.FINANCIAL AIDS OFFICER Work Phone: [facility] Comment on above: Results Start: 04-02-2023 End: 04-02-2023 ambulatory LETY DANIELS Facility[place] [facility] Start: 03-05-2023 End: 03-06-2023 ambulatory LETY DANIELS Facility:[facility] Start: 03-05-2023 End: 03-05-2023 ambulatory Renard Reyes RESEARCH ELECTRICIAN.FINANCIAL AIDS OFFICER Work Phone: [facility] Comment on above: Radiculopathy of lum bar region (Primary Dx); Acute midline low back pain with right-sided sciatica; Weakness of both lower extremities Start: 03-05-2023 End: 03-05-2023 Telemedicine consultation with patient Renard Reyes RESEARCH ELECTRICIAN.FINANCIAL AIDS OFFICER Work Phone: [facility] Start: 02-01-2023 End: 02-02-2023 ambulatory JENN TOLEDO Facility:[facility] Start: 01-12-2023 End: 01-13-2023 ambulatory LETY DANIELS Facility:[facility] Start: 01-12-2023 End: 01-12-2023 Patient encounter procedure Rodney Newton MD Work Phone: [facility] Comment on above: Lumbar radiculopathy (Primary Dx) Start: 12-24-2022 End: 12-24-2022 ambulatory Lesli Godwin Other [employer] Other Start: 12-24-2022 Office outpatient ne w [...] 10-25-2022 ADVANCE DIRECTIVE DISCUSSION ADVANCE DIRECTIVE DISCUSSION [facility] Start: 10-25-2022 DEPRESSION ASSESSMENT DEPRESSION ASS ESSMENT [facility] Start: 09-23-2021 COVID-19 VACCINE (4 - Booster for Pfizer series) COVID-19 VACCINE (4 - Booster for Pfizer series) [facility] Start: 03-03-2013 DIABETES SCREEN DIABETES SCREEN [facility] Start: 2001 BONE DENSITY BONE DENSITY [facility] Start: 2001 PNEUMOCOCCAL: 65+ (1 - PCV) PNEUMOCOCCAL: 65+ (1 - PCV) [facility] Start: 1986 SHINGRIX VACCINE (1 of 2) SHINGRIX VACCINE (1 of 2) [facility] Start: 1955 Urine microalbumin profile DTAP,TDAP,TD (1 - Tdap) [facility] End: 04-03-2024 Mri spinal canal lumbar w/o contrast material MRI LUMBAR SPINE WO IVCON Radiology Routine Radiculopathy of lumbar region Acute midline low back pain with right-sided sciatica Weakness of both lower extremities 1 Occurrences starting 03/05/2023 until 04/03/2024 Work Phone: Comment on above: 1 Occurrences starti ng 03/05/2023 until 04/03/2024 [facility] Immun[facility] Immunization Date Immunization Notes Care Provider Bjorn rojas 08-18-2022 influenza virus vaccine, unspecified formulation Shadi SORTO [facility] 07-29-2021 SARS-CoV-2 (COVID-19 ) mRNA BNT-162b2 vax Shadi SORTO [facility] 07-21-2021 influenza virus vaccine, unspecified formulation Shadi SORTO [facility] 12-11-2020 SARS-CoV-2 (COVID-19 ) mRNA BNT-162b2 vax Shadi SORTO [facility] Comment on above: Result Comment: 2022: [id number] 11-20-2020 SARS-CoV-2 (COVID-19 ) mRNA BNT-162b2 vax [facility] Comment on above: Result Comment: 2022: [id number] 07-17-2020 influenza virus vaccine, unspecified formulation [facility] 09-23-2019 zoster vaccine recombinant [facility] 07-04-2019 zoster vaccine recombinant [facility] 06-27-2019 influenza virus vaccine, unspecified formulation [facility] 08-03-2018 influenza virus vaccine, unspecified formulation [facility] 07-15-2017 influenza virus vaccine, unspecified formulation [facility] 03-29-2017 pneumococcal polysaccharide vaccine, 23 valent [facility] 07-13-2016 influenza virus vaccine, unspecified formulation [facility] 01-22-2016 pneumococcal conjuga te vaccine, 13 valent [facility] 08-01-2015 influenza virus vaccine, unspecified formulation [facility] 05-14-2014 tetanus toxoid, redu britney diphtheria toxoid, and acellular pertussis vaccine, adsorbed Lesli Connelly Other [employer] Other 01-10-2014 tetanus toxoid, redu britney diphtheria toxoid, and acellular pertussis vaccine, adsorbed Lesli Connelly Other [employer] Other Payers Date Payer Category Payer Medicare DEVOTED MEDICARE [facility] HMO [id number] 2022-Present [phone] [address] [place] [address] HMO [id number] 2021 Unknown [id number] 1959 Medicare [id number] 1935 Unknown [id number] [id number] 1936 Unknown [id number] 2.16.840.1.827317.3.579.2.593 1936 Unknown [id number] 2.16.840.1.379905.3.579.2.593 1936 Unknown [id number] 2.16.840.1.147824.3.579.2.593 1936 Unknown [id number] 2.16.840.1.639209.3.579.2.593 1936 Unknown [id number] 2.16.840.1.920270.3.579.2.593 1936 Unknown [id number] 2.16.840.1.480197.3.579.2.593 1936 Unknown [id number] 2.16.840.1.031133.3.579.2.593 1936 Unknown [id number] 2.16.840.1.550417.3.579.2.593 1936 Unknown [id number] 2.16.840.1.701993.3.579.2.727 1936 Unknown [id number] 2.16.840.1.331407.3.579.2.727 1936 Unknown [id number] 2.16.840.1.052969.3.579.2.727 1936 Unknown [id number] 2.16.840.1.549442.3.579.2.727 1936 Unknown [id number] 2.16.840.1.525383.3.579.2.1259 1936 Unknown [id number] 2.16.840.1.718731.3.579.2.1259 1936 Unknown [id number] 2.16.840.1.023154.3.579.2.1259 Social History Date Type Detail Facility Sex Assigned At [facility] Start: 01-12-2023 End: 08-18-2023 Tobacco smoking status NHIS Ex-smoker [facility] End: 02-17-2010 History of tobacco use Current smoker [facility] End: 02-17-2010 History of tobacco use Cigarette Smoker [facility] Start: 01-12-2023 Cigarettes smoked current (pack per day) - Reported 0.5 [facility] Start: 01-12-2023 Tobacco use and exposure Smokeless tobacco non-user [facility] Start: 01-12-2023 Alcohol intake Current non-dr fiber worker of alcohol (finding) [facility] Start: 1935 Sex [facility] Functional Status Date Assessment Result Facility 08-18-2023 Functional Status N/A [facility] 05-11-2023 Functional Status N/A [facility] Clinical Notes 12-22-2022 to 08-18-2023 Telephone Encounter [...] Document Reviewed: 02/19/2022 Elsevier Patient Education 2022 [employer]. Follow Up Care 05/11/2023 13:28:09 With:ROBBY NARANJO, Shadi Blanco, URL Address: [facility] [address] [place] [address]- When: Unknown [facility] Chris 05-11-2023 Hospital Discharge instructions Patient [...] include: ?8 oz (237 mL) of milk, aftqsje-koyrhuywrjpc-pdaem milk, and calcium-fortifiedfruit juice. Calcium-fortified means that [...] ?Spinach (cooked), rhubarb, beets, sweet potatoes, and Ukrainian chard. ?Peanuts. ?Potato chips, colombian fries, and baked potatoes with skin on. ?Nuts and nut products. ?Chocolate. If you regularly take a diuretic medicine, make sure to eat at least 1 or 2 servings of fruits or vegetables that are high in potassium each day. These include: ?Avocado. ?Banana. ?[place], prune, carrot, or tomato juice. ?Baked potato. [...] magnesium, fish oil, or vitamin B6. Take xqbh-jzq-hcivsit and prescription medicines only as told by [...] Casseroles. Pizza. Lasagna. Frozen meals. Potato chips. Nepalese fries. The items listed above may not [...] provider. Document Revised: 06/22/2022 Document Reviewed: 06/22/2022 Zazzy Patient Education 2022 [employer]. Follow Up Care 05/04/2023 09:38:34 With:ROBBY NARANJO, Shadi Blanco, URL Address: [facility] [address], [place] [address]- When: Unknown [facility] 04-07-2023 Miscellaneous Notes Reviewed new MRI. Much [...] with the RN. documented in this encounter [facility] 04-02-2023 Note HNO ID: [id number] Author: RT Elian(R) Service: ? Author Type: [...] RT Elian(R) April 02, 2023 11:42 AM [facility] 03-05-2023 Note HNO ID: [id number] Author: Renard Reyes APRN.CNP Service: ? Author [...] visit. Either the patient or their legal wire rope sales representative has been informed of the risks [...] Call length: 19 minutes SIGNATURE: Renard Reyes APRN.[facility] PATIENT NAME: Dona Rodriguez DATE: March 05, 2023 TIME: 10:40 AM PAGER: [facility] 03-05-2023 History of Present illness Narrative VIRTUAL SPINE SURGERY ESTABLISHED PATIENT This is a virtual visit using Audio only. It required patient-provider interaction for the medical decision making as documented below. I have communicated my name and active licensure. The patient's identity and physical location were verified at the time of this visit. Either the patient or their legal wire rope sales representative has been informed of the risks [...] Call length: 19 minutes SIGNATURE: Renard Reyes APRN.[facility] PATIENT NAME: Dona Rodriguez DATE: March 05, 2023 TIME: 10:40 AM PAGER: documented in this encounter [facility] 02-01-2023 Note HNO ID: [id number] Author: Myranda Hunt MD Service: ? Author [...] pressure cuff, and pulse oximetry. Then a marble chip terrazzo worker film was taken to identify the correct [...] symptoms are on the LEFT side now. [facility] 02-01-2023 Note HNO ID: [id number] Author: David Ramsey LPN Service: ? Author [...] injection Verified by patient by: Dr. Hunt Corporate Investigator for post spine injection procedure: Yes Patient [...] and daughter ( (more content not included)... [facility] 02-01-2023 Note HNO ID: [id number] Author: Sybil Euceda MD Service: ? Author [...] with explicit agreement by patient or patient wire rope sales representative before surgery. Sybil Euceda MD Spine Medicine Fellow, PGY-5 DATE: February 01, 2023 TIME: 9:42 AM [facility] 01-12-2023 Note HNO ID: [id number] Author: Rodney Newton MD Service: ? Author [...] and pertinent documents (more content not included)... [facility] 03-21-2023 History of Present illness Narrative [...] 3:13 PM PAGER: documented in this encounter [facility] 12-24-2022 Note HNO ID: [id number] Author: Jenn Toledo PA-C Service: ? Author Type: Physician Wind Energy Technician Type: Progress Notes Filed: 12/24/2022 2:12 PM [...] Lumbar surgery like 12-15 yr ago @ [place] (currently closed) CMT: PT NSAIDS Tramadol Studies [...] reviewed during the appt Jenn Toledo PA-C [facility] 12-24-2022 Evaluation note Encounter Date Diagnosis [...] weeks for the cough to go away [employer] Other 02-28-2023 NoteHNO ID: [id number] Author: Derrek Acuña Service: ? Author Type: ? Type: Progress Notes Filed: 12/24/2022 2:12 PM Note Text: Patient name: Dona Rodriguez Are you being referred by a [facility] Provider or Pain Management Provider at [facility]? No If answer is YES please schedule [...] where the MRI/CT/myelogram was completed: [place] [address] MRI/CT/myelogram viewable in Epic: No If not, please provide [phone] to fax in imaging reports for review. Also, please inform patient to hand carry imaging disc to appointment. XR (spine) within 12 months: Yes If YES,? please ask for the name/address of the facility where the XR was completed: [place] [address] Dr. Poe's patients: Have you had previous [...] and/or physical therapy [place] [address] Have you tried any other kinds of [...] Lumbar surgery like 12-15 yr ago @ [place] (currently closed) Additional Comments [phone] Hanh, daughter Asking if she can be seen [facility] Future Appointments Appointment Date:08/18/2023 01:00:00 PM Scheduled Provider:Shadi SORTO MD Location:[facility] Appointment Type:URO Office Visit [facility] Dealer Tire Evaluation + Plan note Future Appointments Appointment Date:08/16/2024 01:00:00 PM Scheduled Provider:Shadi SORTO MD Location:[facility] Appointment Type:URO Office Visit [facility] Evaluation note* Diagnosis Lumbar radiculopathy- Primary Thoracic or lumbosacral neuritis or radiculitis, unspecified [facility] Diagnosis Radiculopathy of lumbar region- Primary Thoracic or lumbosacral neuritis or radiculitis, unspecified Acute midline low back pain with right-sided sciatica Weakness of both lower extremities [facility]* Diagnosis Radiculopathy of lumbar region Thoracic or lumbosacral neuritis or radiculitis, unspecified Acute midline low back pain with right-sided sciatica Weakness of both lower extremities [facility] - Reported* Type Description Date Medical History Hypothyroidism Medical History chronic depression Medical History spinal stenosis Medical History hip stenosis Medical History narrowing of spine Medical History bulging disk Surgical History back sugery Surgical History removed 5 foot of colon Hospitalization History see above Hospitalization History UTI 2021 [employer] Other Hospital course Narrative No data available for this section [facility] [employer] Progress note No data available for this section [facility] [employer] Summary Purpose Family History No Family History [...] CANAL LUMBAR W/O CONTRAST MATERIAL Renard Reyes, RESEARCH ELECTRICIAN.FINANCIAL AIDS OFFICER [address] [place] [address] Mr Imaging Referral ID Status Reason Start Date Expiration Date Visits Requested Visits Authorized [id number] Pending Review Auto-Generat ed Referral 03/05/2023 04/03/2024 [...] or prosecute any alcohol or drug abuse patient.[facility] the event this information is protected by the Federal Confidentiality of Alcohol and Drug Abuse Patient Records regulations: The Federal rules restrict any use of the information to criminally investigate or prosecute any alcohol or drug abuse patient.[facility] the event this information is protected by the Federal Confidentiality of Alcohol and Drug Abuse Patient Records regulations: The Federal rules restrict any use of the information to criminally investigate or prosecute any alcohol or drug abuse patient.[facility] Care Teams (unrecognized sec tion and content) Mosaic Tiler Relationship Specialty Start Date End Date Lety Daniels MD [address] [place] [id number] PCP - General 11/08/09 Jada Padilla MD [address] [place] [address] Family Medicine 12/22/22 Mosaic Tiler Relationship Specialty Start Date End Date Lety Daniels MD [address] [place] [id number] PCP - General 11/08/09 Jada Padilla MD [address] [place] [address] Family Medicine 12/22/22 Mosaic Tiler Relationship Specialty Start Date End Date Jada Padilla MD [address] [place] [address] PCP - General Family Medicine 04/07/18 INFORMATION SOURCE (unrecogn ized section and content) DATE CREATED AUTHOR 01/30/2023 [facility] DATE CREATED AUTHOR AUTHOR'S ORGANIZ ATION 04/08/2023 [facility] DATE CREATED AUTHOR AUTHOR'S ORGANIZ ATION 12/30/2023 [facility] DATE CREATED AUTHOR AUTHOR'S ORGANIZ ATION 02/10/[address] [facility] dical Specialists EPIC FOR RECORDS PERTAINING TO [...] BE BASED ON THE PRIMARY CLINICAL RECORDS. [facility]. provides no warranty or guarantee of the accuracy or completeness of information in this document.
== END 2024-03-29 09:00 | disposition home or self-care (01) ==
LOC: CARD 09:00
PROVIDERS: PCP Family Medicine; Visit Provider Family Medicine
DX: R55 Syncope and collapse (principal)
CPT/HCPCS: 93246

== ENCOUNTER 2024-04-11 13:50 | Outpatient (OUT) | payer OTHER, SELFPAY ==
--- NOTE | 2024-04-11 13:55 | CA_ITS ---
Patient Name: DONA NAGY MR#: [id number] : 1935 Exam Date: 04/11/2024 Ordering Doctor: DR Jose Padilla . ECHOCARDIOGRAM REPORT PROCEDURE: CA ECHO DOPPLER COMPLETE INDICATIONS: syncope COMPARISON: None. DESCRIPTION: COMPLETE ECHOCARDIOGRAM Real-time transthoracic echocardiography with 2D, M-mode, spectral and color flow Doppler performed. QUALITY: Technical quality was good. LEFT VENTRICLE: Normal chamber size. Thickened septal wall. Global left ventricular systolic function is normal. LV EF: Visual estimation of left ventricular ejection fraction is 55-60% DIASTOLIC: Diastolic function is indeterminate. ATRIAL SEPTUM: LEFT ATRIUM: Mild dilatation. RIGHT ATRIUM: Mild dilatation. RIGHT VENTRICLE: Normal chamber size. Normal right ventricular systolic function. TRICUSPID VALVE: Normal mobility and thickness. No stenosis with trivial regurgitation. No evidence of pulmonary hypertension. RVSP 31 mmHg MITRAL VALVE: Normal mobility and thickness. No evidence of mitral valve stenosis. There is no mitral annular calcification. Trivial mitral regurgitation. AORTIC VALVE: Normal trileaflet appearance. No visible sclerosis. Normal leaflet mobility. No evidence of aortic valve stenosis. Trivial aortic regurgitation. AORTIC ROOT: Normal diameter and appearance. PULMONIC VALVE: Normal thickness and mobility. No stenosis. Trivial regurgitation. PERICARDIUM: No evidence of pericardial effusion. IVC: Collapses with inspirations. Normal size. PLEURA: CONCLUSION: 1. The left ventricle is normal in size and exhibits normal systolic function. LVEF is 55 to 60%. 2. Normal right ventricular size and systolic function. 3. Mild biatrial dilatation. 4. No significant valvular dysfunction. 5. Normal right-sided pressures. Adult Echocardiography Procedure Report Left Ventricle LVEDD (3.7 - 5.6 cm): 2.73 cm LVESD (2.2 - 4.0 cm): 1.82 cm LVIVS thickness (0.6 - 1.2 cm): 1.35 cm LVPW thickness (0.5 - 1.0 cm): 0.64 cm e': 0.09 m/s E - e': 5.29 LVOT Max Gradient: 3.37 mm[Hg] LVOT Area (cm2): 0.92 m/s Peak Velocity (LVOT): 0.92 m/s Mean Velocity (LVOT): 0.62 m/s LVOT Diameter 1.65 cm Left Ventricular Ejection Fraction: 55-60% Left Atrium LA Volume Index (2D A2C): 20.88 ml/m2 Left Atrium Systolic Dimension: 2.11 cm Mitral Valve MV E to A Ratio: 0.57 Mitral Valve A-Wave Peak Velocity: 0.81 m/s Mitral Valve E-Wave Peak Velocity: 0.46 m/s Right Ventricle RV Internal Diastolic Dimension: 2.58 cm Aorta AO Root Diam: 2.61 cm Ascending Ao Diam: 2.43 cm Aortic Valve AoV Area (Peak Shaq): 2.00 cm2, 2.00 cm2 AoV Area (VTI): 1.95 cm2, 1.95 cm2 Peak Velocity(Antegrade Flow): 0.98 m/s Peak Gradient(Antegrade Flow): 3.87 mm[Hg] Mean Velocity(Antegrade Flow): 0.71 m/s Mean Gradient(Antegrade Flow): 2.22 mm[Hg] Velocity Time Integral: 22.67 cm Tricuspid Valve Peak Velocity (Regurgitant Flow): 2.36 m/s, 2.63 m/s, 2.42 m/s Pulmonic Valve Mean Gradient: 1.23 mm[Hg], 1.56 mm[Hg] Mean Velocity: 0.52 m/s, 0.59 m/s Peak Velocity: 0.84 m/s Peak Gradient: 2.85 mm[Hg], 2.85 mm[Hg] Right Atrium Right Atrium Systolic Pressure: 15.15 ml, 15.15 ml Dictated by: Isidro Solomon M.D. on 04/11/2024 at 19:10 Approved by: Isidro Solomon M.D. on 04/11/2024 at 19:13
== END 2024-04-11 13:51 | disposition home or self-care (01) ==
LOC: CARD 13:50
PROVIDERS: PCP Family Medicine; Visit Provider Family Medicine
DX: R55 Syncope and collapse (principal)
CPT/HCPCS: 93306

== ENCOUNTER 2024-04-28 14:51 | Outpatient (OUT) | payer OTHER, SELFPAY ==
--- NOTE | 2024-04-28 14:58 | XR_ITS ---
The [address] [address] Patient Name: DONA NAGY MRN: [id number] date: 1935 Sex: F Assigned Patient Location: [facility] Current Patient Location: Accession/Order Number: [id number] Exam Date: 04/28/2024 15:10 Report Date: 04/29/2024 08:03 At the request of: JADA LOWE Procedure: XR shoulder RT min 2V PROCEDURE: XR shoulder RT min 2V HISTORY: Right Shoulder Pain M25.511 COMPARISON: None. FINDINGS: BONES:Mild degenerative changes of the acromioclavicular joint. Unremarkable glenohumeral joint. No fracture, dislocation, or bone lesion. SOFT TISSUES:No visible soft tissue swelling. EFFUSION:None visible. OTHER: Negative. XR/XR shoulder RT min 2V IMPRESSION: 1. No acute bone abnormality. 2. Mild degenerative changes. Electronically authenticated by: SULAIMAN MERCEDES Date: 04/29/2024 08:03
--- OUTSIDE RECORDS SUMMARY | 2024-04-28 15:15 | XMS_ITS | CCD ---
Author Organization [facility]ini[facility] Care Team Providers Care Communications Analyst Name Role Phone Lesli Connelly Unavailable Lety Daniels MD Primary Care Provider [phone] Jada Padilla MD Unavailable MYNOR ., DR [...] Unavailable Jada Padilla MD Primary Care Provider [phone] LETY DANIELS Primary Care Unavailable ERIC, [...] Medication Allergies] Propensity to adverse reactions (disorder) [facility] Repository Medications Current Medications Medication Drug Class(es) Dates Sig (Normalized) Sig (Original) [id number] 200 actuat albuterol 0.09 mg/actuat metered dose [...] twice daily. Take 1 capsule by mo [facility] twice daily for 90 days. 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 Normal [facility] Patient Educationon 10-25-20 23 Patient Education [...] provider. Document Revised: 02/19/2022 Document Reviewed: 02/19/2022 [employer] Patient Education ? 2022 [employer] [facility] Urology Office/Clinic Noteon 08-18-2023 Urology Office/Clinic Note [...] [facility] [address], [place] [address]- Additional Instructions: 1 yr KUB Patient Education [...] Smokeless To (more content not included)... Normal [facility] Comment on above: Result Comment: Elec tronically Signed By: Shadi SORTO MD\.br\Date and Time Signed: 08/18/23 13:40 EDT\.br\Electronically Co-Signed By: Jania Velasquez\.br\Date and Time Co-Signed: 08/18/23 13:38 EDT Consent for Procedure/Surger yon 05-12-2023 Consent for Procedure/Surgery [id number]#1.00 CD:127 [facility] Ambulatory Visit Summaryon 0 05-11-2023 Ambulatory Visit [...] NARANJO, Shadi Blanco Where: [facility] Chris Singh [facility] Patient Educationon 05-11-20 Patient Education Nephrology [...] ? 8 oz (237 mL) of milk, tkwryoq-hgxccntkkqjm-pf iry milk, and calcium-fortifiedfruit juice. Calcium-fortified means [...] Spinach (cooked), rhubarb, beets, sweet potatoes, and Wallisian chard. ? Peanuts. ? Potato chips, east timorese fries, and baked potatoes with skin on. ? Nuts and nut products. ? Chocolate. ? If you regularly take a diuretic medicine, make sure to eat at least 1 or 2 servings of fruits or vegetables that are high in potassium each day. These include: ? Avocado. ? Banana. ? [place], prune, carrot, or tomato juice. ? Baked [...] fish oil, or vitamin B6. ? Take zpgf-qqz-fgrceee and prescription medicines only as told by your health care provider. These include supplements. What foods should I limit? Limit your in (more content not included)... Normal [facility] Urology Office/Clinic Noteon 05-11-2023 Urology Office/Clinic [...] [facility] [address], [place] [address]- Additional Instructions: 3 mos PVR Patient Education [...] Sigmoid colectomy (more content not included)... Normal [facility] Comment on above: Result Comment: Elec tronically Signed By: Shadi SORTO MD\.br\Date and Time Signed: 05/11/23 13:23 EDT\.br\Electronically Co-Signed By: Jania Velasquez\.br\Date and Time Co-Signed: 05/11/23 13:19 EDT\.br\Electronically Co-Signed By: Jania Velasquez\.br\Date and Time Co-Signed: 05/11/23 13:22 EDT Lab Report[facility] 04-26-2023 Lab Reports [id number]#1.00C D:127 [facility] Pre-Certification Formon Pre-Certification Form [id number]#1.00 CD:127 [facility] Lab Reportson 04-20-2023 Lab Reports [id number]#1.00CD :127 [facility] Consultation Noteon 04-16-20 Consultation Note [id number]#1.00 CD:127 [facility] Insurance Correspondence Off iceon 04-16-2023 Insurance Correspondence Office [id number]#1.00C D:127 [facility] Lab Reportson 04-16-2023 Lab Reports [id number]#1.00CD :127 [facility] Operative Reporton Operative Report [id number]#1.00CD :127 [facility] 04-07-2023 CNPN Telephone (SPNSMN) DONA RODRIGUEZ ([id number]) 1935 F Date Time Provider Department 04/07/23 RENARD REYES SPEDUARDOMN During your visit today, we recorded the following information about you: Renard Reyes APRN.HOME FURNISHINGS SALES REPRESENTATIVE 04/07/2023 3:08 PM Signed Reviewed new MRI. [...] Status:Closed by RENARD REYES on 04/07/[address] [facility] MRI LUMBAR SPINE WO IVCONon 04-02-2023 [...] kidneys and small renal cysts visible on leak gang supervisor images. Alignment: Alignment is anatomic. Bone marrow [...] crest and there are 5 lumbar-type vertebrae. Public Administration Professor: PSCB Transcribe Date/Time: Apr 02 2023 12:17P Dictated by : VIKTOR SANDERSON MD This examination was interpreted and the report reviewed and electronically signed by: VIKTOR SANDERSON MD on Apr 02 2023 12:20PM EST [id number] Normal [facility] CNPAnneliese 02-09-2023 CNPN Telephone (NIQ) DONA RODRIGUEZ ([id number]) 1935 F Date Time Provider Department 02/09/23 [...] tablet 2x a day Call back # [phone] Forwarded to team for review. Ana M [...] or Lyrica. Pt has f/u appt with HOME FURNISHINGS SALES REPRESENTATIVE on 03/05/2023. Will discuss with HOME FURNISHINGS SALES REPRESENTATIVE. Pt uses [facility] in [facility]. Renard Reyes APRN.CNP 02/09/2023 12:37 PM [...] by MARK ANTHONY MIKE on 02/09/[address] [facility] CNOVon 02-01-2023 CNOV Office Visit (SPNMMN ) DONA RODRIGUEZ ([id number]) 1935 F Date Time Provider Department 02/01/23 [...] with explicit agreement by patient or patient public relations representative before surgery. Sybil Euceda MD Spine Medicine Fellow, PGY-5 DATE: February 01, 2023 TIME: 9:42 AM Bailee Rivers RN 02/01/2023 9:52 AM Signed PATIENT NAME: Dona Rodriguez 1935 87 year old Current medications and allergies reviewed with patient in visit navigator: Yes Baseline vital signs and pain assessment entered in activity in visit navigator: Yes Aerospace Engineer Officer Armament for post spine injection procedure: Yes First [...] injection Verified by patient by: Dr. Hunt Aerospace Engineer Officer Armament for post spine injection procedure: Yes Patient [...] steroid i (more content not included)... Normal [facility] CNOVon 01-12-2023 CNOV Office Visit (SPNSMN ) DONA RODRIGUEZ ([id number]) 1935 F Date Time Provider Department 01/12/23 [...] getting her (more content not included)... Normal [facility] COVID/FLU/RSV RT-PCRon 12-24 SARS-CoV-2 (COVID-19) RNA ALEN+probe Ql (Unsp spec) Negative Yub Other COVID/FLU/RSV RT-PCR Negative Yub Other MRI LSPINE WO CONon 12-14-19 MRI [...] LORENZ Date: 2022-12-14 10:29 Normal [facility] EULALIA by IFAon 12-03-2022 Antinuclear Antibodies, IFA Negative Normal [facility] Comment on above: Result Comment: Nega tive <1:80 Borderline 1:80 Positive >1:80 ICAP nomenclature: AC-0 For more information about Hep-2 cell patterns use ANApatterns.org, the official website for the International Consensus on Antinuclear Antibody (EULALIA) Patterns (ICAP). Performed By: #### A NAIFA ####[facility] [address] [address]Dr. Yilan Veronica ECHOCARDIO M/2D COMPLETEon 0 12-03-2022 ECHOCARDIO M/2D COMPLETE Patient: DONA RODRIGUEZ Exam Date: 12/03/2022 : 1935 Gender:F Ordering : DR JADA PADILLA . Admission #: [id number] Family : Order #: [id number] CLICK HERE TO VIEW EXAM ECHOCARDIOGRAM REPORT [...] Solomon M.D. on 12/03/2022 at 19:45 Normal [facility] XR LSPINE MIN 4 VIEWSon [...] MERCEDES Date: 2022-12-03 11:58 Normal [facility] ANTISTREPTOLYSIN O AB (ASO)o n 12-01-2022 Antistreptolysin O Ab <20.0 Normal 0.0-200.0 [facility] Comment on above: Performed By: #### A SOAB ####[facility] [address] [address]DrMaxi Veronica RHEUMATOID FACTORon 12-01-19 RA Latex Turbid. <10.0 Normal <14.0 [facility] Comment on above: Performed By: #### R F ####[facility] [address] [address]DrMaxi Veronica CBC AUTO DIFFon 11-30-2022 BASO # 0.1 103/ul Normal 0.0-0.1 [facility] Comment on above: Performed By: #### C MP, CRP, LIPA, CHANDNI #### [facility] [address] [address] [address] Luis Miguel Veronica Basophils/100 WBC (Bld) 0.7 % Normal 0.2-2.0 [facility] Comment on above: Performed By: #### C MP, CRP, LIPA, CHANDNI #### [facility] [address] [address] [address] Luis Miguel Veronica EO # 0.1 103/ul Normal 0.0-0.7 [facility] Comment on above: Performed By: #### C MP, CRP, LIPA, CHANDNI #### [facility] [address] [place] [address] Dr. Luis Miguel Veronica Eosinophils/100 WBC (Bld) 0.8 % Critically low 0.9-7.0 [facility] Comment on above: Performed By: #### C MP, CRP, LIPA, CHANDNI #### [facility] [address] [place] [address] Dr. Luis Miguel Veronica Erythrocyte distribution width (RBC) [Ratio] 13.4 % Normal 11.0-15.0 [facility] Comment on above: Performed By: #### C MP, CRP, LIPA, CHANDNI #### [facility] [address] [place] [address] Dr. Luis Miguel Veronica Hematocrit (Bld) [Volume fraction] 45.3 % Normal 36.0-48.0 [facility] Comment on above: Performed By: #### C MP, CRP, LIPA, CHANDIN #### [facility] [address] [place] [address] Dr. Luis Miguel Veronica Hemoglobin (Bld) [Mass/Vol] 14.2 g/dL Normal 12.0-16.0 [facility] Comment on above: Performed By: #### C MP, CRP, LIPA, CHANDNI #### [facility] [address] [place] [address] Dr. Luis Miguel Veronica IG # 0.02 10e3/ul Normal 0.00-0.03 [facility] Comment on above: Performed By: #### C MP, CRP, LIPA, CHANDNI #### [facility] [address] [place] [address] Dr. Luis Miguel Veronica IG % 0.2 % Normal 0.0-0.5 [facility] Comment on above: Performed By: #### C MP, CRP, LIPA, CHANDNI #### [facility] [address] [place] [address] Dr. Luis Miguel Veronica LYMPH # 2.5 103/ul Normal 1.2-3.8 [facility] Comment on above: Performed By: #### C MP, CRP, LIPA, CHANDNI #### [facility] [address] [place] [address] Dr. Luis Miguel Veronica Lymphocytes/100 WBC (Bld) 27.3 % Normal 20.5-60.0 [facility] Comment on above: Performed By: #### C MP, CRP, LIPA, CHANDNI #### [facility] [address] [place] [address] Dr. Luis Miguel Veronica MANUAL DIFF REQ NO Normal [facility] Comment on above: Performed By: #### C MP, CRP, LIPA, CHANDNI #### [facility] [address] [place] [address] Dr. Luis Miguel Veronica MCH (RBC) [Entitic mass] 32.3 pg Normal 26.7-34.0 [facility] Comment on above: Performed By: #### C MP, CRP, LIPA, CHANDNI #### [facility] [address] [place] [address] Dr. Luis Miguel Veronica MCHC (RBC) [Mass/Vol] 31.3 g/dL Normal 29.9-35.2 [facility] Comment on above: Performed By: #### C MP, CRP, LIPA, CHANDNI #### [facility] [address] [place] [address] Dr. Luis Miguel Veronica MCV (RBC) [Entitic vol] 103.0 fL Critically high 81.0-99.0 [facility] Comment on above: Performed By: #### C MP, CRP, LIPA, CHANDNI #### [facility] [address] [place] [address] Dr. Luis Miguel Veronica MONO # 0.6 103/ul Normal 0.3-0.8 [facility] Comment on above: Performed By: #### C MP, CRP, LIPA, CHANDNI #### [facility] [address] [place] [address] Dr. Luis Miguel Veronica Monocytes/100 WBC (Bld) 6.2 % Normal 1.7-12.0 [facility] Comment on above: Performed By: #### C MP, CRP, LIPA, CHANDNI #### [facility] [address] [place] [address] Dr. Luis Miguel Veronica NEUT # 5.8 103/ul Normal 1.4-6.5 [facility] Comment on above: Performed By: #### C MP, CRP, LIPA, CHANDNI #### [facility] [address] [place] [address] Dr. Luis Miguel Veronica Neutrophils/100 WBC (Bld) 64.8 % Normal 43.0-75.0 [facility] Comment on above: Performed By: #### C MP, CRP, LIPA, CHANDNI #### [facility] [address] [address] [address] Luis Miguel Veronica Platelet mean volume (Bld) [Entitic vol] 9.7 fL Normal 9.5-13.5 [facility] Comment on above: Performed By: #### C MP, CRP, LIPA, CHANDNI #### [facility] [address] [address] [address] Luis Miguel Veronica PLT 237 103/ul Normal 150-450 [facility] Comment on above: Performed By: #### C MP, CRP, LIPA, CHANDNI #### [facility] [address] [address] [address] Luis Miguel Veronica RBC 4.40 106/ul Normal 4.20-5.40 [facility] Comment on above: Performed By: #### C MP, CRP, LIPA, CHANDNI #### [facility] [address] [address] [address] Luis Miguel Veronica WBC 9.0 103/ul Normal 4.0-11.0 [facility] Comment on above: Performed By: #### C MP, CRP, LIPA, CHANDNI #### [facility] [address] [address] [address] Luis Miguel Veronica CRPon 11-30-2022 CRP [Mass/Vol] mg/L Normal <=1.0 [facility] Comment on above: Performed By: #### U JOE, LIPID, CMP, TSH, T7, CRP ####[facility] [address] [address]Dr. Luis Miguel Veronica FREE THYROXINE INDEX T7on FTI 3.60 Normal 1.30-4.50 [facility] Comment on above: Performed By: #### C MP, CRP, LIPA, CHANDNI #### [facility] [address] [address] [address] Luis Miguel Veronica T3U 36.0 % Normal 30.0-39.0 [facility] Comment on above: Performed By: #### C MP, CRP, LIPA, CHANDNI #### [facility] [address] [address] [address] Luis Miguel Veronica T4 [Mass/Vol] 10.00 ug/dL Normal 4.80-13.90 [facility] Comment on above: Performed By: #### C MP, CRP, LIPA, CHANDNI #### [facility] [address] [address] [address] Luis Miguel Veronica GLYCOHEMOGLOBIN A1Con 2022 ADA RECOMMENDATION SEE BELOW Normal [facility] Comment on above: Result Comment: ADA RECOMMENDED LIMIT 4.0 - 6.0 ADA THERAPEUTIC TARGET < 7.0 ACTION SUGGESTED > 7.0 Performed By: #### C MP, CRP, LIPA, CHANDNI #### [facility] [address] [address] [address] Luis Miguel Veronica Glucose [Mass/Vol] 126 mg/dL Normal [facility] Comment on above: Performed By: #### C MP, CRP, LIPA, CHANDNI #### [facility] [address] [place] [address] Dr. Luis Miguel Veronica HbA1c (Bld) [Mass fraction] 6.0 % Normal 4.5-6.2 [facility] Comment on above: Performed By: #### C MP, CRP, LIPA, CHANDNI #### [facility] [address] [place] [address] Dr. Luis Miguel Veronica IRONon 11-30-2022 Iron [Mass/Vol] 114.0 ug/dL Normal 50.0-170.0 [facility] Comment on above: Performed By: #### I MICHELLE CALL #### [facility] [address] [place] [address] Dr. Luis Miguel Veronica LIPID PROFILEon 11-30-2022 CHOL-HDL RATIO NORM SEE BELOW Normal [facility] Comment on above: Result Comment: 3.3 - 4.4 LOW RISK 4.4 - 7.1 AVERAGE RISK 7.1 - 11.0 MODERATE RISK >11.0 HIGH RISK Performed By: #### C MP, CRP, LIPA, CHANDNI #### [facility] [address] [place] [address] Dr. Luis Miguel Veronica Cholesterol [Mass/Vol] 212 mg/dL Critically high <=200 [facility] Comment on above: Performed By: #### C MP, CRP, LIPA, CHANDNI #### [facility] [address] [address] [address] Luis Miguel Veronica Cholesterol in HDL [Mass/Vol] 70 mg/dL Critically high 40-60 [facility] Comment on above: Performed By: #### C MP, CRP, LIPA, CHANDNI #### [facility] [address] [address] [address] Luis Miguel Veronica Cholesterol in LDL [Mass/Vol] 111.6 mg/dL Normal [facility] Comment on above: Performed By: #### C MP, CRP, LIPA, CHANDNI #### [facility] [address] [address] [address] Luis Miguel Veronica Cholesterol.total/C holesterol in HDL [Mass ratio] 3.0 {ratio} Normal [facility] Comment on above: Performed By: #### C MP, CRP, LIPA, CHANDNI #### [facility] [address] [address] [address] Luis Miguel Veronica HDL NORMAL > or = 60 mg/dl - LO W CARDIOVASCULAR RISK <40 mg/dl - HIGH CARDIOVASCULAR RISK Normal [facility] Comment on above: Performed By: #### C MP, CRP, LIPA, CHANDNI #### [facility] [address] [address] [address] Luis Miguel Veronica LDL CALC NORMAL SEE BELOW Normal [facility] Comment on above: Result Comment: <100 mg/dl OPTIMAL 100 - 129 mg/dl NEAR OR ABOVE OPTIMAL 130 - 159 mg/dl BORDERLINE HIGH 160 - 189 mg/dl HIGH >190 mg/dl VERY HIGH Performed By: #### C MP, CRP, LIPA, CHANDNI #### [facility] [address] [address] [address] Luis Miguel Veronica Triglyceride [Mass/Vol] 152 mg/dL Critically high <=150 [facility] Comment on above: Performed By: #### C MP, CRP, LIPA, CHANDNI #### [facility] [address] [address] [address] Luis Miguel Veronica VLDL CALC 30.4 mg/dL Normal [facility] Comment on above: Performed By: #### C MP, CRP, LIPA, CHANDNI #### [facility] [address] [place] [employer] [place], [place] [address] Dr. Luis Miguel Veronica PROF 14(COMP METB)on 023 Albumin [Mass/Vol] 4.0 g/dL Normal 3.4-5.0 [facility] Comment on above: Performed By: #### U JOE, LIPID, CMP, TSH, T7, CRP ####[facility] [address] [address]Dr. Luis Miguel Veronica Albumin/Globulin [Mass ratio] 1.2 {ratio} Normal [facility] Comment on above: Performed By: #### U JOE, LIPID, CMP, TSH, T7, CRP ####[facility] [address] [address]Dr. Luis Miguel Veronica ALP [Catalytic activity/Vol] 63 U/L Normal 46-116 [facility] Comment on above: Performed By: #### U JOE, LIPID, CMP, TSH, T7, CRP ####[facility] [address] [address]Dr. Luis Miguel Veronica ALT [Catalytic activity/Vol] 28 U/L Normal 14-59 [facility] Comment on above: Performed By: #### U JOE, LIPID, CMP, TSH, T7, CRP ####[facility] [address] [address]Dr. Luis Miguel Veronica Anion gap [Moles/Vol] 17.1 mmol/L Normal [facility] Comment on above: Performed By: #### U JOE, LIPID, CMP, TSH, T7, CRP ####[facility] [address] [address]Dr. Luis Miguel Veronica AST [Catalytic activity/Vol] 26 U/L Normal 15-37 [facility] Comment on above: Performed By: #### U JOE, LIPID, CMP, TSH, T7, CRP ####[facility] [address] [address]Dr. Luis Miguel Veronica Bilirubin [Mass/Vol] 0.4 mg/dL Normal 0.2-1.0 [facility] Comment on above: Performed By: #### U JOE, LIPID, CMP, TSH, T7, CRP ####[facility] [address] [address]Dr. Luis Miguel Veronica Calcium [Mass/Vol] 9.8 mg/dL Normal 8.5-10.1 [facility] Comment on above: Performed By: #### U JOE, LIPID, CMP, TSH, T7, CRP ####[facility] [address] [place], [place] [address]Dr. Luis Miguel Veronica Chloride [Moles/Vol] 104 mmol/L Normal 98-107 [facility] Comment on above: Performed By: #### U JOE, LIPID, CMP, TSH, T7, CRP ####[facility] [address] [place], [place] [address]Dr. Luis Miguel Veronica CO2 [Moles/Vol] 24.6 mmol/L Normal 21.0-32.0 [facility] Comment on above: Performed By: #### U JOE, LIPID, CMP, TSH, T7, CRP ####[facility] [address] [place], [place] [address]Dr. Francineclyde Veronica Creatinine [Mass/Vol] 1.25 mg/dL Critically high 0.55-1.02 [facility] Comment on above: Performed By: #### U JOE, LIPID, CMP, TSH, T7, CRP ####[facility] [address] [place], [place] [address]Dr. Luis Miguel Jeremías EGFR-AF BELIZEAN 49 mL/min/1.73m2 Critically low >=60 [facility] Comment on above: Performed By: #### U JOE, LIPID, CMP, TSH, T7, CRP ####[facility] [address] [place], [place] [address]Dr. Luis Miguel Jeremías EGFR-NON AF BELIZEAN 41 mL/min/1.73m2 Critically low >=60 [facility] Comment on above: Performed By: #### U JOE, LIPID, CMP, TSH, T7, CRP ####[facility] [address] [place], [place] [address]Dr. Luis Miguel Veronica Globulin (S) [Mass/Vol] 3.3 g/dL Normal [facility] Comment on above: Performed By: #### U JOE, LIPID, CMP, TSH, T7, CRP ####[facility] [address] [address]Dr. Luis Miguel Veronica Glucose [Mass/Vol] 89 mg/dL Normal 74-106 [facility] Comment on above: Performed By: #### U JOE, LIPID, CMP, TSH, T7, CRP ####[facility] [address] [address]Dr. Luis Miguel Veronica Potassium [Moles/Vol] 4.7 mmol/L Normal 3.5-5.1 [facility] Comment on above: Performed By: #### U JOE, LIPID, CMP, TSH, T7, CRP ####[facility] [address] [place], [place] [address]Dr. Luis Miguel Veronica Protein [Mass/Vol] 7.3 g/dL Normal 6.4-8.2 [facility] Comment on above: Performed By: #### U JOE, LIPID, CMP, TSH, T7, CRP ####[facility] [address] [place], [place] [address]Dr. Luis Miguel Veronica Sodium [Moles/Vol] 141 mmol/L Normal 136-145 [facility] Comment on above: Performed By: #### U JOE, LIPID, CMP, TSH, T7, CRP ####[facility] [address] [place], [place] [address]Dr. Luis Miguel Veronica Urea nitrogen [Mass/Vol] 22.0 mg/dL Critically high 7.0-18.0 [facility] Comment on above: Performed By: #### U JOE, LIPID, CMP, TSH, T7, CRP ####[facility] [address] [address]Dr. Luis Miguel Veronica Urea nitrogen/Creatinine [Mass ratio] 17.6 mg/mg Normal [facility] Comment on above: Performed By: #### U JOE, LIPID, CMP, TSH, T7, CRP ####[facility] [address] [place], [place] [address]Dr. Luis Miguel Veronica TSHon 11-30-2022 TSH 1.292 uIU/mL Normal 0.358-3.740 [facility] Comment on above: Performed By: #### C MP, CRP, LIPA, CHANDNI #### [facility] [address] [address] [address] Luis Miguel Veronica URIC ACID SERUMon 11-30-2022 Urate [Mass/Vol] 4.0 mg/dL Normal 2.6-6.0 [facility] Comment on above: Performed By: #### U JOE, LIPID, CMP, TSH, T7, CRP ####[facility] [address] [place], [place] [address]UyDr. Luis Miguel Veronica VITAMIN D 25 OHon 11-30-2022 VIT D 25-OH 22.7 ng/mL Normal [facility] Comment on above: Performed By: #### I JAKUB, VITAD #### [facility] [address] [address] [address] Luis Miguel Veronica VIT D RANGES SEE BELOW Normal [facility] Comment on above: Result Comment: <20 ng/mL Vit D deficient 20 - <30 ng/mL Vit D insufficient 30 - 100 ng/mL Vit D sufficient >100 ng/mL Potential Toxicity Performed By: #### I JAKUB, VITAD #### [facility] [address] [address] [address] Luis Miguel Veronica CARDIAC MALDONADO ADMITon 023 CK [Catalytic activity/Vol] 64 U/L Normal 26-192 [facility] Comment on above: Performed By: #### C MP, CRP, LIPA, CHANDNI #### [facility] [address] [address] [address] Luis Miguel Veronica CK.MB [Mass/Vol] ng/mL Normal <=3.60 [facility] Comment on above: Performed By: #### C MP, CRP, LIPA, CHANDNI #### [facility] [address] [address] [address] Luis Miguel Veronica HSTROP 5.6 pg/mL Normal 4.0-51.3 [facility] Comment on above: Result Comment: CUT- OFF POINTS HAVE BEEN ESTABLISHED BASED ON THE FOURTH UNIVERSAL DEFINITIONS OF MYOCARDIAL INFARCTION. THE UPPER REFERENCE LIMIT (URL) OF TROPONIN, DEFINED THE 99TH PERCENTILE OF cTnI DISTRIBUTION IN A REFERENCE POPULATION, HAS BEEN CONFIRMED THE DECISION THRESHOLD FOR ID DIAGNOSIS. Performed By: #### C MP, CRP, LIPA, CHANDNI #### [facility] [address] [place] [address] Dr. Luis Miguel Veronica GEOVANNY 71 ng/mL Normal 9-82 [facility] Comment on above: Performed By: #### C MP, CRP, LIPA, CHANDNI #### [facility] [address] [place] [address] Dr. Luis Miguel Veronica CBC AUTO DIFFon 11-28-2022 BASO # 0.1 103/ul Normal 0.0-0.1 [facility] Comment on above: Performed By: #### I JAKUB, VITAD #### [facility] [address] [place] [address] Dr. Luis Miguel Veronica Basophils/100 WBC (Bld) 0.7 % Normal 0.2-2.0 [facility] Comment on above: Performed By: #### I JAKUB VITAD #### [facility] [address] [place] [address] Dr. Luis Miguel Veronica EO # 0.1 103/ul Normal 0.0-0.7 [facility] Comment on above: Performed By: #### I JAKUB, VITAD #### [facility] [address] [place] [address] Dr. Luis Miguel Veronica Eosinophils/100 WBC (Bld) 1.0 % Normal 0.9-7.0 [facility] Comment on above: Performed By: #### I JAKUB VITAD #### [facility] [address] [place] [address] Dr. Luis Miguel Veronica Erythrocyte distribution width (RBC) [Ratio] 13.4 % Normal 11.0-15.0 [facility] Comment on above: Performed By: #### Jaycob CALL, VITAD #### [facility] [address] [place] [address] Dr. Luis Miguel Veronica Hematocrit (Bld) [Volume fraction] 46.1 % Normal 36.0-48.0 [facility] Comment on above: Performed By: #### I JAKUB, VITAD #### [facility] [address] [place] [address] Dr. Luis Miguel Veronica Hemoglobin (Bld) [Mass/Vol] 14.7 g/dL Normal 12.0-16.0 [facility] Comment on above: Performed By: #### I JAKUB, VITAD #### [facility] [address] [place] [address] Dr. Luis Miguel Veronica IG # 0.02 10e3/ul Normal 0.00-0.03 [facility] Comment on above: Performed By: #### I JAKUB, VITAD #### [facility] [address] [place] [address] Dr. Luis Miguel Veronica IG % 0.2 % Normal 0.0-0.5 [facility] Comment on above: Performed By: #### I JAKUB, VITAD #### [facility] [address] [place] [address] Dr. Luis Miguel Veronica LYMPH # 3.9 103/ul Critically high 1.2-3.8 [facility] Comment on above: Performed By: #### I JAKUB, VITAD #### [facility] [address] [place] [address] Dr. Luis Miguel Veronica Lymphocytes/100 WBC (Bld) 47.6 % Normal 20.5-60.0 [facility] Comment on above: Performed By: #### I JAKUB, VITAD #### [facility] [address] [place] [address] Dr. Luis Miguel Veronica MANUAL DIFF REQ NO Normal [facility] Comment on above: Performed By: #### I JAKUB, VITAD #### [facility] [address] [place] [address] Dr. Luis Miguel Veronica MCH (RBC) [Entitic mass] 32.4 pg Normal 26.7-34.0 [facility] Comment on above: Performed By: #### I JAKUB, VITAD #### [facility] [address] [place] [address] Dr. Luis Miguel Veronica MCHC (RBC) [Mass/Vol] 31.9 g/dL Normal 29.9-35.2 [facility] Comment on above: Performed By: #### I JAKUB VITAD #### [facility] [address] [place] [address] Dr. Luis Miguel Veronica MCV (RBC) [Entitic vol] 101.5 fL Critically high 81.0-99.0 [facility] Comment on above: Performed By: #### Jaycob CALL VITAD #### [facility] [address] [place] [address] Dr. Luis Miguel Veronica MONO # 0.7 103/ul Normal 0.3-0.8 [facility] Comment on above: Performed By: #### I JAKUB VITAD #### [facility] [address] [place] [address] Dr. Luis Miguel Veronica Monocytes/100 WBC (Bld) 8.7 % Normal 1.7-12.0 [facility] Comment on above: Performed By: #### Jaycob CALL VITAD #### [facility] [address] [place] [address] Dr. Luis Miguel Veronica NEUT # 3.4 103/ul Normal 1.4-6.5 [facility] Comment on above: Performed By: #### Jaycob CALL VITAD #### [facility] [address] [place] [address] Dr. Luis Miguel Veronica Neutrophils/100 WBC (Bld) 41.8 % Critically low 43.0-75.0 [facility] Comment on above: Performed By: #### Jaycob CALL VITAD #### [facility] [address] [place] [address] Dr. Luis Miguel Veronica Platelet mean volume (Bld) [Entitic vol] 9.4 fL Critically low 9.5-13.5 [facility] Comment on above: Performed By: #### Jaycob CALL VITAD #### [facility] [address] [place] [address] Dr. Luis Miguel Veronica PLT 293 103/ul Normal 150-450 [facility] Comment on above: Performed By: #### Jaycob CALL VITAD #### [facility] [address] [place] [address] Dr. Luis Miguel Veronica RBC 4.54 106/ul Normal 4.20-5.40 [facility] Comment on above: Performed By: #### I MICHELLE CALL #### [facility] [address] [address] [address] Luis Miguel Veronica WBC 8.2 103/ul Normal 4.0-11.0 [facility] Comment on above: Performed By: #### I MICHELLE CALL #### [facility] [address] [address] [address] Luis Miguel Veronica [address] ABD/PELVIS WO [...] HURLEY Date: 2022-11-28 12:11 Normal [facility] LACTATE/LACTIC ACIDon 2022 Lactate [Moles/Vol] 1.6 mmol/L Normal 0.4-1.[address] [facility] Comment on above: Performed By: #### I MICHELLE CALL #### [facility] [address] [place] [address] Dr. Luis Miguel Veronica PROF 14(COMP METB)on 023 Albumin [Mass/Vol] 3.8 g/dL Normal 3.4-5.0 [facility] Comment on above: Performed By: #### C MP, CRP, LIPA, CHANDNI #### [facility] [address] [place] [address] Dr. Luis Miguel Veronica Albumin/Globulin [Mass ratio] 1.1 {ratio} Normal [facility] Comment on above: Performed By: #### C MP, CRP, LIPA, CHANDNI #### [facility] [address] [place] [address] Dr. Luis Miguel Veronica ALP [Catalytic activity/Vol] 64 U/L Normal 46-116 [facility] Comment on above: Performed By: #### C MP, CRP, LIPA, CHANDNI #### [facility] [address] [place] [address] Dr. Luis Miguel Veronica ALT [Catalytic activity/Vol] 27 U/L Normal 14-59 [facility] Comment on above: Performed By: #### C MP, CRP, LIPA, CHANDNI #### [facility] [address] [place] [address] Dr. Luis Miguel Veronica Anion gap [Moles/Vol] 11.8 mmol/L Normal [facility] Comment on above: Performed By: #### C MP, CRP, LIPA, CHANDNI #### [facility] [address] [place] [address] Dr. Luis Miguel Veronica AST [Catalytic activity/Vol] 28 U/L Normal 15-37 [facility] Comment on above: Performed By: #### C MP, CRP, LIPA, CHANDNI #### [facility] [address] [place] [address] Dr. Luis Miguel Veronica Bilirubin [Mass/Vol] 0.3 mg/dL Normal 0.2-1.0 [facility] Comment on above: Performed By: #### C MP, CRP, LIPA, CHANDNI #### [facility] [address] [place] [address] Dr. Luis Miguel Veronica Calcium [Mass/Vol] 9.5 mg/dL Normal 8.5-10.1 [facility] Comment on above: Performed By: #### C MP, CRP, LIPA, CHANDNI #### [facility] [address] [address] [address] Luis Miguel Veronica Chloride [Moles/Vol] 104 mmol/L Normal 98-107 [facility] Comment on above: Performed By: #### C MP, CRP, LIPA, CHANDNI #### [facility] [address] [address] [address] Luis Miguel Veronica CO2 [Moles/Vol] 27.4 mmol/L Normal 21.0-32.0 [facility] Comment on above: Performed By: #### C MP, CRP, LIPA, CHANDNI #### [facility] [address] [place] [address] Dr. Luis Miguel Veronica Creatinine [Mass/Vol] 1.43 mg/dL Critically high 0.55-1.02 [facility] Comment on above: Performed By: #### C MP, CRP, LIPA, CHANDNI #### [facility] [address] [place] [address] Dr. Luis Miguel Veronica EGFR-AF BELIZEAN 42 mL/min/1.73m2 Critically low >=60 [facility] Comment on above: Performed By: #### C MP, CRP, LIPA, CHANDNI #### [facility] [address] [place] [address] Dr. Luis Miguel Veronica EGFR-NON AF BELIZEAN 35 mL/min/1.73m2 Critically low >=60 [facility] Comment on above: Performed By: #### C MP, CRP, LIPA, CHANDNI #### [facility] [address] [place] [address] Dr. Luis Miguel Veronica Globulin (S) [Mass/Vol] 3.5 g/dL Normal [facility] Comment on above: Performed By: #### C MP, CRP, LIPA, CHANDNI #### [facility] [address] [place] [address] Dr. Luis Miguel Veronica Glucose [Mass/Vol] 112 mg/dL Critically high 74-106 [facility] Comment on above: Performed By: #### C MP, CRP, LIPA, CHANDNI #### [facility] [address] [address] [address] Luis Miguel Veronica Potassium [Moles/Vol] 4.2 mmol/L Normal 3.5-5.1 [facility] Comment on above: Performed By: #### C MP, CRP, LIPA, CHANDNI #### [facility] [address] [address] [address] Luis Miguel Veronica Protein [Mass/Vol] 7.3 g/dL Normal 6.4-8.2 [facility] Comment on above: Performed By: #### C MP, CRP, LIPA, CHANDNI #### [facility] [address] [address] [address] Luis Miguel Veronica Sodium [Moles/Vol] 139 mmol/L Normal 136-145 [facility] Comment on above: Performed By: #### C MP, CRP, LIPA, CHANDNI #### [facility] [address] [address] [address] Luis Miguel Veronica Urea nitrogen [Mass/Vol] 18.0 mg/dL Normal 7.0-18.0 [facility] Comment on above: Performed By: #### C MP, CRP, LIPA, CHANDNI #### [facility] [address] [place] [address] Dr. Luis Miguel Veronica Urea nitrogen/Creatinine [Mass ratio] 12.6 mg/mg Normal [facility] Comment on above: Performed By: #### C MP, CRP, LIPA, CHANDNI #### [facility] [address] [address] [address] Luis Miguel Veronica XR HIP LT [...] HURLEY Date: 2022-11-28 12:13 Normal [facility] US [place] DOP LEG LTon 04-14-20 22 [...] ROMERO Date: 2022-04-14 13:50 Normal [facility] AMYLASEon 04-04-2022 Amylase [Catalytic activity/Vol] 44 U/L Normal 25-115 [facility] Comment on above: Performed By: #### C MP, CRP, LIPA, CHANDNI #### [facility] [address] [address] [address] Luis Miguel Veronica CBC AUTO DIFFon 04-04-2022 BASO # 0.0 103/ul Normal 0.0-0.1 [facility] Comment on above: Performed By: #### C MP, CRP, LIPA, CHANDNI #### [facility] [address] [address] [address] Luis Miguel Veronica Basophils/100 WBC (Bld) 0.1 % Critically low 0.2-2.0 [facility] Comment on above: Performed By: #### C MP, CRP, LIPA, CHANDNI #### [facility] [address] [address] [address] Luis Miguel Veronica EO # 0.0 103/ul Normal 0.0-0.7 [facility] Comment on above: Performed By: #### C MP, CRP, LIPA, CHANDNI #### [facility] [address] [place] [address] Dr. Luis Miguel Veronica Eosinophils/100 WBC (Bld) 0.0 % Critically low 0.9-7.0 [facility] Comment on above: Performed By: #### C MP, CRP, LIPA, CHANDNI #### [facility] [address] [place] [address] Dr. Luis Miguel Veronica Erythrocyte distribution width (RBC) [Ratio] 13.5 % Normal 11.0-15.0 [facility] Comment on above: Performed By: #### C MP, CRP, LIPA, CHANDNI #### [facility] [address] [place] [address] Dr. Luis Miguel Veronica Hematocrit (Bld) [Volume fraction] 34.0 % Critically low 36.0-48.0 [facility] Comment on above: Performed By: #### C MP, CRP, LIPA, CHANDNI #### [facility] [address] [place] [address] Dr. Luis Miguel Veronica Hemoglobin (Bld) [Mass/Vol] 11.0 g/dL Critically low 12.0-16.0 [facility] Comment on above: Performed By: #### C MP, CRP, LIPA, CHANDNI #### [facility] [address] [place] [address] Dr. Luis Miguel Veronica IG # 0.14 10e3/ul Critically high 0.00-0.03 [facility] Comment on above: Performed By: #### C MP, CRP, LIPA, CHANDNI #### [facility] [address] [place] [address] Dr. Luis Miguel Veronica IG % 1.2 % Critically high 0.0-0.5 [facility] Comment on above: Performed By: #### C MP, CRP, LIPA, CHANDNI #### [facility] [address] [place] [address] Dr. Luis Miguel Veronica LYMPH # 0.7 103/ul Critically low 1.2-3.8 [facility] Comment on above: Performed By: #### C MP, CRP, LIPA, CHANDNI #### [facility] [address] [place] [address] Dr. Luis Miguel Veronica Lymphocytes/100 WBC (Bld) 6.3 % Critically low 20.5-60.0 [facility] Comment on above: Performed By: #### C MP, CRP, LIPA, CHANDNI #### [facility] [address] [place] [address] Dr. Luis Miguel Veronica MANUAL DIFF REQ NO Normal [facility] Comment on above: Performed By: #### C MP, CRP, LIPA, CHANDNI #### [facility] [address] [place] [address] Dr. Luis Miguel Veronica MCH (RBC) [Entitic mass] 32.1 pg Normal 26.7-34.0 [facility] Comment on above: Performed By: #### C MP, CRP, LIPA, CHANDNI #### [facility] [address] [place] [address] Dr. Luis Miguel Veronica MCHC (RBC) [Mass/Vol] 32.4 g/dL Normal 29.9-35.2 [facility] Comment on above: Performed By: #### C MP, CRP, LIPA, CHANDNI #### [facility] [address] [place] [address] Dr. Luis Miguel Veronica MCV (RBC) [Entitic vol] 99.1 fL Critically high 81.0-99.0 [facility] Comment on above: Performed By: #### C MP, CRP, LIPA, CHANDNI #### [facility] [address] [place] [address] Dr. Luis Miguel Veronica MONO # 0.3 103/ul Normal 0.3-0.8 [facility] Comment on above: Performed By: #### C MP, CRP, LIPA, CHANDNI #### [facility] [address] [place] [address] Dr. Luis Miguel Veronica Monocytes/100 WBC (Bld) 2.7 % Normal 1.7-12.0 [facility] Comment on above: Performed By: #### C MP, CRP, LIPA, CHANDNI #### [facility] [address] [place] [address] Dr. Luis Miguel Veronica NEUT # 10.2 103/ul Critically high 1.4-6.5 [facility] Comment on above: Performed By: #### C MP, CRP, LIPA, CHANDNI #### [facility] [address] [place] [address] Dr. Luis Miguel Veronica Neutrophils/100 WBC (Bld) 89.7 % Critically high 43.0-75.0 [facility] Comment on above: Performed By: #### C MP, CRP, LIPA, CHANDNI #### [facility] [address] [place] [address] Dr. Luis Miguel Veronica Platelet mean volume (Bld) [Entitic vol] 10.0 fL Normal 9.5-13.5 [facility] Comment on above: Performed By: #### C MP, CRP, LIPA, CHANDNI #### [facility] [address] [place] [address] Dr. Luis Miguel Veronica PLT 207 103/ul Normal 150-450 [facility] Comment on above: Performed By: #### C MP, CRP, LIPA, CHANDNI #### [facility] [address] [place] [address] Dr. Luis Miguel Veronica RBC 3.43 106/ul Critically low 4.20-5.40 [facility] Comment on above: Performed By: #### C MP, CRP, LIPA, CHANDNI #### [facility] [address] [place] [address] Dr. Luis Miguel Veronica WBC 11.4 103/ul Critically high 4.0-11.0 [facility] Comment on above: Performed By: #### C MP, CRP, LIPA, CHANDNI #### [facility] [address] [place] [address] Dr. Luis Miguel Veronica CRPon 04-04-2022 CRP [Mass/Vol] mg/L Normal <=1.0 [facility] Comment on above: Performed By: #### C MP, CRP, LIPA, CHANDNI #### [facility] [address] [place] [address] Dr. Luis Miguel Veronica LIPASEon 04-04-2022 Lipase [Catalytic activity/Vol] 106.0 U/L Normal 73.0-393.0 [facility] Comment on above: Performed By: #### C MP, CRP, LIPA, CHANDNI #### [facility] [address] [place] [address] Dr. Luis Miguel Veronica PROF 14(COMP METB)on 022 Albumin [Mass/Vol] 2.6 g/dL Critically low 3.4-5.0 [facility] Comment on above: Performed By: #### C MP, CRP, LIPA, CHANDNI #### [facility] [address] [place] [address] Dr. Luis Miguel Veronica Albumin/Globulin [Mass ratio] 0.9 {ratio} Normal [facility] Comment on above: Performed By: #### C MP, CRP, LIPA, CHANDNI #### [facility] [address] [place] [address] Dr. Luis Miguel Veronica ALP [Catalytic activity/Vol] 43 U/L Critically low 46-116 [facility] Comment on above: Performed By: #### C MP, CRP, LIPA, CHANDNI #### [facility] [address] [place] [address] Dr. Luis Miguel Veronica ALT [Catalytic activity/Vol] 100 U/L Critically high 14-59 [facility] Comment on above: Performed By: #### C MP, CRP, LIPA, CHANDNI #### [facility] [address] [place] [address] Dr. Luis Miguel Veronica Anion gap [Moles/Vol] 12.0 mmol/L Normal [facility] Comment on above: Performed By: #### C MP, CRP, LIPA, CHANDNI #### [facility] [address] [place] [address] Dr. Luis Miguel Veronica AST [Catalytic activity/Vol] 52 U/L Critically high 15-37 [facility] Comment on above: Performed By: #### C MP, CRP, LIPA, CHANDNI #### [facility] [address] [place] [address] Dr. Luis Miguel Veronica Bilirubin [Mass/Vol] 0.3 mg/dL Normal 0.2-1.0 [facility] Comment on above: Performed By: #### C MP, CRP, LIPA, CHANDNI #### [facility] [address] [address] [address] Luis Miguel Veronica Calcium [Mass/Vol] 7.9 mg/dL Critically low 8.5-10.1 [facility] Comment on above: Performed By: #### C MP, CRP, LIPA, CHANDNI #### [facility] [address] [address] [address] Luis Miguel Veronica Chloride [Moles/Vol] 111 mmol/L Critically high 98-107 [facility] Comment on above: Performed By: #### C MP, CRP, LIPA, CHANDNI #### [facility] [address] [place] [address] Dr. Luis Miguel Veronica CO2 [Moles/Vol] 22.5 mmol/L Normal 21.0-32.0 [facility] Comment on above: Performed By: #### C MP, CRP, LIPA, CHANDNI #### [facility] [address] [place] [address] Dr. Luis Miguel Veronica Creatinine [Mass/Vol] 1.18 mg/dL Critically high 0.55-1.02 [facility] Comment on above: Performed By: #### C MP, CRP, LIPA, CHANDNI #### [facility] [address] [place] [address] Dr. Luis Miguel Veronica EGFR-AF BELIZEAN 53 mL/min/1.73m2 Critically low >=60 [facility] Comment on above: Performed By: #### C MP, CRP, LIPA, CHANDNI #### [facility] [address] [place] [address] Dr. Luis Miguel Veronica EGFR-NON AF BELIZEAN 43 mL/min/1.73m2 Critically low >=60 [facility] Comment on above: Performed By: #### C MP, CRP, LIPA, CHANDNI #### [facility] [address] [place] [address] Dr. Luis Miguel Veronica Globulin (S) [Mass/Vol] 3.0 g/dL Normal [facility] Comment on above: Performed By: #### C MP, CRP, LIPA, CHANDNI #### [facility] [address] [address] [address] Luis Miguel Veronica Glucose [Mass/Vol] 190 mg/dL Critically high 74-106 [facility] Comment on above: Performed By: #### C MP, CRP, LIPA, CHANDNI #### [facility] [address] [address] [address] Luis Miguel Veronica Potassium [Moles/Vol] 3.5 mmol/L Normal 3.5-5.1 [facility] Comment on above: Performed By: #### C MP, CRP, LIPA, CHANDNI #### [facility] [address] [address] [address] Luis Miguel Veronica Protein [Mass/Vol] 5.6 g/dL Critically low 6.4-8.2 [facility] Comment on above: Performed By: #### C MP, CRP, LIPA, CHANDNI #### [facility] [address] [place] [address] Dr. Luis Miguel Veronica Sodium [Moles/Vol] 142 mmol/L Normal 136-145 [facility] Comment on above: Performed By: #### C MP, CRP, LIPA, CHANDNI #### [facility] [address] [address] [address] Luis Miguel Veronica Urea nitrogen [Mass/Vol] 20.0 mg/dL Critically high 7.0-18.0 [facility] Comment on above: Performed By: #### C MP, CRP, LIPA, CHANDNI #### [facility] [address] [place] [address] Dr. Luis Miguel Veronica Urea nitrogen/Creatinine [Mass ratio] 16.9 mg/mg Normal [facility] Comment on above: Performed By: #### C MP, CRP, LIPA, CHANDNI #### [facility] [address] [place] [address] Dr. Luis Miguel Veronica XR ABD FLAT [...] WRIGHT Date: 2022-04-04 07:05 Normal [facility] AMYLASEon 04-03-2022 Amylase [Catalytic activity/Vol] 48 U/L Normal 25-115 [facility] Comment on above: Performed By: #### I MICHELLE CALL #### [facility] [address] [place] [address] Dr. Luis Miguel Veronica CBC AUTO DIFFon 04-03-2022 BASO # 0.0 103/ul Normal 0.0-0.1 [facility] Comment on above: Performed By: #### C BC #### [facility] [address] [place] [address] Dr. Luis Miguel Veronica Basophils/100 WBC (Bld) 0.1 % Critically low 0.2-2.0 [facility] Comment on above: Performed By: #### C BC #### [facility] [address] [place] [address] Dr. Luis Miguel Veronica EO # 0.0 103/ul Normal 0.0-0.7 [facility] Comment on above: Performed By: #### C BC #### [facility] [address] [address] [address] Luis Miguel Veronica Eosinophils/100 WBC (Bld) 0.0 % Critically low 0.9-7.0 [facility] Comment on above: Performed By: #### C BC #### [facility] [address] [place] [address] Dr. Luis Miguel Veronica Erythrocyte distribution width (RBC) [Ratio] 13.6 % Normal 11.0-15.0 [facility] Comment on above: Performed By: #### C BC #### [facility] [address] [place] [address] Dr. Luis Miguel Veronica Hematocrit (Bld) [Volume fraction] 33.5 % Critically low 36.0-48.0 [facility] Comment on above: Performed By: #### C BC #### [facility] [address] [place] [address] Dr. Luis Miguel Veronica Hemoglobin (Bld) [Mass/Vol] 10.9 g/dL Critically low 12.0-16.0 [facility] Comment on above: Performed By: #### C BC #### [facility] [address] [place] [address] Dr. Luis Miguel Veronica IG # 0.15 10e3/ul Critically high 0.00-0.03 [facility] Comment on above: Performed By: #### C BC #### [facility] [address] [place] [address] Dr. Luis Miguel Veronica IG % 1.0 % Critically high 0.0-0.5 [facility] Comment on above: Performed By: #### C BC #### [facility] [address] [place] [address] Dr. Luis Miguel Veronica LYMPH # 0.9 103/ul Critically low 1.2-3.8 [facility] Comment on above: Performed By: #### C BC #### [facility] [address] [place] [address] Dr. Luis Miguel Veronica Lymphocytes/100 WBC (Bld) 5.6 % Critically low 20.5-60.0 [facility] Comment on above: Performed By: #### C BC #### [facility] [address] [place] [address] Dr. Luis Miguel Veronica MANUAL DIFF REQ NO Normal [facility] Comment on above: Performed By: #### C BC #### [facility] [address] [place] [address] Dr. Luis Miguel Veronica MCH (RBC) [Entitic mass] 32.1 pg Normal 26.7-34.0 [facility] Comment on above: Performed By: #### C BC #### [facility] [address] [address] [address] Luis Miguel Veronica MCHC (RBC) [Mass/Vol] 32.5 g/dL Normal 29.9-35.2 [facility] Comment on above: Performed By: #### C BC #### [facility] [address] [address] [address] Luis Miguel Veronica MCV (RBC) [Entitic vol] 98.5 fL Normal 81.0-99.0 [facility] Comment on above: Performed By: #### C BC #### [facility] [address] [place] [address] Dr. Luis Miguel Veronica MONO # 0.3 103/ul Normal 0.3-0.8 [facility] Comment on above: Performed By: #### C BC #### [facility] [address] [place] [address] Dr. Luis Miguel Veronica Monocytes/100 WBC (Bld) 2.2 % Normal 1.7-12.0 [facility] Comment on above: Performed By: #### C BC #### [facility] [address] [place] [address] Dr. Luis Miguel Veronica NEUT # 13.9 103/ul Critically high 1.4-6.5 [facility] Comment on above: Performed By: #### C BC #### [facility] [address] [place] [address] Dr. Luis Miguel Veronica Neutrophils/100 WBC (Bld) 91.1 % Critically high 43.0-75.0 [facility] Comment on above: Performed By: #### C BC #### [facility] [address] [address] [address] Luis Miguel Veronica Platelet mean volume (Bld) [Entitic vol] 9.7 fL Normal 9.5-13.5 [facility] Comment on above: Performed By: #### C BC #### [facility] [address] [address] [address] Luis Miguel Veronica PLT 204 103/ul Normal 150-450 [facility] Comment on above: Performed By: #### C BC #### [facility] [address] [address] [address] Luis Miguel Veronica RBC 3.40 106/ul Critically low 4.20-5.40 [facility] Comment on above: Performed By: #### C BC #### [facility] [address] [employer], [place] [address] Dr. Luis Miguel Veronica WBC 15.2 103/ul Critically high 4.0-11.0 [facility] Comment on above: Performed By: #### C BC #### [facility] [address] [address] [address] Luis Miguel Veronica CRPon 04-03-2022 CRP 0.3 mg/dL Normal <=1.0 [facility] Comment on above: Performed By: #### I MICHELLE CALL #### [facility] [address] [address] [address] Luis Miguel Veronica CULTURE URINEon 04-03-2022 [...] xazole <=20 S F Normal [facility] Comment on above: Performed By: #### U RCX ####[facility] [id number] [address]Dr. Luis Miguel Veronica LIPASEon 04-03-2022 Lipase [Catalytic activity/Vol] 95.0 U/L Normal 73.0-393.0 [facility] Comment on above: Performed By: #### MICHELLE BARRIOS #### [facility] [address] [address] [address] Luis Miguel Veronica OCC BLD IMMUNOASSAYon 2021 OCCULT BLOOD Negative Normal NEGATIVE [facility] Comment on above: Performed By: #### C MP, CRP, LIPA, CHANDNI #### [facility] [address] [place] [address] Dr. Luis Miguel Veronica PROF 14(COMP METB)on 022 Albumin [Mass/Vol] 2.6 g/dL Critically low 3.4-5.0 [facility] Comment on above: Performed By: #### I JAKUB, VITAD #### [facility] [address] [place] [address] Dr. Luis Miguel Veronica Albumin/Globulin [Mass ratio] 0.8 {ratio} Normal [facility] Comment on above: Performed By: #### I JAKUB, VITAD #### [facility] [address] [place] [address] Dr. Luis Miguel Veronica ALP [Catalytic activity/Vol] 48 U/L Normal 46-116 [facility] Comment on above: Performed By: #### I JAKUB, VITAD #### [facility] [address] [place] [address] Dr. Luis Miguel Veronica ALT [Catalytic activity/Vol] 86 U/L Critically high 14-59 [facility] Comment on above: Performed By: #### I JAKUB, VITAD #### [facility] [address] [place] [address] Dr. Luis Miguel Veronica Anion gap [Moles/Vol] 13.1 mmol/L Normal [facility] Comment on above: Performed By: #### I JAKUB, VITAD #### [facility] [address] [place] [address] Dr. Luis Miguel Veronica AST [Catalytic activity/Vol] 47 U/L Critically high 15-37 [facility] Comment on above: Performed By: #### I JAKUB, VITAD #### [facility] [address] [place] [address] Dr. Luis Miguel Veronica Bilirubin [Mass/Vol] 0.3 mg/dL Normal 0.2-1.0 [facility] Comment on above: Performed By: #### I JAKUB, VITAD #### [facility] [address] [address] [address] Luis Miguel Veronica Calcium [Mass/Vol] 8.1 mg/dL Critically low 8.5-10.1 [facility] Comment on above: Performed By: #### I JAKUB, VITAD #### [facility] [address] [place] [address] Dr. Luis Miguel Veronica Chloride [Moles/Vol] 111 mmol/L Critically high 98-107 [facility] Comment on above: Performed By: #### I JAKUB, VITAD #### [facility] [address] [place] [address] Dr. Luis Miguel Veronica CO2 [Moles/Vol] 22.7 mmol/L Normal 21.0-32.0 [facility] Comment on above: Performed By: #### I JAKUB, VITAD #### [facility] [address] [place] [address] Dr. Luis Miguel Veronica Creatinine [Mass/Vol] 1.25 mg/dL Critically high 0.55-1.02 [facility] Comment on above: Performed By: #### I JAKUB, VITAD #### [facility] [address] [place] [address] Dr. Luis Miguel Veronica EGFR-AF BELIZEAN 49 mL/min/1.73m2 Critically low >=60 [facility] Comment on above: Performed By: #### I JAKUB, VITAD #### [facility] [address] [place] [address] Dr. Luis Miguel Veronica EGFR-NON AF BELIZEAN 41 mL/min/1.73m2 Critically low >=60 [facility] Comment on above: Performed By: #### I JAKUB, VITAD #### [facility] [address] [address] [address] Luis Miguel Veronica Globulin (S) [Mass/Vol] 3.1 g/dL Normal [facility] Comment on above: Performed By: #### I JAKUB, VITAD #### [facility] [address] [place] [address] Dr. Luis Miguel Veronica Glucose [Mass/Vol] 167 mg/dL Critically high 74-106 [facility] Comment on above: Performed By: #### I JAKUB, VITAD #### [facility] [address] [address] [address] Luis Miguel Veronica Potassium [Moles/Vol] 3.8 mmol/L Normal 3.5-5.1 [facility] Comment on above: Performed By: #### I JAKUB, VITAD #### [facility] [address] [place] [address] Dr. Luis Miguel Veronica Protein [Mass/Vol] 5.7 g/dL Critically low 6.4-8.2 [facility] Comment on above: Performed By: #### I JAKUB, VITAD #### [facility] [address] [place] [address] Dr. Luis Miguel Veronica Sodium [Moles/Vol] 143 mmol/L Normal 136-145 [facility] Comment on above: Performed By: #### I JAKUB, VITAD #### [facility] [address] [place] [address] Dr. Luis Miguel Veornica Urea nitrogen [Mass/Vol] 20.0 mg/dL Critically high 7.0-18.0 [facility] Comment on above: Performed By: #### Jaycob CALL, VITAD #### [facility] [address] [place] [address] Dr. Luis Miguel Veronica Urea nitrogen/Creatinine [Mass ratio] 16.0 mg/mg Normal [facility] Comment on above: Performed By: #### Jaycob CALL VITAD #### [facility] [address] [place] [address] Dr. Luis Miguel Veronica XR ABD FLAT [...] MERCADO Date: 2022-04-03 07:10 Normal [facility] AMYLASEon 04-02-2022 Amylase [Catalytic activity/Vol] 62 U/L Normal 25-115 [facility] Comment on above: Performed By: #### C MP, CRP, LIPA, CHANDNI #### [facility] [address] [place] [address] Dr. Luis Miguel Veronica CBC AUTO DIFFon 04-02-2022 BASO # 0.0 103/ul Normal 0.0-0.1 [facility] Comment on above: Performed By: #### C MP, CRP, LIPA, CHANDNI #### [facility] [address] [place] [address] Dr. Luis Miguel Veronica Basophils/100 WBC (Bld) 0.1 % Critically low 0.2-2.0 [facility] Comment on above: Performed By: #### C MP, CRP, LIPA, CHANDNI #### [facility] [address] [place] [address] Dr. Luis Miguel Veronica EO # 0.0 103/ul Normal 0.0-0.7 [facility] Comment on above: Performed By: #### C MP, CRP, LIPA, CHANDNI #### [facility] [address] [place] [address] Dr. Luis Miguel Veronica Eosinophils/100 WBC (Bld) 0.0 % Critically low 0.9-7.0 [facility] Comment on above: Performed By: #### C MP, CRP, LIPA, CHANDNI #### [facility] [address] [place] [address] Dr. Luis Miguel Veronica Erythrocyte distribution width (RBC) [Ratio] 13.4 % Normal 11.0-15.0 [facility] Comment on above: Performed By: #### C MP, CRP, LIPA, CHANDNI #### [facility] [address] [place] [address] Dr. Luis Miguel Veronica Hematocrit (Bld) [Volume fraction] 37.3 % Normal 36.0-48.0 [facility] Comment on above: Performed By: #### C MP, CRP, LIPA, CHANDNI #### [facility] [address] [place] [address] Dr. Luis Miguel Veronica Hemoglobin (Bld) [Mass/Vol] 12.1 g/dL Normal 12.0-16.0 [facility] Comment on above: Performed By: #### C MP, CRP, LIPA, CHANDNI #### [facility] [address] [place] [address] Dr. Luis Miguel Veronica IG # 0.04 10e3/ul Critically high 0.00-0.03 [facility] Comment on above: Performed By: #### C MP, CRP, LIPA, CHANDNI #### [facility] [address] [place] [address] Dr. Luis Miguel Veronica IG % 0.3 % Normal 0.0-0.5 [facility] Comment on above: Performed By: #### C MP, CRP, LIPA, CHANDNI #### [facility] [address] [place] [address] Dr. Luis Miguel Veronica LYMPH # 1.3 103/ul Normal 1.2-3.8 [facility] Comment on above: Performed By: #### C MP, CRP, LIPA, CHANDNI #### [facility] [address] [place] [address] Dr. Luis Miguel Veronica Lymphocytes/100 WBC (Bld) 10.2 % Critically low 20.5-60.0 [facility] Comment on above: Performed By: #### C MP, CRP, LIPA, CHANDNI #### [facility] [address] [place] [address] Dr. Luis Miguel Veronica MANUAL DIFF REQ NO Normal [facility] Comment on above: Performed By: #### C MP, CRP, LIPA, CHANDNI #### [facility] [address] [place] [address] Dr. Luis Miguel Veronica MCH (RBC) [Entitic mass] 32.0 pg Normal 26.7-34.0 [facility] Comment on above: Performed By: #### C MP, CRP, LIPA, CHANDNI #### [facility] [address] [place] [address] Dr. Luis Miguel Veronica MCHC (RBC) [Mass/Vol] 32.4 g/dL Normal 29.9-35.2 [facility] Comment on above: Performed By: #### C MP, CRP, LIPA, CHANDNI #### [facility] [address] [place] [address] Dr. Luis Miguel Veronica MCV (RBC) [Entitic vol] 98.7 fL Normal 81.0-99.0 [facility] Comment on above: Performed By: #### C MP, CRP, LIPA, CHANDNI #### [facility] [address] [place] [address] Dr. Luis Miguel Veronica MONO # 0.2 103/ul Critically low 0.3-0.8 [facility] Comment on above: Performed By: #### C MP, CRP, LIPA, CHANDNI #### [facility] [address] [place] [address] Dr. Luis Miguel Veronica Monocytes/100 WBC (Bld) 1.3 % Critically low 1.7-12.0 [facility] Comment on above: Performed By: #### C MP, CRP, LIPA, CHANDNI #### [facility] [address] [place] [address] Dr. Luis Miguel Veronica NEUT # 11.0 103/ul Critically high 1.4-6.5 [facility] Comment on above: Performed By: #### C MP, CRP, LIPA, CHANDNI #### [facility] [address] [place] [address] Dr. Luis Miguel Veronica Neutrophils/100 WBC (Bld) 88.1 % Critically high 43.0-75.0 [facility] Comment on above: Performed By: #### C MP, CRP, LIPA, CHANDNI #### [facility] [address] [place] [address] Dr. Luis Miguel Veronica Platelet mean volume (Bld) [Entitic vol] 11.3 fL Normal 9.5-13.5 [facility] Comment on above: Performed By: #### C MP, CRP, LIPA, CHANDNI #### [facility] [address] [address] [address] Luis Miguel Veronica PLT 140 103/ul Critically low 150-450 [facility] Comment on above: Performed By: #### C MP, CRP, LIPA, CHANDNI #### [facility] [address] [address] [address] Luis Miguel Veronica RBC 3.78 106/ul Critically low 4.20-5.40 [facility] Comment on above: Performed By: #### C MP, CRP, LIPA, CHANDNI #### [facility] [address] [address] [address] Luis Miguel Veronica WBC 12.5 103/ul Critically high 4.0-11.0 [facility] Comment on above: Performed By: #### C MP, CRP, LIPA, CHANDNI #### [facility] [address] [address] [address] Luis Miguel Veronica CRPon 04-02-2022 CRP 2.5 mg/dL Critically high <=1.0 [facility] Comment on above: Performed By: #### C MP, CRP, LIPA, CHANDNI #### [facility] [address] [address] [address] Luis Miguel Veronica HELICOBACTER PYLORI AB IGGon 04-02-2022 H. PYLORI IGG ABS 0.44 Index Value Normal 0.00-0.79 [facility] Comment on above: Result Comment: Nega tive <0.80 Equivocal 0.80 - 0.89 Positive >0.89 Performed By: #### H PYLORG ####[facility] [id number] [place], [place] [address]NyDr. Luis Miguel Veronica LIPASEon 04-02-2022 Lipase [Catalytic activity/Vol] 55.0 U/L Critically low 73.0-393.0 [facility] Comment on above: Performed By: #### C MP, CRP, LIPA, CHANDNI #### [facility] [address] [address] [address] Luis Miguel Veronica PROF 14(COMP METB)on 022 Albumin [Mass/Vol] 3.0 g/dL Critically low 3.4-5.0 [facility] Comment on above: Performed By: #### C MP, CRP, LIPA, CHANDNI #### [facility] [address] [place] [address] Dr. Luis Miguel Veronica Albumin/Globulin [Mass ratio] 0.9 {ratio} Normal [facility] Comment on above: Performed By: #### C MP, CRP, LIPA, CHANDNI #### [facility] [address] [place] [address] Dr. Luis Miguel Veronica ALP [Catalytic activity/Vol] 61 U/L Normal 46-116 [facility] Comment on above: Performed By: #### C MP, CRP, LIPA, CHANDNI #### [facility] [address] [place] [address] Dr. Luis Miguel Veronica ALT [Catalytic activity/Vol] 101 U/L Critically high 14-59 [facility] Comment on above: Performed By: #### C MP, CRP, LIPA, CHANDNI #### [facility] [address] [place] [address] Dr. Luis Miguel Veronica Anion gap [Moles/Vol] 13.4 mmol/L Normal [facility] Comment on above: Performed By: #### C MP, CRP, LIPA, CHANDNI #### [facility] [address] [place] [address] Dr. Luis Miguel Veronica AST [Catalytic activity/Vol] 78 U/L Critically high 15-37 [facility] Comment on above: Performed By: #### C MP, CRP, LIPA, CHANDNI #### [facility] [address] [place] [address] Dr. Luis Miguel Veronica Bilirubin [Mass/Vol] 0.5 mg/dL Normal 0.2-1.0 [facility] Comment on above: Performed By: #### C MP, CRP, LIPA, CHANDNI #### [facility] [address] [place] [address] Dr. Luis Miguel Veronica Calcium [Mass/Vol] 8.6 mg/dL Normal 8.5-10.1 [facility] Comment on above: Performed By: #### C MP, CRP, LIPA, CHANDNI #### [facility] [address] [place] [address] Dr. Luis Miguel Veronica Chloride [Moles/Vol] 107 mmol/L Normal 98-107 [facility] Comment on above: Performed By: #### C MP, CRP, LIPA, CHANDNI #### [facility] [address] [place] [address] Dr. Luis Miguel Veronica CO2 [Moles/Vol] 24.8 mmol/L Normal 21.0-32.0 [facility] Comment on above: Performed By: #### C MP, CRP, LIPA, CHANDNI #### [facility] [address] [place] [address] Dr. Luis Miguel Veronica Creatinine [Mass/Vol] 1.30 mg/dL Critically high 0.55-1.02 [facility] Comment on above: Performed By: #### C MP, CRP, LIPA, CHANDNI #### [facility] [address] [place] [address] Dr. Luis Miguel Veronica EGFR-AF BELIZEAN 47 mL/min/1.73m2 Critically low >=60 [facility] Comment on above: Performed By: #### C MP, CRP, LIPA, CHANDNI #### [facility] [address] [place] [address] Dr. Luis Miguel Veronica EGFR-NON AF BELIZEAN 39 mL/min/1.73m2 Critically low >=60 [facility] Comment on above: Performed By: #### C MP, CRP, LIPA, CHANDNI #### [facility] [address] [place] [address] Dr. Luis Miguel Veronica Globulin (S) [Mass/Vol] 3.3 g/dL Normal [facility] Comment on above: Performed By: #### C MP, CRP, LIPA, CHANDNI #### [facility] [address] [place] [address] Dr. Luis Miguel Veronica Glucose [Mass/Vol] 189 mg/dL Critically high 74-106 [facility] Comment on above: Performed By: #### C MP, CRP, LIPA, CHANDNI #### [facility] [address] [place] [address] Dr. Luis Miguel Veronica Potassium [Moles/Vol] 4.2 mmol/L Normal 3.5-5.1 [facility] Comment on above: Performed By: #### C MP, CRP, LIPA, CHANDNI #### [facility] [address] [address] [address] Luis Miguel Veronica Protein [Mass/Vol] 6.3 g/dL Critically low 6.4-8.2 [facility] Comment on above: Performed By: #### C MP, CRP, LIPA, CHANDNI #### [facility] [address] [address] [address] Luis Miguel Veronica Sodium [Moles/Vol] 141 mmol/L Normal 136-145 [facility] Comment on above: Performed By: #### C MP, CRP, LIPA, CHANDNI #### [facility] [address] [place] [address] Dr. Luis Miguel Veronica Urea nitrogen [Mass/Vol] 23.0 mg/dL Critically high 7.0-18.0 [facility] Comment on above: Performed By: #### C MP, CRP, LIPA, CHANDNI #### [facility] [address] [address] [address] Luis Miguel Veronica Urea nitrogen/Creatinine [Mass ratio] 17.7 mg/mg Normal [facility] Comment on above: Performed By: #### C MP, CRP, LIPA, CHANDNI #### [facility] [address] [place] [address] Dr. Luis Miguel Veronica T3, TOTAL (TRIIODOTHYRONINE) on 04-02-2022 T3, TOTAL 83 ng/dL Normal 71-180 [facility] Comment on above: Performed By: #### C MP, CRP, LIPA, CHANDNI #### [facility] [address] [place] [address] Dr. Luis Miguel Veronica T4 LABCORPon 04-02-2022 T4 [Mass/Vol] 8.4 ug/dL Normal 4.5-12.0 [facility] Comment on above: Performed By: #### T 4LC #### [facility] [address] [place] [address] Dr. Luis Miguel Veronica XR ABD FLAT [...] SEARS Date: 2022-04-02 06:21 Normal [facility] AMYLASEon 04-01-2022 Amylase [Catalytic activity/Vol] 118 U/L Critically high 25-115 [facility] Comment on above: Performed By: #### C RP, TSH, LIPA, CHANDNI ####[facility] [id number] [address]Dr. Luis Miguel Veronica CBC AUTO DIFFon 04-01-2022 BASO # 0.1 103/ul Normal 0.0-0.1 [facility] Comment on above: Performed By: #### I MICHELLE CALL #### [facility] [address] [address] [address] Luis Miguel Veronica Basophils/100 WBC (Bld) 0.5 % Normal 0.2-2.0 [facility] Comment on above: Performed By: #### I MICHELLE CALL #### [facility] [address] [address] [address] Luis Miguel Veronica EO # 0.0 103/ul Normal 0.0-0.7 [facility] Comment on above: Performed By: #### I MICHELLE CALL #### [facility] [address] [place] [address] Dr. Luis Miguel Veronica Eosinophils/100 WBC (Bld) 0.1 % Critically low 0.9-7.0 [facility] Comment on above: Performed By: #### Jaycob CALL, VITAD #### [facility] [address] [place] [address] Dr. Luis Miguel Veronica Erythrocyte distribution width (RBC) [Ratio] 13.2 % Normal 11.0-15.0 [facility] Comment on above: Performed By: #### I JAKUB, VITAD #### [facility] [address] [place] [address] Dr. Luis Miguel Veronica Hematocrit (Bld) [Volume fraction] 42.1 % Normal 36.0-48.0 [facility] Comment on above: Performed By: #### Jaycob CALL, VITAD #### [facility] [address] [place] [address] Dr. Luis Miguel Veronica Hemoglobin (Bld) [Mass/Vol] 13.9 g/dL Normal 12.0-16.0 [facility] Comment on above: Performed By: #### Jaycob CALL VITAD #### [facility] [address] [place] [address] Dr. Luis Miguel Veronica IG # 0.06 10e3/ul Critically high 0.00-0.03 [facility] Comment on above: Performed By: #### Jaycob CALL, VITAD #### [facility] [address] [place] [address] Dr. Luis Miguel Veronica IG % 0.4 % Normal 0.0-0.5 [facility] Comment on above: Performed By: #### I JAKUB, VITAD #### [facility] [address] [place] [address] Dr. Luis Miguel Veronica LYMPH # 1.6 103/ul Normal 1.2-3.8 [facility] Comment on above: Performed By: #### Jaycob CALL, VITAD #### [facility] [address] [place] [address] Dr. Luis Miguel Veronica Lymphocytes/100 WBC (Bld) 11.7 % Critically low 20.5-60.0 [facility] Comment on above: Performed By: #### I JAKUB, VITAD #### [facility] [address] [place] [address] Dr. Luis Miguel Veronica MANUAL DIFF REQ NO Normal [facility] Comment on above: Performed By: #### I JAKUB, VITAD #### [facility] [address] [place] [address] Dr. Luis Miguel Veronica MCH (RBC) [Entitic mass] 32.0 pg Normal 26.7-34.0 [facility] Comment on above: Performed By: #### I JAKUB, VITAD #### [facility] [address] [place] [address] Dr. Luis Miguel Veronica MCHC (RBC) [Mass/Vol] 33.0 g/dL Normal 29.9-35.2 [facility] Comment on above: Performed By: #### I JAKUB, VITAD #### [facility] [address] [place] [address] Dr. Luis Miguel Veronica MCV (RBC) [Entitic vol] 97.0 fL Normal 81.0-99.0 [facility] Comment on above: Performed By: #### I JAKUB, VITAD #### [facility] [address] [place] [address] Dr. Luis Miguel Veronica MONO # 0.5 103/ul Normal 0.3-0.8 [facility] Comment on above: Performed By: #### I JAKUB, VITAD #### [facility] [address] [place] [address] Dr. Luis Miguel Veronica Monocytes/100 WBC (Bld) 4.0 % Normal 1.7-12.0 [facility] Comment on above: Performed By: #### I JAKUB, VITAD #### [facility] [address] [place] [address] Dr. Luis Miguel Veronica NEUT # 11.1 103/ul Critically high 1.4-6.5 [facility] Comment on above: Performed By: #### I JAKUB, VITAD #### [facility] [address] [place] [address] Dr. Luis Miguel Veronica Neutrophils/100 WBC (Bld) 83.3 % Critically high 43.0-75.0 [facility] Comment on above: Performed By: #### Jaycob CALL VITAD #### [facility] [address] [address] [address] Luis Miguel Veronica Platelet mean volume (Bld) [Entitic vol] 9.2 fL Critically low 9.5-13.5 [facility] Comment on above: Performed By: #### Jaycob CALL VITAD #### [facility] [address] [address] [address] Luis Miguel Veronica PLT 290 103/ul Normal 150-450 [facility] Comment on above: Performed By: #### Jaycob CALL VITAD #### [facility] [address] [address] [address] Luis Miguel Vreonica RBC 4.34 106/ul Normal 4.20-5.40 [facility] Comment on above: Performed By: #### Jaycob CALL VITAD #### [facility] [address] [address] [address] Luis Miguel Veronica WBC 13.4 103/ul Critically high 4.0-11.0 [facility] Comment on above: Performed By: #### Jaycob CALL VITAD #### [facility] [address] [address] [address] Luis Miguel Veronica CRPon 04-01-2022 CRP [Mass/Vol] mg/L Normal <=1.0 [facility] Comment on above: Performed By: #### C RP, TSH, LIPA, CHANDNI ####[facility] [address] [id number]. Luis Miguel Veronica CT ABD/PELVIS WO CONon [...] SEARS Date: 2022-04-01 05:44 Normal [facility] Covid-19 PCR ([facility])on SARS-CoV-2 (COVID-19) RNA ALEN+probe Ql (Unsp spec) Not detected Normal NOT DETECTED [facility] Comment on above: Result Comment: When diagnostic [...] for this test is supported by the Middle [employer] Coach of Health and Human Service's declaration that [...] C MP, CRP, LIPA, CHANDNI #### [facility] [address] [place] [address] Dr. Luis Miguel Veronica ER URINE PROFILEon 2 Bilirubin Ql (U) Negative Normal NEGATIVE [facility] Comment on above: Performed By: #### C MP, CRP, LIPA, CHANDNI #### [facility] [address] [place] [address] Dr. Luis Miguel Veronica Clarity (U) CLEAR Normal CLEAR [facility] Comment on above: Performed By: #### C MP, CRP, LIPA, CHANDNI #### [facility] [address] [place] [address] Dr. Luis Miguel Veronica Color (U) LT. YELLOW Normal YELLOW [facility] Comment on above: Performed By: #### C MP, CRP, LIPA, CHANDNI #### [facility] [address] [place] [address] Dr. Luis Miguel DELCID A micrscopic examination will be performed if indicated. Normal [facility] Comment on above: Performed By: #### C MP, CRP, LIPA, CHANDNI #### [facility] [address] [place] [address] Dr. Luis Miguel Veronica Glucose Ql (U) 250 mg/dl Abnormal NEGATIVE [facility] Comment on above: Performed By: #### C MP, CRP, LIPA, CHANDNI #### [facility] [address] [place] [address] Dr. Luis Miguel Veronica Hemoglobin Ql (U) TRACE-LYSED Abnormal NEGATIVE The [facility] Comment on above: Performed By: #### C MP, CRP, LIPA, CHANDNI #### [facility] [address] [place] [address] Dr. Luis Miguel Veronica Ketones Ql (U) 15 mg/dl Abnormal NEGATIVE [facility] Comment on above: Performed By: #### C MP, CRP, LIPA, CHANDNI #### [facility] [address] [place] [address] Dr. Luis Miguel Vreonica LEUKOCYTES Negative Normal NEGATIVE [facility] Comment on above: Performed By: #### C MP, CRP, LIPA, CHANDNI #### [facility] [address] [place] [address] Dr. Luis Miguel Veronica Nitrite Ql (U) Positive Abnormal NEGATIVE [facility] Comment on above: Performed By: #### C MP, CRP, LIPA, CHANDNI #### [facility] [address] [place] [address] Dr. Luis Miguel Veronica pH (U) 7.0 [pH] Normal 5-9 [facility] Comment on above: Performed By: #### C MP, CRP, LIPA, CHANDNI #### [facility] [address] [place] [address] Dr. Luis Miguel Veronica Protein (U) [Mass/Vol] 30 mg/dL Abnormal NEGATIVE/ TRACE [facility] Comment on above: Performed By: #### C MP, CRP, LIPA, CHANDNI #### [facility] [address] [place] [address] Dr. Luis Miguel Veronica SPEC GRAVITY 1.020 Normal 1.005-<=1.02 5 [facility] Comment on above: Performed By: #### C MP, CRP, LIPA, CHANDNI #### [facility] [address] [place] [address] Dr. Luis Miguel Veronica UR MICRO IND INDICATED Normal [facility] Comment on above: Performed By: #### C MP, CRP, LIPA, CHANDNI #### [facility] [address] [place] [address] Dr. Luis Miguel Veronica Urobilinogen Qn (U) 0.2 {Garry'U}/dL Normal 0.2 - 1. 0 [facility] Comment on above: Performed By: #### C MP, CRP, LIPA, CHANDNI #### [facility] [address] [place] [address] Dr. Luis Miguel Veronica LACTATE/LACTIC ACIDon 2021 Lactate [Moles/Vol] 1.0 mmol/L Normal 0.4-1.[address] [facility] Comment on above: Performed By: #### C MP, CRP, LIPA, CHANDNI #### [facility] [address] [address] [address] Luis Miguel Veronica Lactate [Moles/Vol] 2.0 mmol/L Critically high 0.4-1.9 [facility] Comment on above: Performed By: #### I MICHELLE CALL #### [facility] [address] [address] [address] Luis Miguel Veronica LIPASEon 04-01-2022 Lipase [Catalytic activity/Vol] 61.0 U/L Critically low 73.0-393.0 [facility] Comment on above: Performed By: #### I MICHELLE CALL #### [facility] [address] [place] [address] Dr. Luis Miguel Veronica PROF 14(COMP METB)on 022 Albumin [Mass/Vol] 3.6 g/dL Normal 3.4-5.0 [facility] Comment on above: Performed By: #### C MP ####[facility] [address] [address]DrMaxi Veronica Albumin/Globulin [Mass ratio] 0.9 {ratio} Normal [facility] Comment on above: Performed By: #### C MP ####[facility] [address] [address]Dr. Luis Miguel Veronica ALP [Catalytic activity/Vol] 64 U/L Normal 46-116 [facility] Comment on above: Performed By: #### C MP ####[facility] [address] [address]Dr. Luis Miguel Veronica ALT [Catalytic activity/Vol] 22 U/L Normal 14-59 [facility] Comment on above: Performed By: #### C MP ####[facility] [address] [address]DrMaxi Veronica Anion gap [Moles/Vol] 16.0 mmol/L Normal [facility] Comment on above: Performed By: #### C MP ####[facility] [address] [address]DrMaxi Veronica AST [Catalytic activity/Vol] 21 U/L Normal 15-37 [facility] Comment on above: Performed By: #### C MP ####[facility] [address] [address]Dr. Luis Miguel Jeremías Bilirubin [Mass/Vol] 0.3 mg/dL Normal 0.2-1.0 [facility] Comment on above: Performed By: #### C MP ####[facility] [address] [place], [place] [address]Dr. Luis Miguel Veronica Calcium [Mass/Vol] 9.4 mg/dL Normal 8.5-10.1 [facility] Comment on above: Performed By: #### C MP ####[facility] [address] [place], [place] [address]Dr. Luis Miguel Veronica Chloride [Moles/Vol] 105 mmol/L Normal 98-107 [facility] Comment on above: Performed By: #### C MP ####[facility] [address] [place], [place] [address]Dr. Luis Miguel Veronica CO2 [Moles/Vol] 24.3 mmol/L Normal 21.0-32.0 [facility] Comment on above: Performed By: #### C MP ####[facility] [address] [place], [place] [address]Dr. Luis Miguel Veronica Creatinine [Mass/Vol] 1.47 mg/dL Critically high 0.55-1.02 [facility] Comment on above: Performed By: #### C MP ####[facility] [address] [place], [place] [address]Dr. Luis Miguel Veronica EGFR-AF BELIZEAN 41 mL/min/1.73m2 Critically low >=60 [facility] Comment on above: Performed By: #### C MP ####[facility] [address] [place], [place] [address]Dr. Luis Miguel Veronica EGFR-NON AF BELIZEAN 34 mL/min/1.73m2 Critically low >=60 [facility] Comment on above: Performed By: #### C MP ####[facility] [address] [place], [place] [address]Dr. Luis Miguel Veronica Globulin (S) [Mass/Vol] 3.8 g/dL Normal [facility] Comment on above: Performed By: #### C MP ####[facility] [address] [address]Dr. Luis Miguel Veronica Glucose [Mass/Vol] 214 mg/dL Critically high 74-106 [facility] Comment on above: Performed By: #### C MP ####[facility] [address] [address]Dr. Luis Miguel Veronica Potassium [Moles/Vol] 4.3 mmol/L Normal 3.5-5.1 [facility] Comment on above: Performed By: #### C MP ####[facility] [address] [place], [place] [address]Dr. Luis Miguel Veronica Protein [Mass/Vol] 7.4 g/dL Normal 6.4-8.2 [facility] Comment on above: Performed By: #### C MP ####[facility] [address] [place], [place] [address]Dr. Luis Miguel Veronica Sodium [Moles/Vol] 141 mmol/L Normal 136-145 [facility] Comment on above: Performed By: #### C MP ####[facility] [address] [place], [place] [address]Dr. Luis Miguel Veronica Urea nitrogen [Mass/Vol] 24.0 mg/dL Critically high 7.0-18.0 [facility] Comment on above: Performed By: #### C MP ####[facility] [address] [place], [place] [address]Dr. Luis Miguel Veronica Urea nitrogen/Creatinine [Mass ratio] 16.3 mg/mg Normal [facility] Comment on above: Performed By: #### C MP ####[facility] [address] [place], [place] [address]Dr. Luis Miguel Jeremías TSHon 04-01-2022 TSH 1.674 uIU/mL Normal 0.358-3.740 [facility] Comment on above: Performed By: #### C RP, TSH, LIPA, CHANDNI ####[facility] [address] [place], [place] [address]Dr. Luis Miguel Veronica TSH RANGE SEE BELOW Normal [facility] Comment on above: Result Comment: <0.3 4 UIU/ml HYPERTHYROID 0.34-5.60 UIU/ml EUTHYROID >5.60 UIU/ml HYPOTHYROID Performed By: #### C RP, TSH, LIPA, CHANDNI ####[facility] [address] [address]Dr. Luis Miguel Veronica URINE MICROSCOPIC ONLYon BACTERIA LARGE Abnormal NONE SEEN [facility] Comment on above: Performed By: #### C MP, CRP, LIPA, CHANDNI #### [facility] [address] [address] [address] Luis Miguel Veronica Bacteria identified Cx Nom (U) INDICATED Normal [facility] Comment on above: Performed By: #### C MP, CRP, LIPA, CHANDIN #### [facility] [address] [address] [address] Luis Miguel Veronica CA OX CRYSTALS RARE Normal [facility] Comment on above: Performed By: #### C MP, CRP, LIPA, CHANDNI #### [facility] [address] [address] [address] Luis Miguel Veronica CAST NONE SEEN Normal NONE SEEN [facility] Comment on above: Performed By: #### C MP, CRP, LIPA, CHANDNI #### [facility] [address] [address] [address] Luis Miguel Veronica Crystals LM Nom (Urine sed) SEEN Abnormal NONE SEEN [facility] Comment on above: Performed By: #### C MP, CRP, LIPA, CHANDNI #### [facility] [address] [address] [address] Luis Miguel Veronica Epithelial cells LM Ql (Urine sed) RARE Normal NONE SEEN /RARE [facility] Comment on above: Performed By: #### C MP, CRP, LIPA, CHANDNI #### [facility] [address] [address] [address] Luis Miguel Veronica MUCOUS NONE SEEN Normal NONE SEEN [facility] Comment on above: Performed By: #### C MP, CRP, LIPA, CHANDNI #### [facility] [address] [address] [address] Luis Miguel Veronica RBC 0-2 Normal 0-2 [facility] Comment on above: Performed By: #### C MP, CRP, LIPA, CHANDNI #### [facility] [address] [address] [address] Luis Miguel Veronica WBC 2-5 Abnormal NONE SEEN [facility] Comment on above: Performed By: #### C MP, CRP, LIPA, CHANDNI #### [facility] [address] [id number] Luis Miguel Veronica XR ABD FLAT [...] by: HARINI CAMPA Date: 2022-04-01 03:29 Normal [facility] Vital Signs Date Time Vital Sign Value Performing Clinician Facility 08-18-2023 12:58-0400 Blood Pressure Location Shadi SORTO [facility] 08-18-2023 12:58-0400 Diastolic blood pressure 76 mm[Hg] Shadi SORTO [facility] 08-18-2023 12:58-0400 Heart rate 92 /min Shadi SORTO [facility] 08-18-2023 12:58-0400 Systolic blood pressure 122 mm[Hg] Shadi SORTO [facility] 05-11-2023 13:03-0400 Blood Pressure Location Shadigladys SORTO [facility] 05-11-2023 13:03-0400 Diastolic blood pressure 72 mm[Hg] Shadi SORTO [facility] 05-11-2023 13:03-0400 Heart rate 75 /min Shadi SORTO [facility] 05-11-2023 13:03-0400 Respiratory rate 16 /min Shadigladys SORTO [facility] 05-11-2023 13:03-0400 Systolic blood pressure 116 mm[Hg] Shadi SORTO [facility] 01-12-2023 14:21-0400 Body height 152.4 cm Rodney Newton MD Work Phone: [facility] 01-12-2023 14:21-0400 Body weight 42.64 kg Rodney Newton MD Work Phone: [facility] 01-12-2023 14:21-0400 Diastolic blood pressure 55 mm[Hg] Rodney Newton MD Work Phone: [facility] 01-12-2023 14:21-0400 Heart rate 90 /min Rodney Newton MD Work Phone: [facility] 01-12-2023 14:21-0400 Respiratory rate 16 /min Rodney Newton MD Work Phone: [facility] 01-12-2023 14:21-0400 SaO2% (BldA) [Mass fraction] 96 % Rodney Newton MD Work Phone: [facility] 01-12-2023 14:21-0400 Systolic blood pressure 124 mm[Hg] Rodney Newton MD Work Phone: [facility] 12-24-2022 12:15-0500 Body height 152.4 cm Lesli Connelly Other [facility] Other 12-24-2022 12:15-0500 Body mass index (BMI) [Ratio] 18.36 kg/m2 Lesli Connelly Other [facility] Other 12-24-2022 12:15-0500 Body temperature 97.4 [degF] Lesli Connelly Other [facility] Other 12-24-2022 12:15-0500 Body weight 42.64 kg Lesli Connelly Other [facility] Other 12-24-2022 12:15-0500 Respiratory rate 18 /min Lesli Connelly Other [facility] Other 12-24-2022 12:15-0500 SaO2% (BldA) [Mass fraction] 94 % Lesli Connelly [facility] Other Encounters Encounter Date Encounter Type Care Provider Facility Start: 08-23-2024 ambulatory Shadi Jean Baptistei ty:[facility] Start: 02-09-2024 End: 02-09-2024 ambulatory RODERICK FISCHER Not Available Start: 01-26-2024 End: 01-26-2024 ambulatory RODERICK FISCHER Not Available Start: 01-05-2024 End: 01-05-2024 ambulatory RODERICK FISCHER Not Available Start: 08-18-2023 End: 08-19-2023 ambulatory Shadi SORTO Facility:[facility] Start: 08-18-2023 End: 08-18-2023 Patient encounter procedure Shadi SORTO [facility] Start: 05-11-2023 End: 05-12-2023 ambulatory Shadi SORTO Facility:[facility] Start: 05-11-2023 End: 05-11-2023 Patient encounter procedure Shadi SORTO [facility] Start: 04-16-2023 ambulatory Shadi SORTO Facility :[facility]idy Start: 04-15-2023 End: 04-16-2023 ambulatory Shadi SORTO Facility:CD:[id number] Start: 04-07-2023 Telephone encounter Renard dimas COMMERCIAL ANNOUNCER.HOME FURNISHINGS SALES REPRESENTATIVE Work Phone: [facility] Comment on above: Results Start: 04-02-2023 End: 04-02-2023 ambulatory LETY DANIELS Facility:[facility] Start: 03-05-2023 End: 03-06-2023 ambulatory LETY DANIELS Facility:[facility] Start: 03-05-2023 End: 03-05-2023 ambulatory Renard Reyes COMMERCIAL ANNOUNCER.HOME FURNISHINGS SALES REPRESENTATIVE Work Phone: [facility] Comment on above: Radiculopathy of lum bar region (Primary Dx); Acute midline low back pain with right-sided sciatica; Weakness of both lower extremities Start: 03-05-2023 End: 03-05-2023 Telemedicine consultation with patient Renard Reyes COMMERCIAL ANNOUNCER.HOME FURNISHINGS SALES REPRESENTATIVE Work Phone: [facility] Start: 02-01-2023 End: 02-02-2023 ambulatory JENN TOLEDO Facility:[facility] Start: 01-12-2023 End: 01-13-2023 ambulatory LETY DANIELS Facility:[facility] Start: 01-12-2023 End: 01-12-2023 Patient encounter procedure Rodney Newton MD Work Phone: [facility] Comment on above: Lumbar radiculopathy (Primary Dx) Start: 12-24-2022 End: 12-24-2022 ambulatory Lesli Godwin Other [facility] Other Start: 12-24-2022 Office outpatient ne w [...] 10-25-2022 ADVANCE DIRECTIVE DISCUSSION ADVANCE DIRECTIVE DISCUSSION [facility] Start: 10-25-2022 DEPRESSION ASSESSMENT DEPRESSION ASS ESSMENT [facility] Start: 09-23-2021 COVID-19 VACCINE (4 - Booster for Pfizer series) COVID-19 VACCINE (4 - Booster for Pfizer series) [facility] Start: 03-03-2013 DIABETES SCREEN DIABETES SCREEN [facility] Start: 2001 BONE DENSITY BONE DENSITY [facility] Start: 2001 PNEUMOCOCCAL: 65+ (1 - PCV) PNEUMOCOCCAL: 65+ (1 - PCV) [facility] Start: 1986 SHINGRIX VACCINE (1 of 2) SHINGRIX VACCINE (1 of 2) [facility] Start: 1955 Urine microalbumin profile DTAP,TDAP,TD (1 - Tdap) [facility] End: 04-03-2024 Mri spinal canal lumbar w/o contrast material MRI LUMBAR SPINE WO IVCON Radiology Routine Radiculopathy of lumbar region Acute midline low back pain with right-sided sciatica Weakness of both lower extremities 1 Occurrences starting 03/05/2023 until 04/03/2024 [facility] Work Phone: Comment on above: 1 Occurrences starti ng 03/05/2023 until 04/03/2024 [facility] Immunizations Immunization Date Immunization Notes Care Provider Bjorn rojas 08-18-2022 influenza virus vaccine, unspecified formulation Shadi SORTO [facility] 07-29-2021 SARS-CoV-2 (COVID-19 ) mRNA BNT-162b2 vax Shadi SORTO [facility] 07-21-2021 influenza virus vaccine, unspecified formulation Shadi SORTO [facility] 12-11-2020 SARS-CoV-2 (COVID-19 ) mRNA BNT-162b2 vax Shadi SORTO [facility] Comment on above: Result Comment: 2022: [id number] 11-20-2020 SARS-CoV-2 (COVID-19 ) mRNA BNT-162b2 vax [employer] [facility] Comment on above: Result Comment: 2022: [id number] 07-17-2020 influenza virus vaccine, unspecified formulation [employer] [facility] 09-23-2019 zoster vaccine recombinant [employer] [facility] 07-04-2019 zoster vaccine recombinant [employer] [facility] 06-27-2019 influenza virus vaccine, unspecified formulation [employer] [facility] 08-03-2018 influenza virus vaccine, unspecified formulation [employer] [facility] 07-15-2017 influenza virus vaccine, unspecified formulation [employer] [facility] 03-29-2017 pneumococcal polysaccharide vaccine, 23 valent [employer] [facility] 07-13-2016 influenza virus vaccine, unspecified formulation [employer] [facility] 01-22-2016 pneumococcal conjuga te vaccine, 13 valent [employer] [facility] 08-01-2015 influenza virus vaccine, unspecified formulation [employer] [facility] 05-14-2014 tetanus toxoid, redu britney diphtheria toxoid, and acellular pertussis vaccine, adsorbed Lesli Connelly Other [facility] Other 01-10-2014 tetanus toxoid, redu britney diphtheria toxoid, and acellular pertussis vaccine, adsorbed Lesli Connelly [facility] Other Payers Date Payer Category Payer Medicare DEVOTED MEDICARE [facility] HMO [id number] 2022-Present [phone] [address] [place] [address] HMO [id number] 2021 Unknown [id number] 1959 Medicare [id number] 1936 Unknown [id number] [id number] 1936 Unknown [id number] [id number] 1936 Unknown [id number] [id number] 1936 Unknown [id number] [id number] 1936 Unknown [id number] [id number] 1936 Unknown [id number] [id number] 1936 Unknown [id number] [id number] 1936 Unknown [id number] 2.16.840.1.463607.3.579.2.593 1936 Unknown [id number] [id number] 1936 Unknown [id number] [id number] 1936 Unknown [id number] 2.16.840.1.356754.3.579.2.727 1936 Unknown [id number] 2.16.840.1.325253.3.579.2.727 1936 Unknown [id number] 2.16.840.1.387125.3.579.2.727 1936 Unknown [id number] [id number] 1936 Unknown [id number] [id number] 1936 Unknown [id number] Social History Date Type Detail Facility Sex Assigned At [facility] Start: 01-12-2023 End: 08-18-2023 Tobacco smoking status NHIS Ex-smoker [facility] End: 02-17-2010 History of tobacco use Current smoker [facility] End: 02-17-2010 History of tobacco use Cigarette Smoker [facility] Start: 01-12-2023 Cigarettes smoked current (pack per day) - Reported 0.5 [facility] Start: 01-12-2023 Tobacco use and exposure Smokeless tobacco non-user [facility] Start: 01-12-2023 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 Follow Up Care 05/11/2023 13:28:09 With:ROBBY NARANJO, Shadi Blanco, URL Address: [facility] [address] [place] [address]- When: Unknown [facility] 05-11-2023 Hospital Discharge instructions Patient [...] include: ?8 oz (237 mL) of milk, ynkuicj-hmpfsrkqikts-qgpng milk, and calcium-fortifiedfruit juice. Calcium-fortified means that [...] ?Spinach (cooked), rhubarb, beets, sweet potatoes, and Wallisian chard. ?Peanuts. ?Potato chips, east timorese fries, and baked potatoes with skin on. ?Nuts and nut products. ?Chocolate. If you regularly take a diuretic medicine, make sure to eat at least 1 or 2 servings of fruits or vegetables that are high in potassium each day. These include: ?Avocado. ?Banana. ?[place], prune, carrot, or tomato juice. ?Baked potato. [...] magnesium, fish oil, or vitamin B6. Take qcun-wyl-klimuop and prescription medicines only as told by [...] Casseroles. Pizza. Lasagna. Frozen meals. Potato chips. Argentine fries. The items listed above may not [...] provider. Document Revised: 06/22/2022 Document Reviewed: 06/22/2022 [employer] Patient Education 2022 [employer]. Follow Up Care 05/04/2023 09:38:34 With:ROBBY NARANJO, Shadi Blanco, URL Address: [facility] [address], [place] [address]- When: Unknown [facility] 04-07-2023 Miscellaneous Notes Reviewed new MRI. Much [...] with the RN. documented in this encounter [facility] 04-02-2023 Note HNO ID: [id number] Author: RT Elian(R) Service: ? Author Type: [...] RT Elian(R) April 02, 2023 11:[address] [facility] 03-05-2023 Note HNO ID: [id number] Author: Renard Reyes APRN.CNP Service: ? Author [...] visit. Either the patient or their legal public relations representative has been informed of the risks [...] SIGNATURE: Renard Reyes APRN.[facility] [place] PATIENT NAME: Dona Rodriguez DATE: March 05, 2023 TIME: 10:40 AM PAGER: [facility] 03-05-2023 History of Present illness Narrative VIRTUAL SPINE SURGERY ESTABLISHED PATIENT This is a virtual visit using Audio only. It required patient-provider interaction for the medical decision making as documented below. I have communicated my name and active licensure. The patient's identity and physical location were verified at the time of this visit. Either the patient or their legal public relations representative has been informed of the risks [...] SIGNATURE: Renard Reyes APRN.[facility] [place] PATIENT NAME: Dona Rodriguez DATE: March 05, 2023 TIME: 10:40 AM PAGER: documented in this encounter [facility] 02-01-2023 Note HNO ID: [id number] Author: Myranda Hunt MD Service: ? Author [...] pressure cuff, and pulse oximetry. Then a leak gang supervisor film was taken to identify the correct [...] symptoms are on the LEFT side now. [facility] 02-01-2023 Note HNO ID: [id number] Author: David Ramsey LPN Service: ? Author [...] injection Verified by patient by: Dr. Hunt Aerospace Engineer Officer Armament for post spine injection procedure: Yes Patient [...] and daughter ( (more content not included)... [facility] 02-01-2023 Note HNO ID: [id number] Author: Sybil Euceda MD Service: ? Author Type: Fellow Type: [place] Notes Filed: 02/01/2023 11:32 AM Note Text: UPDATED HISTORY AND PHYSICAL EXAMINATION PATIENT NAME: oDna Rodriguez SERVICE DATE: 02/01/2023 The History and [...] with explicit agreement by patient or patient public relations representative before surgery. Sybil Euceda MD Spine Medicine Fellow, PGY-5 DATE: February 01, 2023 TIME: 9:[address] [facility] 01-12-2023 Note HNO ID: [id number] Author: Rodney Newton MD Service: ? Author [...] and pertinent documents (more content not included)... [facility] 03-21-2023 History of Present illness Narrative [...] 3:13 PM PAGER: documented in this encounter [facility] 12-24-2022 Note HNO ID: [id number] Author: Jenn Toledo PA-C Service: ? Author Type: Physician Director Of Patient Financial Services Type: [place] Notes Filed: 12/24/2022 2:12 PM [...] Lumbar surgery like 12-15 yr ago @ [place] (currently closed) CMT: PT NSAIDS Tramadol Studies [...] reviewed during the appt Jenn Toledo PA-C [facility] 12-24-2022 Evaluation note Encounter Date Diagnosis [...] weeks for the cough to go away [facility] Other 02-28-2023 NoteHNO ID: [id number] Author: Derrek Acuña Service: ? Author Type: ? Type: [place] Notes Filed: 12/24/2022 2:12 PM Note Text: Patient name: Dona Rodriguez Are you being referred by a [facility] Provider or Pain Management Provider at [facility]? No If answer is YES please [...] where the MRI/CT/myelogram was completed: [place] [address] MRI/CT/myelogram viewable in Epic: No If not, please provide [phone] to fax in imaging reports for review. Also, please inform patient to hand carry imaging disc to appointment. XR (spine) within 12 months: Yes If YES,? please ask for the name/address of the facility where the XR was completed: [place] [address] Dr. Poe's patients: Have you had previous [...] and/or physical [place] [address] Have you tried any other kinds of [...] Lumbar surgery like 12-15 yr ago @ [place] (currently closed) Additional Comments [phone] Hanh, daughter Asking if she can be seen [facility] Future Appointments Appointment Date:08/18/2023 01:00:00 PM Scheduled Provider:Shadi SORTO MD Location:[facility] Appointment Type:URO Office Visit [facility] [employer] Evaluation + Plan note Future Appointments Appointment Date:08/16/2024 01:00:00 PM Scheduled Provider:Shadi SORTO MD Location:[facility] Appointment Type:URO Office Visit [facility] Evaluation note* Diagnosis Lumbar radiculopathy- Primary Thoracic or lumbosacral neuritis or radiculitis, unspecified [facility] Diagnosis Radiculopathy of lumbar region- Primary Thoracic or lumbosacral neuritis or radiculitis, unspecified Acute midline low back pain with right-sided sciatica Weakness of both lower extremities [facility] Diagnosis Radiculopathy of lumbar region Thoracic or lumbosacral neuritis or radiculitis, unspecified Acute midline low back pain with right-sided sciatica Weakness of both lower extremities [facility] N[facility] - Reported* Type Description Date Medical History Hypothyroidism Medical History chronic depression Medical History spinal stenosis Medical History hip stenosis Medical History narrowing of spine Medical History bulging disk Surgical History back sugery Surgical History removed 5 foot of colon Hospitalization History see above Hospitalization History UTI 2021 Yub Other Hospital course Narrative No data available for this section [facility] [employer] Progress note No data available for this section [facility] [employer] Summary Purpose Family History No Family History [...] CANAL LUMBAR W/O CONTRAST MATERIAL Renard Reyes, COMMERCIAL ANNOUNCER.HOME FURNISHINGS SALES REPRESENTATIVE [address] [place] [address] Mr Imaging Referral ID Status Reason Start Date Expiration Date Visits Requested Visits Authorized [id number] Pending Review Auto-Generat ed Referral 03/05/2023 04/03/2024 [...] or prosecute any alcohol or drug abuse patient.[facility] the event this information is protected by the Federal Confidentiality of Alcohol and Drug Abuse Patient Records regulations: The Federal rules restrict any use of the information to criminally investigate or prosecute any alcohol or drug abuse patient.[facility] the event this information is protected by the Federal Confidentiality of Alcohol and Drug Abuse Patient Records regulations: The Federal rules restrict any use of the information to criminally investigate or prosecute any alcohol or drug abuse patient.[facility] Care Teams (unrecognized sec tion and content) Communications Analyst Relationship Specialty Start Date End Date Lety Daniels MD [address] [place] [id number] PCP - General 11/08/09 Jada Padilla MD [address] [place] [address] Family Medicine 12/22/22 Communications Analyst Relationship Specialty Start Date End Date Lety Daniels MD [address] [place] [id number] PCP - General 11/08/09 Jada Padilla MD [address] [place] [address] Family Medicine 12/22/22 Communications Analyst Relationship Specialty Start Date End Date Jada Padilla MD [address] [place] [address] PCP - General Family Medicine 04/07/18 INFORMATION SOURCE (unrecogn ized section and content) DATE CREATED AUTHOR 01/30/2023 [facility] DATE CREATED AUTHOR AUTHOR'S ORGANIZ ATION 04/08/2023 [facility] DATE CREATED AUTHOR AUTHOR'S ORGANIZ ATION 12/30/2023 [facility] DATE CREATED AUTHOR AUTHOR'S ORGANIZ ATION 02/10/2024 [facility] EPIC FOR RECORDS PERTAINING TO [...] BE BASED ON THE PRIMARY CLINICAL RECORDS. [facility] [employer] [facility]. provides no warranty or guarantee of the accuracy or completeness of information in this document.
== END 2024-04-28 14:52 | disposition home or self-care (01) ==
PROVIDERS: PCP Family Medicine; Visit Provider Family Medicine
DX: M25.511 Pain in right shoulder (principal)
CPT/HCPCS: 73030

== ENCOUNTER 2024-05-08 10:21 | Day surgery (SDC) | payer OTHER, SELFPAY ==
--- NOTE | 2024-05-08 10:30 | FL_ITS ---
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 TECHNIQUE: An arthrogram was performed under fluoroscopic guidance using non-ionic contrast material in the usual sterile manner after obtaining informed consent. Standard level fluoroscopic mode of operation utilized. 36 seconds of fluoroscopy. 1.09 mGy FINDINGS: JOINT: Right shoulder NEEDLE: 25 gauge, 3.5 spinal needle. MEDICATION: 4cc buffered 1% lidocaine for subcutaneous anesthesia 3 cc Omnipaque 300, 40 mg of Kenalog. 2 mm 0.5% bupivacaine TECHNIQUE: Anterior approach. A single stick was successful in gaining access to the joint space. CLINICAL: 5 out of 10 pain before the injection. 1 out of 10 pain following the injection COMPLICATIONS: None. BONES: Mild glenohumeral joint space narrowing. Mild osteoarthropathy of the acromioclavicular joint CARTILAGE: Normal. No visible erosion or interruption. CAPSULE: Normal. No visible capsular laxity or labrum tear. JOHN PAUL-ARTICULAR: Normal. No visible john paul-articular soft tissue abnormality. LOOSE BODIES: None. OTHER: Negative. FL/FL guided needle placement IMPRESSION: Technically successful right shoulder therapeutic arthrogram Electronically authenticated by: DAVID MERCADO Date: 05/08/2024 12:10
--- NOTE | 2024-05-08 10:30 | FL_ITS ---
The [address] [address] Patient Name: DONA NAGY MRN: [id number] date: 1935 Sex: F Assigned Patient Location: [facility] Current Patient Location: [facility] Accession/Order Number: [id number] Exam Date: 05/08/2024 10:45 Report Date: 05/08/2024 12:10 At the request of: JADA LOWE Procedure: FL shoulder inj RT EXAMINATION: FL shoulder inj RT, FL guided needle placement HISTORY: Right Shoulder Arthritis M12.9 COMPARISON: No relevant comparison available. TECHNIQUE: An arthrogram was performed under fluoroscopic guidance using non-ionic contrast material in the usual sterile manner after obtaining informed consent. Standard level fluoroscopic mode of operation utilized. 36 seconds of fluoroscopy. 1.09 mGy FINDINGS: JOINT: Right shoulder NEEDLE: 25 gauge, 3.5 spinal needle. MEDICATION: 4cc buffered 1% lidocaine for subcutaneous anesthesia 3 cc Omnipaque 300, 40 mg of Kenalog. 2 mm 0.5% bupivacaine TECHNIQUE: Anterior approach. A single stick was successful in gaining access to the joint space. CLINICAL: 5 out of 10 pain before the injection. 1 out of 10 pain following the injection COMPLICATIONS: None. BONES: Mild glenohumeral joint space narrowing. Mild osteoarthropathy of the acromioclavicular joint CARTILAGE: Normal. No visible erosion or interruption. CAPSULE: Normal. No visible capsular laxity or labrum tear. JOHN PAUL-ARTICULAR: Normal. No visible john paul-articular soft tissue abnormality. LOOSE BODIES: None. OTHER: Negative. FL/FL shoulder inj RT IMPRESSION: Technically successful right shoulder therapeutic arthrogram Electronically authenticated by: DAVID MERCADO Date: 05/08/2024 12:10
[2024-05-08] MEDS: LIDOCAINE HCL 10 ML, SODIUM BICARBONATE 1 MEQ INJ (11:25)
[2024-05-08] MEDS: TRIAMCINOLONE ACETONIDE 40 MG/ML VIAL INJ (11:25)
[2024-05-08] MEDS: BUPIVACAINE HCL 0.5% PF 50 MG/10 ML VIAL 5 ML INJ (11:25)
--- NOTE | 2024-05-08 12:18 | SUR.PREOP ---
05/04/24 Spoke with pt daughter Hanh to schedule. Reviewed procedure, date, time, and prep.
--- OUTSIDE RECORDS SUMMARY | 2024-05-09 10:26 | XMS_ITS | CCD ---
Author Organization [facility] CliniSyks Care Team Providers Care Medical Chief Technician Name Role Phone Lesli Connelly Unavailable Lety [...] Unavailable ROGELIO, DR DAVID Nguyen Consulting Unavailable EZNOBIA SEARS Consulting Unavailable HARINI CAMPA Consulting Unavailable [...] Unavailable Jada Padilla MD Primary Care Provider [phone] LETY DANIELS Primary Care Unavailable ERIC, RENARD S Referring Unavailable LETY DANIELS Primary Care Unavailable RENARD REYES S Attending Unavailable JENN TOLEOD Referring Unavailable JENN TOLEDO Referring Unavailable LETY [...] Medication Allergies] Propensity to adverse reactions (disorder) [facility] Repository Medications Current Medications Medication Drug Class(es) Dates Sig (Normalized) Sig (Original) [id number] 200 actuat albuterol 0.09 mg/actuat metered dose [...] Take 1 capsule by mo [facility] twice daily for 90 days. [...] procedure, # 1 tab(s), Refills(s) 0, Pharmacy: [facility] [place] #[id number] Start Date: 05/04/23 Status: Ordered gabapentin 100 [...] 02-01-2023 Episodic Other aftercare (1 source) Other senior living (current) drug therapy; Translations: [OTH USP CURRENT DRUG THERAPY] Onset: 12-01-2022 Episodic Other [...] [facility] [address], [place] [address]- Medications What How Much When Instructions Unchanged [...] Reviewed: 01/24 (more content not included)... Normal [facility] Patient Educationon 10-25-20 23 Patient Education Obstetrics [...] provider. Document Revised: 02/19/2022 Document Reviewed: 02/19/2022 [employer] Patient Education ? 2022 [employer] [facility] Urology Office/Clinic Noteon 08-18-2023 Urology Office/Clinic [...] [facility] [address], [place] [address]- Additional Instructions: 1 yr KUB Patient Education [...] Smokeless To (more content not included)... Normal [facility] Comment on above: Result Comment: Elec tronically Signed By: Shadi SORTO MD\.br\Date and Time Signed: 08/18/23 13:40 EDT\.br\Electronically Co-Signed By: Jania Velasquez\.br\Date and Time Co-Signed: 08/18/23 13:38 EDT Consent for Procedure/Surger yon 05-12-2023 Consent for Procedure/Surgery [id number]#1.00 CD:127 [facility] Ambulatory Visit Summaryon 0 05-11-2023 Ambulatory [...] NARANJO, Shadi Blanco Where: [facility] Chris Singh [facility] Patient Educationon 05-11-20 Patient Education Nephrology Dietary [...] ? 8 oz (237 mL) of milk, suwqjde-emblsfbcjsoj-uz iry milk, and calcium-fortifiedfruit juice. Calcium-fortified means [...] Spinach (cooked), rhubarb, beets, sweet potatoes, and Scottish chard. ? Peanuts. ? Potato chips, irish fries, and baked potatoes with skin on. ? Nuts and nut products. ? Chocolate. ? If you regularly take a diuretic medicine, make sure to eat at least 1 or 2 servings of fruits or vegetables that are high in potassium each day. These include: ? Avocado. ? Banana. ? [place], prune, carrot, or tomato juice. ? Baked [...] fish oil, or vitamin B6. ? Take rnpd-cac-mznades and prescription medicines only as told by your health care provider. These include supplements. What foods should I limit? Limit your in (more content not included)... Normal [facility] Urology Office/Clinic Noteon 05-11-2023 Urology Office/Clinic Note [...] [facility] [address], [place] [address]- Additional Instructions: 3 mos PVR Patient Education [...] Sigmoid colectomy (more content not included)... Normal [facility] Comment on above: Result Comment: Elec tronically Signed By: Shadi SORTO MD\.br\Date and Time Signed: 05/11/23 13:23 EDT\.br\Electronically Co-Signed By: Jania Velasquez\.br\Date and Time Co-Signed: 05/11/23 13:19 EDT\.br\Electronically Co-Signed By: Jania Velasquez\.br\Date and Time Co-Signed: 05/11/23 13:22 EDT Lab Reportson 04-26-2023 Lab Reports [id number]#1.00C D:127 [facility] Pre-Certification Formon Pre-Certification Form [id number]#1.00 CD:127 [facility] Lab Reportson 04-20-2023 Lab Reports [id number]#1.00CD :127 [facility] Consultation Noteon 04-16-20 Consultation Note [id number]#1.00 CD:127 [facility] Insurance Correspondence Off iceon 04-16-2023 Insurance Correspondence Office [id number]#1.00C D:127 [facility] Lab Reportson 04-16-2023 Lab Reports [id number]#1.00CD :127 [facility] Operative Reporton Operative Report [id number]#1.00CD :127 [facility] 04-07-2023 CNPN Telephone (SPNSMN) DONA RODRIGUEZ ([id number]) 1935 F Date Time Provider Department 04/07/23 RENARD REYES SPEDUARDOMN During your visit today, we recorded the following information about you: Renard Reyes APRN.POWER ORIGINATOR 04/07/2023 3:08 PM Signed Reviewed new MRI. [...] Status:Closed by RENARD REYES on 04/07/23 Normal [facility] MRI LUMBAR SPINE WO IVCONon 04-02-2023 [...] kidneys and small renal cysts visible on high school chemistry teacher images. Alignment: Alignment is anatomic. Bone marrow [...] crest and there are 5 lumbar-type vertebrae. Ex Assistant/Program Director: PSCB Transcribe Date/Time: Apr 02 2023 12:17P Dictated by : VIKTOR SANDERSON MD This examination was interpreted and the report reviewed and electronically signed by: VIKTOR SANDERSON MD on Apr 02 2023 12:20PM EST [id number] Normal [facility] CNPAnneliese 02-09-2023 CNPN Telephone (NIQ) DONA RODRIGUEZ ([id number]) 1935 F Date Time Provider Department 02/09/23 [...] tablet 2x a day Call back # [phone] Forwarded to team for review. Ana M [...] or Lyrica. Pt has f/u appt with POWER ORIGINATOR on 03/05/2023. Will discuss with POWER ORIGINATOR. Pt uses [facility] in [facility]. Renard Reyes APRN.CNP 02/09/2023 12:37 PM Addendum [...] by MARK ANTHONY MIKE on 02/09/23 Normal [facility] CNOVon 02-01-2023 CNOV Office Visit (SPNMMN ) DONA RODRIGUEZ ([id number]) 1935 F Date Time Provider Department 02/01/23 [...] with explicit agreement by patient or patient business banking representative before surgery. Sybil Euceda MD Spine Medicine Fellow, PGY-5 DATE: February 01, 2023 TIME: 9:42 AM Bailee Rivers RN 02/01/2023 9:52 AM Signed PATIENT NAME: Dona Rodriguez 1935 87 year old Current medications and allergies reviewed with patient in visit navigator: Yes Baseline vital signs and pain assessment entered in activity in visit navigator: Yes Visual Merchandiser for post spine injection procedure: Yes First [...] injection Verified by patient by: Dr. Hunt Visual Merchandiser for post spine injection procedure: Yes Patient [...] steroid i (more content not included)... Normal [facility] CNOVon 01-12-2023 CNOV Office Visit (SPNSMN ) DONA RODRIGUEZ ([id number]) 1935 F Date Time Provider Department 01/12/23 2:20 PM RONDEY NEWTON During your visit today, we recorded [...] getting her (more content not included)... Normal [facility] COVID/FLU/RSV RT-PCRon 12-24 SARS-CoV-2 (COVID-19) RNA ALEN+probe Ql (Unsp spec) Negative 20/20 [employer] Other COVID/FLU/RSV RT-PCR Negative 20/20 [employer] Other MRI LSPINE WO CONon 12-14-19 MRI [...] JADA LORENZ Date: 2022-12-14 10:[address] [facility] EULALIA by IFAon 12-03-2022 Antinuclear Antibodies, IFA Negative Normal [facility] Comment on above: Result Comment: Nega tive <1:80 Borderline 1:80 Positive >1:80 ICAP nomenclature: AC-0 For more information about Hep-2 cell patterns use ANApatterns.org, the official website for the International Consensus on Antinuclear Antibody (EULALIA) Patterns (ICAP). Performed By: #### A NAIFA ####[facility] [address] [address]Dr. Yilan Veronica ECHOCARDIO M/2D COMPLETEon 0 12-03-2022 ECHOCARDIO M/2D COMPLETE Patient: DONA RODRIGUEZ Exam Date: 12/03/2022 : 1935 Gender:F Ordering : DR JADA PADILLA . Admission #: [id number] Family : Order #: [id number] CLICK HERE TO VIEW EXAM ECHOCARDIOGRAM REPORT [...] Solomon M.D. on 12/03/2022 at 19:45 Normal [facility] XR LSPINE MIN 4 VIEWSon 02-0 [...] SULAIMAN MERCEDES Date: 2022-12-03 11:[address] [facility] ANTISTREPTOLYSIN O AB (ASO)o n 12-01-2022 Antistreptolysin O Ab <20.0 Normal 0.0-200.[address] [facility] Comment on above: Performed By: #### A SOAB ####[facility] [address] [place] [address]DrMaxi Veronica RHEUMATOID FACTORon 12-01-19 RA Latex Turbid. <10.0 Normal <14.0 [facility] Comment on above: Performed By: #### R F ####[facility] [address] [place] [address]DrMaxi Veronica CBC AUTO DIFFon 11-30-2022 BASO # 0.1 103/ul Normal 0.0-0.[address] [facility] Comment on above: Performed By: #### C MP, CRP, LIPA, CHANDNI #### [facility] [address] [address] [address] Luis Miguel Veronica Basophils/100 WBC (Bld) 0.7 % Normal 0.2-2.[address] [facility] Comment on above: Performed By: #### C MP, CRP, LIPA, CHANDNI #### [facility] [address] [address] [address] Luis Miguel Veronica EO # 0.1 103/ul Normal 0.0-0.[address] [facility] Comment on above: Performed By: #### C MP, CRP, LIPA, CHANDNI #### [facility] [address] [place] [address] Dr. Luis Miguel Veronica Eosinophils/100 WBC (Bld) 0.8 % Critically low 0.9-7.[address] [facility] Comment on above: Performed By: #### C MP, CRP, LIPA, CHANDNI #### [facility] [address] [place] [address] Dr. Luis Miguel Veronica Erythrocyte distribution width (RBC) [Ratio] 13.4 % Normal 11.0-15.0 [facility] Comment on above: Performed By: #### C MP, CRP, LIPA, CHANDNI #### [facility] [address] [place] [address] Dr. Luis Miguel Veronica Hematocrit (Bld) [Volume fraction] 45.3 % Normal 36.0-48.0 [facility] Comment on above: Performed By: #### C MP, CRP, LIPA, CHANDNI #### [facility] [address] [place] [address] Dr. Luis Miguel Veronica Hemoglobin (Bld) [Mass/Vol] 14.2 g/dL Normal 12.0-16.0 [facility] Comment on above: Performed By: #### C MP, CRP, LIPA, CHANDNI #### [facility] [address] [place] [address] Dr. Luis Miguel Veronica IG # 0.02 10e3/ul Normal 0.00-0.03 [facility] Comment on above: Performed By: #### C MP, CRP, LIPA, CHANDNI #### [facility] [address] [place] [address] Dr. Luis Miguel Veronica IG % 0.2 % Normal 0.0-0.5 [facility] Comment on above: Performed By: #### C MP, CRP, LIPA, CHANDNI #### [facility] [address] [place] [address] Dr. Luis Miguel Veronica LYMPH # 2.5 103/ul Normal 1.2-3.[address] [facility] Comment on above: Performed By: #### C MP, CRP, LIPA, CHANDNI #### [facility] [address] [place] [address] Dr. Luis Miguel Veronica Lymphocytes/100 WBC (Bld) 27.3 % Normal 20.5-60.0 [facility] Comment on above: Performed By: #### C MP, CRP, LIPA, CHANDNI #### [facility] [address] [place] [address] Dr. Luis Miguel Veronica MANUAL DIFF REQ NO Normal [facility] Comment on above: Performed By: #### C MP, CRP, LIPA, CHANDNI #### [facility] [address] [place] [address] Dr. Luis Miguel Veronica MCH (RBC) [Entitic mass] 32.3 pg Normal 26.7-34.0 [facility] Comment on above: Performed By: #### C MP, CRP, LIPA, CHANDNI #### [facility] [address] [place] [address] Dr. Luis Miguel Veronica MCHC (RBC) [Mass/Vol] 31.3 g/dL Normal 29.9-35.[address] [facility] Comment on above: Performed By: #### C MP, CRP, LIPA, CHANDNI #### [facility] [address] [place] [address] Dr. Luis Miguel Veronica MCV (RBC) [Entitic vol] 103.0 fL Critically high 81.0-99.0 [facility] Comment on above: Performed By: #### C MP, CRP, LIPA, CHANDNI #### [facility] [address] [place] [address] Dr. Luis Miguel Veronica MONO # 0.6 103/ul Normal 0.3-0.[address] [facility] Comment on above: Performed By: #### C MP, CRP, LIPA, CHANDNI #### [facility] [address] [place] [address] Dr. Luis Miguel Veronica Monocytes/100 WBC (Bld) 6.2 % Normal 1.7-12.[address] [facility] Comment on above: Performed By: #### C MP, CRP, LIPA, HCANDNI #### [facility] [address] [place] [address] Dr. Luis Miguel Veronica NEUT # 5.8 103/ul Normal 1.4-6.[address] [facility] Comment on above: Performed By: #### C MP, CRP, LIPA, CHANDNI #### [facility] [address] [place] [address] Dr. Luis Miguel Veronica Neutrophils/100 WBC (Bld) 64.8 % Normal 43.0-75.[address] [facility] Comment on above: Performed By: #### C MP, CRP, LIPA, CHANDNI #### [facility] [address] [address] [address] Luis Miguel Veronica Platelet mean volume (Bld) [Entitic vol] 9.7 fL Normal 9.5-13.5 [facility] Comment on above: Performed By: #### C MP, CRP, LIPA, CHANDNI #### [facility] [address] [address] [address] Luis Miguel Veronica PLT 237 103/ul Normal 150-[address] [facility] Comment on above: Performed By: #### C MP, CRP, LIPA, CHANDNI #### [facility] [address] [address] [address] Luis Miguel Veronica RBC 4.40 106/ul Normal 4.20-5.[address] [facility] Comment on above: Performed By: #### C MP, CRP, LIPA, CHANDNI #### [facility] [address] [address] [address] Luis Miguel Veronica WBC 9.0 103/ul Normal 4.0-11.[address] [facility] Comment on above: Performed By: #### C MP, CRP, LIPA, CHANDNI #### [facility] [address] [address] [address] Luis Miguel Veronica CRPon 11-30-2022 CRP [Mass/Vol] mg/L Normal <=1.0 [facility] Comment on above: Performed By: #### U JOE, LIPID, CMP, TSH, T7, CRP ####[facility] [address] [place] [address]Dr. Luis Miguel Veronica FREE THYROXINE INDEX T7on FTI 3.60 Normal 1.30-4.[address] [facility] Comment on above: Performed By: #### C MP, CRP, LIPA, CHANDNI #### [facility] [address] [address] [address] Luis Miguel Veronica T3U 36.0 % Normal 30.0-39.0 [facility] Comment on above: Performed By: #### C MP, CRP, LIPA, CHANDNI #### [facility] [address] [address] [address] Luis Miguel Veronica T4 [Mass/Vol] 10.00 ug/dL Normal 4.80-13.90 [facility] Comment on above: Performed By: #### C MP, CRP, LIPA, CHANDNI #### [facility] [address] [address] [address] Luis Miguel Veronica GLYCOHEMOGLOBIN A1Con 2022 ADA RECOMMENDATION SEE BELOW Normal [facility] Comment on above: Result Comment: ADA RECOMMENDED LIMIT 4.0 - 6.0 ADA THERAPEUTIC TARGET < 7.0 ACTION SUGGESTED > 7.0 Performed By: #### C MP, CRP, LIPA, CHANDNI #### [facility] [address] [address] [address] Luis Miguel Veronica Glucose [Mass/Vol] 126 mg/dL Normal [facility] Comment on above: Performed By: #### C MP, CRP, LIPA, CHANDNI #### [facility] [address] [place] [address] Dr. Luis Miguel Veronica HbA1c (Bld) [Mass fraction] 6.0 % Normal 4.5-6.2 [facility] Comment on above: Performed By: #### C MP, CRP, LIPA, CHANDNI #### [facility] [address] [place] [address] Dr. Luis Miguel Veronica IRONon 11-30-2022 Iron [Mass/Vol] 114.0 ug/dL Normal 50.0-170.0 [facility] Comment on above: Performed By: #### I MICHELLE ACLL #### [facility] [address] [place] [address] Dr. Luis Miguel Veronica LIPID PROFILEon 11-30-2022 CHOL-HDL RATIO NORM SEE BELOW Normal [facility] Comment on above: Result Comment: 3.3 - 4.4 LOW RISK 4.4 - 7.1 AVERAGE RISK 7.1 - 11.0 MODERATE RISK >11.0 HIGH RISK Performed By: #### C MP, CRP, LIPA, CHANDNI #### [facility] [address] [place] [address] Dr. Luis Miguel Veronica Cholesterol [Mass/Vol] 212 mg/dL Critically high <=[address] [facility] Comment on above: Performed By: #### C MP, CRP, LIPA, CHANDNI #### [facility] [address] [address] [address] Luis Miguel Veronica Cholesterol in HDL [Mass/Vol] 70 mg/dL Critically high 40-[address] [facility] Comment on above: Performed By: #### C MP, CRP, LIPA, CHANDNI #### [facility] [address] [address] [address] Luis Miguel Veronica Cholesterol in LDL [Mass/Vol] 111.6 mg/dL Normal [facility] Comment on above: Performed By: #### C MP, CRP, LIPA, CHANDNI #### [facility] [address] [address] [address] Luis Miguel Veronica Cholesterol.total/C holesterol in HDL [Mass ratio] 3.0 {ratio} Normal [facility] Comment on above: Performed By: #### C MP, CRP, LIPA, CHANDNI #### [facility] [address] [address] [address] Luis Miguel Veronica HDL NORMAL > or = 60 mg/dl - LO W CARDIOVASCULAR RISK <40 mg/dl - HIGH CARDIOVASCULAR RISK Normal [facility] Comment on above: Performed By: #### C MP, CRP, LIPA, CHANDNI #### [facility] [address] [address] [address] Luis Miguel Veronica LDL CALC NORMAL SEE BELOW Normal [facility] Comment on above: Result Comment: <100 mg/dl OPTIMAL 100 - 129 mg/dl NEAR OR ABOVE OPTIMAL 130 - 159 mg/dl BORDERLINE HIGH 160 - 189 mg/dl HIGH >190 mg/dl VERY HIGH Performed By: #### C MP, CRP, LIPA, CHANDNI #### [facility] [address] [address] [address] Luis Miguel Veronica Triglyceride [Mass/Vol] 152 mg/dL Critically high <=[address] [facility] Comment on above: Performed By: #### C MP, CRP, LIPA, CHANDNI #### [facility] [address] [address] [address] Luis Miguel Veronica VLDL CALC 30.4 mg/dL Normal [facility] Comment on above: Performed By: #### C MP, CRP, LIPA, CHANDNI #### [facility] [address] [place], [place] [address] Dr. Luis Miguel Veronica PROF 14(COMP METB)on 023 Albumin [Mass/Vol] 4.0 g/dL Normal 3.4-5.0 [facility] Comment on above: Performed By: #### U JOE, LIPID, CMP, TSH, T7, CRP ####[facility] [address] [place] [address]Dr. Luis Miguel Veronica Albumin/Globulin [Mass ratio] 1.2 {ratio} Normal [facility] Comment on above: Performed By: #### U JOE, LIPID, CMP, TSH, T7, CRP ####[facility] [address] [place] [address]Dr. Luis Miguel Veronica ALP [Catalytic activity/Vol] 63 U/L Normal 46-116 [facility] Comment on above: Performed By: #### U JOE, LIPID, CMP, TSH, T7, CRP ####[facility] [address] [place] [address]Dr. Luis Miguel Veronica ALT [Catalytic activity/Vol] 28 U/L Normal 14-59 [facility] Comment on above: Performed By: #### U JOE, LIPID, CMP, TSH, T7, CRP ####[facility] [address] [place] [address]Dr. Luis Miguel Veronica Anion gap [Moles/Vol] 17.1 mmol/L Normal [facility] Comment on above: Performed By: #### U JOE, LIPID, CMP, TSH, T7, CRP ####[facility] [address] [place] [address]Dr. Luis Miguel Veronica AST [Catalytic activity/Vol] 26 U/L Normal 15-37 [facility] Comment on above: Performed By: #### U JOE, LIPID, CMP, TSH, T7, CRP ####[facility] [address] [place] [address]Dr. Luis Miguel Veronica Bilirubin [Mass/Vol] 0.4 mg/dL Normal 0.2-1.[address] [facility] Comment on above: Performed By: #### U JOE, LIPID, CMP, TSH, T7, CRP ####[facility] [address] [place] [address]Dr. Luis Miguel Veronica Calcium [Mass/Vol] 9.8 mg/dL Normal 8.5-10.1 [facility] Comment on above: Performed By: #### U JOE, LIPID, CMP, TSH, T7, CRP ####[facility] [address] [place], [place] [address]Dr. Luis Miguel Veronica Chloride [Moles/Vol] 104 mmol/L Normal 98-[address] [facility] Comment on above: Performed By: #### U JOE, LIPID, CMP, TSH, T7, CRP ####[facility] [address] [place], [place] [address]Dr. Luis Miguel Veronica CO2 [Moles/Vol] 24.6 mmol/L Normal 21.0-32.0 [facility] Comment on above: Performed By: #### U JOE, LIPID, CMP, TSH, T7, CRP ####[facility] [address] [place], [place] [address]Dr. Francineclyde Veronica Creatinine [Mass/Vol] 1.25 mg/dL Critically high 0.55-1.[address] [facility] Comment on above: Performed By: #### U JOE, LIPID, CMP, TSH, T7, CRP ####[facility] [address] [place], [place] [address]Dr. Luis Miguel Jeremías EGFR-AF IRISH 49 mL/min/1.73m2 Critically low >=[address] [facility] Comment on above: Performed By: #### U JOE, LIPID, CMP, TSH, T7, CRP ####[facility] [address] [place], [place] [address]Dr. Luis Miguel Jeremías EGFR-NON AF IRISH 41 mL/min/1.73m2 Critically low >=[address] [facility] Comment on above: Performed By: #### U JOE, LIPID, CMP, TSH, T7, CRP ####[facility] [address] [place], [place] [address]Dr. Luis Miguel Veronica Globulin (S) [Mass/Vol] 3.3 g/dL Normal [facility] Comment on above: Performed By: #### U JOE, LIPID, CMP, TSH, T7, CRP ####[facility] [address] [place] [address]Dr. Luis Miguel Veronica Glucose [Mass/Vol] 89 mg/dL Normal 74-106 [facility] Comment on above: Performed By: #### U JOE, LIPID, CMP, TSH, T7, CRP ####[facility] [address] [place] [address]Dr. Luis Miguel Veronica Potassium [Moles/Vol] 4.7 mmol/L Normal 3.5-5.[address] [facility] Comment on above: Performed By: #### U JOE, LIPID, CMP, TSH, T7, CRP ####[facility] [address] [place], [place] [address]Dr. Luis Miguel Veronica Protein [Mass/Vol] 7.3 g/dL Normal 6.4-8.2 [facility] Comment on above: Performed By: #### U JOE, LIPID, CMP, TSH, T7, CRP ####[facility] [address] [place], [place] [address]Dr. Luis Miguel Veronica Sodium [Moles/Vol] 141 mmol/L Normal 136-145 [facility] Comment on above: Performed By: #### U JOE, LIPID, CMP, TSH, T7, CRP ####[facility] [address] [place], [place] [address]Dr. Luis Miguel Veronica Urea nitrogen [Mass/Vol] 22.0 mg/dL Critically high 7.0-18.[address] [facility] Comment on above: Performed By: #### U JOE, LIPID, CMP, TSH, T7, CRP ####[facility] [address] [place] [address]Dr. Luis Miguel Veronica Urea nitrogen/Creatinine [Mass ratio] 17.6 mg/mg Normal [facility] Comment on above: Performed By: #### U JOE, LIPID, CMP, TSH, T7, CRP ####[facility] [address] [place], [place] [address]Dr. Luis Miguel Veronica TSHon 11-30-2022 TSH 1.292 uIU/mL Normal 0.358-3.740 [facility] Comment on above: Performed By: #### C MP, CRP, LIPA, CHANDNI #### [facility] [address] [address] [address] Luis Miguel Veronica URIC ACID SERUMon 11-30-2022 Urate [Mass/Vol] 4.0 mg/dL Normal 2.6-6.0 [facility] Comment on above: Performed By: #### U JOE, LIPID, CMP, TSH, T7, CRP ####[facility] [address] [place], [place] [address]MdDr. Luis Miguel Veronica VITAMIN D 25 OHon 11-30-2022 VIT D 25-OH 22.7 ng/mL Normal [facility] Comment on above: Performed By: #### I JAKUB, VITAD #### [facility] [address] [address] [address] Luis Miguel Veronica VIT D RANGES SEE BELOW Normal [facility] Comment on above: Result Comment: <20 ng/mL Vit D deficient 20 - <30 ng/mL Vit D insufficient 30 - 100 ng/mL Vit D sufficient >100 ng/mL Potential Toxicity Performed By: #### I JAKUB, VITAD #### [facility] [address] [address] [address] Luis Miguel Veronica CARDIAC MALDONADO ADMITon 023 CK [Catalytic activity/Vol] 64 U/L Normal 26-[address] [facility] Comment on above: Performed By: #### C MP, CRP, LIPA, CHANDNI #### [facility] [address] [address] [address] Luis Miguel Veronica CK.MB [Mass/Vol] ng/mL Normal <=3.60 [facility] Comment on above: Performed By: #### C MP, CRP, LIPA, CHANDNI #### [facility] [address] [address] [address] Luis Miguel Veronica HSTROP 5.6 pg/mL Normal 4.0-51.[address] [facility] Comment on above: Result Comment: CUT- OFF POINTS HAVE BEEN ESTABLISHED BASED ON THE FOURTH UNIVERSAL DEFINITIONS OF MYOCARDIAL INFARCTION. THE UPPER REFERENCE LIMIT (URL) OF TROPONIN, DEFINED THE 99TH PERCENTILE OF cTnI DISTRIBUTION IN A REFERENCE POPULATION, HAS BEEN CONFIRMED THE DECISION THRESHOLD FOR OH DIAGNOSIS. Performed By: #### C MP, CRP, LIPA, CHANDNI #### [facility] [address] [place] [address] Dr. Luis Miguel Veronica GEOVANNY 71 ng/mL Normal 9-82 [facility] Comment on above: Performed By: #### C MP, CRP, LIPA, CHANDNI #### [facility] [address] [place] [address] Dr. Luis Miguel Veronica CBC AUTO DIFFon 11-28-2022 BASO # 0.1 103/ul Normal 0.0-0.1 [facility] Comment on above: Performed By: #### I JAKUB, VITAD #### [facility] [address] [place] [address] Dr. Luis Miguel Veronica Basophils/100 WBC (Bld) 0.7 % Normal 0.2-2.0 [facility] Comment on above: Performed By: #### I JAKUB VITAD #### [facility] [address] [place] [address] Dr. Luis Miguel Veronica EO # 0.1 103/ul Normal 0.0-0.7 [facility] Comment on above: Performed By: #### I JAKUB, VITAD #### [facility] [address] [place] [address] Dr. Luis Miguel Veronica Eosinophils/100 WBC (Bld) 1.0 % Normal 0.9-7.0 [facility] Comment on above: Performed By: #### I JAKUB VITAD #### [facility] [address] [place] [address] Dr. Luis Miguel Veronica Erythrocyte distribution width (RBC) [Ratio] 13.4 % Normal 11.0-15.0 [facility] Comment on above: Performed By: #### Jaycob CALL, VITAD #### [facility] [address] [place] [address] Dr. Luis Miguel Veronica Hematocrit (Bld) [Volume fraction] 46.1 % Normal 36.0-48.0 [facility] Comment on above: Performed By: #### I JAKUB, VITAD #### [facility] [address] [place] [address] Dr. Luis Miguel Veronica Hemoglobin (Bld) [Mass/Vol] 14.7 g/dL Normal 12.0-16.0 [facility] Comment on above: Performed By: #### I AJKUB, VITAD #### [facility] [address] [place] [address] Dr. Luis Miguel Veronica IG # 0.02 10e3/ul Normal 0.00-0.03 [facility] Comment on above: Performed By: #### I JAKUB, VITAD #### [facility] [address] [place] [address] Dr. Luis Miguel Veronica IG % 0.2 % Normal 0.0-0.5 [facility] Comment on above: Performed By: #### I JAKUB, VITAD #### [facility] [address] [place] [address] Dr. Luis Miguel Veronica LYMPH # 3.9 103/ul Critically high 1.2-3.8 [facility] Comment on above: Performed By: #### I JAKUB, VITAD #### [facility] [address] [place] [address] Dr. Luis Miguel Veronica Lymphocytes/100 WBC (Bld) 47.6 % Normal 20.5-60.0 [facility] Comment on above: Performed By: #### I JAKUB, VITAD #### [facility] [address] [place] [address] Dr. Luis Miguel Veronica MANUAL DIFF REQ NO Normal [facility] Comment on above: Performed By: #### I JAKUB, VITAD #### [facility] [address] [place] [address] Dr. Luis Miguel Veronica MCH (RBC) [Entitic mass] 32.4 pg Normal 26.7-34.0 [facility] Comment on above: Performed By: #### I JAKUB, VITAD #### [facility] [address] [place] [address] Dr. Luis Miguel Veronica MCHC (RBC) [Mass/Vol] 31.9 g/dL Normal 29.9-35.2 [facility] Comment on above: Performed By: #### I JAKUB VITAD #### [facility] [address] [place] [address] Dr. Luis Miguel Veronica MCV (RBC) [Entitic vol] 101.5 fL Critically high 81.0-99.[address] [facility] Comment on above: Performed By: #### Jaycob CALL VITAD #### [facility] [address] [place] [address] Dr. Luis Miguel Veronica MONO # 0.7 103/ul Normal 0.3-0.[address] [facility] Comment on above: Performed By: #### I JAKUB VITAD #### [facility] [address] [place] [address] Dr. Luis Miguel Veronica Monocytes/100 WBC (Bld) 8.7 % Normal 1.7-12.[address] [facility] Comment on above: Performed By: #### Jaycob CALL VITAD #### [facility] [address] [place] [address] Dr. Luis Miguel Veronica NEUT # 3.4 103/ul Normal 1.4-6.[address] [facility] Comment on above: Performed By: #### Jaycob CALL VITAD #### [facility] [address] [place] [address] Dr. Luis Miguel Veronica Neutrophils/100 WBC (Bld) 41.8 % Critically low 43.0-75.0 [facility] Comment on above: Performed By: #### Jaycob CALL VITAD #### [facility] [address] [place] [address] Dr. Luis Miguel Veronica Platelet mean volume (Bld) [Entitic vol] 9.4 fL Critically low 9.5-13.[address] [facility] Comment on above: Performed By: #### Jaycob CALL VITAD #### [facility] [address] [place] [address] Dr. Luis Miguel Veronica PLT 293 103/ul Normal 150-[address] [facility] Comment on above: Performed By: #### Jaycob CALL VITAD #### [facility] [address] [place] [address] Dr. Luis Miguel Veronica RBC 4.54 106/ul Normal 4.20-5.40 [facility] Comment on above: Performed By: #### I MICHELLE CALL #### [facility] [address] [address] [address] Luis Miguel Veronica WBC 8.2 103/ul Normal 4.0-11.0 [facility] Comment on above: Performed By: #### I MICHELLE CALL #### [facility] [address] [address] [address] Luis Miguel Veronica CT ABD/PELVIS WO [...] JOANNE HURLEY Date: 2022-11-28 12:[address] [facility] LACTATE/LACTIC ACIDon 2022 Lactate [Moles/Vol] 1.6 mmol/L Normal 0.4-1.9 [facility] Comment on above: Performed By: #### I MICHELLE CALL #### [facility] [address] [place] [address] Dr. Luis Miguel Veronica PROF 14(COMP METB)on 023 Albumin [Mass/Vol] 3.8 g/dL Normal 3.4-5.0 [facility] Comment on above: Performed By: #### C MP, CRP, LIPA, CHANDNI #### [facility] [address] [place] [address] Dr. Luis Miguel Veronica Albumin/Globulin [Mass ratio] 1.1 {ratio} Normal [facility] Comment on above: Performed By: #### C MP, CRP, LIPA, CHANDNI #### [facility] [address] [place] [address] Dr. Luis Miguel Veronica ALP [Catalytic activity/Vol] 64 U/L Normal 46-116 [facility] Comment on above: Performed By: #### C MP, CRP, LIPA, CHANDNI #### [facility] [address] [place] [address] Dr. Luis Miguel Veronica ALT [Catalytic activity/Vol] 27 U/L Normal 14-59 [facility] Comment on above: Performed By: #### C MP, CRP, LIPA, CHANDNI #### [facility] [address] [place] [address] Dr. Luis Miguel Veronica Anion gap [Moles/Vol] 11.8 mmol/L Normal [facility] Comment on above: Performed By: #### C MP, CRP, LIPA, CHANDNI #### [facility] [address] [place] [address] Dr. Luis Miguel Veronica AST [Catalytic activity/Vol] 28 U/L Normal 15-37 [facility] Comment on above: Performed By: #### C MP, CRP, LIPA, CHANDNI #### [facility] [address] [place] [address] Dr. Luis Miguel Veronica Bilirubin [Mass/Vol] 0.3 mg/dL Normal 0.2-1.0 [facility] Comment on above: Performed By: #### C MP, CRP, LIPA, CHANDNI #### [facility] [address] [place] [address] Dr. Luis Miguel Veronica Calcium [Mass/Vol] 9.5 mg/dL Normal 8.5-10.1 [facility] Comment on above: Performed By: #### C MP, CRP, LIPA, CHANDNI #### [facility] [address] [address] [address] Luis Miguel Veronica Chloride [Moles/Vol] 104 mmol/L Normal 98-[address] [facility] Comment on above: Performed By: #### C MP, CRP, LIPA, CHANDNI #### [facility] [address] [address] [address] Luis Miguel Veronica CO2 [Moles/Vol] 27.4 mmol/L Normal 21.0-32.0 [facility] Comment on above: Performed By: #### C MP, CRP, LIPA, CHANDNI #### [facility] [address] [place] [address] Dr. Luis Miguel Veronica Creatinine [Mass/Vol] 1.43 mg/dL Critically high 0.55-1.02 [facility] Comment on above: Performed By: #### C MP, CRP, LIPA, CHANDNI #### [facility] [address] [place] [address] Dr. Luis Miguel Veronica EGFR-AF IRISH 42 mL/min/1.73m2 Critically low >=60 [facility] Comment on above: Performed By: #### C MP, CRP, LIPA, CHANDNI #### [facility] [address] [place] [address] Dr. Luis Miguel Veronica EGFR-NON AF IRISH 35 mL/min/1.73m2 Critically low >=60 [facility] Comment on above: Performed By: #### C MP, CRP, LIPA, CHANDNI #### [facility] [address] [place] [address] Dr. Luis Miguel Veronica Globulin (S) [Mass/Vol] 3.5 g/dL Normal [facility] Comment on above: Performed By: #### C MP, CRP, LIPA, CHANDNI #### [facility] [address] [place] [address] Dr. Luis Miguel Veronica Glucose [Mass/Vol] 112 mg/dL Critically high 74-[address] [facility] Comment on above: Performed By: #### C MP, CRP, LIPA, CHANDNI #### [facility] [address] [address] [address] Luis Miguel Veronica Potassium [Moles/Vol] 4.2 mmol/L Normal 3.5-5.1 [facility] Comment on above: Performed By: #### C MP, CRP, LIPA, CHANDNI #### [facility] [address] [address] [address] Luis Miguel Veronica Protein [Mass/Vol] 7.3 g/dL Normal 6.4-8.2 [facility] Comment on above: Performed By: #### C MP, CRP, LIPA, CHANDNI #### [facility] [address] [address] [address] Luis Miguel Veronica Sodium [Moles/Vol] 139 mmol/L Normal 136-145 [facility] Comment on above: Performed By: #### C MP, CRP, LIPA, CHANDNI #### [facility] [address] [address] [address] Luis Miguel Veronica Urea nitrogen [Mass/Vol] 18.0 mg/dL Normal 7.0-18.0 [facility] Comment on above: Performed By: #### C MP, CRP, LIPA, CHANDNI #### [facility] [address] [place] [address] Dr. Luis Miguel Veronica Urea nitrogen/Creatinine [Mass ratio] 12.6 mg/mg Normal [facility] Comment on above: Performed By: #### C MP, CRP, LIPA, CHANDNI #### [facility] [address] [address] [address] Luis Miguel Veronica XR HIP LT [...] JOANNE HURLEY Date: 2022-11-28 12:[address] [facility] US [place] DOP LEG LTon 04-14-20 [...] MARTHA ROMERO Date: 2022-04-14 13:[address] [facility] AMYLASEon 04-04-2022 Amylase [Catalytic activity/Vol] 44 U/L Normal 25-[address] [facility] Comment on above: Performed By: #### C MP, CRP, LIPA, CHANDNI #### [facility] [address] [address] [address] Luis Miguel Veronica CBC AUTO DIFFon 04-04-2022 BASO # 0.0 103/ul Normal 0.0-0.1 [facility] Comment on above: Performed By: #### C MP, CRP, LIPA, CHANDNI #### [facility] [address] [address] [address] Luis Miguel Veronica Basophils/100 WBC (Bld) 0.1 % Critically low 0.2-2.0 [facility] Comment on above: Performed By: #### C MP, CRP, LIPA, CHANDNI #### [facility] [address] [address] [address] Luis Miguel Veronica EO # 0.0 103/ul Normal 0.0-0.[address] [facility] Comment on above: Performed By: #### C MP, CRP, LIPA, CHANDNI #### [facility] [address] [place] [address] Dr. Luis Miguel Veronica Eosinophils/100 WBC (Bld) 0.0 % Critically low 0.9-7.0 [facility] Comment on above: Performed By: #### C MP, CRP, LIPA, CHANDNI #### [facility] [address] [place] [address] Dr. Luis Miguel Veronica Erythrocyte distribution width (RBC) [Ratio] 13.5 % Normal 11.0-15.0 [facility] Comment on above: Performed By: #### C MP, CRP, LIPA, CHANDNI #### [facility] [address] [place] [address] Dr. Luis Miguel Veronica Hematocrit (Bld) [Volume fraction] 34.0 % Critically low 36.0-48.0 [facility] Comment on above: Performed By: #### C MP, CRP, LIPA, CHANDNI #### [facility] [address] [place] [address] Dr. Luis Miguel Veronica Hemoglobin (Bld) [Mass/Vol] 11.0 g/dL Critically low 12.0-16.0 [facility] Comment on above: Performed By: #### C MP, CRP, LIPA, CHANDNI #### [facility] [address] [place] [address] Dr. Luis Miguel Veronica IG # 0.14 10e3/ul Critically high 0.00-0.03 [facility] Comment on above: Performed By: #### C MP, CRP, LIPA, CHANDNI #### [facility] [address] [place] [address] Dr. Luis Miguel Veronica IG % 1.2 % Critically high 0.0-0.[address] [facility] Comment on above: Performed By: #### C MP, CRP, LIPA, CHANDNI #### [facility] [address] [place] [address] Dr. Luis Miguel Veronica LYMPH # 0.7 103/ul Critically low 1.2-3.8 [facility] Comment on above: Performed By: #### C MP, CRP, LIPA, CHANDNI #### [facility] [address] [place] [address] Dr. Luis Miguel Veronica Lymphocytes/100 WBC (Bld) 6.3 % Critically low 20.5-60.0 [facility] Comment on above: Performed By: #### C MP, CRP, LIPA, CHANDNI #### [facility] [address] [place] [address] Dr. Luis Miguel Veronica MANUAL DIFF REQ NO Normal [facility] Comment on above: Performed By: #### C MP, CRP, LIPA, CHANDNI #### [facility] [address] [place] [address] Dr. Luis Miguel Veronica MCH (RBC) [Entitic mass] 32.1 pg Normal 26.7-34.0 [facility] Comment on above: Performed By: #### C MP, CRP, LIPA, CHANDNI #### [facility] [address] [place] [address] Dr. Luis Miguel Veronica MCHC (RBC) [Mass/Vol] 32.4 g/dL Normal 29.9-35.[address] [facility] Comment on above: Performed By: #### C MP, CRP, LIPA, CHANDNI #### [facility] [address] [place] [address] Dr. Luis Miguel Veronica MCV (RBC) [Entitic vol] 99.1 fL Critically high 81.0-99.0 [facility] Comment on above: Performed By: #### C MP, CRP, LIPA, CHANDNI #### [facility] [address] [place] [address] Dr. Luis Miguel Veronica MONO # 0.3 103/ul Normal 0.3-0.[address] [facility] Comment on above: Performed By: #### C MP, CRP, LIPA, CHANDNI #### [facility] [address] [place] [address] Dr. Luis Miguel Veronica Monocytes/100 WBC (Bld) 2.7 % Normal 1.7-12.0 [facility] Comment on above: Performed By: #### C MP, CRP, LIPA, CHANDNI #### [facility] [address] [place] [address] Dr. Luis Miguel Veronica NEUT # 10.2 103/ul Critically high 1.4-6.5 [facility] Comment on above: Performed By: #### C MP, CRP, LIPA, CHANDNI #### [facility] [address] [place] [address] Dr. Luis Miguel Veronica Neutrophils/100 WBC (Bld) 89.7 % Critically high 43.0-75.[address] [facility] Comment on above: Performed By: #### C MP, CRP, LIPA, CHANDNI #### [facility] [address] [place] [address] Dr. Luis Miguel Veronica Platelet mean volume (Bld) [Entitic vol] 10.0 fL Normal 9.5-13.[address] [facility] Comment on above: Performed By: #### C MP, CRP, LIPA, CHANDNI #### [facility] [address] [place] [address] Dr. Luis Miguel Veronica PLT 207 103/ul Normal 150-[address] [facility] Comment on above: Performed By: #### C MP, CRP, LIPA, CHANDNI #### [facility] [address] [place] [address] Dr. Luis Miguel Veronica RBC 3.43 106/ul Critically low 4.20-5.[address] [facility] Comment on above: Performed By: #### C MP, CRP, LIPA, CHANDNI #### [facility] [address] [place] [address] Dr. Luis Miguel Veronica WBC 11.4 103/ul Critically high 4.0-11.0 [facility] Comment on above: Performed By: #### C MP, CRP, LIPA, CHANDNI #### [facility] [address] [place] [address] Dr. Luis Miguel Veronica CRPon 04-04-2022 CRP [Mass/Vol] mg/L Normal <=1.0 [facility] Comment on above: Performed By: #### C MP, CRP, LIPA, CHANDNI #### [facility] [address] [place] [address] Dr. Luis Miguel Veronica LIPASEon 04-04-2022 Lipase [Catalytic activity/Vol] 106.0 U/L Normal 73.0-393.0 [facility] Comment on above: Performed By: #### C MP, CRP, LIPA, CHANDNI #### [facility] [address] [place] [address] Dr. Luis Miguel Veronica PROF 14(COMP METB)on 022 Albumin [Mass/Vol] 2.6 g/dL Critically low 3.4-5.0 [facility] Comment on above: Performed By: #### C MP, CRP, LIPA, CHANDNI #### [facility] [address] [place] [address] Dr. Luis Miguel Veronica Albumin/Globulin [Mass ratio] 0.9 {ratio} Normal [facility] Comment on above: Performed By: #### C MP, CRP, LIPA, CHANDNI #### [facility] [address] [place] [address] Dr. Luis Miguel Veronica ALP [Catalytic activity/Vol] 43 U/L Critically low 46-116 [facility] Comment on above: Performed By: #### C MP, CRP, LIPA, CHANDNI #### [facility] [address] [place] [address] Dr. Luis Miguel Veronica ALT [Catalytic activity/Vol] 100 U/L Critically high 14-59 [facility] Comment on above: Performed By: #### C MP, CRP, LIPA, CHANDNI #### [facility] [address] [place] [address] Dr. Luis Miguel Veronica Anion gap [Moles/Vol] 12.0 mmol/L Normal [facility] Comment on above: Performed By: #### C MP, CRP, LIPA, CHANDNI #### [facility] [address] [place] [address] Dr. Luis Miguel Veronica AST [Catalytic activity/Vol] 52 U/L Critically high 15-37 [facility] Comment on above: Performed By: #### C MP, CRP, LIPA, CHANDNI #### [facility] [address] [place] [address] Dr. Luis Miguel Veronica Bilirubin [Mass/Vol] 0.3 mg/dL Normal 0.2-1.0 [facility] Comment on above: Performed By: #### C MP, CRP, LIPA, CHANDNI #### [facility] [address] [address] [address] Luis Miguel Veronica Calcium [Mass/Vol] 7.9 mg/dL Critically low 8.5-10.[address] [facility] Comment on above: Performed By: #### C MP, CRP, LIPA, CHANDNI #### [facility] [address] [address] [address] Luis Miguel Veronica Chloride [Moles/Vol] 111 mmol/L Critically high 98-[address] [facility] Comment on above: Performed By: #### C MP, CRP, LIPA, CHANDNI #### [facility] [address] [place] [address] Dr. Luis Miguel Veronica CO2 [Moles/Vol] 22.5 mmol/L Normal 21.0-32.0 [facility] Comment on above: Performed By: #### C MP, CRP, LIPA, CHANDNI #### [facility] [address] [place] [address] Dr. Luis Miguel Veronica Creatinine [Mass/Vol] 1.18 mg/dL Critically high 0.55-1.02 [facility] Comment on above: Performed By: #### C MP, CRP, LIPA, CHANDNI #### [facility] [address] [place] [address] Dr. Luis Miguel Veronica EGFR-AF IRISH 53 mL/min/1.73m2 Critically low >=[address] [facility] Comment on above: Performed By: #### C MP, CRP, LIPA, CHANDNI #### [facility] [address] [place] [address] Dr. Luis Miguel Veronica EGFR-NON AF IRISH 43 mL/min/1.73m2 Critically low >=[address] [facility] Comment on above: Performed By: #### C MP, CRP, LIPA, CHANDNI #### [facility] [address] [place] [address] Dr. Luis Miguel Veronica Globulin (S) [Mass/Vol] 3.0 g/dL Normal [facility] Comment on above: Performed By: #### C MP, CRP, LIPA, CHANDNI #### [facility] [address] [address] [address] Luis Miguel Veronica Glucose [Mass/Vol] 190 mg/dL Critically high 74-106 [facility] Comment on above: Performed By: #### C MP, CRP, LIPA, CHANDNI #### [facility] [address] [address] [address] Luis Miguel Veronica Potassium [Moles/Vol] 3.5 mmol/L Normal 3.5-5.1 [facility] Comment on above: Performed By: #### C MP, CRP, LIPA, CHANDNI #### [facility] [address] [address] [address] Luis Miguel Veronica Protein [Mass/Vol] 5.6 g/dL Critically low 6.4-8.2 [facility] Comment on above: Performed By: #### C MP, CRP, LIPA, CHANDNI #### [facility] [address] [place] [address] Dr. Luis Miguel Veronica Sodium [Moles/Vol] 142 mmol/L Normal 136-145 [facility] Comment on above: Performed By: #### C MP, CRP, LIPA, CHANDNI #### [facility] [address] [address] [address] Luis Miguel Veronica Urea nitrogen [Mass/Vol] 20.0 mg/dL Critically high 7.0-18.0 [facility] Comment on above: Performed By: #### C MP, CRP, LIPA, CHANDNI #### [facility] [address] [place] [address] Dr. Luis Miguel Veronica Urea nitrogen/Creatinine [Mass ratio] 16.9 mg/mg Normal [facility] Comment on above: Performed By: #### C MP, CRP, LIPA, CHANDNI #### [facility] [address] [place] [address] Dr. Luis Miguel Veronica XR ABD FLAT [...] NASRIN WRIGHT Date: 2022-04-04 07:[address] [facility] AMYLASEon 04-03-2022 Amylase [Catalytic activity/Vol] 48 U/L Normal 25-[address] [facility] Comment on above: Performed By: #### I MICHELLE CALL #### [facility] [address] [place] [address] Dr. Luis Miguel Veronica CBC AUTO DIFFon 04-03-2022 BASO # 0.0 103/ul Normal 0.0-0.1 [facility] Comment on above: Performed By: #### C BC #### [facility] [address] [place] [address] Dr. Luis Miguel Veronica Basophils/100 WBC (Bld) 0.1 % Critically low 0.2-2.0 [facility] Comment on above: Performed By: #### C BC #### [facility] [address] [place] [address] Dr. Luis Miguel Veronica EO # 0.0 103/ul Normal 0.0-0.7 [facility] Comment on above: Performed By: #### C BC #### [facility] [address] [address] [address] Luis Miguel Veronica Eosinophils/100 WBC (Bld) 0.0 % Critically low 0.9-7.0 [facility] Comment on above: Performed By: #### C BC #### [facility] [address] [place] [address] Dr. Luis Miguel Veronica Erythrocyte distribution width (RBC) [Ratio] 13.6 % Normal 11.0-15.0 [facility] Comment on above: Performed By: #### C BC #### [facility] [address] [place] [address] Dr. Luis Miguel Veronica Hematocrit (Bld) [Volume fraction] 33.5 % Critically low 36.0-48.0 [facility] Comment on above: Performed By: #### C BC #### [facility] [address] [place] [address] Dr. Luis Miguel Veronica Hemoglobin (Bld) [Mass/Vol] 10.9 g/dL Critically low 12.0-16.0 [facility] Comment on above: Performed By: #### C BC #### [facility] [address] [place] [address] Dr. Luis Miguel Veronica IG # 0.15 10e3/ul Critically high 0.00-0.03 [facility] Comment on above: Performed By: #### C BC #### [facility] [address] [place] [address] Dr. Luis Miguel Veronica IG % 1.0 % Critically high 0.0-0.5 [facility] [place] [facility] Comment on above: Performed By: #### C BC #### [facility] [address] [place] [address] Dr. Luis Miguel Veronica LYMPH # 0.9 103/ul Critically low 1.2-3.8 [facility] Comment on above: Performed By: #### C BC #### [facility] [address] [place] [address] Dr. Luis Miguel Veronica Lymphocytes/100 WBC (Bld) 5.6 % Critically low 20.5-60.0 [facility] Comment on above: Performed By: #### C BC #### [facility] [address] [place] [address] Dr. Luis Miguel Veronica MANUAL DIFF REQ NO Normal [facility] [place] [facility] Comment on above: Performed By: #### C BC #### [facility] [address] [place] [address] Dr. Luis Miguel Veronica MCH (RBC) [Entitic mass] 32.1 pg Normal 26.7-34.0 [facility] Comment on above: Performed By: #### C BC #### [facility] [address] [address] [address] Luis Miguel Veronica MCHC (RBC) [Mass/Vol] 32.5 g/dL Normal 29.9-35.2 [facility] Comment on above: Performed By: #### C BC #### [facility] [address] [address] [address] Luis Miguel Veronica MCV (RBC) [Entitic vol] 98.5 fL Normal 81.0-99.0 [facility] Comment on above: Performed By: #### C BC #### [facility] [address] [place] [address] Dr. Luis Miguel Veronica MONO # 0.3 103/ul Normal 0.3-0.8 [facility] Comment on above: Performed By: #### C BC #### [facility] [address] [place] [address] Dr. Luis Miguel Veronica Monocytes/100 WBC (Bld) 2.2 % Normal 1.7-12.0 [facility] Comment on above: Performed By: #### C BC #### [facility] [address] [place] [address] Dr. Luis Miguel Veronica NEUT # 13.9 103/ul Critically high 1.4-6.5 [facility] Comment on above: Performed By: #### C BC #### [facility] [address] [place] [address] Dr. Luis Miguel Veronica Neutrophils/100 WBC (Bld) 91.1 % Critically high 43.0-75.0 [facility] Comment on above: Performed By: #### C BC #### [facility] [address] [address] [address] Luis Miguel Veronica Platelet mean volume (Bld) [Entitic vol] 9.7 fL Normal 9.5-13.5 [facility] Comment on above: Performed By: #### C BC #### [facility] [address] [address] [address] Luis Miguel Veronica PLT 204 103/ul Normal 150-[address] [facility] Comment on above: Performed By: #### C BC #### [facility] [address] [address] [address] Luis Miguel Veronica RBC 3.40 106/ul Critically low 4.20-5.40 [facility] [place] [facility] Comment on above: Performed By: #### C BC #### [facility] [address] [place], [place] [address] Dr. Luis Miguel Veronica WBC 15.2 103/ul Critically high 4.0-11.0 [facility] Comment on above: Performed By: #### C BC #### [facility] [address] [address] [address] Luis Miguel Veronica CRPon 04-03-2022 CRP 0.3 mg/dL Normal <=1.0 [facility] Comment on above: Performed By: #### I MICHELLE CALL #### [facility] [address] [address] [address] Luis Miguel Veronica CULTURE URINEon 04-03-2022 [...] Trimethoprim/Sulfametho xazole <=20 S F Normal [facility] Comment on above: Performed By: #### U RCX ####[facility] [address] [address]Dr. Luis Miguel Veronica LIPASEon 04-03-2022 Lipase [Catalytic activity/Vol] 95.0 U/L Normal 73.0-393.0 [facility] Comment on above: Performed By: #### MICHELLE BARRIOS #### [facility] [address] [address] [address] Luis Miguel Veronica OCC BLD IMMUNOASSAYon 2021 OCCULT BLOOD Negative Normal NEGATIVE [facility] Comment on above: Performed By: #### C MP, CRP, LIPA, CHANDNI #### [facility] [address] [place] [address] Dr. Luis Miguel Veronica PROF 14(COMP METB)on 022 Albumin [Mass/Vol] 2.6 g/dL Critically low 3.4-5.[address] [facility] Comment on above: Performed By: #### I JAKUB, VITAD #### [facility] [address] [place] [address] Dr. Luis Miguel Veronica Albumin/Globulin [Mass ratio] 0.8 {ratio} Normal [facility] Comment on above: Performed By: #### I JAKUB, VITAD #### [facility] [address] [place] [address] Dr. Luis Miguel Veronica ALP [Catalytic activity/Vol] 48 U/L Normal 46-116 [facility] Comment on above: Performed By: #### I JAKUB, VITAD #### [facility] [address] [place] [address] Dr. Luis Miguel Veronica ALT [Catalytic activity/Vol] 86 U/L Critically high 14-59 [facility] Comment on above: Performed By: #### I JAKUB, VITAD #### [facility] [address] [place] [address] Dr. Luis Miguel Veronica Anion gap [Moles/Vol] 13.1 mmol/L Normal [facility] Comment on above: Performed By: #### I JAKUB, VITAD #### [facility] [address] [place] [address] Dr. Luis Miguel Veronica AST [Catalytic activity/Vol] 47 U/L Critically high 15-37 [facility] Comment on above: Performed By: #### I JAKUB, VITAD #### [facility] [address] [place] [address] Dr. Luis Miguel Veronica Bilirubin [Mass/Vol] 0.3 mg/dL Normal 0.2-1.0 [facility] Comment on above: Performed By: #### I JAKUB, VITAD #### [facility] [address] [address] [address] Luis Miguel Veronica Calcium [Mass/Vol] 8.1 mg/dL Critically low 8.5-10.1 [facility] Comment on above: Performed By: #### I JAKUB, VITAD #### [facility] [address] [place] [address] Dr. Luis Miguel Veronica Chloride [Moles/Vol] 111 mmol/L Critically high 98-107 [facility] Comment on above: Performed By: #### I JAKUB, VITAD #### [facility] [address] [place] [address] Dr. Luis Miguel Veronica CO2 [Moles/Vol] 22.7 mmol/L Normal 21.0-32.0 [facility] Comment on above: Performed By: #### I JAKUB, VITAD #### [facility] [address] [place] [address] Dr. Luis Miguel Veronica Creatinine [Mass/Vol] 1.25 mg/dL Critically high 0.55-1.02 [facility] Comment on above: Performed By: #### I JAKUB, VITAD #### [facility] [address] [place] [address] Dr. Luis Miguel Veronica EGFR-AF IRISH 49 mL/min/1.73m2 Critically low >=60 [facility] Comment on above: Performed By: #### I JAKUB, VITAD #### [facility] [address] [place] [address] Dr. Luis Miguel Veronica EGFR-NON AF IRISH 41 mL/min/1.73m2 Critically low >=60 [facility] Comment on above: Performed By: #### I JAKUB, VITAD #### [facility] [address] [address] [address] Luis Miguel Veronica Globulin (S) [Mass/Vol] 3.1 g/dL Normal [facility] Comment on above: Performed By: #### I JAKUB, VITAD #### [facility] [address] [place] [address] Dr. Luis Miguel Veronica Glucose [Mass/Vol] 167 mg/dL Critically high 74-[address] [facility] Comment on above: Performed By: #### I JAKUB, VITAD #### [facility] [address] [address] [address] Luis Miguel Veronica Potassium [Moles/Vol] 3.8 mmol/L Normal 3.5-5.1 [facility] Comment on above: Performed By: #### I JAKUB, VITAD #### [facility] [address] [place] [address] Dr. Luis Miguel Veronica Protein [Mass/Vol] 5.7 g/dL Critically low 6.4-8.2 [facility] Comment on above: Performed By: #### I JAKUB, VITAD #### [facility] [address] [place] [address] Dr. Luis Miguel Veronica Sodium [Moles/Vol] 143 mmol/L Normal 136-145 [facility] Comment on above: Performed By: #### I JAKUB, VITAD #### [facility] [address] [place] [address] Dr. Luis Miguel Veronica Urea nitrogen [Mass/Vol] 20.0 mg/dL Critically high 7.0-18.0 [facility] Comment on above: Performed By: #### Jaycob CALL, VITAD #### [facility] [address] [place] [address] Dr. Luis Miguel Veronica Urea nitrogen/Creatinine [Mass ratio] 16.0 mg/mg Normal [facility] Comment on above: Performed By: #### Jaycob CALL VITAD #### [facility] [address] [place] [address] Dr. Luis Miguel Veronica XR ABD FLAT [...] DAVID MERCADO Date: 2022-04-03 07:[address] [facility] AMYLASEon 04-02-2022 Amylase [Catalytic activity/Vol] 62 U/L Normal 25-[address] [facility] Comment on above: Performed By: #### C MP, CRP, LIPA, CHANDNI #### [facility] [address] [place] [address] Dr. Luis Miguel Veronica CBC AUTO DIFFon 04-02-2022 BASO # 0.0 103/ul Normal 0.0-0.[address] [facility] Comment on above: Performed By: #### C MP, CRP, LIPA, CHANDNI #### [facility] [address] [place] [address] Dr. Luis Miguel Veronica Basophils/100 WBC (Bld) 0.1 % Critically low 0.2-2.0 [facility] Comment on above: Performed By: #### C MP, CRP, LIPA, CHANDNI #### [facility] [address] [place] [address] Dr. Luis Miguel Veronica EO # 0.0 103/ul Normal 0.0-0.[address] [facility] Comment on above: Performed By: #### C MP, CRP, LIPA, CHANDNI #### [facility] [address] [place] [address] Dr. Luis Miguel Veronica Eosinophils/100 WBC (Bld) 0.0 % Critically low 0.9-7.0 [facility] Comment on above: Performed By: #### C MP, CRP, LIPA, CHANDNI #### [facility] [address] [place] [address] Dr. Luis Miguel Veronica Erythrocyte distribution width (RBC) [Ratio] 13.4 % Normal 11.0-15.0 [facility] Comment on above: Performed By: #### C MP, CRP, LIPA, CHANDNI #### [facility] [address] [place] [address] Dr. Luis Miguel Veronica Hematocrit (Bld) [Volume fraction] 37.3 % Normal 36.0-48.0 [facility] Comment on above: Performed By: #### C MP, CRP, LIPA, CHANDNI #### [facility] [address] [place] [address] Dr. Luis Miguel Veronica Hemoglobin (Bld) [Mass/Vol] 12.1 g/dL Normal 12.0-16.0 [facility] Comment on above: Performed By: #### C MP, CRP, LIPA, CHANDNI #### [facility] [address] [place] [address] Dr. Luis Miguel Veronica IG # 0.04 10e3/ul Critically high 0.00-0.03 [facility] Comment on above: Performed By: #### C MP, CRP, LIPA, CHANDNI #### [facility] [address] [place] [address] Dr. Luis Miguel Veronica IG % 0.3 % Normal 0.0-0.5 [facility] Comment on above: Performed By: #### C MP, CRP, LIPA, CHANDNI #### [facility] [address] [place] [address] Dr. Luis Miguel Veronica LYMPH # 1.3 103/ul Normal 1.2-3.[address] [facility] Comment on above: Performed By: #### C MP, CRP, LIPA, CHANDNI #### [facility] [address] [place] [address] Dr. Luis Miguel Veronica Lymphocytes/100 WBC (Bld) 10.2 % Critically low 20.5-60.0 [facility] Comment on above: Performed By: #### C MP, CRP, LIPA, CHANDNI #### [facility] [address] [place] [address] Dr. Luis Miguel Veronica MANUAL DIFF REQ NO Normal [facility] Comment on above: Performed By: #### C MP, CRP, LIPA, CHANDNI #### [facility] [address] [place] [address] Dr. Luis Miguel Veronica MCH (RBC) [Entitic mass] 32.0 pg Normal 26.7-34.0 [facility] Comment on above: Performed By: #### C MP, CRP, LIPA, CHANDNI #### [facility] [address] [place] [address] Dr. Luis Miguel Veronica MCHC (RBC) [Mass/Vol] 32.4 g/dL Normal 29.9-35.2 [facility] Comment on above: Performed By: #### C MP, CRP, LIPA, CHANDNI #### [facility] [address] [place] [address] Dr. Luis Miguel Veronica MCV (RBC) [Entitic vol] 98.7 fL Normal 81.0-99.0 [facility] Comment on above: Performed By: #### C MP, CRP, LIPA, CHANDNI #### [facility] [address] [place] [address] Dr. Luis Miguel Veronica MONO # 0.2 103/ul Critically low 0.3-0.8 [facility] Comment on above: Performed By: #### C MP, CRP, LIPA, CHANDNI #### [facility] [address] [place] [address] Dr. Luis Miguel Veronica Monocytes/100 WBC (Bld) 1.3 % Critically low 1.7-12.0 [facility] Comment on above: Performed By: #### C MP, CRP, LIPA, CHANDNI #### [facility] [address] [place] [address] Dr. Luis Miguel Veronica NEUT # 11.0 103/ul Critically high 1.4-6.5 [facility] Comment on above: Performed By: #### C MP, CRP, LIPA, CHANDNI #### [facility] [address] [place] [address] Dr. Luis Miguel Veronica Neutrophils/100 WBC (Bld) 88.1 % Critically high 43.0-75.[address] [facility] Comment on above: Performed By: #### C MP, CRP, LIPA, CHANDNI #### [facility] [address] [place] [address] Dr. Luis Miguel Veronica Platelet mean volume (Bld) [Entitic vol] 11.3 fL Normal 9.5-13.[address] [facility] Comment on above: Performed By: #### C MP, CRP, LIPA, CHANDNI #### [facility] [address] [address] [address] Luis Miguel Veronica PLT 140 103/ul Critically low 150-450 [facility] Comment on above: Performed By: #### C MP, CRP, LIPA, CHANDNI #### [facility] [address] [address] [address] Luis Miguel Veronica RBC 3.78 106/ul Critically low 4.20-5.40 [facility] [place] [facility] Comment on above: Performed By: #### C MP, CRP, LIPA, CHANDNI #### [facility] [address] [address] [address] Luis Miguel Veronica WBC 12.5 103/ul Critically high 4.0-11.0 [facility] Comment on above: Performed By: #### C MP, CRP, LIPA, CHANDNI #### [facility] [address] [address] [address] Luis Miguel Veronica CRPon 04-02-2022 CRP 2.5 mg/dL Critically high <=1.0 [facility] [place] [facility] Comment on above: Performed By: #### C MP, CRP, LIPA, CHANDNI #### [facility] [address] [address] [address] Luis Miguel Veronica HELICOBACTER PYLORI AB IGGon 04-02-2022 H. PYLORI IGG ABS 0.44 Index Value Normal 0.00-0.79 [facility] Comment on above: Result Comment: Nega tive <0.80 Equivocal 0.80 - 0.89 Positive >0.89 Performed By: #### H PYLORG ####[facility] [address] [place], [place] [id number]. Luis Miguel Veronica LIPASEon 04-02-2022 Lipase [Catalytic activity/Vol] 55.0 U/L Critically low 73.0-393.0 [facility] Comment on above: Performed By: #### C MP, CRP, LIPA, CHANDNI #### [facility] [address] [address] [address] Luis Miguel Veronica PROF 14(COMP METB)on 022 Albumin [Mass/Vol] 3.0 g/dL Critically low 3.4-5.[address] [facility] Comment on above: Performed By: #### C MP, CRP, LIPA, CHANDNI #### [facility] [address] [place] [address] Dr. Luis Miguel Veronica Albumin/Globulin [Mass ratio] 0.9 {ratio} Normal [facility] Comment on above: Performed By: #### C MP, CRP, LIPA, CHANDNI #### [facility] [address] [place] [address] Dr. Luis Miguel Veronica ALP [Catalytic activity/Vol] 61 U/L Normal 46-116 [facility] Comment on above: Performed By: #### C MP, CRP, LIPA, CHANDNI #### [facility] [address] [place] [address] Dr. Luis Miguel Veronica ALT [Catalytic activity/Vol] 101 U/L Critically high 14-59 [facility] Comment on above: Performed By: #### C MP, CRP, LIPA, CHANDNI #### [facility] [address] [place] [address] Dr. Luis Miguel Veronica Anion gap [Moles/Vol] 13.4 mmol/L Normal [facility] Comment on above: Performed By: #### C MP, CRP, LIPA, CHANDNI #### [facility] [address] [place] [address] Dr. Luis Miguel Veronica AST [Catalytic activity/Vol] 78 U/L Critically high 15-37 [facility] Comment on above: Performed By: #### C MP, CRP, LIPA, CHANDNI #### [facility] [address] [place] [address] Dr. Luis Miguel Veronica Bilirubin [Mass/Vol] 0.5 mg/dL Normal 0.2-1.0 [facility] Comment on above: Performed By: #### C MP, CRP, LIPA, CHANDNI #### [facility] [address] [place] [address] Dr. Luis Miguel Veronica Calcium [Mass/Vol] 8.6 mg/dL Normal 8.5-10.1 [facility] Comment on above: Performed By: #### C MP, CRP, LIPA, CHANDNI #### [facility] [address] [place] [address] Dr. Luis Miguel Veronica Chloride [Moles/Vol] 107 mmol/L Normal 98-107 [facility] Comment on above: Performed By: #### C MP, CRP, LIPA, CHANDNI #### [facility] [address] [place] [address] Dr. Luis Miguel Veronica CO2 [Moles/Vol] 24.8 mmol/L Normal 21.0-32.0 [facility] Comment on above: Performed By: #### C MP, CRP, LIPA, CHANDNI #### [facility] [address] [place] [address] Dr. Luis Miguel Veronica Creatinine [Mass/Vol] 1.30 mg/dL Critically high 0.55-1.02 [facility] Comment on above: Performed By: #### C MP, CRP, LIPA, CHANDNI #### [facility] [address] [place] [address] Dr. Luis Miguel Veronica EGFR-AF IRISH 47 mL/min/1.73m2 Critically low >=60 [facility] Comment on above: Performed By: #### C MP, CRP, LIPA, CHANDNI #### [facility] [address] [place] [address] Dr. Luis Miguel Veronica EGFR-NON AF IRISH 39 mL/min/1.73m2 Critically low >=60 [facility] Comment on above: Performed By: #### C MP, CRP, LIPA, CHANDNI #### [facility] [address] [place] [address] Dr. Luis Miguel Veronica Globulin (S) [Mass/Vol] 3.3 g/dL Normal [facility] Comment on above: Performed By: #### C MP, CRP, LIPA, CHANDNI #### [facility] [address] [place] [address] Dr. Luis Miguel Veronica Glucose [Mass/Vol] 189 mg/dL Critically high 74-[address] [facility] Comment on above: Performed By: #### C MP, CRP, LIPA, CHANDNI #### [facility] [address] [place] [address] Dr. Luis Miguel Veronica Potassium [Moles/Vol] 4.2 mmol/L Normal 3.5-5.1 [facility] Comment on above: Performed By: #### C MP, CRP, LIPA, CHANDNI #### [facility] [address] [address] [address] Luis Miguel Veronica Protein [Mass/Vol] 6.3 g/dL Critically low 6.4-8.2 [facility] Comment on above: Performed By: #### C MP, CRP, LIPA, CHANDNI #### [facility] [address] [address] [address] Luis Miguel Veronica Sodium [Moles/Vol] 141 mmol/L Normal 136-145 [facility] Comment on above: Performed By: #### C MP, CRP, LIPA, CHANDNI #### [facility] [address] [place] [address] Dr. Luis Miguel Veronica Urea nitrogen [Mass/Vol] 23.0 mg/dL Critically high 7.0-18.0 [facility] Comment on above: Performed By: #### C MP, CRP, LIPA, CHANDNI #### [facility] [address] [address] [address] Luis Miguel Veronica Urea nitrogen/Creatinine [Mass ratio] 17.7 mg/mg Normal [facility] Comment on above: Performed By: #### C MP, CRP, LIPA, CHANDNI #### [facility] [address] [place] [address] Dr. Luis Miguel Veronica T3, TOTAL (TRIIODOTHYRONINE) on 04-02-2022 T3, TOTAL 83 ng/dL Normal 71-180 [facility] Comment on above: Performed By: #### C MP, CRP, LIPA, CHANDNI #### [facility] [address] [place] [address] Dr. Luis Miguel Veronica T4 LABCORPon 04-02-2022 T4 [Mass/Vol] 8.4 ug/dL Normal 4.5-12.0 [facility] Comment on above: Performed By: #### T 4LC #### [facility] [address] [place] [address] Dr. Luis iMguel Veronica XR ABD FLAT UP_PA Jimy 04-02 [...] Ilan SEARS Date: 2022-04-02 06:[address] [facility] AMYLASEon 04-01-2022 Amylase [Catalytic activity/Vol] 118 U/L Critically high 25-[address] [facility] Comment on above: Performed By: #### C RP, TSH, LIPA, CHANDNI ####[facility] [address] [address]. Luis Miguel Veronica CBC AUTO DIFFon 04-01-2022 BASO # 0.1 103/ul Normal 0.0-0.[address] [facility] Comment on above: Performed By: #### I MICHELLE CALL #### [facility] [address] [address] [address] Luis Miguel Veronica Basophils/100 WBC (Bld) 0.5 % Normal 0.2-2.[address] [facility] Comment on above: Performed By: #### I MICHELLE CALL #### [facility] [address] [address] [address] Luis Miguel Veronica EO # 0.0 103/ul Normal 0.0-0.7 [facility] Comment on above: Performed By: #### I MICHELLE CALL #### [facility] [address] [place] [address] Dr. Luis Miguel Veronica Eosinophils/100 WBC (Bld) 0.1 % Critically low 0.9-7.0 [facility] Comment on above: Performed By: #### Jaycob CALL, VITAD #### [facility] [address] [place] [address] Dr. Luis Miguel Veronica Erythrocyte distribution width (RBC) [Ratio] 13.2 % Normal 11.0-15.0 [facility] Comment on above: Performed By: #### I JAKUB, VITAD #### [facility] [address] [place] [address] Dr. Luis Miguel Veronica Hematocrit (Bld) [Volume fraction] 42.1 % Normal 36.0-48.0 [facility] Comment on above: Performed By: #### Jaycob CALL, VITAD #### [facility] [address] [place] [address] Dr. Luis Miguel Veronica Hemoglobin (Bld) [Mass/Vol] 13.9 g/dL Normal 12.0-16.0 [facility] Comment on above: Performed By: #### Jaycob CALL VITAD #### [facility] [address] [place] [address] Dr. Luis Miguel Veronica IG # 0.06 10e3/ul Critically high 0.00-0.03 [facility] Comment on above: Performed By: #### Jaycob CALL, VITAD #### [facility] [address] [place] [address] Dr. Luis Miguel Veronica IG % 0.4 % Normal 0.0-0.[address] [facility] Comment on above: Performed By: #### I JAKUB, VITAD #### [facility] [address] [place] [address] Dr. Luis Miguel Veronica LYMPH # 1.6 103/ul Normal 1.2-3.[address] [facility] Comment on above: Performed By: #### Jaycob CALL, VITAD #### [facility] [address] [place] [address] Dr. Luis Miguel Veronica Lymphocytes/100 WBC (Bld) 11.7 % Critically low 20.5-60.0 [facility] Comment on above: Performed By: #### I JAKUB, VITAD #### [facility] [address] [place] [address] Dr. Luis Miguel Veronica MANUAL DIFF REQ NO Normal [facility] [place] [facility] Comment on above: Performed By: #### I JAKUB, VITAD #### [facility] [address] [place] [address] Dr. Luis Miguel Veronica MCH (RBC) [Entitic mass] 32.0 pg Normal 26.7-34.0 [facility] Comment on above: Performed By: #### I JAKUB, VITAD #### [facility] [address] [place] [address] Dr. Luis Miguel Veronica MCHC (RBC) [Mass/Vol] 33.0 g/dL Normal 29.9-35.2 [facility] Comment on above: Performed By: #### I JAKUB, VITAD #### [facility] [address] [place] [address] Dr. Luis Miguel Veronica MCV (RBC) [Entitic vol] 97.0 fL Normal 81.0-99.0 [facility] Comment on above: Performed By: #### I JAKUB, VITAD #### [facility] [address] [place] [address] Dr. Luis Miguel Veronica MONO # 0.5 103/ul Normal 0.3-0.8 [facility] Comment on above: Performed By: #### I JAKUB, VITAD #### [facility] [address] [place] [address] Dr. Luis Miguel Veronica Monocytes/100 WBC (Bld) 4.0 % Normal 1.7-12.0 [facility] Comment on above: Performed By: #### I JAKUB, VITAD #### [facility] [address] [place] [address] Dr. Luis Miguel Veronica NEUT # 11.1 103/ul Critically high 1.4-6.5 [facility] Comment on above: Performed By: #### I JAKUB, VITAD #### [facility] [address] [place] [address] Dr. Luis Miguel Veronica Neutrophils/100 WBC (Bld) 83.3 % Critically high 43.0-75.0 [facility] Comment on above: Performed By: #### Jaycob CALL VITAD #### [facility] [address] [address] [address] Luis Miguel Veronica Platelet mean volume (Bld) [Entitic vol] 9.2 fL Critically low 9.5-13.5 [facility] Comment on above: Performed By: #### Jaycob CALL VITAD #### [facility] [address] [address] [address] Luis Miguel Veronica PLT 290 103/ul Normal 150-[address] [facility] Comment on above: Performed By: #### Jaycob CALL VITAD #### [facility] [address] [address] [address] Luis Miguel Veronica RBC 4.34 106/ul Normal 4.20-5.40 [facility] Comment on above: Performed By: #### Jaycob CALL VITAD #### [facility] [address] [address] [address] Luis Miguel Veronica WBC 13.4 103/ul Critically high 4.0-11.0 [facility] Comment on above: Performed By: #### Jaycob CALL VITAD #### [facility] [address] [address] [address] Luis Miguel Veronica CRPon 04-01-2022 CRP [Mass/Vol] mg/L Normal <=1.0 [facility] Comment on above: Performed By: #### C RP, TSH, LIPA, CHANDNI ####[facility] [address] [id number]. Luis Miguel Veronica CT ABD/PELVIS WO CONon [...] Ilan SEARS Date: 2022-04-01 05:[address] [facility] Covid-19 PCR ([facility])on SARS-CoV-2 (COVID-19) RNA ALEN+probe Ql (Unsp spec) Not detected Normal NOT DETECTED [facility] Comment on above: Result Comment: When [...] for this test is supported by the Windows Software Developer of Health and Human Service's declaration that [...] #### C MP, CRP, LIPA, CHANDNI #### [facility] [address] [place] [address] Dr. Luis Miguel Veronica ER URINE PROFILEon 2 Bilirubin Ql (U) Negative Normal NEGATIVE The [facility] Comment on above: Performed By: #### C MP, CRP, LIPA, CHANDNI #### [facility] [address] [place] [address] Dr. Luis Miguel Veronica Clarity (U) CLEAR Normal CLEAR [facility] Comment on above: Performed By: #### C MP, CRP, LIPA, CHANDNI #### [facility] [address] [place] [address] Dr. Luis Miguel Veronica Color (U) LT. YELLOW Normal YELLOW [facility] Comment on above: Performed By: #### C MP, CRP, LIPA, CHANDNI #### [facility] [address] [place] [address] Dr. Luis Miguel DELCID A micrscopic examination will be performed if indicated. Normal [facility] Comment on above: Performed By: #### C MP, CRP, LIPA, CHANDNI #### [facility] [address] [place] [address] Dr. Luis Miguel Veronica Glucose Ql (U) 250 mg/dl Abnormal NEGATIVE The [facility] Comment on above: Performed By: #### C MP, CRP, LIPA, CHANDNI #### [facility] [address] [place] [address] Dr. Luis Miguel Veronica Hemoglobin Ql (U) TRACE-LYSED Abnormal NEGATIVE The [facility] Comment on above: Performed By: #### C MP, CRP, LIPA, CHANDNI #### [facility] [address] [place] [address] Dr. Luis Miguel Veronica Ketones Ql (U) 15 mg/dl Abnormal NEGATIVE The [facility] Comment on above: Performed By: #### C MP, CRP, LIPA, CHANDNI #### [facility] [address] [place] [address] Dr. Luis Miguel Veronica LEUKOCYTES Negative Normal NEGATIVE [facility] Comment on above: Performed By: #### C MP, CRP, LIPA, CHANDNI #### [facility] [address] [place] [address] Dr. Luis Miguel Veronica Nitrite Ql (U) Positive Abnormal NEGATIVE [facility] Comment on above: Performed By: #### C MP, CRP, LIPA, CHANDNI #### [facility] [address] [place] [address] Dr. Luis Miguel Veronica pH (U) 7.0 [pH] Normal 5-9 [facility] Comment on above: Performed By: #### C MP, CRP, LIPA, CHANDNI #### [facility] [address] [place] [address] Dr. Luis Miguel Veronica Protein (U) [Mass/Vol] 30 mg/dL Abnormal NEGATIVE/ TRACE [facility] Comment on above: Performed By: #### C MP, CRP, LIPA, CHANDNI #### [facility] [address] [place] [address] Dr. Luis Miguel Veronica SPEC GRAVITY 1.020 Normal 1.005-<=1.02 5 [facility] Comment on above: Performed By: #### C MP, CRP, LIPA, CHANDNI #### [facility] [address] [place] [address] Dr. Luis Miguel Veronica UR MICRO IND INDICATED Normal [facility] Comment on above: Performed By: #### C MP, CRP, LIPA, CHANDNI #### [facility] [address] [place] [address] Dr. Luis Miguel Veronica Urobilinogen Qn (U) 0.2 {Garry'U}/dL Normal 0.2 - 1. 0 [facility] Comment on above: Performed By: #### C MP, CRP, LIPA, CHANDNI #### [facility] [address] [place] [address] Dr. Luis Miguel Veornica LACTATE/LACTIC ACIDon 2021 Lactate [Moles/Vol] 1.0 mmol/L Normal 0.4-1.9 [facility] Comment on above: Performed By: #### C MP, CRP, LIPA, CHANDNI #### [facility] [address] [address] [address] Luis Miguel Veronica Lactate [Moles/Vol] 2.0 mmol/L Critically high 0.4-1.9 [facility] Comment on above: Performed By: #### I MICHELLE CALL #### [facility] [address] [address] [address] Luis Miguel Veronica LIPASEon 04-01-2022 Lipase [Catalytic activity/Vol] 61.0 U/L Critically low 73.0-393.0 [facility] Comment on above: Performed By: #### I MICHELLE CALL #### [facility] [address] [place] [address] Dr. Luis Miguel Veronica PROF 14(COMP METB)on 022 Albumin [Mass/Vol] 3.6 g/dL Normal 3.4-5.0 [facility] Comment on above: Performed By: #### C MP ####[facility] [address] [address]DrMaxi Veronica Albumin/Globulin [Mass ratio] 0.9 {ratio} Normal [facility] Comment on above: Performed By: #### C MP ####[facility] [address] [address]Dr. Luis Miguel Veronica ALP [Catalytic activity/Vol] 64 U/L Normal 46-[address] [facility] Comment on above: Performed By: #### C MP ####[facility] [address] [address]Dr. Luis Miguel Veronica ALT [Catalytic activity/Vol] 22 U/L Normal 14-[address] [facility] Comment on above: Performed By: #### C MP ####[facility] [address] [address]DrMaxi Veronica Anion gap [Moles/Vol] 16.0 mmol/L Normal [facility] Comment on above: Performed By: #### C MP ####[facility] [address] [address]DrMaxi Veronica AST [Catalytic activity/Vol] 21 U/L Normal 15-37 [facility] Comment on above: Performed By: #### C MP ####[facility] [address] [address]Dr. Luis Miguel Jeremías Bilirubin [Mass/Vol] 0.3 mg/dL Normal 0.2-1.0 [facility] Comment on above: Performed By: #### C MP ####[facility] [address] [place], [place] [address]Dr. Luis Miguel Veronica Calcium [Mass/Vol] 9.4 mg/dL Normal 8.5-10.1 [facility] Comment on above: Performed By: #### C MP ####[facility] [address] [place], [place] [address]Dr. Lui sMiguel Veronica Chloride [Moles/Vol] 105 mmol/L Normal 98-107 [facility] Comment on above: Performed By: #### C MP ####[facility] [address] [place], [place] [address]Dr. Luis Miguel Veronica CO2 [Moles/Vol] 24.3 mmol/L Normal 21.0-32.0 [facility] Comment on above: Performed By: #### C MP ####[facility] [address] [place], [place] [address]Dr. Luis Miguel Veronica Creatinine [Mass/Vol] 1.47 mg/dL Critically high 0.55-1.02 [facility] Comment on above: Performed By: #### C MP ####[facility] [address] [place], [place] [address]Dr. Luis Miguel Veronica EGFR-AF IRISH 41 mL/min/1.73m2 Critically low >=[address] [facility] Comment on above: Performed By: #### C MP ####[facility] [address] [place], [place] [address]Dr. Luis Miguel Veronica EGFR-NON AF IRISH 34 mL/min/1.73m2 Critically low >=[address] [facility] Comment on above: Performed By: #### C MP ####[facility] [address] [place], [place] [address]Dr. Luis Miguel Veronica Globulin (S) [Mass/Vol] 3.8 g/dL Normal [facility] Comment on above: Performed By: #### C MP ####[facility] [address] [address]Dr. Luis Miguel Veronica Glucose [Mass/Vol] 214 mg/dL Critically high 74-[address] [facility] Comment on above: Performed By: #### C MP ####[facility] [address] [address]Dr. Luis Miguel Veronica Potassium [Moles/Vol] 4.3 mmol/L Normal 3.5-5.1 [facility] Comment on above: Performed By: #### C MP ####[facility] [address] [place], [place] [address]Dr. Luis Miguel Veronica Protein [Mass/Vol] 7.4 g/dL Normal 6.4-8.2 [facility] Comment on above: Performed By: #### C MP ####[facility] [address] [place], [place] [address]Dr. Luis Miguel Veronica Sodium [Moles/Vol] 141 mmol/L Normal 136-145 [facility] Comment on above: Performed By: #### C MP ####[facility] [address] [place], [place] [address]Dr. Luis Miguel Veronica Urea nitrogen [Mass/Vol] 24.0 mg/dL Critically high 7.0-18.0 [facility] Comment on above: Performed By: #### C MP ####[facility] [address] [place], [place] [address]Dr. Luis Miguel Veronica Urea nitrogen/Creatinine [Mass ratio] 16.3 mg/mg Normal [facility] Comment on above: Performed By: #### C MP ####[facility] [address] [place], [place] [address]Dr. Luis Miguel Jeremías TSHon 04-01-2022 TSH 1.674 uIU/mL Normal 0.358-3.740 [facility] Comment on above: Performed By: #### C RP, TSH, LIPA, CHANDNI ####[facility] [address] [place], [place] [address]Dr. Luis Miguel Veronica TSH RANGE SEE BELOW Normal [facility] Comment on above: Result Comment: <0.3 4 UIU/ml HYPERTHYROID 0.34-5.60 UIU/ml EUTHYROID >5.60 UIU/ml HYPOTHYROID Performed By: #### C RP, TSH, LIPA, CHANDNI ####[facility] [address] [address]Dr. Luis Miguel Veronica URINE MICROSCOPIC ONLYon BACTERIA LARGE Abnormal NONE SEEN [facility] Comment on above: Performed By: #### C MP, CRP, LIPA, CHANDNI #### [facility] [address] [address] [address] Luis Miguel Veronica Bacteria identified Cx Nom (U) INDICATED Normal [facility] Comment on above: Performed By: #### C MP, CRP, LIPA, CHANDNI #### [facility] [address] [address] [address] Luis Miguel Veronica CA OX CRYSTALS RARE Normal [facility] Comment on above: Performed By: #### C MP, CRP, LIPA, CHANDNI #### [facility] [address] [address] [address] Luis Miguel Veronica CAST NONE SEEN Normal NONE SEEN [facility] Comment on above: Performed By: #### C MP, CRP, LIPA, CHANDNI #### [facility] [address] [address] [address] Luis Miguel Veronica Crystals LM Nom (Urine sed) SEEN Abnormal NONE SEEN [facility] Comment on above: Performed By: #### C MP, CRP, LIPA, CHANDNI #### [facility] [address] [address] [address] Luis Miguel Veronica Epithelial cells LM Ql (Urine sed) RARE Normal NONE SEEN /RARE [facility] Comment on above: Performed By: #### C MP, CRP, LIPA, CHANDNI #### [facility] [address] [address] [address] Luis Miguel Veronica MUCOUS NONE SEEN Normal NONE SEEN [facility] Comment on above: Performed By: #### C MP, CRP, LIPA, CHANDNI #### [facility] [address] [address] [address] Luis Miguel Veronica RBC 0-2 Normal 0-2 [facility] Comment on above: Performed By: #### C MP, CRP, LIPA, CHANDNI #### [facility] [address] [address] [address] Luis Miguel Veronica WBC 2-5 Abnormal NONE SEEN [facility] Comment on above: Performed By: #### C MP, CRP, LIPA, CHANDNI #### [facility] [id number] Luis Miguel Veronica XR ABD FLAT [...] by: HARINI CAMPA Date: 2022-04-01 03:29 Normal [facility] Vital Signs Date Time Vital Sign Value Performing Clinician Facility 08-18-2023 12:58-0400 Blood Pressure Location Shadi SORTO [facility] 08-18-2023 12:58-0400 Diastolic blood pressure 76 mm[Hg] Shadi SORTO [facility] 08-18-2023 12:58-0400 Heart rate 92 /min Shadi SORTO [facility] 08-18-2023 12:58-0400 Systolic blood pressure 122 mm[Hg] Shadi SORTO [facility] 05-11-2023 13:03-0400 Blood Pressure Location Shadigladys SORTO [facility] 05-11-2023 13:03-0400 Diastolic blood pressure 72 mm[Hg] Shadi SORTO [facility] 05-11-2023 13:03-0400 Heart rate 75 /min Shadi SORTO [facility] 05-11-2023 13:03-0400 Respiratory rate 16 /min Shadigladys SORTO [facility] 05-11-2023 13:03-0400 Systolic blood pressure 116 mm[Hg] Shadi SORTO [facility] 01-12-2023 14:21-0400 Body height 152.4 cm Rodney Newton MD Work Phone: [facility] 01-12-2023 14:21-0400 Body weight 42.64 kg Rodney Newton MD Work Phone: [facility] 01-12-2023 14:21-0400 Diastolic blood pressure 55 mm[Hg] Rodney Newton MD Work Phone: [facility] 01-12-2023 14:21-0400 Heart rate 90 /min Rodney Newton MD Work Phone: [facility] 01-12-2023 14:21-0400 Respiratory rate 16 /min Rdoney Newton MD Work Phone: [facility] 01-12-2023 14:21-0400 SaO2% (BldA) [Mass fraction] 96 % Rodney Newton MD Work Phone: [facility] 01-12-2023 14:21-0400 Systolic blood pressure 124 mm[Hg] Rodney Newton MD Work Phone: [facility] 12-24-2022 12:15-0500 Body height 152.4 cm Lesli Connelly Other [employer] Other 12-24-2022 12:15-0500 Body mass index (BMI) [Ratio] 18.36 kg/m2 Lesli Connelly Other [employer] Other 12-24-2022 12:15-0500 Body temperature 97.4 [degF] Lesli Connelly Other [employer] Other 12-24-2022 12:15-0500 Body weight 42.64 kg Lesli Connelly Other [employer] Other 12-24-2022 12:15-0500 Respiratory rate 18 /min Lesli Connelly Other [employer] Other 12-24-2022 12:15-0500 SaO2% (BldA) [Mass fraction] 94 % Lesli Connelly Other [employer] Other Encounters Encounter Date Encounter Type Care [...] encounter procedure Shadi SORTO [facility] Start: 05-11-2023 End: 05-12-2023 ambulatory Shadi SORTO Facility:[facility] Start: 05-11-2023 End: 05-11-2023 Patient encounter procedure Shadi SORTO [facility] Start: 04-16-2023 ambulatory Shadi SORTO Facility :[facility] [place] Start: 04-15-2023 End: 04-16-2023 ambulatory Shadi SORTO Facility:CD:[id number] Start: 04-07-2023 Telephone encounter Renard dimas DIESEL ROLLER OPERATOR.POWER ORIGINATOR Work Phone: [facility] Comment on above: Results Start: 04-02-2023 End: 04-02-2023 ambulatory LETY DANIELS Facility:[facility] Start: 03-05-2023 End: 03-06-2023 ambulatory LETY DANIELS Facility:[facility] Start: 03-05-2023 End: 03-05-2023 ambulatory Renard Reyes DIESEL ROLLER OPERATOR.POWER ORIGINATOR Work Phone: [facility] Comment on above: Radiculopathy of lum bar region (Primary Dx); Acute midline low back pain with right-sided sciatica; Weakness of both lower extremities Start: 03-05-2023 End: 03-05-2023 Telemedicine consultation with patient Renard Reyes DIESEL ROLLER OPERATOR.POWER ORIGINATOR Work Phone: [facility] Start: 02-01-2023 End: 02-02-2023 ambulatory EJNN TOLEDO Facility:[facility] Start: 01-12-2023 End: 01-13-2023 ambulatory LETY DANIELS Facility:[facility] Start: 01-12-2023 End: 01-12-2023 Patient encounter procedure Rodney Newton MD Work Phone: [facility] Comment on above: Lumbar radiculopathy (Primary Dx) Start: 12-24-2022 End: 12-24-2022 ambulatory Lesli Godwin Other [employer] Other Start: 12-24-2022 Office outpatient ne w [...] 10-25-2022 ADVANCE DIRECTIVE DISCUSSION ADVANCE DIRECTIVE DISCUSSION [facility] Start: 10-25-2022 DEPRESSION ASSESSMENT DEPRESSION ASS ESSMENT [facility] Start: 09-23-2021 COVID-19 VACCINE (4 - Booster for Pfizer series) COVID-19 VACCINE (4 - Booster for Pfizer series) [facility] Start: 03-03-2013 DIABETES SCREEN DIABETES SCREEN [facility] Start: 2001 BONE DENSITY BONE DENSITY [facility] Start: 2001 PNEUMOCOCCAL: 65+ (1 - PCV) PNEUMOCOCCAL: 65+ (1 - PCV) [facility] Start: 1986 SHINGRIX VACCINE (1 of 2) SHINGRIX VACCINE (1 of 2) [facility] Start: 1955 Urine microalbumin profile DTAP,TDAP,TD (1 - Tdap) [facility] End: 04-03-2024 Mri spinal canal lumbar w/o contrast material MRI LUMBAR SPINE WO IVCON Radiology Routine Radiculopathy of lumbar region Acute midline low back pain with right-sided sciatica Weakness of both lower extremities 1 Occurrences starting 03/05/2023 until 04/03/[address] [facility] Work Phone: Comment on above: 1 Occurrences starti ng 03/05/2023 until 04/03/2024 [facility] Immunizations Immunization Date Immunization Notes Care Provider Bjorn rojas 08-18-2022 influenza virus vaccine, unspecified formulation Shadi SORTO [facility] 07-29-2021 SARS-CoV-2 (COVID-19 ) mRNA BNT-162b2 vax Shadi SORTO [facility] 07-21-2021 influenza virus vaccine, unspecified formulation Shadi SORTO [facility] 12-11-2020 SARS-CoV-2 (COVID-19 ) mRNA BNT-162b2 vax Shadi SORTO [facility] Comment on above: Result Comment: 2022: [id number] 11-20-2020 SARS-CoV-2 (COVID-19 ) mRNA BNT-162b2 vax [employer] [facility] Comment on above: Result Comment: 2022: [id number] 07-17-2020 influenza virus vaccine, unspecified formulation [employer] [facility] 09-23-2019 zoster vaccine recombinant [employer] [facility] 07-04-2019 zoster vaccine recombinant [employer] [facility] 06-27-2019 influenza virus vaccine, unspecified formulation [employer] [facility] 08-03-2018 influenza virus vaccine, unspecified formulation [employer] [facility] 07-15-2017 influenza virus vaccine, unspecified formulation [employer] [facility] 03-29-2017 pneumococcal polysaccharide vaccine, 23 valent [employer] [facility] 07-13-2016 influenza virus vaccine, unspecified formulation [employer] [facility] 01-22-2016 pneumococcal conjuga te vaccine, 13 valent [employer] [facility] 08-01-2015 influenza virus vaccine, unspecified formulation [employer] [facility] 05-14-2014 tetanus toxoid, redu britney diphtheria toxoid, and acellular pertussis vaccine, adsorbed Lesli Connelly Other [employer] Other 01-10-2014 tetanus toxoid, redu britney diphtheria toxoid, and acellular pertussis vaccine, adsorbed Lesli Connelly Other [employer] Other Payers Date Payer Category Payer Medicare DEVOTED MEDICARE [facility] HMO [id number] 2022-Present [phone] [address] [place] [address] HMO [id number] 2021 Unknown [id number] 1959 Medicare [id number] 1936 Unknown [id number] 1936 Unknown [id number] [id number] 1936 Unknown [id number] 2.16.840.1.076613.3.579.2.593 1936 Unknown [id number] 2.16.840.1.194545.3.579.2.593 1936 Unknown [id number] 2.16.840.1.084171.3.579.2.593 1936 Unknown [id number] 2.16.840.1.313527.3.579.2.593 1936 Unknown [id number] 2.16.840.1.656309.3.579.2.593 1936 Unknown [id number] 2.16.840.1.347724.3.579.2.593 1936 Unknown [id number] 2.16.840.1.379577.3.579.2.593 1936 Unknown [id number] 2.16.840.1.541448.3.579.2.727 1936 Unknown [id number] 2.16.840.1.641102.3.579.2.727 1936 Unknown [id number] 2.16.840.1.174485.3.579.2.727 1936 Unknown [id number] 2.16.840.1.253270.3.579.2.727 1936 Unknown [id number] 2.16.840.1.890938.3.579.2.1259 1936 Unknown [id number] 2.16.840.1.485443.3.579.2.1259 1936 Unknown [id number] Social History Date Type Detail Facility Sex Assigned At [facility] Start: 01-12-2023 End: 08-18-2023 Tobacco smoking status NHIS Ex-smoker [facility] End: 02-17-2010 History of tobacco use Current smoker [facility] End: 02-17-2010 History of tobacco use Cigarette Smoker [facility] Start: 01-12-2023 Cigarettes smoked current (pack per day) - Reported 0.5 [facility] Start: 01-12-2023 Tobacco use and exposure Smokeless tobacco non-user [facility] Start: 01-12-2023 Alcohol intake Current 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 Follow Up Care 05/11/2023 13:28:09 With:ROBBY NARANJO, Shadi Blanco, URL Address: [facility] [address] [place] [address]- When: Unknown [facility] Chris 05-11-2023 Hospital Discharge instructions [...] include: ?8 oz (237 mL) of milk, dczqgqo-dyengmpgjujh-wafsz milk, and calcium-fortifiedfruit juice. Calcium-fortified means that [...] ?Spinach (cooked), rhubarb, beets, sweet potatoes, and Scottish chard. ?Peanuts. ?Potato chips, irish fries, and baked potatoes with skin on. ?Nuts and nut products. ?Chocolate. If you regularly take a diuretic medicine, make sure to eat at least 1 or 2 servings of fruits or vegetables that are high in potassium each day. These include: ?Avocado. ?Banana. ?[place], prune, carrot, or tomato juice. ?Baked potato. [...] magnesium, fish oil, or vitamin B6. Take ftmt-kbx-vprfalt and prescription medicines only as told by [...] Casseroles. Pizza. Lasagna. Frozen meals. Potato chips. Azerbaijani fries. The items listed above may not [...] provider. Document Revised: 06/22/2022 Document Reviewed: 06/22/2022 [employer] Patient Education 2022 [employer]. Follow Up Care 05/04/2023 09:38:34 With:ROBBY NARANJO, Shadi Blanco, URL Address: [facility] [address], [place] [address]- When: Unknown [facility] of [facility] 04-07-2023 Miscellaneous Notes Reviewed new MRI. Much [...] with the RN. documented in this encounter [facility] 04-02-2023 Note HNO ID: [id number] Author: RT Elian(R) Service: ? Author Type: [...] RT Elian(R) April 02, 2023 11:42 AM [facility] 03-05-2023 Note HNO ID: [id number] Author: Renard Reyes APRN.CNP Service: ? Author [...] visit. Either the patient or their legal business banking representative has been informed of the risks [...] Call length: 19 minutes SIGNATURE: Renard Reyes APRN.[facility] [place] PATIENT NAME: Dona Rodriguez DATE: March 05, 2023 TIME: 10:40 AM PAGER: [facility] 03-05-2023 History of Present illness Narrative VIRTUAL SPINE SURGERY ESTABLISHED PATIENT This is a virtual visit using Audio only. It required patient-provider interaction for the medical decision making as documented below. I have communicated my name and active licensure. The patient's identity and physical location were verified at the time of this visit. Either the patient or their legal business banking representative has been informed of the risks [...] Call length: 19 minutes SIGNATURE: Renard Reyes APRN.[facility] [place] PATIENT NAME: Dona Rodriguez DATE: March 05, 2023 TIME: 10:40 AM PAGER: documented in this encounter [facility] 02-01-2023 Note HNO ID: [id number] Author: Myranda Hunt MD Service: ? Author [...] pressure cuff, and pulse oximetry. Then a high school chemistry teacher film was taken to identify the correct [...] symptoms are on the LEFT side now. [facility] 02-01-2023 Note HNO ID: [id number] Author: David Ramsey LPN Service: ? Author [...] injection Verified by patient by: Dr. Hunt Visual Merchandiser for post spine injection procedure: Yes Patient [...] and daughter ( (more content not included)... [facility] 02-01-2023 Note HNO ID: [id number] Author: Sybil Euceda MD Service: ? Author [...] with explicit agreement by patient or patient business banking representative before surgery. Sybil Euceda MD Spine Medicine Fellow, PGY-5 DATE: February 01, 2023 TIME: 9:42 AM [facility] 01-12-2023 Note HNO ID: [id number] Author: Rodney Newton MD Service: ? Author [...] and pertinent documents (more content not included)... [facility] 03-21-2023 History of Present illness Narrative [...] 3:13 PM PAGER: documented in this encounter [facility] 12-24-2022 Note HNO ID: [id number] Author: Jenn Toledo PA-C Service: ? Author Type: Physician Carpenter Prototype Type: Progress Notes Filed: 12/24/2022 2:12 PM [...] Lumbar surgery like 12-15 yr ago @ [facility] (currently closed) CMT: PT NSAIDS Tramadol Studies [...] reviewed during the appt Jenn Toledo PA-C [facility] 12-24-2022 Evaluation note Encounter Date Diagnosis [...] weeks for the cough to go away 20/20 [employer] Other 02-28-2023 NoteHNO ID: [id number] Author: Derrek Acuña Service: ? Author Type: ? Type: Progress Notes Filed: 12/24/2022 2:12 PM Note Text: Patient name: Dona Rodriguez Are you being referred by a [facility] Provider or Pain Management Provider at [facility]? No If answer is YES please [...] where the MRI/CT/myelogram was completed: [place] [address] MRI/CT/myelogram viewable in Epic: No If not, please provide [phone] to fax in imaging reports for review. Also, please inform patient to hand carry imaging disc to appointment. XR (spine) within 12 months: Yes If YES,? please ask for the name/address of the facility where the XR was completed: [place] [address] Dr. Poe's patients: Have you had previous [...] and/or physical therapy [place] [address] Have you tried any other kinds of [...] Lumbar surgery like 12-15 yr ago @ [facility] (currently closed) Additional Comments [phone] Hanh, daughter Asking if she can be seen before [facility] Future Appointments Appointment Date:08/18/2023 01:00:00 PM Scheduled Provider:Shadi SORTO MD Location:[facility] Appointment Type:URO Office Visit [facility] Evaluation + Plan note Future Appointments Appointment Date:08/16/2024 01:00:00 PM Scheduled Provider:Shadi SORTO MD Location:[facility] Appointment Type:URO Office Visit [facility] Evaluation note* Diagnosis Lumbar radiculopathy- Primary Thoracic or lumbosacral neuritis or radiculitis, unspecified [facility] Diagnosis Radiculopathy of lumbar region- Primary Thoracic or lumbosacral neuritis or radiculitis, unspecified Acute midline low back pain with right-sided sciatica Weakness of both lower extremities [facility] Diagnosis Radiculopathy of lumbar region Thoracic or lumbosacral neuritis or radiculitis, unspecified Acute midline low back pain with right-sided sciatica Weakness of both lower extremities [facility] - Reported* Type Description Date Medical History Hypothyroidism Medical History chronic depression Medical History spinal stenosis Medical History hip stenosis Medical History narrowing of spine Medical History bulging disk Surgical History back sugery Surgical History removed 5 foot of colon Hospitalization History see above Hospitalization History UTI 2021 20/20 [employer] Other Hospital course Narrative No data available for this section [facility] Progress note No data available for this section [facility] Summary Purpose Family History No Family History [...] CANAL LUMBAR W/O CONTRAST MATERIAL Renard Reyes, DIESEL ROLLER OPERATOR.POWER ORIGINATOR [address] [place] [address] Mr Imaging Referral ID Status Reason Start Date Expiration Date Visits Requested Visits Authorized [id number] Pending Review Auto-Generat ed Referral 03/05/2023 04/03/2024 [...] or prosecute any alcohol or drug abuse patient.[facility] the event this information is protected by the Federal Confidentiality of Alcohol and Drug Abuse Patient Records regulations: The Federal rules restrict any use of the information to criminally investigate or prosecute any alcohol or drug abuse patient.[facility] the event this information is protected by the Federal Confidentiality of Alcohol and Drug Abuse Patient Records regulations: The Federal rules restrict any use of the information to criminally investigate or prosecute any alcohol or drug abuse patient.[facility] Care Teams (unrecognized sec tion and content) Medical Chief Technician Relationship Specialty Start Date End Date Lety Daniels MD [address] [place] [id number] PCP - General 11/08/09 Jada Padilla MD [address] [place] [address] Family Medicine 12/22/22 Medical Chief Technician Relationship Specialty Start Date End Date Lety Daniels MD [address] [place] [id number] PCP - General 11/08/09 Jada Padilla MD [address] [place] [address] Family Medicine 12/22/22 Medical Chief Technician Relationship Specialty Start Date End Date Jada Padilla MD [address] [place] [address] PCP - General Family Medicine 04/07/18 INFORMATION SOURCE (unrecogn ized section and content) DATE CREATED AUTHOR 01/30/2023 [facility] DATE CREATED AUTHOR AUTHOR'S ORGANIZ ATION 04/08/2023 [facility] DATE CREATED AUTHOR AUTHOR'S ORGANIZ ATION 12/30/2023 [facility] DATE CREATED AUTHOR AUTHOR'S ORGANIZ ATION 02/10/2024 [facility] EPIC FOR RECORDS PERTAINING [...] BE BASED ON THE PRIMARY CLINICAL RECORDS. [facility] [employer] [facility]. provides no warranty or guarantee of the accuracy or completeness of information in this document.
== END 2024-05-08 11:45 ==
LOC: FL 05-09 10:21
PROVIDERS: Radiology Diagnostic Radiology; PCP Family Medicine; Visit Provider Family Medicine
DX: M19.011 Primary osteoarthritis, right shoulder (principal)
CPT/HCPCS: 20610; 77002; J0665; J3301; Q9967

== ENCOUNTER 2024-11-22 12:55 | Observation (INO) | payer MEDICARE, SELFPAY ==
[2024-11-22] VITALS (10 sets, daily range): BP systolic 120–160; BP diastolic 50–71; PULSE 78–96; TEMP 36.4–36.8; O2SAT 94–98; BMI 19.2; BMI 18.6
--- NOTE | 2024-11-22 13:00 | XR_ITS ---
The [address] [address] Patient Name: DONA NAGY MRN: [id number] date: 1935 Sex: F Assigned Patient Location: ER Current Patient Location: ER Accession/Order Number: [id number] Exam Date: 11/22/2024 13:39 Report Date: 11/22/2024 13:57 At the request of: LEXIS HANSEN Procedure: XR chest 1V EXAMINATION: XR chest 1V HISTORY: Weakness COMPARISON: XR chest 10/04/2023 FINDINGS: LUNGS: No significant pulmonary parenchymal abnormalities. VASCULATURE: No increased pulmonary vasculature. PLEURA: No pneumothorax, effusion, or pleural thickening. CARDIAC: No cardiomegaly or cardiac silhouette abnormality. MEDIASTINUM: No visible mass or adenopathy. BONES: No fracture or visible bone lesion. OTHER: Negative. XR/XR chest 1V IMPRESSION: 1. No acute cardiopulmonary process. Stable chest. Electronically authenticated by: SULAIMAN MERCEDES Date: 11/22/2024 13:57
--- NOTE | 2024-11-22 13:00 | ECG_ITS ---
The [facility] Test Date: 2024-11-22 Pat Name: DONA NAGY Department: Room: - Gender: Female Recoverer: : 1935 Requested By: [id number] Order Number: [id number] Reading MD: CONSUELO COWAN Measurements Intervals Joffre Rate: 79 P: 65 MS: 148 QRS: 47 QRSD: 82 T: 150 QT: 292 QTc: 327 Interpretive Statements 1100 Sinus rhythm 4068 Nonspecific Twave abnormality 8305 Short QTc interval 9150 abnormal ECG Compared to ECG 10/04/2023 11:16:10 T-wave abnormality no longer present Electronically Signed On 11-27-2024 18:29:33 EST by CONSUELO COWAN
--- NOTE | 2024-11-22 13:01 | CT_ITS ---
The [address] [address] Patient Name: DONA NAGY MRN: [facility]:[id number] date: 1935 Sex: F Assigned Patient Location: ER Current Patient Location: ER Accession/Order Number: [id number] Exam Date: 11/22/2024 13:39 Report Date: 11/22/2024 13:55 At the request of: LEXIS HANSEN Procedure: CT head/brain wo con EXAM: CT head/brain wo con HISTORY: Near syncope COMPARISON: CT abdomen 03/14/2024. TECHNIQUE: Axial soft tissue and bone windows through the calvarium with coronal and sagittal reformats. CT dose reduction technique was used including Automated Exposure Control. Findings: The paranasal sinuses and mastoid air cells are well aerated. No air-fluid levels. No extra-axial fluid collection. No intra-axial or extra-axial bleed. No mass effect or midline shift. The robbins-white matter differentiation is preserved. There are white matter low attenuation lesions which are nonspecific but commonly attributed to chronic small vessel ischemic disease. The brain parenchymal volume is reduced yet likely age-appropriate and there is mild ex vacuo dilatation of the ventricles. The basal cisterns are patent. The craniovertebral junction is unremarkable. CT/CT head/brain wo con IMPRESSION: 1. No acute intracranial abnormality. 2. Senescent changes. Electronically authenticated by: LOS MENA Date: 11/22/2024 13:55
--- NOTE | 2024-11-22 13:02 | ED.GENADUL1 ---
HPI HPI - General Adult General Chief complaint: Weakness Stated complaint: GENERAL WEAKNESS Time Seen by Provider: 11/22/24 12:59 Mode of arrival: walk-in History of Present Illness HPI narrative: Patient is an 89-year-old female with a history of frequent UTIs, anemia, borderline diabetes who presents to the emergency department by EMS for near syncopal episode that occurred while she was shopping with her daughter. Patient states that she got profoundly weak while they were shopping denies any other focal medical complaints other than feeling mildly weak at this time. Daughter separately states that the patient seemed to be incoherent and near syncopal for several seconds, they lowered her to a chair where she became more alert and responsive. She did not have a fall to the ground or head injury. Daughter states that she gets UTIs frequently and the patient has a history of being dehydrated. Patient denies any pain or nausea at this time. She denies recent illness. No medications taken prior to arrival. EMS was unable to establish an IV. Vital signs are stable at arrival. Related Data Home Medications ?Medication ?Instructions ?Recorded ?Confirmed acetaminophen 650 mg 650 mg PO Q8H PRN pain 04/14/23 05/08/24 tablet,extended release (Tylenol Arthritis Pain) bupropion HCl 150 mg 24 hr tablet, 150 mg PO DAILY 04/14/23 05/08/24 extended release levothyroxine 50 mcg tablet 50 mcg PO DAILY 04/14/23 05/08/24 meloxicam 7.5 mg tablet 7.5 mg PO DAILY 04/14/23 05/08/24 oxybutynin chloride 5 mg tablet 5 mg PO Q12H 04/14/23 05/08/24 trolamine salicylate 10 % topical 1 applic topical DAILY 04/14/23 04/14/23 cream (Aspercreme) Allergies Allergy/AdvReac Type Severity Reaction Status Date / Time No Known Drug Allergies Allergy Verified 05/08/24 11:54 Opioid HPI Opioid Management Most Recent Opioid Data: Last Pain Scale 1 05/08/24 11:45 05/08/24 Review of Systems ROS Constitutional Denies: fever or chills Ears, nose, mouth, and throat Denies: throat pain or nasal congestion Cardiovascular Denies: chest pain Respiratory Denies: shortness of breath Gastrointestinal Denies: nausea or vomiting Musculoskeletal Denies: back pain or neck pain Integumentary/Breast Denies: rash Neurological Reports: weakness in extremities; Denies: numbness in extremities Hematologic/Lymphatic Denies: easy bruising or easy bleeding PFSH PFSH Medical History (Updated 11/22/24 @ 15:29 by IMAN Medrano) Shoulder pain, right ?M25.511 - Pain in right shoulder (ICD-10) Hydronephrosis of right kidney ?N13.30 - Unspecified hydronephrosis (ICD-10) Acute urinary tract infection ?N39.0 - Urinary tract infection, site not specified (ICD-10) Right nephrolithiasis ?N20.0 - Calculus of kidney (ICD-10) Osteoarthritis ?M19.90 - Unspecified osteoarthritis, unspecified site (ICD-10) Degenerative disc disease Incontinence ?R32 - Unspecified urinary incontinence (ICD-10) Bilateral hip pain ?M25.551 - Pain in right hip (ICD-10) ?M25.552 - Pain in left hip (ICD-10) Hypothyroid ?E03.9 - Hypothyroidism, unspecified (ICD-10) Small bowel obstruction ?K56.609 - Unspecified intestinal obstruction, unspecified as to partial versus complete obstruction (ICD-10) Arterial disease ?I77.9 - Disorder of arteries and arterioles, unspecified (ICD-10) Surgical History (Updated 05/04/24 @ 13:27 by Sherry Cobb) H/O cataract removal with insertion of prosthetic lens ?Z98.49 - Cataract extraction status, unspecified eye (ICD-10) ?Z96.1 - Presence of intraocular lens (ICD-10) History of lumbosacral spine surgery ?Z98.890 - Other specified postprocedural states (ICD-10) History of colon resection ?Z90.49 - Acquired absence of other specified parts of digestive tract (ICD-10) History of cholecystectomy ?Z90.49 - Acquired absence of other specified parts of digestive tract (ICD-10) Family History Brother Family history of CHF (congestive heart failure) Family history of cancer Family history of diabetes mellitus Sister Family history of diabetes mellitus Mother Family history of diabetes mellitus Social History Within the past year, how often did you have a drink containing alcohol: never Score interpretation: A score less than 3 is consistent with normal alcohol consumption. Smoking status: Former smoker Non-prescribed substance use: denies use Previous occupational history: Retired from Highest level of school completed/degree received: 10th grade Are you now , , , , never or living with a partner: In a typical week, how many times do you talk on the telephone with family, friends, or neighbors: 3 or more times per week How often do you get together with friends or relatives: 3 or more times per week Little interest or pleasure in doing things: not at all Feeling down, depressed, or hopeless: not at all Feel stressed/tense/nervous/anxious/difficulty sleeping: only a little Do you think of yourself as: straight/heterosexual Gender Identity: female Exam Narrative Exam Narrative: Gen.: Awake, alert, in no distress Head: Normocephalic, atraumatic ENT: Moist mucous membranes Respiratory: No respiratory distress, lungs clear bilaterally Cardio: Regular rate and rhythm Gastrointestinal: Abdomen is soft, nondistended and nontender to palpation Extremities: Moves extremities equally, no injuries noted Psych: Normal mood and affect Neuro: No focal neuro deficit Skin: Warm, dry, intact Constitutional Vital Signs, click to edit/add: Last Vital Signs Temp 98.2 F 11/22/24 12:59 Pulse 96 H 11/22/24 14:05 Resp 26 H 11/22/24 14:05 BP 120/70 11/22/24 14:33 Pulse Ox 98 11/22/24 12:59 O2 Del Method Room Air 11/22/24 12:59 Course Vital Signs Vital signs: Vital Signs Temperature 98.2 F 11/22/24 12:59 Pulse Rate 78 11/22/24 12:59 Respiratory Rate 18 11/22/24 12:59 Blood Pressure 155/50 H 11/22/24 12:59 Pulse Oximetry 98 11/22/24 12:59 Oxygen Delivery Method Room Air 11/22/24 12:59 Temperature 98.2 F 11/22/24 12:59 Pulse Rate 96 H 11/22/24 14:05 Respiratory Rate 26 H 11/22/24 14:05 Blood Pressure 120/70 11/22/24 14:33 Pulse Oximetry 98 11/22/24 12:59 Oxygen Delivery Method Room Air 11/22/24 12:59 Medical Decision Making MDM Narrative Medical decision making narrative: Patient treated with IV fluids, she did not require any medications for nausea or pain. Lab studies show mild elevation of creatinine consistent with dehydration. She did have an episode of loose stool in the ER but we were not able to collect it and she is still not produced a urine specimen. Otherwise labs, CT of the brain and chest x-ray are unremarkable. Due to the patient's age and dehydration with near syncopal episode, she is admitted for observation and continued IV fluids. Daughter is appreciative, she prefers the patient stay for observation. Patient is agreeable. Stable at time of admission. SUPERVISED APC VISIT, PHYSICIAN ATTESTATION: Based on the medical record the care appears appropriate. ? Medical Records Medical records reviewed: Yes I reviewed the patient's medical records Lab Data Lab results reviewed: Yes I reviewed the patient's lab results Labs: Lab Results 11/22/24 11/22/24 Range/Units 13:29 14:23 WBC 8.7 (4.0-11.0) 10^3/uL RBC 4.34 (4.20-5.40) 10^6/uL Hgb 13.6 (12.0-16.0) g/dL Hct 42.1 (36.0-48.0) % MCV 97.0 (81.0-99.0) fL MCH 31.3 (26.7-34.0) pg MCHC 32.3 (29.9-35.2) g/dL RDW 13.8 (11.0-15.0) % Plt Count 256 (150-450) 10^3/uL MPV 9.3 L (9.5-13.5) fL Neut % (Auto) 63.6 (43.0-75.0) % Lymph % (Auto) 24.3 (20.5-60.0) % [place] % (Auto) 9.4 (1.7-12.0) % Eos % (Auto) 1.7 (0.9-7.0) % Baso % (Auto) 0.8 (0.2-2.0) % Neut # (Auto) 5.5 (1.4-6.5) 10^3/uL Lymph # (Auto) 2.1 (1.2-3.8) 10^3/uL [place] # (Auto) 0.8 (0.3-0.8) 10^3/uL Eos # (Auto) 0.2 (0.0-0.7) 10^3/uL Baso # (Auto) 0.1 (0.0-0.1) 10^3/uL Abs Immat Gran (auto) 0.02 (0.00-0.03) 10^3/uL Imm/Tot Granulo (auto) 0.2 (0.0-0.5) % PT 10.6 (9.0-11.6) sec INR 1.00 Sodium 141 (136-145) mmol/L Potassium 4.7 (3.5-5.1) mmol/L Chloride 105 (98-107) mmol/L Carbon Dioxide 26.2 (21.0-32.0) mmol/L Anion Gap 14.5 BUN 22.0 H (7.0-18.0) mg/dL Creatinine 1.87 H (0.55-1.02) mg/dL Est GFR ( Amer) 31 L (>=60 mL/min/1.73m^2) Est GFR (Non-Af Amer) 25 L (>=60 mL/min/1.73m^2) BUN/Creatinine Ratio 11.8 Glucose 144 H (74-106) mg/dL Calcium 9.7 (8.5-10.1) mg/dL Total Bilirubin 0.4 (0.2-1.0) mg/dL AST 20 (15-37) U/L ALT 15 (14-59) U/L Alkaline Phosphatase 79 (46-116) U/L Troponin I High Sens 4.8 (4.0-51.3) pg/mL Total Protein 7.2 (6.4-8.2) g/dL Albumin 3.8 (3.4-5.0) g/dL Globulin 3.4 g/dL Albumin/Globulin Ratio 1.1 TSH 0.930 (0.358-3.740) uIU/mL Influenza Type A Ag Negative Influenza Type B Ag Negative SARS-CoV-2 Ag (CV2AG) Negative (NEGATIVE) Imaging Data CT scan - head: Attestation: I have reviewed the pertinent imaging results. Radiologist's impression: ITS Impressions Chest X-Ray 01/29/25 13:00 IMPRESSION: 1. No acute cardiopulmonary process. Stable chest. Electronically authenticated by: SULAIMAN MERCEDES Date: 11/22/2024 13:[address] 11/22/24 13:01 IMPRESSION: 1. No acute intracranial abnormality. 2. Senescent changes. Electronically authenticated by: LOS EMNA Date: 11/22/2024 13:55 ECG Data Attestation: I personally reviewed and interpreted this ECG as follows: (Normal sinus rhythm at a rate of [address] elevation or ectopy. EKG reviewed by attending physician) Discharge Plan Discharge Chief Complaint: Weakness Clinical Impression: Weakness, Acute dehydration, Near syncope Disposition: Admitted as Observation Time of Disposition Decision: 15:28 Condition: Good Prescriptions / Home Meds: No Action meloxicam 7.5 mg tablet 7.5 mg PO DAILY levothyroxine 50 mcg tablet 50 mcg PO DAILY oxybutynin chloride 5 mg tablet 5 mg PO Q12H bupropion HCl 150 mg tablet extended release 24 hr 150 mg PO DAILY trolamine salicylate [Aspercreme] 10 % cream 1 applic topical DAILY acetaminophen [Tylenol Arthritis Pain] 650 mg tablet extended release 650 mg PO Q8H PRN (Reason: pain) Print Language: Thai Referrals: Jose Padilla MD [Primary Care Provider] - 1 week
[2024-11-22 13:35] LABS: Basophils Absolute Auto 0.1 10^3/uL (0.0-0.1); Basophils Percent Auto 0.8 % (0.2-2.0); Eosinophils Absolute Auto 0.2 10^3/uL (0.0-0.7); Eosinophils Percent Auto 1.7 % (0.9-7.0); Hematocrit 42.1 % (36.0-48.0); Hemoglobin 13.6 g/dL (12.0-16.0); Immature Granulocytes Abs Auto 0.02 10^3/uL (0.00-0.03); Immature Granulocytes Pct Auto 0.2 % (0.0-0.5); Lymphocytes Absolute Auto 2.1 10^3/uL (1.2-3.8); Lymphocytes Percent Auto 24.3 % (20.5-60.0); Mean Corpuscular HGB Conc 32.3 g/dL (29.9-35.2); Mean Corpuscular Hemoglobin 31.3 pg (26.7-34.0); Mean Platelet Volume 9.3 fL (9.5-13.5); Monocytes Absolute Auto 0.8 10^3/uL (0.3-0.8); Monocytes Percent Auto 9.4 % (1.7-12.0); Neutrophils Absolute Auto 5.5 10^3/uL (1.4-6.5); Neutrophils Percent Auto 63.6 % (43.0-75.0); Platelet Count 256 10^3/uL (150-450); Red Blood Count 4.34 10^6/uL (4.20-5.40); Red Cell Distribution Width 13.8 % (11.0-15.0); White Blood Count 8.7 10^3/uL (4.0-11.0)
[2024-11-22 13:48] LABS: Prothrombin Time 10.6 sec (9.0-11.6)
[2024-11-22 14:06] LABS: Alanine Aminotransferase 15 U/L (14-59); Albumin Globulin Ratio 1.1; Albumin Level 3.8 g/dL (3.4-5.0); Alkaline Phosphatase 79 U/L (46-116); Anion Gap 14.5; Aspartate Amino Transferase 20 U/L (15-37); BUN Creatinine Ratio 11.8; Bilirubin Total 0.4 mg/dL (0.2-1.0); Calcium 9.7 mg/dL (8.5-10.1); Carbon Dioxide 26.2 mmol/L (21.0-32.0); Chloride 105 mmol/L (98-107); Estimated GFR (African America 31 (>=60 mL/min/1.73m^2); Estimated GFR (Non-African Ame 25 (>=60 mL/min/1.73m^2); Globulin 3.4 g/dL; Glucose 144 mg/dL (74-106); Potassium 4.7 mmol/L (3.5-5.1); Sodium 141 mmol/L (136-145); Total Protein 7.2 g/dL (6.4-8.2); Troponin I High Sensitivity 4.8 pg/mL (4.0-51.3)
[2024-11-22] MEDS: 0.9 % SODIUM CHLORIDE 1,000 ML 500 ML IV (14:08)
[2024-11-22 15:05] LABS: Influenza Virus A Antigen Negative; Influenza Virus B Antigen Negative; Internal Control Within Normal Limits; SARS-CoV-2 Ag NEGATIVE (NEGATIVE)
[2024-11-22 15:36] LABS: Lactate/Lactic Acid 1.2 mmol/L (0.4-2.0)
[2024-11-22 15:50] LABS: Bilirubin Urine NEGATIVE (NEGATIVE); Blood Urine TRACE-I (NEGATIVE); Clarity Urine CLEAR (CLEAR); Color Urine LT. YELLOW (YELLOW); Glucose Urine UA NEGATIVE (NEGATIVE); Ketones Urine NEGATIVE (NEGATIVE); Leukocyte Esterase Urine SMALL (NEGATIVE); Nitrite Urine POSITIVE (NEGATIVE); Protein Urine NEGATIVE (NEG/TRACE); Specific Gravity Urine <=1.005 (1.005-1.025); Urobilinogen Urine 0.2 EU/dL (0.2-1.0); pH Urine 6.5 (5.0-9.0)
[2024-11-22 16:08] LABS: Bacteria Urine SMALL #/HPF (NONE SEEN); Mucus Urine NONE SEEN (NONE SEEN); RBC Urine 0-2 #/HPF (0-2)
[2024-11-22 16:09] LABS: Cast Seen? NONE SEEN #/LPF (NONE SEEN); Crystals Seen? None Seen #/HPF (None Seen); Squamous Epithelial Cell Urine RARE #/LPF (NONE/RARE); Urine Culture Indicated YES
--- NOTE | 2024-11-22 19:11 | P.HP_ITS ---
HPI H&P: HPI History of Present Illness Chief complaint: dehydration, near syncope uti Narrative: Patient had a syncopal episode at home, she was may be out for just a few seconds and then woke up and was back to her normal self. Fortunately she was sitting down at the time. In ER workup found to have patient with significant hypotension, and acute UTI, patient admitted for workup and treatment of same Opioid HPI Opioid Management Most Recent Pain and Opioid Data: Last Pain Scale 1 05/08/24 11:45 05/08/24 Last Pain Assessment 11/22/24 18:00 Last ORT Total Score 0 11/22/24 16:05 11/22/24 Last ORT Risk Category Low Risk 11/22/24 16:05 11/22/24 PFSH PFSH Medical History (Updated 11/22/24 @ 20:13 by Jose Padilla MD) Shoulder pain, right ?M25.511 - Pain in right shoulder (ICD-10) Hydronephrosis of right kidney ?N13.30 - Unspecified hydronephrosis (ICD-10) Acute urinary tract infection ?N39.0 - Urinary tract infection, site not specified (ICD-10) Right nephrolithiasis ?N20.0 - Calculus of kidney (ICD-10) Osteoarthritis ?M19.90 - Unspecified osteoarthritis, unspecified site (ICD-10) Degenerative disc disease Incontinence ?R32 - Unspecified urinary incontinence (ICD-10) Bilateral hip pain ?M25.551 - Pain in right hip (ICD-10) ?M25.552 - Pain in left hip (ICD-10) Hypothyroid ?E03.9 - Hypothyroidism, unspecified (ICD-10) Small bowel obstruction ?K56.609 - Unspecified intestinal obstruction, unspecified as to partial versus complete obstruction (ICD-10) Arterial disease ?I77.9 - Disorder of arteries and arterioles, unspecified (ICD-10) Surgical History H/O cataract removal with insertion of prosthetic lens ?Z98.49 - Cataract extraction status, unspecified eye (ICD-10) ?Z96.1 - Presence of intraocular lens (ICD-10) History of lumbosacral spine surgery ?Z98.890 - Other specified postprocedural states (ICD-10) History of colon resection ?Z90.49 - Acquired absence of other specified parts of digestive tract (ICD- 10) History of cholecystectomy ?Z90.49 - Acquired absence of other specified parts of digestive tract (ICD- 10) Family History Brother Family history of CHF (congestive heart failure) Family history of cancer Family history of diabetes mellitus Sister Family history of diabetes mellitus Mother Family history of diabetes mellitus Social History Within the past year, how often did you have a drink containing alcohol: never Score interpretation: A score less than 3 is consistent with normal alcohol consumption. Smoking status: Former smoker Non-prescribed substance use: denies use Previous occupational history: Retired from Highest level of school completed/degree received: 10th grade Are you now , , , , never or living with a partner: In a typical week, how many times do you talk on the telephone with family, friends, or neighbors: 3 or more times per week How often do you get together with friends or relatives: 3 or more times per week Little interest or pleasure in doing things: not at all Feeling down, depressed, or hopeless: not at all Feel stressed/tense/nervous/anxious/difficulty sleeping: only a little Do you think of yourself as: straight/heterosexual Gender Identity: female Meds Home Medications and Allergies Home Medications ?Medication ?Instructions ?Recorded ?Confirmed ?Type acetaminophen 650 mg 650 mg PO Q8H PRN pain 04/14/23 11/22/24 History tablet,extended release (Tylenol Arthritis Pain) bupropion HCl 150 mg 24 hr tablet, 150 mg PO DAILY 04/14/23 11/22/24 History extended release meloxicam 7.5 mg tablet 7.5 mg PO DAILY 04/14/23 11/22/24 History levothyroxine 75 mcg tablet 75 mcg PO DAILY 11/22/24 11/22/24 History Allergies Allergy/AdvReac Type Severity Reaction Status Date / Time No Known Drug Allergies Allergy Verified 05/08/24 11:54 Exam Constitutional Vital Signs, click to edit/add: Last Vital Signs Temp 98.2 F 11/22/24 16:05 Pulse 79 11/22/24 16:05 Resp 18 11/22/24 16:05 BP 150/65 H 11/22/24 16:05 Pulse Ox 94 L 11/22/24 16:05 O2 Del Method Room Air 11/22/24 16:05 Documenting provider has reviewed patient's vital signs: yes Common normals: no apparent distress Chest Common normals: inspection of chest normal Respiratory Common normals: normal respiratory effort and no retractions Cardio Common normals: regular rate and regular rhythm Extremity Common normals: normal to inspection Neuro Common normals: oriented x3, CN's II-XII intact bilaterally and moves all extre mities Results Labs Labs: Short CBC 11/22/24 Range/Units 13:29 WBC 8.7 (4.0-11.0) 10^3/uL Hgb 13.6 (12.0-16.0) g/dL Hct 42.1 (36.0-48.0) % Plt Count 256 (150-450) 10^3/uL BMP 11/22/24 13:29 Sodium 141 Potassium 4.7 Chloride 105 Carbon Dioxide 26.2 BUN 22.0 H Creatinine 1.87 H Glucose 144 H Calcium 9.7 Liver Function 11/22/24 Range/Units 13:29 Total Bilirubin 0.4 (0.2-1.0) mg/dL AST 20 (15-37) U/L ALT 15 (14-59) U/L Alkaline Phosphatase 79 (46-116) U/L Albumin 3.8 (3.4-5.0) g/dL Urine 11/22/24 Range/Units 15:43 Urine Color Lt. yellow (YELLOW) Urine Clarity Clear (CLEAR) Urine pH 6.5 (5.0-9.0) Ur Specific [place] <=1.005 A (1.005-1.025) Urine Protein Negative (NEG/TRACE) mg/dL Urine Glucose (UA) Negative (NEGATIVE) mg/dL Assessment and Plan Assessment and Plan (1) Acute dehydration: (2) Weakness: (3) Syncope: Plan Admission findings: Uncontrolled hypertension, acute UTI and acute elevation in creatinine Syncopal episode resulting from acute UTI-fluids for tonight, treat the UTI with 2 different antibiotics, reevaluate in a.m. Acute kidney injury stage I-baseline creatinine of 1.16, admission creatinine of 1.87 which is 161.2% above baseline with decreased urine output in the last 6 hours to break that stage I, IV fluids overnight Hypothyroidism-continue with home medications Admission status: Patient admitted with syncopal episode, just a few seconds, likely related to hypotension blood pressure was actually elevated on admission, she is improved from baseline presentation to emergency room, medically necessary treatment will likely only span 1 midnight, observation status
[2024-11-22] MEDS: CEFTRIAXONE 1,000 MG in 0.9 % SODIUM CHLORIDE 50 ML 100 MG IV (20:40)
[2024-11-22] MEDS: FLU VACC QS2024(65UP)/MF59C/PF 60 MCG/0.5 ML SYRINGE IM (21:56)
[2024-11-22] MEDS: CIPROFLOXACIN IN 5 % DEXTROSE 400 MG/200 ML PREMIX 200 MG IV (21:56)
[2024-11-22] MEDS: LACTATED RINGER'S SOLUTION 1,000 ML 100 ML IV (23:06)
[2024-11-23 03:21] VITALS: BP 139/60; PULSE 80; TEMP 36.6; O2SAT 95
[2024-11-23] MEDS: ACETAMINOPHEN 500 MG TABLET 1000 MG PO (03:24)
[2024-11-23] MEDS: LEVOTHYROXINE SODIUM 75 MCG TABLET PO (05:55)
[2024-11-23 06:55] LABS: Basophils Percent Auto 0.4 % (0.2-2.0); Eosinophils Absolute Auto 0.1 10^3/uL (0.0-0.7); Hematocrit 37.2 % (36.0-48.0); Hemoglobin 11.9 g/dL (12.0-16.0); Immature Granulocytes Abs Auto 0.03 10^3/uL (0.00-0.03); Immature Granulocytes Pct Auto 0.3 % (0.0-0.5); Lymphocytes Absolute Auto 3.3 10^3/uL (1.2-3.8); Lymphocytes Percent Auto 29.5 % (20.5-60.0); Mean Corpuscular Hemoglobin 31.4 pg (26.7-34.0); Mean Corpuscular Volume 98.2 fL (81.0-99.0); Mean Platelet Volume 9.3 fL (9.5-13.5); Monocytes Absolute Auto 1.2 10^3/uL (0.3-0.8); Monocytes Percent Auto 11.2 % (1.7-12.0); Neutrophils Absolute Auto 6.4 10^3/uL (1.4-6.5); Neutrophils Percent Auto 57.6 % (43.0-75.0); Platelet Count 214 10^3/uL (150-450); Red Blood Count 3.79 10^6/uL (4.20-5.40); Red Cell Distribution Width 13.7 % (11.0-15.0)
[2024-11-23 07:07] LABS: Anion Gap 11.8; Calcium 8.6 mg/dL (8.5-10.1); Carbon Dioxide 23.1 mmol/L (21.0-32.0); Chloride 110 mmol/L (98-107); Estimated GFR (African America 41 (>=60 mL/min/1.73m^2); Estimated GFR (Non-African Ame 34 (>=60 mL/min/1.73m^2); Glucose 95 mg/dL (74-106); Potassium 3.9 mmol/L (3.5-5.1); Sodium 141 mmol/L (136-145)
[2024-11-23 08:00] VITALS: BP 146/77; PULSE 72; TEMP 36.4; O2SAT 95
--- NOTE | 2024-11-23 09:21 | P.DS_ITS ---
DS: Providers Provider Date of admission: 11/22/24 15:59 Primary care physician: Jose Padilla MD Consults: 11/22/24 Consult to Dietitian Routine Reason for consultation: poor appetite, weight loss 11/23/24 09:18 Physical Therapy Eval and Treat Routine Reason for consultation: eval and treat Has provider been notified: No DS: Diagnosis Discharge Diagnosis (1) Acute dehydration: (2) Weakness: (3) Syncope: Plan Admission findings: Uncontrolled hypertension, acute UTI and acute elevation in creatinine Syncopal episode resulting from acute UTI-fluids for tonight, treat the UTI with 2 different antibiotics, reevaluate in a.m. Acute kidney injury stage I-baseline creatinine of 1.16, admission creatinine of 1.87 which is 161.2% above baseline with decreased urine output in the last 6 hours to break that stage I, IV fluids overnight Hypothyroidism-continue with home medications Admission status: Patient admitted with syncopal episode, just a few seconds, l solomonely related to hypotension blood pressure was actually elevated on admission, she is improved from baseline presentation to emergency room, medically necessary treatment will likely only span 1 midnight, observation status ? DS: Summary Hospital Course Hospital Course: Patient well-known to me from the office, presented to the emergency room status post syncopal episode and hypotension, by the time she got to the emergency room blood pressure was actually somewhat elevated, she was found to have an acute U TI with the syncope she was monitored overnight, no significant findings on telemetry her blood pressure stabilized, the plan was to have her ambulate, if she ambulated safely without assistance, she can be discharged to home in improving condition. Medications see list. Follow-up with me within the next week. Status at Discharge Overall status at discharge: patient is not back to baseline Time Spent with Patient Time attestation: Total time spent providing and/or coordinating discharge services: Time spent: greater than 30 minutes Exam Constitutional Vital Signs, click to edit/add: Last Vital Signs Temp 97.6 F 11/23/24 08:00 Pulse 72 11/23/24 08:00 Resp 16 11/23/24 08:00 BP 146/77 H 11/23/24 08:00 Pulse Ox 95 11/23/24 08:00 O2 Del Method Room Air 11/23/24 08:00 Documenting provider has reviewed patient's vital signs: yes Common normals: no apparent distress Chest Common normals: inspection of chest normal Respiratory Common normals: normal respiratory effort and no retractions Cardio Common normals: regular rate and regular rhythm Extremity Common normals: normal to inspection Neuro Common normals: oriented x3, CN's II-XII intact bilaterally and moves all extremities DS: Data Data Completed and Pending Labs on day of discharge: Labs from last 24 hours 11/23/24 11/22/24 11/22/24 06:41 15:43 15:07 WBC 11.0 RBC 3.79 L Hgb 11.9 L Hct 37.2 MCV 98.2 MCH 31.4 MCHC 32.0 RDW 13.7 Plt Count 214 MPV 9.3 L Neut % (Auto) 57.6 Lymph % (Auto) 29.5 Hunt % (Auto) 11.2 Eos % (Auto) 1.0 Baso % (Auto) 0.4 Neut # (Auto) 6.4 Lymph # (Auto) 3.3 Hunt # (Auto) 1.2 H Eos # (Auto) 0.1 Baso # (Auto) 0.0 Abs Immat Gran (auto) 0.03 Imm/Tot Granulo (auto) 0.3 PT INR Sodium 141 Potassium 3.9 Chloride 110 H Carbon Dioxide 23.1 Anion Gap 11.8 BUN 19.0 H Creatinine 1.46 H Est GFR ( Amer) 41 L Est GFR (Non-Af Amer) 34 L BUN/Creatinine Ratio 13.0 Glucose 95 Lactate 1.2 Calcium 8.6 Total Bilirubin AST ALT Alkaline Phosphatase Troponin I High Sens Total Protein Albumin Globulin Albumin/Globulin Ratio TSH Urine Color Lt. yellow Urine Clarity Clear Urine pH 6.5 Ur Specific [place] <=1.005 A Urine Protein Negative Urine Glucose (UA) Negative Urine Ketones Negative Urine Occult Blood Trace-i Urine Nitrite Positive A Urine Bilirubin Negative Urine Urobilinogen 0.2 Ur Leukocyte Esterase Small A Urine RBC 0-2 Urine WBC 5-10 A Ur Squamous Epith Cells Rare Urine Crystals None seen Urine Bacteria Small A Urine Casts None seen Urine Mucus None seen Ur Culture Indicated? Yes Influenza Type A Ag Influenza Type B Ag SARS-CoV-2 Ag (CV2AG) 11/22/24 11/22/24 14:23 13:29 WBC 8.7 RBC 4.34 Hgb 13.6 Hct 42.1 MCV 97.0 MCH 31.3 MCHC 32.3 RDW 13.8 Plt Count 256 MPV 9.3 L Neut % (Auto) 63.6 Lymph % (Auto) 24.3 Hunt % (Auto) 9.4 Eos % (Auto) 1.7 Baso % (Auto) 0.8 Neut # (Auto) 5.5 Lymph # (Auto) 2.1 Hunt # (Auto) 0.8 Eos # (Auto) 0.2 Baso # (Auto) 0.1 Abs Immat Gran (auto) 0.02 Imm/Tot Granulo (auto) 0.2 PT 10.6 INR 1.00 Sodium 141 Potassium 4.7 Chloride 105 Carbon Dioxide 26.2 Anion Gap 14.5 BUN 22.0 H Creatinine 1.87 H Est GFR ( Amer) 31 L Est GFR (Non-Af Amer) 25 L BUN/Creatinine Ratio 11.8 Glucose 144 H Lactate Calcium 9.7 Total Bilirubin 0.4 AST 20 ALT 15 Alkaline Phosphatase 79 Troponin I High Sens 4.8 Total Protein 7.2 Albumin 3.8 Globulin 3.4 Albumin/Globulin Ratio 1.1 TSH 0.930 Urine Color Urine Clarity Urine pH Ur Specific [place] Urine Protein Urine Glucose (UA) Urine Ketones Urine Occult Blood Urine Nitrite Urine Bilirubin Urine Urobilinogen Ur Leukocyte Esterase Urine RBC Urine WBC Ur Squamous Epith Cells Urine Crystals Urine Bacteria Urine Casts Urine Mucus Ur Culture Indicated? Influenza Type A Ag Negative Influenza Type B Ag Negative SARS-CoV-2 Ag (CV2AG) Negative Discharge Plan Discharge Disposition: Home, Self-Care Condition: Good Discharge Medications: New ciprofloxacin HCl [Cipro] 500 mg tablet 500 mg PO Q12H Qty: 20 0RF Continued meloxicam 7.5 mg tablet 7.5 mg PO DAILY bupropion HCl 150 mg tablet extended release 24 hr 150 mg PO DAILY acetaminophen [Tylenol Arthritis Pain] 650 mg tablet extended release 650 mg PO Q8H PRN (Reason: pain) levothyroxine 75 mcg tablet 75 mcg PO DAILY Activity: ambulate only with your walker and resume usual activities as tolerated Diet: regular diet Print Language: Khmer Patient Instructions: How to Choose and Use a Walker (GEN), Urinary Tract Infection in Older Adults (DC) Forms: Portal Instructions Follow Up Appointments: Nov.30 @ 10:30am with Dr. Padilla [phone] Discharge Date/Time: 11/23/24 11:26
[2024-11-23] MEDS: BUPROPION HCL 150 MG XL TABLET 24H PO (09:30)
[2024-11-23] MEDS: MELOXICAM 7.5 MG TABLET PO (09:30)
--- NOTE | 2024-11-23 09:46 | CM.NOTE ---
Rounds made with Dr. Padilla, pt will discharge to home today. PT will evaluate pt prior to discharge today for discharge planning.
--- NOTE | 2024-11-23 09:48 | CM.NOTE ---
Medicare Outpatient Observation Notice discussed with pt, pt verbalizes understanding and signs paper. Original given to pt and copy placed on pt's chart.
--- NOTE | 2024-11-30 15:18 | CM.DCFOLLOWU ---
Person spoke with:patient How are you feeling? overall weak and tired. Her son is at home with her How is your pain?none Did you understand your discharge instructions?yes Do you have any questions about your discharge instructions?no Were you given any prescriptions at discharge?yes Were you able to get your prescriptions filled?yes Do you understand how to take your medications as ordered?yes Do you have any questions about your follow up appointment and do you plan to keep your follow up appointment? no questions, had follow up today with PCP Is there anything else that you would like to discuss?no Questions/Comments/Concerns/Other:none
== END 2024-11-23 11:26 | disposition home or self-care (01) ==
LOC: ER 15:29 → MS 16:00
PROVIDERS: Physician Assistant; Admitting Provider Family Medicine; Emergency Provider Emergency Medicine; PCP Family Medicine; Visit Provider Family Medicine
DX: E86.0 Dehydration (principal); R55 Syncope and collapse; R53.1 Weakness; N39.0 Urinary tract infection, site not specified; Z87.440 Personal history of urinary (tract) infections; Z87.891 Personal history of nicotine dependence; R73.03 Prediabetes; Z90.49 Acquired absence of other specified parts of digestive tract; N17.9 Acute kidney failure, unspecified; E03.9 Hypothyroidism, unspecified; I10 Essential (primary) hypertension; Z23 Encounter for immunization
CPT/HCPCS: 36415; 70450; 71045; 80048; 80053; 81001; 83605; 84443; 84484; 85025; 85610; 87045; 87046; 87086; 87150; 87427; 87493; 87804; 87811; 90662; 93005; 93246; 94761; 96361; 96365; 96367; 99285; G0008; G0378; J0696; J0744